=== PATIENT | female | born 1965 | race Caucasian/White ===

== ENCOUNTER 2023-05-03 17:13 | Emergency (ER) | payer MEDICARE, OTHER, SELFPAY ==
[2023-05-03 17:16] VITALS: BP 171/93
[2023-05-03 17:43] LABS: % Basophils 0.1 % (0-2); % Immature Granulocytes 0.5 % (0-0.5); % Lymphocytes 5.9 % (20.5-51.1); % Monocytes 2.9 % (1.7-9.3); % Neutrophils 90.6 % (42.2-75.2); Absolute Lymphocytes 0.5 10^3/uL (1.2-3.4); Absolute Monocytes 0.3 10^3/uL (0.1-0.6); Absolute Neutrophils 7.9 10^3/uL (1.4-6.5); Hematocrit 33.7 % (37.0-47.0); Hemoglobin 10.7 g/dL (12.0-16.0); Mean Corp Hgb Conc. 31.8 g/dL (33.0-37.0); Mean Corpuscular Hgb 25.1 pg (27.0-31.0); Mean Corpuscular Volume 79.1 fL (81.0-99.0); Mean Platelet Volume 9.9 fL (7.4-10.4); Nucleated Red Blood Cells % 0 %; Platelet Count 309 10^3/uL (130-400); Red Blood Cell Count 4.26 10^6/uL (4.20-5.40); Red Cell Dist. Width 15.4 % (11.5-14.5); White Blood Cell Count 8.7 10^3/uL (4.8-10.8)
[2023-05-03 17:51] LABS: ALT (SGPT) 28 U/L (0-35); AST (SGOT) 28 U/L (14-36); Albumin 3.9 g/dl (3.5-5.0); Alkaline Phosphatase 72 U/L (38-126); Blood Urea Nitrogen 18 mg/dl (7-17); Carbon Dioxide 21 mmol/L (22-30); Chloride 101 mmol/L (98-107); Glucose 232 mg/dl (70-99); Potassium 4.4 mmol/L (3.5-5.1); Sodium 136 mmol/L (135-145); Total Bilirubin 0.5 mg/dl (0.2-1.3); Total Protein 6.5 g/dl (6.3-8.2); eGFR > 60.00
[2023-05-03 18:02] LABS: Troponin I < 0.012 ng/ml
--- NOTE | 2023-05-03 18:46 | ED.GENMED ---
History of Present Illness
General
Chief Complaint: Chest Problem
Source: patient
Exam Limitations: none
Time Seen by Provider: 05/03/23 18:08
Travel History
Have you had any contact with someone who has COVID-19?: No
Do you have any symptoms of coronavirus? Fever > 100 degrees, chills, cough, shortness of breath, sore throat, loss of taste or smell, muscle aches, or headache?: No
History of Present Illness
History of Present Illness:
This is a 57 year old female that is frequently seen in the emergency room. Patient comes in today and states that she has had this upper abd/chest bloating feeling and that she feels shaky. States that she just was discharged from [facility] on Sunday
after having an Colonoscopy and Endoscopy. Sates that she was there for 5 days. States that on Sunday she eat out and then she had diarrhea for 2 days. States that she has had a low grade fever yesterday and occasionally she feels SOB. State that
she was also nauseated. denies any chills, chest pain, vomiting, diarrhea, headache, dizziness, urinary burning.
Past History
Past History
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
inflammatory bowel disease,) and Other (Crohn's disease, 'Mass cell activation syndrome', Migraines, Chronic back pain, Hiatal hernia, Renal calculus, Vertigo, factor 8 elevation, ,anemia, Esophageal stretching)
ED Past Surgical History: Cardiac (Loop recorder), Cholecystectomy, Gynecological (Uterine Ablation), Orthopedic (C3-4 spinal fusion, left ear surgery) and Other (Partial right Thyroidectomy )
Social History
Tobacco: Former smoker
Alcohol: None
Drug: None
Personal: (Common Law)
Living: with family
Employment: Disabled
Family History
Family History: Other (Father with coronary artery disease mother with coronary artery disease)
Review of Systems
Review of Systems
All Other Systems: ROS reviewed and negative except as documented in HPI and ROS
Constitutional: Reports fever (low grade); Denies chills
EENT: Reports no symptoms
Respiratory: Reports trouble breathing (Occasional); Denies cough
Cardiac: Reports chest pain
ABD/GI: Reports abdominal pain (Upper abd into chest) and nausea; Denies vomiting or diarrhea
: Reports no symptoms; Denies dysuria, frequency or urgency
Musculoskeletal: Reports no symptoms
Skin: Reports no symptoms
Neurological: Reports no symptoms; Denies dizzy or headache
Psychiatric: Reports no symptoms
Phy Exam
General Physical Exam
General Presentation: well appearing and no apparent distress
General age: appears stated age
General Skin: warm and dry
General Habitus: normal
General Mental: alert
General Hydration: appears well hydrated
ENT Exam
ENT Exam: TM's normal, pharynx normal and neck supple
Eye Exam
Eye Exam: EOMI
Cardiovascular Exam
Cardiovascular Exam: regular rate/rhythm, no edema and normal peripheral pulses
Pulmonary Exam
Pulmonary Exam: lungs clear, no respiratory distress, no rales, chest non tender, no crackles, no rhonchi, no wheezing and no cough
Gastrointestinal Exam
Gastrointestinal Exam: normal bowel sounds, soft, no organomegaly, no pulsatile mass, non distended and tender (epigastric tenderness with palpation)
Musculoskeletal Exam
Musculoskeletal Exam: full ROM and no edema
Skin Exam
Skin Exam: normal color, warm/dry, no rash and no petechia
Psychiatric Exam
Psychiatric Exam: normal mood/affect
Course
Orders/Labs/Results
Orders:
Orders
05/03/23 17:17
Electrocardiogram (*1) Urgent
Reason for Study: Chest Pain
EKG- Treatment ONCE
05/03/23 17:28
Complete Blood Count/With Diff Urgent
Comprehensive Metabolic Panel Urgent
TSH Reflex To Free T4 Urgent
Comment: ADD ON
Troponin I Urgent
05/03/23 18:35
Add On- LAB Urgent
Tests Added?: TSh with reflex Free T4
0.9% Sodium Chloride 1000 ml [Nss] 1,000 ml IV BOLUS
05/03/23 18:52
CR Chest - 2 Views Urgent
Comment:
Reason For Exam: SOB
Abnormal Lab Results
05/03/23
17:28
Hgb 10.7 L g/dL
(12.0-16.0)
Hct 33.7 L %
(37.0-47.0)
MCV 79.1 L fL
(81.0-99.0)
MCH 25.1 L pg
(27.0-31.0)
MCHC 31.8 L g/dL
(33.0-37.0)
RDW 15.4 H %
(11.5-14.5)
Absolute Neuts (auto) 7.9 H 10^3/uL
(1.4-6.5)
Absolute Lymphs (auto) 0.5 L 10^3/uL
(1.2-3.4)
Neutrophils % 90.6 H %
(42.2-75.2)
Lymphocytes % 5.9 L %
(20.5-51.1)
Carbon Dioxide 21 L mmol/L
(22-30)
BUN 18 H mg/dl
(7-17)
Glucose 232 H mg/dl
(70-99)
05/03/23 17:28
05/03/23 17:28
H/H slightly low. Anemic, Slight dehydration. Glucose nonfasting. troponin <0.012
TSH normal at 3.94
Vital Signs
Initial and Last Documented VS:
Initial Vital Signs
Temp Pulse Resp Pulse Ox
99.3 F 95 18 97
05/03/23 17:15 05/03/23 17:15 05/03/23 17:15 05/03/23 17:15
Last Documented Vital Signs
Temp Pulse Resp BP Pulse Ox
99.3 F 95 18 171/93 97
05/03/23 17:15 05/03/23 17:15 05/03/23 17:15 05/03/23 17:16 05/03/23 17:15
MDM/Problems Addressed
Differential Diagnosis Includes:
Munchausen syndrome, Dehydration.
MDM/Problems Addressed:
This is a 57 year old female that comes in with c/o feeling shaking and a bloating feeling in the upper abd and chest. Patient was just discharged from [facility] on Sunday after having a Colonoscopy and Endoscopy.
Will check labs and get chest x-ray IV fluids
back into see patient. Explained that her blood work is normal along with her chest x-ray. Patient can follow up with the family doctor and the billet bed operator. Return with any concerns.
Chronic conditions affecting care:
NA
Acute Exacerbation and/or Progression of Chronic Illness:
GERD
*Radiology
Radiology exam reviewed: preliminary read by ED provider (Chest- negative for active disease)
*Pulse Oximetry
Patient hypoxic: no
*EKG
Interpreted by ED Provider?: Yes
Heart Rate: 90
Rate: normal
Rhythm: sinus
[place]: normal axis
Interval: normal interval
QRS Pattern: normal QRS
Ischemia: T-wave inversion (III, aVF, V1, V2, V3, V4, V5, No significant changes from prior)
*Print Journalist Interpretation
Rate: Print Journalist- N/A
*Critical Care Note
Total Time (30-74mins, 75-104mins- exclusive of procedures): Not Applicable
ED Attending Note
-
Portions of this chart may have been created with voice recognition software.� Occasional wrong word or��sound alike� substitutions may have occurred due to the inherent limitations of voice recognition software.
Discharge Plan
Departure
Patient Disposition: Home (Routine Discharge)
Date of Disposition: 05/03/23
Time of Disposition: 20:14
Patient with high blood pressure during this ER visit?: Yes
Condition: Good
Covid-19: Not Applicable
Discharge Problem:
Dehydration
Instructions: Dehydration, Adult (DC), BLOOD PRESSURE
Prescriptions:
No Action
rabeprazole [AcipHex] 20 MG tablet,delayed release (DR/EC)
20 mg PO BID
atenolol 25 MG tablet
12.5 mg PO DAILY
albuterol sulfate [ProAir HFA] 8.5 GM HFA aerosol inhaler
2 puff inhalation R Q4 PRN (Reason: sob/wheezing)
cholecalciferol (vitamin D3) [Vitamin D3] 2,000 UNIT capsule
3,000 unit PO DAILY
ascorbic acid-ascorbate sodium 500 MG wafer
500 mg PO DAILY
diphenhydramine HCl [Banophen] 25 MG capsule
12.5 mg PO QID
acetaminophen 500 mg Tablet
1,000 mg PO Q6H PRN (Reason: mild pain)
losartan 25 mg Tablet
25 mg PO BID
levothyroxine 25 mcg Tablet
25 mcg PO DAILY
fondaparinux 5 mg/0.4 mL Syringe
5 mg SC Q48H
Vitamin B-6 50 mg Capsule
50 mg PO DAILY
Epi E-Z Pen
1 dose SC DAILY PRN (Reason: allergic reaction)
prednisone 50 mg tablet
5 mg PO DAILY
cefuroxime axetil 250 mg tablet
250 mg PO BID 7 Days Qty: 14 0RF
Activity Restrictions/Additional Instructions:
As discussed, your blood work shows your anemia. You are also very slightly dehydrated for which you have been given IV fluids. Please follow up with the Director Of Enterprise Architecture for evaluation of your Thyroid and your diabetes. IF YOU HAVE ANY OTHER
CONCERNS PLEASE RETURN TO THE EMERGENCY ROOM
[2023-05-03] MEDS: NSS 1000 IV (19:20)
[2023-05-03 20:09] LABS: TSH Reflex To Free T4 3.94 uIU/ml (0.47-4.68)
== END 2023-05-03 20:44 | disposition home or self-care (01) ==
LOC: EMR 17:13
PROVIDERS: Emergency Medicine; EMERGENCY PHYSICIAN Emergency Medicine; FAMILY PHYSICIAN Family Medicine
DX: E86.0 Dehydration (principal); I10 Essential (primary) hypertension
CPT/HCPCS: 99285; 96360; 71046; 80053; 84443; 84484; 85025; 93005

== ENCOUNTER 2023-05-18 17:47 | Emergency (ER) | payer MEDICARE, OTHER, SELFPAY ==
[2023-05-18 17:54] VITALS: BP 171/92
[2023-05-18 18:19] LABS: % Basophils 0.7 % (0-2); % Eosinophils 0.5 % (0-6); % Immature Granulocytes 0.4 % (0-0.5); % Lymphocytes 15.9 % (20.5-51.1); % Neutrophils 74.5 % (42.2-75.2); Absolute Lymphocytes 0.9 10^3/uL (1.2-3.4); Absolute Monocytes 0.5 10^3/uL (0.1-0.6); Absolute Neutrophils 4.2 10^3/uL (1.4-6.5); Hematocrit 30.8 % (37.0-47.0); Hemoglobin 9.8 g/dL (12.0-16.0); Mean Corp Hgb Conc. 31.8 g/dL (33.0-37.0); Mean Corpuscular Hgb 24.3 pg (27.0-31.0); Mean Corpuscular Volume 76.2 fL (81.0-99.0); Mean Platelet Volume 9.7 fL (7.4-10.4); Nucleated Red Blood Cells % 0 %; Platelet Count 278 10^3/uL (130-400); Red Blood Cell Count 4.04 10^6/uL (4.20-5.40); Red Cell Dist. Width 15.7 % (11.5-14.5); White Blood Cell Count 5.6 10^3/uL (4.8-10.8)
[2023-05-18 18:31] LABS: ALT (SGPT) 25 U/L (0-35); AST (SGOT) 25 U/L (14-36); Albumin 3.7 g/dl (3.5-5.0); Alkaline Phosphatase 81 U/L (38-126); Blood Urea Nitrogen 17 mg/dl (7-17); Calcium 9.8 mg/dl (8.4-10.2); Carbon Dioxide 26 mmol/L (22-30); Chloride 99 mmol/L (98-107); Glucose 189 mg/dl (70-99); Potassium 4.1 mmol/L (3.5-5.1); Sodium 135 mmol/L (135-145); Total Bilirubin 0.5 mg/dl (0.2-1.3); Total Protein 6.4 g/dl (6.3-8.2); eGFR > 60.00
[2023-05-18 18:41] LABS: Troponin I < 0.012 ng/ml
[2023-05-18 18:47] LABS: COVID-19 Antigen Negative (Negative)
[2023-05-18 19:26] VITALS: BMI 47.3
[2023-05-18 19:37] VITALS: BP 155/85
[2023-05-18 20:00] VITALS: BP 147/84
--- NOTE | 2023-05-18 20:33 | ED.GENMED ---
History of Present Illness
General
Chief Complaint: Chest Problem
Source: patient
Exam Limitations: none
Time Seen by Provider: 05/18/23 19:48
Nursing documentation reviewed up to this point in time: agreed with
Travel History
Have you had any contact with someone who has COVID-19?: No
Do you have any symptoms of coronavirus? Fever > 100 degrees, chills, cough, shortness of breath, sore throat, loss of taste or smell, muscle aches, or headache?: Yes
Symptoms:: dyspnea
History of Present Illness
History of Present Illness:
The patient is a 57-year-old female with multiple medical problems including asthma and Crohn's disease who comes in with complaints of several days of left-sided chest heaviness and shortness of breath on exertion. Patient reports she had a recent
outpatient x-ray which showed a possible left pleural effusion. She reports her doctor told her to come here for a CAT scan to better see this possible effusion. Patient denies leg pain and leg swelling. She has mild left-sided chest pressure at
this time but this has not changed for days. She denies cough. Patient reports that she has been on months of steroids
Past History
Past History
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
inflammatory bowel disease,) and Other (Crohn's disease, 'Mass cell activation syndrome', Migraines, Chronic back pain, Hiatal hernia, Renal calculus, Vertigo, factor 8 elevation, ,anemia, Esophageal stretching)
ED Past Surgical History: Cardiac (Loop recorder), Cholecystectomy, Gynecological (Uterine Ablation), Orthopedic (C3-4 spinal fusion, left ear surgery) and Other (Partial right Thyroidectomy )
Social History
Tobacco: Former smoker
Alcohol: None
Drug: None
Personal: (Common Law)
Living: with family
Employment: Disabled
Family History
Family History: Other (Father with coronary artery disease mother with coronary artery disease)
Review of Systems
Review of Systems
Allergies reviewed?: Yes
All Other Systems: ROS reviewed and negative except as documented in HPI and ROS
Constitutional: Reports no symptoms
EENT: Reports no symptoms
Respiratory: Reports trouble breathing
Cardiac: Reports chest pain
ABD/GI: Reports no symptoms
: Reports no symptoms
Musculoskeletal: Reports no symptoms
Skin: Reports no symptoms
Neurological: Reports no symptoms
Endocrine: Reports no symptoms
Hematologic/Lymphatic: Reports no symptoms
Psychiatric: Reports no symptoms
Phy Exam
Physical Exam
Physical Exam:
Physical Exam
General: no apparent distress, not acutely ill. Speaks in full sentences. No sign of respiratory distress
Neck: supple. no meningeal signs. normal psoterior pharynx
Heart: s1/s2 regular rate and rhythm,
Lungs: no acute respiratory distress. clear bilaterally
Abdomen: normal bowel sounds. not tender. no CVAT
Neuro: alert and oriented. no focal neurological deficits
Skin: no rash
Psychiatric: well kept. interactive and cooperative
Extremities: no edema. no calf tenderness. negative homans. good distal pulses
Course
Orders/Labs/Results
Orders:
Orders
05/18/23 17:52
CR Chest - 2 Views Urgent
Comment:
Reason For Exam: Dyspnea: Abnormal finding on shoulder XRay
05/18/23 17:54
ECG [Electrocardiogram (*1)] Urgent
Reason for Study: Chest Pain
Other Reason for Exam: dyspnea
EKG- Treatment ONCE
05/18/23 18:04
Complete Blood Count/With Diff Urgent
Comprehensive Metabolic Panel Urgent
Troponin I Urgent
05/18/23 18:09
COVID-19 Antigen Urgent
Source: Nasal Swab
Influenza A+B Rapid Molecular Urgent
[place] Source: Nasal Swab
Specimen Description:
05/18/23 21:11
D-Dimer Urgent
05/18/23 21:50
CT Chest W/o Iv Contrast Urgent
Comment:
Reason For Exam: SOB
Abnormal Lab Results
05/18/23
18:04
RBC 4.04 L 10^6/uL
(4.20-5.40)
Hgb 9.8 L g/dL
(12.0-16.0)
Hct 30.8 L %
(37.0-47.0)
MCV 76.2 L fL
(81.0-99.0)
MCH 24.3 L pg
(27.0-31.0)
MCHC 31.8 L g/dL
(33.0-37.0)
RDW 15.7 H %
(11.5-14.5)
Absolute Lymphs (auto) 0.9 L 10^3/uL
(1.2-3.4)
Lymphocytes % 15.9 L %
(20.5-51.1)
Glucose 189 H mg/dl
(70-99)
05/18/23 18:04
05/18/23 18:04
Vital Signs
Initial and Last Documented VS:
Initial Vital Signs
Temp Pulse Resp BP Pulse Ox
99.2 F 92 16 171/92 97
05/18/23 17:54 05/18/23 17:54 05/18/23 17:54 05/18/23 17:54 05/18/23 17:54
Last Documented Vital Signs
Temp Pulse Resp BP Pulse Ox
99.2 F 88 16 155/85 96
05/18/23 17:54 05/18/23 19:37 05/18/23 19:37 05/18/23 19:37 05/18/23 19:37
MDM/Problems Addressed
Differential Diagnosis Includes:
Pleural effusion, pneumonia, CHF, coronary artery disease, PE, asthma exacerbation
MDM/Problems Addressed:
Patient arrives with acute shortness of breath
Chronic conditions affecting care: HTN
Acute Exacerbation and/or Progression of Chronic Illness: HTN
*Radiology
Radiology exam reviewed: preliminary read by ED provider (Chest x-ray reviewed by me. No acute disease) and radiology read reviewed
*Pulse Oximetry
Patient hypoxic: no
*EKG
Interpreted by ED Provider?: Yes
Interpretation: abnormal
Comparison EKG: no changes
Rate: normal
Rhythm: sinus
[place]: normal axis
Interval: normal interval
QRS Pattern: normal QRS
Ischemia: T-wave inversion
*Multimedia Project Manager Interpretation
Rate: normal
Interpretation: normal
Rhythm: sinus
*Critical Care Note
Total Time (30-74mins, 75-104mins- exclusive of procedures): Not Applicable
Data Reviewed
Review of Other/Old Records Reveals: Other (Cardiac echo normal from 2020)
Source: patient
Patient Management
Social determinants of health affecting care: Living situation and Strong social support
Escalation/DeEscalation of care consider admission/obs:
Patient continues to look well and comfortable. She is a normal pulse ox and is not tachypneic or tachycardic. Her lungs are clear.
ED Attending Note
-
Portions of this chart may have been created with voice recognition software.� Occasional wrong word or��sound alike� substitutions may have occurred due to the inherent limitations of voice recognition software.
Discharge Plan
Departure
Patient Disposition: Home (Routine Discharge)
Date of Disposition: 05/18/23
Time of Disposition: 23:18
Patient with high blood pressure during this ER visit?: Yes
Condition: Good
Covid-19: Not Applicable
Discharge Problem:
Acute dyspnea
Instructions: Shortness of Breath, Adult ED, BLOOD PRESSURE
Prescriptions:
No Action
rabeprazole [AcipHex] 20 MG tablet,delayed release (DR/EC)
20 mg PO BID
atenolol 25 MG tablet
12.5 mg PO DAILY
albuterol sulfate [ProAir HFA] 8.5 GM HFA aerosol inhaler
2 puff inhalation R Q4 PRN (Reason: sob/wheezing)
cholecalciferol (vitamin D3) [Vitamin D3] 2,000 UNIT capsule
3,000 unit PO DAILY
ascorbic acid-ascorbate sodium 500 MG wafer
500 mg PO DAILY
diphenhydramine HCl [Banophen] 25 MG capsule
12.5 mg PO QID
acetaminophen 500 mg Tablet
1,000 mg PO Q6H PRN (Reason: mild pain)
losartan 25 mg Tablet
25 mg PO BID
levothyroxine 25 mcg Tablet
25 mcg PO DAILY
fondaparinux 5 mg/0.4 mL Syringe
5 mg SC Q48H
Vitamin B-6 50 mg Capsule
50 mg PO DAILY
Epi E-Z Pen
1 dose SC DAILY PRN (Reason: allergic reaction)
prednisone 50 mg tablet
5 mg PO DAILY
cefuroxime axetil 250 mg tablet
250 mg PO BID 7 Days Qty: 14 0RF
Referrals:
Jeane Mercado MD [Family Provider] -
Interventions
Interventions:
*Risk Screen - Suicide Last Done: 05/18/23 19:31
*General Assessment Last Done: 05/18/23 19:31
*Neglect/Abuse Screening Last Done: 05/18/23 19:31
ED- Fall Risk Assessment Last Done: 05/18/23 19:32
*ED COVID-19 Vaccine History Last Done: 05/18/23 19:31
ED- Cardiac Assessment Last Done: 05/18/23 19:32
ED- Pulmonary Assessment Last Done: 05/18/23 19:32
[2023-05-18 21:00] VITALS: BP 149/87
[2023-05-18 21:42] LABS: D-Dimer < 0.27 ug/mlFEU (0.00-0.50)
[2023-05-18 22:00] VITALS: BP 141/84
[2023-05-18 23:26] VITALS: BP 142/90
== END 2023-05-18 23:44 | disposition home or self-care (01) ==
LOC: EMR 17:47
PROVIDERS: Emergency Medicine; EMERGENCY PHYSICIAN Emergency Medicine; FAMILY PHYSICIAN Family Medicine
DX: R06.00 Dyspnea, unspecified (principal); R07.89 Other chest pain; Z11.52 Encounter for screening for COVID-19; K50.90 Crohn's disease, unspecified, without complications; K21.9 Gastro-esophageal reflux disease without esophagitis; E78.00 Pure hypercholesterolemia, unspecified; E11.9 Type 2 diabetes mellitus without complications; I10 Essential (primary) hypertension; E03.9 Hypothyroidism, unspecified; F41.9 Anxiety disorder, unspecified; K58.9 Irritable bowel syndrome, unspecified; J45.909 Unspecified asthma, uncomplicated; D64.9 Anemia, unspecified; K44.9 Diaphragmatic hernia without obstruction or gangrene; G43.909 Migraine, unspecified, not intractable, without status migrainosus; G89.29 Other chronic pain; Z90.49 Acquired absence of other specified parts of digestive tract; M43.22 Fusion of spine, cervical region; Z86.73 Personal history of transient ischemic attack (TIA), and cerebral infarction without residual deficits; Z86.16 Personal history of COVID-19; Z87.442 Personal history of urinary calculi; Z87.891 Personal history of nicotine dependence; Z88.6 Allergy status to analgesic agent; Z88.1 Allergy status to other antibiotic agents; Z91.041 Radiographic dye allergy status; Z88.5 Allergy status to narcotic agent; Z88.2 Allergy status to sulfonamides; Z88.8 Allergy status to other drugs, medicaments and biological substances; Z91.018 Allergy to other foods; Z91.048 Other nonmedicinal substance allergy status
CPT/HCPCS: 99284; 71046; 71250; 80053; 84484; 85025; 85379; 87502; 87811; 93005

== ENCOUNTER 2023-06-02 15:19 | Emergency (ER) | payer MEDICARE, OTHER, SELFPAY ==
[2023-06-02 15:24] VITALS: BP 157/95
--- NOTE | 2023-06-02 17:38 | ED.GENMED ---
History of Present Illness
General
Chief Complaint: Abdominal Symptoms
Source: patient
Exam Limitations: none
Time Seen by Provider: 06/02/23 17:23
Nursing documentation reviewed up to this point in time: agreed with
Travel History
Have you had any contact with someone who has COVID-19?: No
Do you have any symptoms of coronavirus? Fever > 100 degrees, chills, cough, shortness of breath, sore throat, loss of taste or smell, muscle aches, or headache?: No
History of Present Illness
History of Present Illness:
57 yo female presents to the emergency department c/o dizziness, ear pain, fever 101. She had a Skyrizi injection this week. She also follows with Dr. Gudino, for asthma. Is a history of cerebellar stroke and a left-sided lacunar infarct.
Past History
Past History
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
inflammatory bowel disease,) and Other (Crohn's disease, 'Mass cell activation syndrome', Migraines, Chronic back pain, Hiatal hernia, Renal calculus, Vertigo, factor 8 elevation, ,anemia, Esophageal stretching)
ED Past Surgical History: Cardiac (Loop recorder), Cholecystectomy, Gynecological (Uterine Ablation), Orthopedic (C3-4 spinal fusion, left ear surgery) and Other (Partial right Thyroidectomy )
Social History
Tobacco: Former smoker
Alcohol: None
Drug: None
Personal: (Common Law)
Living: with family
Employment: Disabled
Family History
Family History: Other (Father with coronary artery disease mother with coronary artery disease)
Review of Systems
Review of Systems
Allergies reviewed?: Yes
All Other Systems: Not applicable
Constitutional: Reports fever
EENT: Reports runny nose
Respiratory: Reports cough
Cardiac: Reports no symptoms
ABD/GI: Reports nausea
: Reports no symptoms
Musculoskeletal: Reports no symptoms
Skin: Reports no symptoms
Neurological: Reports dizzy
Endocrine: Reports no symptoms
Hematologic/Lymphatic: Reports no symptoms
Psychiatric: Reports no symptoms
Phy Exam
Physical Exam
Physical Exam:
Physical Exam
General: no apparent distress, not acutely ill
Neck: supple. no meningeal signs. normal posterior pharynx
Heart: s1/s2 regular rate and rhythm, no murmur. equal radial
pulses.
HEENT: Pupils equal round reactive to light, EOMI
Lungs: no acute respiratory distress. clear bilaterally
Abdomen: normal bowel sounds. not tender. no CVAT
Neuro: alert and oriented. no focal neurological deficits cranial nerves II through XII intact
Skin: no rash
Psychiatric: well kept. interactive and cooperative
Extremities: no edema. no calf tenderness. negative homans. good distal pulses
Course
Orders/Labs/Results
Orders:
Orders
06/02/23 17:35
IV Insert/Care/Rem.- Treatment PRN
CR Chest - 2 Views Urgent
Comment:
Reason For Exam: fever, cough
06/02/23 17:36
CT Head W/o Iv Contrast Urgent
Comment:
Reason For Exam: dizzy, headache
06/02/23 17:37
Electrocardiogram (*1) Urgent
Reason for Study: Other
Other Reason for Exam: dr. michael placed order
EKG- Treatment ONCE
06/02/23 18:45
COVID-19 Antigen Urgent
Source: Nasal Swab
Complete Blood Count/With Diff Urgent
Comprehensive Metabolic Panel Urgent
Influenza A+B Rapid Molecular Urgent
[place] Source: Nasal Swab
Specimen Description:
06/02/23 19:59
Urinalysis Reflex To Culture Urgent
Date Specimen was Collected: 06/02/23
Time Specimen was Collected: 19:58
Urine Microscopic Reflex Cult Urgent
06/02/23 21:10
Add On- LAB Urgent
Tests Added?: tsh w/reflex t4
Abnormal Lab Results
06/02/23 06/02/23
18:45 19:59
RBC 4.03 L 10^6/uL
(4.20-5.40)
Hgb 9.7 L g/dL
(12.0-16.0)
Hct 30.0 L %
(37.0-47.0)
MCV 74.4 L fL
(81.0-99.0)
MCH 24.1 L pg
(27.0-31.0)
MCHC 32.3 L g/dL
(33.0-37.0)
RDW 15.9 H %
(11.5-14.5)
Absolute Lymphs (auto) 1.0 L 10^3/uL
(1.2-3.4)
Neutrophils % 77.1 H %
(42.2-75.2)
Lymphocytes % 13.1 L %
(20.5-51.1)
Glucose 152 H mg/dl
(70-99)
Leukocyte Esterase Rfl Trace A
(Negative)
Urine Bacteria (Reflex) Few A
(Negative)
06/02/23 18:45
06/02/23 18:45
Vital Signs
Initial and Last Documented VS:
Initial Vital Signs
Temp Pulse Resp BP Pulse Ox
98.4 F 82 16 157/95 96
06/02/23 15:24 06/02/23 15:24 06/02/23 15:24 06/02/23 15:24 06/02/23 15:24
Last Documented Vital Signs
Temp Pulse Resp BP Pulse Ox
98.4 F 82 16 143/76 97
06/02/23 15:24 06/02/23 15:24 06/02/23 15:24 06/02/23 20:00 06/02/23 20:00
MDM/Problems Addressed
Differential Diagnosis Includes:
CVA, medication reaction, mast cell reaction, viral syndrome
MDM/Problems Addressed:
57-year-old female with dizziness, likely viral syndrome. No neurologic deficits. Discussed with patient about admitting versus going home, she does elect to go home. She will return if her symptoms worsen.
Chronic conditions affecting care: HTN, Asthma and Other (Crohn's, hypothyroid)
Acute Exacerbation and/or Progression of Chronic Illness: HTN, Asthma and Other (Hypothyroid)
*Radiology
Radiology exam reviewed: radiology read reviewed (CT head no acute findings, chest x-ray no acute findings)
*Pulse Oximetry
Patient hypoxic: no
*EKG
Interpreted by ED Provider?: Yes
EKG Intrepretation Date: 06/02/23
EKG Intrepretation Time: 18:46
Interpretation: abnormal
Comparison EKG: no changes
Heart Rate: 73
Rate: normal
Rhythm: sinus
[place]: normal axis
Interval: normal interval
QRS Pattern: normal QRS
Ischemia: non-specific ST changes
*Wire Sawyer Interpretation
Rate: normal
Interpretation: normal
Heart Rate: 70
Rhythm: sinus
*Critical Care Note
Total Time (30-74mins, 75-104mins- exclusive of procedures): Not Applicable
Patient Management
Social determinants of health affecting care: Living situation and Strong social support
Escalation/DeEscalation of care consider admission/obs:
Admit not indicated
ED Attending Note
-
Portions of this chart may have been created with voice recognition software.� Occasional wrong word or��sound alike� substitutions may have occurred due to the inherent limitations of voice recognition software.
Discharge Plan
Departure
Patient Disposition: Home (Routine Discharge)
Date of Disposition: 06/02/23
Time of Disposition: 21:07
Patient with high blood pressure during this ER visit?: Yes
Condition: Good
Discharge Problem:
Dizziness, Nausea
Instructions: Nausea and Vomiting, Adult (DC), Dizziness, Adult ED
Prescriptions:
No Action
rabeprazole [AcipHex] 20 MG tablet,delayed release (DR/EC)
20 mg PO BID
atenolol 25 MG tablet
12.5 mg PO DAILY
albuterol sulfate [ProAir HFA] 8.5 GM HFA aerosol inhaler
2 puff inhalation R Q4 PRN (Reason: sob/wheezing)
cholecalciferol (vitamin D3) [Vitamin D3] 2,000 UNIT capsule
3,000 unit PO DAILY
ascorbic acid-ascorbate sodium 500 MG wafer
500 mg PO DAILY
diphenhydramine HCl [Banophen] 25 MG capsule
12.5 mg PO QID
acetaminophen 500 mg Tablet
1,000 mg PO Q6H PRN (Reason: mild pain)
losartan 25 mg Tablet
25 mg PO BID
levothyroxine 25 mcg Tablet
25 mcg PO DAILY
fondaparinux 5 mg/0.4 mL Syringe
5 mg SC Q48H
Vitamin B-6 50 mg Capsule
50 mg PO DAILY
Epi E-Z Pen
1 dose SC DAILY PRN (Reason: allergic reaction)
prednisone 50 mg tablet
5 mg PO DAILY
cefuroxime axetil 250 mg tablet
250 mg PO BID 7 Days Qty: 14 0RF
Referrals:
Whitney George MD [Family Provider] - Call in 1-3 days for appt
Interventions
Interventions:
*Risk Screen - Suicide Last Done: 06/02/23 18:38
*General Assessment Last Done: 06/02/23 18:38
*Neglect/Abuse Screening Last Done: 06/02/23 18:38
*ED COVID-19 Vaccine History Last Done: 06/02/23 15:24
YV-Jhsjaw-Rzxavxmbqs Assessment Last Done: 06/02/23 18:38
[2023-06-02 18:38] VITALS: BMI 46.5
[2023-06-02 18:42] VITALS: BP 138/82
[2023-06-02 19:00] VITALS: BP 143/85
[2023-06-02 19:07] LABS: % Immature Granulocytes 0.5 % (0-0.5); % Lymphocytes 13.1 % (20.5-51.1); % Monocytes 6.3 % (1.7-9.3); % Neutrophils 77.1 % (42.2-75.2); Absolute Basophils 0.1 10^3/uL (0-0.2); Absolute Eosinophils 0.2 10^3/uL (0-0.7); Absolute Monocytes 0.5 10^3/uL (0.1-0.6); Absolute Neutrophils 5.7 10^3/uL (1.4-6.5); Hemoglobin 9.7 g/dL (12.0-16.0); Mean Corp Hgb Conc. 32.3 g/dL (33.0-37.0); Mean Corpuscular Hgb 24.1 pg (27.0-31.0); Mean Corpuscular Volume 74.4 fL (81.0-99.0); Mean Platelet Volume 9.6 fL (7.4-10.4); Nucleated Red Blood Cells % 0 %; Platelet Count 309 10^3/uL (130-400); Red Blood Cell Count 4.03 10^6/uL (4.20-5.40); Red Cell Dist. Width 15.9 % (11.5-14.5); White Blood Cell Count 7.3 10^3/uL (4.8-10.8)
[2023-06-02 19:19] LABS: ALT (SGPT) 20 U/L (0-35); AST (SGOT) 30 U/L (14-36); Albumin 3.9 g/dl (3.5-5.0); Alkaline Phosphatase 84 U/L (38-126); Blood Urea Nitrogen 11 mg/dl (7-17); Calcium 9.2 mg/dl (8.4-10.2); Carbon Dioxide 26 mmol/L (22-30); Chloride 104 mmol/L (98-107); Estimated Creatinine Clearance 59 ml/min; Glucose 152 mg/dl (70-99); Potassium 4.1 mmol/L (3.5-5.1); Sodium 135 mmol/L (135-145); Total Bilirubin 0.6 mg/dl (0.2-1.3); Total Protein 6.9 g/dl (6.3-8.2); eGFR > 60.00
[2023-06-02 19:23] LABS: COVID-19 Antigen Negative (Negative)
[2023-06-02 20:00] VITALS: BP 143/76
[2023-06-02 20:21] LABS: Urine Albumin Negative (Neg - Trace); Urine Bilirubin Negative (Negative); Urine Character Clear (Clear); Urine Color Straw; Urine Glucose Negative (Negative); Urine Ketone Negative (Negative); Urine Leukocyte Trace (Negative); Urine Nitrite Negative (Negative); Urine Occult Blood Negative (Negative); Urine Urobilinogen Negative (Neg - 1+); Urine pH 6.5 (5.0-9.0)
[2023-06-02 20:32] LABS: Urine Bacteria Few (Negative); Urine Red Blood Cell 0-2 /HPF (0-2); Urine White Cell 0-2 /HPF (0-5)
[2023-06-02 21:00] VITALS: BP 134/88
== END 2023-06-02 22:35 | disposition home or self-care (01) ==
LOC: EMR 15:19
PROVIDERS: EMERGENCY PHYSICIAN Emergency Medicine; FAMILY PHYSICIAN Family Medicine
DX: R42 Dizziness and giddiness (principal); R11.0 Nausea; R50.9 Fever, unspecified; R05.9 Cough, unspecified; R09.89 Other specified symptoms and signs involving the circulatory and respiratory systems; H92.09 Otalgia, unspecified ear; Z11.52 Encounter for screening for COVID-19; I10 Essential (primary) hypertension; J45.909 Unspecified asthma, uncomplicated; K50.90 Crohn's disease, unspecified, without complications; E03.9 Hypothyroidism, unspecified; K21.9 Gastro-esophageal reflux disease without esophagitis; E78.00 Pure hypercholesterolemia, unspecified; E11.9 Type 2 diabetes mellitus without complications; G89.29 Other chronic pain; K58.9 Irritable bowel syndrome, unspecified; K44.9 Diaphragmatic hernia without obstruction or gangrene; G43.909 Migraine, unspecified, not intractable, without status migrainosus; D64.9 Anemia, unspecified; M54.9 Dorsalgia, unspecified; M43.22 Fusion of spine, cervical region; Z86.73 Personal history of transient ischemic attack (TIA), and cerebral infarction without residual deficits; Z87.442 Personal history of urinary calculi; Z87.891 Personal history of nicotine dependence; Z86.16 Personal history of COVID-19; Z90.49 Acquired absence of other specified parts of digestive tract; Z88.6 Allergy status to analgesic agent; Z88.1 Allergy status to other antibiotic agents; Z91.041 Radiographic dye allergy status; Z88.5 Allergy status to narcotic agent; Z88.2 Allergy status to sulfonamides; Z88.8 Allergy status to other drugs, medicaments and biological substances; Z91.018 Allergy to other foods; Z91.048 Other nonmedicinal substance allergy status
CPT/HCPCS: 99285; 70450; 71046; 80053; 81003; 81015; 84439; 84443; 85025; 87502; 87811; 93005

== ENCOUNTER 2023-06-14 11:51 | Emergency (ER) | payer MEDICARE, OTHER, SELFPAY ==
[2023-06-14 12:03] VITALS: BP 189/107
[2023-06-14 12:39] LABS: % Basophils 1.2 % (0-2); % Immature Granulocytes 0.3 % (0-0.5); % Lymphocytes 17.8 % (20.5-51.1); % Monocytes 9.3 % (1.7-9.3); % Neutrophils 66.4 % (42.2-75.2); Absolute Basophils 0.1 10^3/uL (0-0.2); Absolute Eosinophils 0.3 10^3/uL (0-0.7); Absolute Monocytes 0.5 10^3/uL (0.1-0.6); Absolute Neutrophils 3.8 10^3/uL (1.4-6.5); Hematocrit 30.7 % (37.0-47.0); Hemoglobin 9.6 g/dL (12.0-16.0); Mean Corp Hgb Conc. 31.3 g/dL (33.0-37.0); Mean Corpuscular Hgb 23.6 pg (27.0-31.0); Mean Corpuscular Volume 75.4 fL (81.0-99.0); Mean Platelet Volume 9.9 fL (7.4-10.4); Nucleated Red Blood Cells % 0 %; Platelet Count 308 10^3/uL (130-400); Red Blood Cell Count 4.07 10^6/uL (4.20-5.40); Red Cell Dist. Width 15.9 % (11.5-14.5); White Blood Cell Count 5.8 10^3/uL (4.8-10.8)
[2023-06-14 12:48] LABS: COVID-19 Antigen Negative (Negative)
[2023-06-14 13:23] LABS: ALT (SGPT) 18 U/L (0-35); AST (SGOT) 25 U/L (14-36); Albumin 3.8 g/dl (3.5-5.0); Alkaline Phosphatase 97 U/L (38-126); Blood Urea Nitrogen 12 mg/dl (7-17); Calcium 9.7 mg/dl (8.4-10.2); Carbon Dioxide 26 mmol/L (22-30); Chloride 103 mmol/L (98-107); Glucose 160 mg/dl (70-99); Sodium 136 mmol/L (135-145); Total Bilirubin 0.5 mg/dl (0.2-1.3); Total Protein 6.7 g/dl (6.3-8.2); eGFR > 60.00
[2023-06-14 13:43] VITALS: BP 152/75
[2023-06-14] MEDS: TYLENOL 1000 MG PO (14:23)
[2023-06-14 14:36] LABS: Lactic Acid 2.8 mmol/L (0.7-2.0)
--- NOTE | 2023-06-14 15:18 | ED.GENMED ---
History of Present Illness
General
Chief Complaint: Fever
Source: patient
Exam Limitations: none
Time Seen by Provider: 06/14/23 13:19
Nursing documentation reviewed up to this point in time: agreed with
Travel History
Have you had any contact with someone who has COVID-19?: No
Do you have any symptoms of coronavirus? Fever > 100 degrees, chills, cough, shortness of breath, sore throat, loss of taste or smell, muscle aches, or headache?: Yes
Symptoms:: muscle aches
History of Present Illness
History of Present Illness:
57 y/o F with h/o crohns disease on immunosuppressant injection
mast cell stabilization syndrome
Here with generalized bodyaches and low-grade temperature since yesterday. She says her daughter and son-in-law whom she has been in close contact with both tested positive for influenza A. Patient is presume that that is what she had but then
when she woke up this morning she had swelling and pain and redness on the dorsum of her right hand. She does recall she has small lumps there few days ago and was not sure what it was from. She does not recall getting bit. It was not itchy. She
had does not have a cat. She was unaware of any tick bites but has had a few bug bites on her left arm a few weeks ago which are resolving.
Patient says she has pain with movement of her hand but is able to move her fingers and wrist fully. She has never had gout. She denies any chest pain or shortness of breath, vomiting or diarrhea new from her baseline Crohn's symptoms which cause
her to have frequent stooling. She has not had any bloody diarrhea recently.
She denies a cough and a sore throat. Her body aches are mostly in her shoulders and upper arms. Patient does take an injection of a low molecular weight heparin daily. She does not believe she has missed any doses
Past History
Past History
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
inflammatory bowel disease,) and Other (Crohn's disease, 'Mass cell activation syndrome', Migraines, Chronic back pain, Hiatal hernia, Renal calculus, Vertigo, factor 8 elevation, ,anemia, Esophageal stretching)
ED Past Surgical History: Cardiac (Loop recorder), Cholecystectomy, Gynecological (Uterine Ablation), Orthopedic (C3-4 spinal fusion, left ear surgery) and Other (Partial right Thyroidectomy )
Social History
Tobacco: Former smoker
Alcohol: None
Drug: None
Personal: (Common Law)
Living: with family
Employment: Disabled
Family History
Family History: Other (Father with coronary artery disease mother with coronary artery disease)
Review of Systems
Review of Systems
Allergies reviewed?: Yes
All Other Systems: Not applicable
Phy Exam
Physical Exam
Physical Exam:
GENERAL: Alert , in no apparent distress nontoxic and well-appearing
EYE: pupils equal and reactive
NECK: Supple, no meningismus
ENT: o/p clr, mmm.
CARDIAC: Regular rate and rhythm .
LUNGS: Clear breath sounds bilaterally, no acute respiratory distress, no wheezes/rales/rhonchi
ABDOMEN: Soft, without focal tenderness, no r/g, no cvat, normal bowel sounds
NEUROLOGICAL: Alert and oriented, no focal neuro deficits
SKIN: Warm and dry, skin intact.
MUSCULOSKELETAL: Right hand soft tissue swelling on the dorsum proximal of the MCPs and distal to the wrist. There is mild tenderness but generalized warmth. She has full range of motion of her fingers and wrist. There is no extension up her arm,
she has no upper arm swelling or tenderness on exam.
PSYCH: Normal and appropriate interaction.
Course
Orders/Labs/Results
Orders:
Orders
06/14/23 12:14
CBC/With Diff [Complete Blood Count/With Diff] Urgent
COVID-19 Antigen Urgent
Source: Nasal Swab
Comprehensive Metabolic Panel Urgent
Lyme Progressive Urgent
Monotest Urgent
Comment: ADD ON
Influenza A+B Rapid Molecular Urgent
CARINA Source: Nasal Swab
Specimen Description:
06/14/23 14:02
Add On- LAB Urgent
Tests Added?: lyme progressive, mono
CR Hand - Right Min 3 Views Urgent
Comment:
Reason For Exam: right hand swelling and pain
Venous Doppler Upr Ext Right [US Periph Venous UPPER Ext RT] Urgent
Comment:
Reason For Exam: right upper arm pain
06/14/23 14:03
Acetaminophen [Tylenol] 1,000 mg PO NOW STA
06/14/23 14:18
Lactic Acid Q4H
Comment: CANCEL 2nd LACTIC ACID IF 1st LACTIC ACID IS LESS THAN 2
Blood Culture Q30M
CARINA Source: Blood/Venous
Specimen Description:
06/14/23 15:09
0.9% Sodium Chloride 1000 ml [Nss] 1,000 ml IV BOLUS
06/14/23 15:10
Blood Culture Q30M
CARINA Source: Blood/Venous
Specimen Description:
06/14/23 17:40
Cefuroxime Axetil [Ceftin] 500 mg PO NOW STA
Abnormal Lab Results
06/14/23 06/14/23
12:14 14:18
RBC 4.07 L 10^6/uL
(4.20-5.40)
Hgb 9.6 L g/dL
(12.0-16.0)
Hct 30.7 L %
(37.0-47.0)
MCV 75.4 L fL
(81.0-99.0)
MCH 23.6 L pg
(27.0-31.0)
MCHC 31.3 L g/dL
(33.0-37.0)
RDW 15.9 H %
(11.5-14.5)
Absolute Lymphs (auto) 1.0 L 10^3/uL
(1.2-3.4)
Lymphocytes % 17.8 L %
(20.5-51.1)
Glucose 160 H mg/dl
(70-99)
Lactic Acid 2.8 H mmol/L
(0.7-2.0)
06/14/23 12:14
06/14/23 12:14
Vital Signs
Initial and Last Documented VS:
Initial Vital Signs
Temp Pulse Resp BP Pulse Ox
98.6 F 84 18 189/107 94
06/14/23 12:03 06/14/23 12:03 06/14/23 12:03 06/14/23 12:03 06/14/23 12:03
Last Documented Vital Signs
Temp Pulse Resp BP Pulse Ox
98.6 F 82 18 152/75 97
06/14/23 12:03 06/14/23 13:43 06/14/23 13:43 06/14/23 13:43 06/14/23 13:43
MDM/Problems Addressed
Differential Diagnosis Includes:
Cellulitis, contusion, DVT, Lyme disease
MDM/Problems Addressed:
[age]-year-old female with a history of immunocompromise state due to Crohn's disease on chronic steroids presents for fever, body aches and hand swelling and redness since yesterday. Patient says that hand discomfort and swelling started today but
she started feeling achy yesterday with a low-grade temperature. She presumed to have influenza as her family members also tested positive. She has not had a cough or sore throat. Patient does not recall getting bit or scratched on her hand but
did have a small lump there prior to the redness worsening today. She has not had any trauma. There is no chest pain or shortness of breath. She is anticoagulated but was concerned for a blood clot. She has no history of gout
Her hand swelling appears like it could be either an arthritis or an early cellulitis. She does have range of motion of the joints distal and proximally, I do not suspect septic arthritis but given her immunocompromise state I feel that she should
be on antibiotics. Unfortunately the patient gave me a list of probably 50 medications that she cannot tolerate due to her mast cell activation syndrome. It appears that she has tolerated cefuroxime in the past, patient does not recall any
specific side effects. And she is willing to try this. I recommended splinting the hand but because of how much stooling she does daily she would prefer a wrist splint. Will have her apply the wrist splint for immobilization, recommend warm
compresses and close observation, if worsening please patient should return. Her flu and COVID were negative. She had no signs of DVT and her x-ray showed no gas
*Critical Care Note
Total Time (30-74mins, 75-104mins- exclusive of procedures): Not Applicable
ED Attending Note
-
Portions of this chart may have been created with voice recognition software.� Occasional wrong word or��sound alike� substitutions may have occurred due to the inherent limitations of voice recognition software.
Discharge Plan
Departure
Patient Disposition: Home (Routine Discharge)
Date of Disposition: 06/14/23
Time of Disposition: 17:41
Patient with high blood pressure during this ER visit?: No
Condition: Fair
Covid-19: Not Applicable
Discharge Problem:
Cyst in hand, Cellulitis of hand
Instructions: Cellulitis (Skin Infection), Adult (DC)
Prescriptions:
New
cefuroxime axetil 500 mg tablet
500 mg PO BID Qty: 20 0RF
No Action
rabeprazole [AcipHex] 20 MG tablet,delayed release (DR/EC)
20 mg PO BID
atenolol 25 MG tablet
12.5 mg PO DAILY
albuterol sulfate [ProAir HFA] 8.5 GM HFA aerosol inhaler
2 puff inhalation R Q4 PRN (Reason: sob/wheezing)
cholecalciferol (vitamin D3) [Vitamin D3] 2,000 UNIT capsule
3,000 unit PO DAILY
ascorbic acid-ascorbate sodium 500 MG wafer
500 mg PO DAILY
diphenhydramine HCl [Banophen] 25 MG capsule
12.5 mg PO QID
acetaminophen 500 mg Tablet
1,000 mg PO Q6H PRN (Reason: mild pain)
losartan 25 mg Tablet
25 mg PO BID
levothyroxine 25 mcg Tablet
25 mcg PO DAILY
fondaparinux 5 mg/0.4 mL Syringe
5 mg SC Q48H
Vitamin B-6 50 mg Capsule
50 mg PO DAILY
prednisone 50 mg tablet
5 mg PO DAILY
Referrals:
Aroldo Parisi MD [Active] - Follow up in 5-7 days
Jeane Mercado MD [Family Provider] -
Activity Restrictions/Additional Instructions:
Your hand swelling and redness could be from an infected cyst. The ultrasound did show a cyst in the soft tissue and you had some redness. You can apply warm compresses to your hand off-and-on. Then reapply the wrist splint to keep it immobilized
for the next couple of days. Take Ceftin twice a day for 10 days for cellulitis.
You should watch the redness very closely and if it extends up your arm or you have worse pain with your wrist or hand movement, high fevers you should return to the ER immediately. Otherwise he can follow-up with the hand doctor.
Interventions
Interventions:
*Risk Screen - Suicide Last Done: 06/14/23 12:06
*General Assessment Last Done: 06/14/23 12:06
*Neglect/Abuse Screening Last Done: 06/14/23 12:06
ED- Fall Risk Assessment Last Done: 06/14/23 18:37
*Nursing Disposition Last Done: 06/14/23 18:37
ED-Musculoskeletal Assessment Last Done: 06/14/23 13:42
ED- Neurological Assessment Last Done: 06/14/23 13:42
ED-Skin Assessment Last Done: 06/14/23 13:42
Discharge Date and Time
Discharge Date/Time: 06/14/23 18:38
[2023-06-14] MEDS: NSS 1000 IV (15:20)
[2023-06-14 16:17] LABS: Monotest Negative (Negative)
[2023-06-18 14:15] LABS: Lyme Antibody Screen, EIA Negative (Negative)
== END 2023-06-14 18:38 | disposition home or self-care (01) ==
LOC: EMR 11:51
PROVIDERS: Emergency Medicine; Physician Assistant; EMERGENCY PHYSICIAN Emergency Medicine; FAMILY PHYSICIAN Family Medicine
DX: L03.113 Cellulitis of right upper limb (principal); J45.909 Unspecified asthma, uncomplicated; K21.9 Gastro-esophageal reflux disease without esophagitis; I10 Essential (primary) hypertension; E78.00 Pure hypercholesterolemia, unspecified; E11.9 Type 2 diabetes mellitus without complications; E03.9 Hypothyroidism, unspecified; F41.9 Anxiety disorder, unspecified; K50.90 Crohn's disease, unspecified, without complications; D89.40 Mast cell activation, unspecified
CPT/HCPCS: 73130; 80053; 83605; 85025; 86308; 86618; 87040; 87502; 87811; 93971; 96360; 99284

== ENCOUNTER 2023-06-16 16:48 | Emergency (ER) | payer MEDICARE, OTHER, SELFPAY ==
[2023-06-16 16:52] VITALS: BP 188/107
[2023-06-16 17:11] LABS: % Basophils 0.5 % (0-2); % Eosinophils 1.8 % (0-6); % Immature Granulocytes 0.4 % (0-0.5); % Lymphocytes 12.1 % (20.5-51.1); % Monocytes 4.9 % (1.7-9.3); % Neutrophils 80.3 % (42.2-75.2); Absolute Eosinophils 0.1 10^3/uL (0-0.7); Absolute Lymphocytes 0.9 10^3/uL (1.2-3.4); Absolute Monocytes 0.4 10^3/uL (0.1-0.6); Absolute Neutrophils 6.2 10^3/uL (1.4-6.5); Hematocrit 31.3 % (37.0-47.0); Mean Corp Hgb Conc. 31.9 g/dL (33.0-37.0); Mean Corpuscular Volume 75.1 fL (81.0-99.0); Mean Platelet Volume 9.6 fL (7.4-10.4); Nucleated Red Blood Cells % 0 %; Platelet Count 326 10^3/uL (130-400); Red Blood Cell Count 4.17 10^6/uL (4.20-5.40); Red Cell Dist. Width 15.9 % (11.5-14.5); White Blood Cell Count 7.8 10^3/uL (4.8-10.8)
[2023-06-16 17:28] LABS: Lactic Acid 1.3 mmol/L (0.7-2.0)
[2023-06-16 17:30] LABS: ALT (SGPT) 19 U/L (0-35); AST (SGOT) 27 U/L (14-36); Albumin 4.2 g/dl (3.5-5.0); Alkaline Phosphatase 93 U/L (38-126); Blood Urea Nitrogen 13 mg/dl (7-17); Calcium 9.5 mg/dl (8.4-10.2); Carbon Dioxide 24 mmol/L (22-30); Chloride 104 mmol/L (98-107); Glucose 158 mg/dl (70-99); Sodium 135 mmol/L (135-145); Total Bilirubin 0.4 mg/dl (0.2-1.3); Total Protein 7.3 g/dl (6.3-8.2); eGFR > 60.00
[2023-06-16 18:55] LABS: COVID-19 Antigen Negative (Negative)
--- NOTE | 2023-06-16 19:31 | ED.GENMED ---
History of Present Illness
General
Chief Complaint: Cold/Flu/URI Symptoms
Source: patient
Exam Limitations: none
Time Seen by Provider: 06/16/23 19:10
Nursing documentation reviewed up to this point in time: agreed with
Travel History
Have you had any contact with someone who has COVID-19?: No
Do you have any symptoms of coronavirus? Fever > 100 degrees, chills, cough, shortness of breath, sore throat, loss of taste or smell, muscle aches, or headache?: No
History of Present Illness
History of Present Illness:
57-year-old female with past medical history of mast cell activation system, Crohn's disease presents to the ER for evaluation. Patient was seen here 2 days ago and diagnosed with cellulitis of her right hand. She was discharged on antibiotics and
reports cellulitis has improved. She however she reports that she does not feel well. She has had aches nasal congestion and headache , cough for the past 2 days. She was around family around 9 days ago tested positive for flu.
She denies any actual fevers but has had chills.
She initially went to urgent care however because of being immune suppressed and with history of mast cell activation system and being on steroid she was sent to the ER for evaluation.
Past History
Past History
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
inflammatory bowel disease,) and Other (Crohn's disease, 'Mass cell activation syndrome', Migraines, Chronic back pain, Hiatal hernia, Renal calculus, Vertigo, factor 8 elevation, ,anemia, Esophageal stretching)
ED Past Surgical History: Cardiac (Loop recorder), Cholecystectomy, Gynecological (Uterine Ablation), Orthopedic (C3-4 spinal fusion, left ear surgery) and Other (Partial right Thyroidectomy )
Social History
Tobacco: Former smoker
Alcohol: None
Drug: None
Personal: (Common Law)
Living: with family
Employment: Disabled
Family History
Family History: Other (Father with coronary artery disease mother with coronary artery disease)
Review of Systems
Review of Systems
Allergies reviewed?: Yes
All Other Systems: ROS reviewed and negative except as documented in HPI and ROS
Constitutional: Reports chills; Denies fever
EENT: Reports runny nose
Respiratory: Reports cough; Denies trouble breathing
Cardiac: Reports no symptoms
ABD/GI: Reports no symptoms; Denies nausea or vomiting
: Reports no symptoms
Musculoskeletal: Reports no symptoms
Skin: Reports no symptoms; Denies rash
Neurological: Reports headache; Denies dizzy, weakness or numbness
Psychiatric: Reports no symptoms
Phy Exam
General Physical Exam
General Presentation: well appearing
General age: appears stated age
General Skin: warm and dry
General Habitus: normal
General Mental: alert
General Hydration: appears well hydrated
ENT Exam
ENT Exam: EOMI, neck supple and pharyngeal erythema
Cardiovascular Exam
Cardiovascular Exam: regular rate/rhythm, no murmur and normal peripheral pulses
Pulmonary Exam
Pulmonary Exam: lungs clear and no respiratory distress
Neurological Exam
Neurological Exam: alert and oriented x3
Musculoskeletal Exam
Musculoskeletal Exam: full ROM
Skin Exam
Skin Exam: normal color and warm/dry
Psychiatric Exam
Psychiatric Exam: normal mood/affect
Course
Orders/Labs/Results
Orders:
Orders
06/16/23 17:04
CMP [Comprehensive Metabolic Panel] Urgent
Complete Blood Count/With Diff Urgent
Lactate Level [Lactic Acid] Urgent
Blood Culture Urgent
CARINA Source: Blood/Venous
Specimen Description:
06/16/23 18:30
Influenza A+B Rapid Molecular Urgent
CARINA Source: Nasal Swab
Specimen Description:
06/16/23 18:34
COVID-19 Antigen Urgent
Source: Nasal Swab
06/16/23 18:35
INF RAPID [Influenza A+B Rapid Molecular] Urgent
CARINA Source: Nasal Swab
Specimen Description:
06/16/23 19:48
UA Reflex to Culture [Urinalysis Reflex To Culture] Urgent
Date Specimen was Collected: 06/16/23
Time Specimen was Collected: 19:43
06/16/23 21:00
CT Head W/o Iv Contrast Urgent
Comment:
Reason For Exam: headache /sinus pain
06/16/23 21:14
CT Sinuses W/o Iv Contrast Urgent
Comment:
Reason For Exam: pain /headache
Abnormal Lab Results
06/16/23
17:04
RBC 4.17 L 10^6/uL
(4.20-5.40)
Hgb 10.0 L g/dL
(12.0-16.0)
Hct 31.3 L %
(37.0-47.0)
MCV 75.1 L fL
(81.0-99.0)
MCH 24.0 L pg
(27.0-31.0)
MCHC 31.9 L g/dL
(33.0-37.0)
RDW 15.9 H %
(11.5-14.5)
Absolute Lymphs (auto) 0.9 L 10^3/uL
(1.2-3.4)
Neutrophils % 80.3 H %
(42.2-75.2)
Lymphocytes % 12.1 L %
(20.5-51.1)
Glucose 158 H mg/dl
(70-99)
06/16/23 17:04
06/16/23 17:04
Vital Signs
Initial and Last Documented VS:
Initial Vital Signs
Temp Pulse Resp BP Pulse Ox
98.7 F 97 18 188/107 99
06/16/23 16:52 06/16/23 16:52 06/16/23 16:52 06/16/23 16:52 06/16/23 16:52
Last Documented Vital Signs
Temp Pulse Resp BP Pulse Ox
98.7 F 91 18 150/97 96
06/16/23 16:52 06/16/23 22:38 06/16/23 22:38 06/16/23 22:38 06/16/23 22:38
Supervisor Audit Clerks consulted with Physician
Supervisor Audit Clerks consulted with physician?: Yes
Name of Physician Consulted: ann
MDM/Problems Addressed
Differential Diagnosis Includes:
Not limited to viral syndrome, COVID, influenza sinusitis
MDM/Problems Addressed:
Patient is a 57-year-old female with mast cell activation syndrome, stroke, Crohn's presents to the ER for evaluation. Patient has not felt well over the past several days with chills runny nose nasal congestion cough. Patient recently here on
antibiotics for hand cellulitis. She reports this is improving on exam there is very minimal faint redness and minimal swelling she has good range of motion.
Regarding other symptoms patient is nontoxic she is afebrile here with a normal white count stable hemoglobin, normal chemistries. Patient is negative for COVID-negative for flu. She is in no acute distress nontoxic. Patient was concerned about
headache and sinus issues. CAT scan is negative for acute findings there is mildly coastal thickening of the right maxillary sinus discussed supportive care increasing fluids getting plenty of rest. Symptoms are likely viral syndrome. Patient has
no meningismus is nontoxic looks well stable for discharge home.
*Radiology
Radiology exam reviewed: radiology read reviewed
*Pulse Oximetry
Patient hypoxic: no
*Critical Care Note
Total Time (30-74mins, 75-104mins- exclusive of procedures): Not Applicable
ED Attending Note
-
Portions of this chart may have been created with voice recognition software.� Occasional wrong word or��sound alike� substitutions may have occurred due to the inherent limitations of voice recognition software.
Discharge Plan
Departure
Patient Disposition: Home (Routine Discharge)
Date of Disposition: 06/16/23
Time of Disposition: 22:39
Patient with high blood pressure during this ER visit?: Yes
Covid-19: Negative COVID-19
Discharge Problem:
Acute viral syndrome
Instructions: Viral Syndrome (DC), BLOOD PRESSURE
Prescriptions:
No Action
rabeprazole [AcipHex] 20 MG tablet,delayed release (DR/EC)
20 mg PO BID
atenolol 25 MG tablet
12.5 mg PO DAILY
albuterol sulfate [ProAir HFA] 8.5 GM HFA aerosol inhaler
2 puff inhalation R Q4 PRN (Reason: sob/wheezing)
cholecalciferol (vitamin D3) [Vitamin D3] 2,000 UNIT capsule
3,000 unit PO DAILY
ascorbic acid-ascorbate sodium 500 MG wafer
500 mg PO DAILY
diphenhydramine HCl [Banophen] 25 MG capsule
12.5 mg PO QID
acetaminophen 500 mg Tablet
1,000 mg PO Q6H PRN (Reason: mild pain)
losartan 25 mg Tablet
25 mg PO BID
levothyroxine 25 mcg Tablet
25 mcg PO DAILY
fondaparinux 5 mg/0.4 mL Syringe
5 mg SC Q48H
Vitamin B-6 50 mg Capsule
50 mg PO DAILY
prednisone 50 mg tablet
5 mg PO DAILY
cefuroxime axetil 500 mg tablet
500 mg PO BID Qty: 20 0RF
Referrals:
UNKNOWN - PT NOT,INTERVIEWE [Family Provider] -
Activity Restrictions/Additional Instructions:
Follow-up with your family doctor the next several days as scheduled for reevaluation
return if any worsening of symptoms.
Interventions
Interventions:
*Risk Screen - Suicide Last Done: 06/16/23 16:52
*General Assessment Last Done: 06/16/23 22:51
*Neglect/Abuse Screening Last Done: 06/16/23 16:52
ED- Fall Risk Assessment Last Done: 06/16/23 22:51
*ED COVID-19 Vaccine History Last Done: 06/16/23 16:52
*Nursing Disposition Last Done: 06/16/23 22:51
ED- Pulmonary Assessment Last Done: 06/16/23 18:38
Discharge Date and Time
Discharge Date/Time: 06/16/23 22:51
[2023-06-16 20:05] LABS: Urine Albumin Negative (Neg - Trace); Urine Bilirubin Negative (Negative); Urine Character Clear (Clear); Urine Color Yellow; Urine Glucose Negative (Negative); Urine Ketone Negative (Negative); Urine Leukocyte Negative (Negative); Urine Nitrite Negative (Negative); Urine Occult Blood Negative (Negative); Urine Specific Gravity 1.015 (<1.030); Urine Urobilinogen Negative (Neg - 1+)
[2023-06-16 22:38] VITALS: BP 150/97
== END 2023-06-16 22:51 | disposition home or self-care (01) ==
LOC: EMR 16:48
PROVIDERS: Nurse Practitioner; EMERGENCY PHYSICIAN Emergency Medicine
DX: B34.9 Viral infection, unspecified (principal); I10 Essential (primary) hypertension; D89.40 Mast cell activation, unspecified; K50.90 Crohn's disease, unspecified, without complications; Z11.52 Encounter for screening for COVID-19; Z87.891 Personal history of nicotine dependence; Z86.73 Personal history of transient ischemic attack (TIA), and cerebral infarction without residual deficits
CPT/HCPCS: 99284; 70450; 70486; 80053; 81003; 83605; 85025; 87040; 87502; 87811

== ENCOUNTER 2023-06-28 12:13 | Emergency (ER) | payer MEDICARE, OTHER, SELFPAY ==
[2023-06-28 12:16] VITALS: BP 153/81; BMI 45.1
[2023-06-28 12:42] LABS: % Basophils 1.5 % (0-2); % Eosinophils 4.1 % (0-6); % Immature Granulocytes 0.3 % (0-0.5); % Lymphocytes 13.7 % (20.5-51.1); % Monocytes 7.1 % (1.7-9.3); % Neutrophils 73.3 % (42.2-75.2); Absolute Basophils 0.1 10^3/uL (0-0.2); Absolute Eosinophils 0.3 10^3/uL (0-0.7); Absolute Lymphocytes 0.8 10^3/uL (1.2-3.4); Absolute Monocytes 0.4 10^3/uL (0.1-0.6); Absolute Neutrophils 4.5 10^3/uL (1.4-6.5); Hematocrit 32.5 % (37.0-47.0); Hemoglobin 9.8 g/dL (12.0-16.0); Mean Corp Hgb Conc. 30.2 g/dL (33.0-37.0); Mean Corpuscular Hgb 23.3 pg (27.0-31.0); Mean Corpuscular Volume 77.4 fL (81.0-99.0); Mean Platelet Volume 9.9 fL (7.4-10.4); Nucleated Red Blood Cells % 0 %; Platelet Count 330 10^3/uL (130-400); Red Cell Dist. Width 15.7 % (11.5-14.5); White Blood Cell Count 6.1 10^3/uL (4.8-10.8)
[2023-06-28 12:55] LABS: Erythrocyte Sed Rate 38 mm/hour (0-20)
[2023-06-28 12:56] LABS: ALT (SGPT) 21 U/L (0-35); AST (SGOT) 29 U/L (14-36); Albumin 4.1 g/dl (3.5-5.0); Alkaline Phosphatase 85 U/L (38-126); Blood Urea Nitrogen 17 mg/dl (7-17); Calcium 9.3 mg/dl (8.4-10.2); Carbon Dioxide 25 mmol/L (22-30); Chloride 106 mmol/L (98-107); Estimated Creatinine Clearance 58 ml/min; Glucose 176 mg/dl (70-99); Lactic Acid 1.9 mmol/L (0.7-2.0); Lipase 220 U/L (23-300); Potassium 4.3 mmol/L (3.5-5.1); Sodium 136 mmol/L (135-145); Total Bilirubin 0.5 mg/dl (0.2-1.3); Total Protein 7.1 g/dl (6.3-8.2); eGFR > 60.00
--- NOTE | 2023-06-28 15:09 | ED.GENMED ---
History of Present Illness
General
Chief Complaint: Swelling
Source: patient
Exam Limitations: none
Time Seen by Provider: 06/28/23 14:21
Nursing documentation reviewed up to this point in time: agreed with
Travel History
Have you had any contact with someone who has COVID-19?: No
Do you have any symptoms of coronavirus? Fever > 100 degrees, chills, cough, shortness of breath, sore throat, loss of taste or smell, muscle aches, or headache?: No
History of Present Illness
History of Present Illness:
Patient is a 57-year-old female with history Mastel activation syndrome, Crohn's, stroke who presents to the ER. Patient has a history of multiple bowel movements per day this is not new. She is concerned however because of this she is dehydrated
which is what the reason that prompted her to come to the ER today. She reports she had 16 bowel movements today and 12 hours yesterday. She however reports this is normal stool and not diarrhea. Her GI physician at [place] is aware. This is
chronic and not new she has had increasing stool every day for about a year.
She denies any abdominal pain. In addition to possible concern for dehydration she is concerned about right lower extremity swelling that she noticed today. She denies any injury . She denies any redness . Patient is on Arixtra for history of CVA.
She denies any fever or chills. Denies any injury to the leg. Denies any redness.
Past History
Past History
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
inflammatory bowel disease,) and Other (Crohn's disease, 'Mass cell activation syndrome', Migraines, Chronic back pain, Hiatal hernia, Renal calculus, Vertigo, factor 8 elevation, ,anemia, Esophageal stretching)
ED Past Surgical History: Cardiac (Loop recorder), Cholecystectomy, Gynecological (Uterine Ablation), Orthopedic (C3-4 spinal fusion, left ear surgery) and Other (Partial right Thyroidectomy )
Social History
Tobacco: Former smoker
Alcohol: None
Drug: None
Personal: (Common Law)
Living: with family
Employment: Disabled
Family History
Family History: Other (Father with coronary artery disease mother with coronary artery disease)
Review of Systems
Review of Systems
Allergies reviewed?: Yes
All Other Systems: ROS reviewed and negative except as documented in HPI and ROS
Constitutional: Reports no symptoms; Denies fever, fatigue or chills
Respiratory: Reports no symptoms
Cardiac: Reports no symptoms
ABD/GI: Reports no symptoms
: Reports no symptoms
Musculoskeletal: Reports other (rle swelling denies redness pain )
Skin: Reports no symptoms
Neurological: Reports no symptoms
Hematologic/Lymphatic: Reports no symptoms
Psychiatric: Reports no symptoms
Phy Exam
General Physical Exam
General Presentation: no apparent distress
General age: appears stated age
General Skin: warm and dry
General Habitus: obese
General Mental: alert
General Hydration: appears well hydrated
Cardiovascular Exam
Cardiovascular Exam: regular rate/rhythm, no murmur and normal peripheral pulses
Pulmonary Exam
Pulmonary Exam: lungs clear and no respiratory distress
Neurological Exam
Neurological Exam: alert and oriented x3
Musculoskeletal Exam
Musculoskeletal Exam: other (rle with strong pulses nontender on exam full range of motion no erythema questionable very minimal amount of swelling to lower leg)
Skin Exam
Skin Exam: normal color and warm/dry
Psychiatric Exam
Psychiatric Exam: normal mood/affect
Scores
Heart Failure Risk
Heart Failure Risk Score: Not Applicable
Course
Orders/Labs/Results
Orders:
Orders
06/28/23 12:31
Complete Blood Count/With Diff Urgent
Comprehensive Metabolic Panel Urgent
Erythrocyte Sed Rate Urgent
Lactic Acid Urgent
Lipase Urgent
06/28/23 15:26
0.9% Sodium Chloride 1000 ml [Nss] 1,000 ml IV BOLUS
06/28/23 15:27
Venous Doppler Lwr Ext Rt [US Periph Venous LOWER Ext RT] Urgent
Comment:
Reason For Exam: swelling
06/28/23 15:37
UA Reflex to Culture [Urinalysis Reflex To Culture] Urgent
Date Specimen was Collected: 06/28/23
Time Specimen was Collected: 15:36
Abnormal Lab Results
06/28/23
12:31
Hgb 9.8 L g/dL
(12.0-16.0)
Hct 32.5 L %
(37.0-47.0)
MCV 77.4 L fL
(81.0-99.0)
MCH 23.3 L pg
(27.0-31.0)
MCHC 30.2 L g/dL
(33.0-37.0)
RDW 15.7 H %
(11.5-14.5)
Absolute Lymphs (auto) 0.8 L 10^3/uL
(1.2-3.4)
Lymphocytes % 13.7 L %
(20.5-51.1)
ESR 38 H mm/hour
(0-20)
Glucose 176 H mg/dl
(70-99)
06/28/23 12:31
06/28/23 12:31
Vital Signs
Initial and Last Documented VS:
Initial Vital Signs
Temp Pulse Resp BP Pulse Ox
99.1 F 82 16 153/81 97
06/28/23 12:16 06/28/23 12:16 06/28/23 12:16 06/28/23 12:16 06/28/23 12:16
Last Documented Vital Signs
Temp Pulse Resp BP Pulse Ox
99.1 F 86 18 136/71 99
06/28/23 12:16 06/28/23 17:43 06/28/23 17:43 06/28/23 17:43 06/28/23 17:43
MDM/Problems Addressed
Differential Diagnosis Includes:
Not limited to electrolyte abnormality, less likely DVT
MDM/Problems Addressed:
Patient is a 57-year-old female with significant history presents to the ER for various complaints patient has chronic frequent stools daily for the past year and this has increased though no diarrhea. She is followed by GI and they are where GI is
at [facility]. She denies any abdominal pain fever or chills. She is no acute distress and had no episodes of diarrhea here in the ER. She was concerned that she may be dehydrated because of frequent stools however chemistries are
normal except for sugar being elevated. HGB at baseline.No UTI symptoms urine is negative. In addition patient also had complaints of right leg swelling with no injury. There is no evidence infection on exam on exam there is very questionable
minimal swelling of the right leg ultrasound was done and negative. Will have patient follow-up with family doctor in the next several days for reevaluation of leg swelling however no other acute abnormalities on patient's workup today.
Chronic conditions affecting care:
Hyperlipidemia high blood pressure hypertension diabetes mast cell activation syndrome , Crohn's
*Radiology
Radiology exam reviewed: radiology read reviewed
*Pulse Oximetry
Patient hypoxic: no
*Critical Care Note
Total Time (30-74mins, 75-104mins- exclusive of procedures): Not Applicable
ED Attending Note
-
Portions of this chart may have been created with voice recognition software.� Occasional wrong word or��sound alike� substitutions may have occurred due to the inherent limitations of voice recognition software.
Discharge Plan
Departure
Patient Disposition: Home (Routine Discharge)
Date of Disposition: 06/28/23
Time of Disposition: 17:43
Patient with high blood pressure during this ER visit?: Yes
Covid-19: Not Applicable
Discharge Problem:
Leg swelling
Prescriptions:
No Action
rabeprazole [AcipHex] 20 MG tablet,delayed release (DR/EC)
20 mg PO BID
atenolol 25 MG tablet
12.5 mg PO DAILY
albuterol sulfate [ProAir HFA] 8.5 GM HFA aerosol inhaler
2 puff inhalation R Q4 PRN (Reason: sob/wheezing)
cholecalciferol (vitamin D3) [Vitamin D3] 2,000 UNIT capsule
3,000 unit PO DAILY
ascorbic acid-ascorbate sodium 500 MG wafer
500 mg PO DAILY
diphenhydramine HCl [Banophen] 25 MG capsule
12.5 mg PO QID
acetaminophen 500 mg Tablet
1,000 mg PO Q6H PRN (Reason: mild pain)
losartan 25 mg Tablet
25 mg PO BID
levothyroxine 25 mcg Tablet
25 mcg PO DAILY
fondaparinux 5 mg/0.4 mL Syringe
5 mg SC Q48H
Vitamin B-6 50 mg Capsule
50 mg PO DAILY
prednisone 50 mg tablet
5 mg PO DAILY
cefuroxime axetil 500 mg tablet
500 mg PO BID Qty: 20 0RF
Referrals:
Whitney George MD [Family Provider] -
Activity Restrictions/Additional Instructions:
As discussed your ultrasound was negative. Follow-up with your family doctor the next several days for reevaluation of your mild leg swelling. Return if any worsening of symptoms. Keep elevated. If symptoms persist you will need repeat
ultrasound. Follow-up with your GI specialist for continued multiple episodes of stool per day.
Interventions
Interventions:
*Risk Screen - Suicide Last Done: 06/28/23 12:16
*Neglect/Abuse Screening Last Done: 06/28/23 12:16
*ED COVID-19 Vaccine History Last Done: 06/28/23 12:16
*Nursing Disposition Last Done: 06/28/23 18:31
ED- Cardiac Assessment Last Done: 06/28/23 16:27
ED- Pulmonary Assessment Last Done: 06/28/23 16:27
ED-Skin Assessment Last Done: 06/28/23 16:27
Discharge Date and Time
Discharge Date/Time: 06/28/23 18:59
[2023-06-28] MEDS: NSS 1000 IV (15:43)
[2023-06-28 16:07] LABS: Urine Albumin Negative (Neg - Trace); Urine Bilirubin Negative (Negative); Urine Character Clear (Clear); Urine Color Yellow; Urine Glucose Negative (Negative); Urine Ketone Negative (Negative); Urine Leukocyte Negative (Negative); Urine Nitrite Negative (Negative); Urine Occult Blood Negative (Negative); Urine Urobilinogen Negative (Neg - 1+)
[2023-06-28 17:43] VITALS: BP 136/71
== END 2023-06-28 18:59 | disposition home or self-care (01) ==
LOC: EMR 12:13
PROVIDERS: Nurse Practitioner; EMERGENCY PHYSICIAN Emergency Medicine; FAMILY PHYSICIAN Family Medicine
DX: R22.41 Localized swelling, mass and lump, right lower limb (principal); I10 Essential (primary) hypertension; K50.90 Crohn's disease, unspecified, without complications; E11.9 Type 2 diabetes mellitus without complications; Z86.73 Personal history of transient ischemic attack (TIA), and cerebral infarction without residual deficits; Z87.891 Personal history of nicotine dependence
CPT/HCPCS: 99284; 96360; 80053; 81003; 83605; 83690; 85025; 85652; 93971

== ENCOUNTER 2023-07-02 13:05 | Emergency (ER) | payer MEDICARE, OTHER, SELFPAY ==
[2023-07-02] VITALS (8 sets, daily range): BP systolic 121–165; BP diastolic 68–81
--- NOTE | 2023-07-02 14:29 | ED.GENMED ---
History of Present Illness
<Desirae Mclaughlin PA-C - Last Filed: 07/02/23 18:41>
General
Chief Complaint: Oral/Mouth Problem
Source: patient
Exam Limitations: none
Time Seen by Provider: 07/02/23 14:26
Nursing documentation reviewed up to this point in time: agreed with
Travel History
Have you had any contact with someone who has COVID-19?: No
Do you have any symptoms of coronavirus? Fever > 100 degrees, chills, cough, shortness of breath, sore throat, loss of taste or smell, muscle aches, or headache?: No
History of Present Illness
History of Present Illness:
57-year-old female with past medical history of Crohn's disease, hypertension, GERD, CVA, diabetes, mast cell activation syndrome presenting emergency department today with throat pain for the past 10 days. Patient states this started as lesions on
the back of her throat and progressed to worsening pain and pain with swallowing. Patient was recently on Ceftin for cellulitis and subsequently developed thrush after that. Patient had intraoral lesion from her thrush. Patient was seen by her ENT
last week on Sunday who scoped her and noticed thrush, patient was started on clotrimazole lozenges. Patient also admits to low-grade fevers and chills as well as coughing and generally feeling ill for the past few days. Patient also has had
several episodes of vomiting for the past several days and patient saw her GI doctor last week who tested her for C. diff and parasites which was negative. Patient also feels like she has wheezing at times. Patient denies shortness of breath.
Past History
<Desirae Mclaughlin PA-C - Last Filed: 07/02/23 18:41>
Past History
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
inflammatory bowel disease,) and Other (Crohn's disease, 'Mass cell activation syndrome', Migraines, Chronic back pain, Hiatal hernia, Renal calculus, Vertigo, factor 8 elevation, ,anemia, Esophageal stretching)
ED Past Surgical History: Cardiac (Loop recorder), Cholecystectomy, Gynecological (Uterine Ablation), Orthopedic (C3-4 spinal fusion, left ear surgery) and Other (Partial right Thyroidectomy )
Social History
Tobacco: Former smoker
Alcohol: None
Drug: None
Personal: (Common Law)
Living: with family
Employment: Disabled
Family History
Family History: Other (Father with coronary artery disease mother with coronary artery disease)
Review of Systems
<Desirae Mclaughlin PA-C - Last Filed: 07/02/23 18:41>
Review of Systems
All Other Systems: ROS reviewed and negative except as documented in HPI and ROS
Phy Exam
<Desirae Mclaughlin PA-C - Last Filed: 07/02/23 18:41>
Physical Exam
Physical Exam:
Vitals: Patient is vital signs are stable
General: Patient is well-appearing and in no acute distress
Skin: Warm and dry, no rashes or lesions
Head: Normocephalic, atraumatic
Eyes: Conjunctiva b/l are clear.
Neck: No palpable lymphadenopathy
Throat: Mild pharyngeal erythema. No tonsillar hypertrophy, no exudates.
Cardiac: Heart rate is regular rate and rhythm, no murmurs
Pulmonary: Normal respiratory effort, no wheezes, rales, rhonchi
Neuro: CN II-XII intact. AAOX3.
Course
<Desirae Mclaughlin PA-C - Last Filed: 07/02/23 18:41>
Orders/Labs/Results
Orders:
Orders
07/02/23 14:43
0.9% Sodium Chloride 500 ml [Nss] 500 ml IV BOLUS
07/02/23 14:48
Complete Blood Count/With Diff Urgent
Comprehensive Metabolic Panel Urgent
TSH Urgent
Comment: ADD ON
07/02/23 15:13
COVID-19 Antigen Urgent
Source: Nasal Swab
Influenza A+B Rapid Molecular Urgent
CARINA Source: Nasal Swab
Specimen Description:
07/02/23 15:32
CR Chest - 2 Views Urgent
Comment:
Reason For Exam: chest pain
07/02/23 15:53
Add On- LAB Urgent
Tests Added?: troponin
Electrocardiogram (*1) Urgent
Reason for Study: Chest Pain
EKG- Treatment ONCE
07/02/23 16:15
Troponin I Urgent
Comment: TO BE DRAWN
07/02/23 17:56
Add On- LAB Urgent
Tests Added?: TSH
07/02/23 18:04
Fluconazole [Diflucan] 400 mg PO NOW STA
Abnormal Lab Results
07/02/23
14:48
RBC 3.91 L 10^6/uL
(4.20-5.40)
Hgb 9.2 L g/dL
(12.0-16.0)
Hct 29.4 L %
(37.0-47.0)
MCV 75.2 L fL
(81.0-99.0)
MCH 23.5 L pg
(27.0-31.0)
MCHC 31.3 L g/dL
(33.0-37.0)
RDW 15.8 H %
(11.5-14.5)
Absolute Lymphs (auto) 1.0 L 10^3/uL
(1.2-3.4)
Lymphocytes % 15.8 L %
(20.5-51.1)
Glucose 162 H mg/dl
(70-99)
TSH 5.87 H uIU/ml
(0.47-4.68)
07/02/23 14:48
07/02/23 14:48
Vital Signs
Initial and Last Documented VS:
Initial Vital Signs
Temp Pulse Resp BP Pulse Ox
36.7 C 81 16 160/81 98
07/02/23 13:10 07/02/23 13:10 07/02/23 13:10 07/02/23 13:10 07/02/23 13:10
Last Documented Vital Signs
Temp Pulse Resp BP Pulse Ox
36.7 C 79 20 138/68 98
07/02/23 13:10 07/02/23 18:00 07/02/23 18:00 07/02/23 18:00 07/02/23 19:03
<Itz Martínez MD - Last Filed: 07/02/23 21:27>
Orders/Labs/Results
Orders:
Orders
07/02/23 14:43
0.9% Sodium Chloride 500 ml [Nss] 500 ml IV BOLUS
07/02/23 14:48
Complete Blood Count/With Diff Urgent
Comprehensive Metabolic Panel Urgent
TSH Urgent
Comment: ADD ON
07/02/23 15:13
COVID-19 Antigen Urgent
Source: Nasal Swab
Influenza A+B Rapid Molecular Urgent
CARINA Source: Nasal Swab
Specimen Description:
07/02/23 15:32
CR Chest - 2 Views Urgent
Comment:
Reason For Exam: chest pain
07/02/23 15:53
Add On- LAB Urgent
Tests Added?: troponin
Electrocardiogram (*1) Urgent
Reason for Study: Chest Pain
EKG- Treatment ONCE
07/02/23 16:15
Troponin I Urgent
Comment: TO BE DRAWN
07/02/23 17:56
Add On- LAB Urgent
Tests Added?: TSH
07/02/23 18:04
Fluconazole [Diflucan] 400 mg PO NOW STA
Abnormal Lab Results
07/02/23
14:48
RBC 3.91 L 10^6/uL
(4.20-5.40)
Hgb 9.2 L g/dL
(12.0-16.0)
Hct 29.4 L %
(37.0-47.0)
MCV 75.2 L fL
(81.0-99.0)
MCH 23.5 L pg
(27.0-31.0)
MCHC 31.3 L g/dL
(33.0-37.0)
RDW 15.8 H %
(11.5-14.5)
Absolute Lymphs (auto) 1.0 L 10^3/uL
(1.2-3.4)
Lymphocytes % 15.8 L %
(20.5-51.1)
Glucose 162 H mg/dl
(70-99)
TSH 5.87 H uIU/ml
(0.47-4.68)
07/02/23 14:48
07/02/23 14:48
Vital Signs
Initial and Last Documented VS:
Initial Vital Signs
Temp Pulse Resp BP Pulse Ox
36.7 C 81 16 160/81 98
07/02/23 13:10 07/02/23 13:10 07/02/23 13:10 07/02/23 13:10 07/02/23 13:10
Last Documented Vital Signs
Temp Pulse Resp BP Pulse Ox
36.7 C 79 20 138/68 98
07/02/23 13:10 07/02/23 18:00 07/02/23 18:00 07/02/23 18:00 07/02/23 19:03
<Desirae Mclaughlin PA-C - Last Filed: 07/02/23 18:41>
MDM/Problems Addressed
Differential Diagnosis Includes:
Differentials include viral pharyngitis, pricila esophagitis, URI, pneumonia, GERD, costochondritis
MDM/Problems Addressed:
throat pain
Chronic conditions affecting care: DM, HTN, CAD and Other (mast cell activation syndrome, crohn's disease)
Acute Exacerbation and/or Progression of Chronic Illness: DM, HTN and CAD
<Desirae Mclaughlin PA-C - Last Filed: 07/02/23 18:41>
*Pulse Oximetry
Patient hypoxic: no
*EKG
Interpreted by ED Provider?: Yes
EKG Intrepretation Date: 07/02/23
Interpretation: normal
Heart Rate: 71
Rate: normal
Rhythm: sinus
[place]: normal axis
Interval: normal interval, normal QT interval and normal HI interval
QRS Pattern: normal QRS
Ischemia: no ischemia
*Critical Care Note
Total Time (30-74mins, 75-104mins- exclusive of procedures): Not Applicable
Data Reviewed
Review of Other/Old Records Reveals: Records (Reviewed ER physician documentation from 06/28/23, 06/14/2023)
Source: patient and records
<ISHA Templeton Last Filed: 07/02/23 18:41>
Patient Management
Escalation/DeEscalation of care consider admission/obs:
57-year-old female with past medical history of Crohn's disease, hypertension, GERD, CVA, diabetes, mast cell activation syndrome presenting emergency department today with throat pain for the past 10 days. Also has new chest pain and coughing. On
exam, she is well-appearing, her lungs are clear to auscultation bilaterally, she has no reproduction of her chest pain on exam, she has no intraoral plaques or lesions, does have mild pharyngitis. Her CBC and CMP here in the emergency department
are unremarkable, she tested negative for COVID and flu, her EKG demonstrates normal sinus rhythm with no ischemic changes, her troponin was normal. Highest on differential list include acute viral pharyngitis versus Pricila esophagitis versus
GERD. Considering patient has recent oral Pricila infection and is currently taking clotrimazole lozenges, pricila esophagitis is a concern. We will start patient on fluconazole and have patient follow up with her GI doctor.
ED Attending Note
<Desirae Mlcaughlin PA-C - Last Filed: 07/02/23 18:41>
-
Portions of this chart may have been created with voice recognition software.� Occasional wrong word or��sound alike� substitutions may have occurred due to the inherent limitations of voice recognition software.
<Itz Martínez MD - Last Filed: 07/02/23 21:27>
ED Attending Note
Patient seen and examined by attending physician: Yes
ED Attending Note:
HPI: 57-year-old female with history as documented including mast cell activation syndrome, Crohn's disease who presents for evaluation of sore throat and odynophagia. Patient was recently seen for cellulitis of the hand and was treated with
cefuroxime. She subsequently developed thrush on the tongue and palate and was seen by ENT in the office last week and was started on clotrimazole lozenges and this improved. Throat pain however has been progressive and she is having some
odynophagia. Symptoms improved when she swallows something cool like liquid or ice cream. She feels she has had a low-grade fever although she apparently had a viral illness last week and she is unsure if it is related. She has had some nausea
associate with her odynophagia. Apparently had some loose stools which seems like a chronic issue apparently was tested for C. difficile and was negative as an outpatient. She is known to GI through [facility].
ROS: Positive for chest pain, dysphagia, odynophagia, nausea, diarrhea; negative for shortness of breath, cough
Physical exam:
General: Awake, alert, oriented x3; anxious but no acute distress
Head: Normocephalic, atraumatic; face somewhat flushed
Eyes: Conjunctiva normal, pupils equal round reactive to light bilaterally
Throat: Airway intact, handling secretions, no thrush noted, no tonsillar erythema or exudate, midline uvula, no tongue elevation, moist mucous membranes
Neck: Trachea midline, supple without meningismus, no palpable lymphadenopathy
Lungs: Clear to auscultation bilaterally, no wheezing, rales, rhonchi
Heart: Regular rate and rhythm, no murmurs, gallops, or rubs
Neuro: No gross deficits
Skin: no rash
Extremities: Warm and well-perfused
Differential diagnosis: Candidal esophagitis, GERD, esophageal stricture, [place]-Metcalf tear
Medical decision makin-year-old female presents with chest pain and a dyne aphasia, dysphagia in the setting of recent oral thrush treated with clotrimazole lozenges. Thrush likely related to recent course of antibiotics. Hypertensive
otherwise normal vitals. Exam as above. Suspect this is likely esophagitis based on clinical picture. We sent labs including a CBC which showed stable anemia. Her CMP shows no clinically significant abnormalities. Troponin undetectable with
consistent symptoms for over a week. This is sufficient to rule out acute PR. Her chest x-ray shows no acute disease. Observed here in the emergency room and vitals have been stable. I think she should be treated for candidal esophagitis given
her recent bout of thrush. Will treat with fluconazole. She does have a long list of allergies and has never had fluconazole before she says. Will observe after initial dose for any signs of reaction. If stable will discharge and have her
follow-up with GI as an outpatient.
Chronic conditions affecting care: Mast cell activation syndrome
Acute exacerbation or progression of chronic illness: Acutely hypertensive resolved without intervention
History source: Patient, records
Data reviewed: Prior records and labs
Medications/testing considered: N/A
Social determinants of health: N/A
Discussion with other providers: N/A
Discharge Plan
Departure
Patient with high blood pressure during this ER visit?: Yes
Condition: Good
Discharge Problem:
Throat pain, Non-cardiac chest pain
Instructions: BLOOD PRESSURE, Sore Throat - Adult
Prescriptions:
New
fluconazole 200 mg tablet
200 mg PO DAILY Qty: 14 0RF
No Action
rabeprazole [AcipHex] 20 MG tablet,delayed release (DR/EC)
20 mg PO BID
atenolol 25 MG tablet
12.5 mg PO DAILY
albuterol sulfate [ProAir HFA] 8.5 GM HFA aerosol inhaler
2 puff inhalation R Q4 PRN (Reason: sob/wheezing)
cholecalciferol (vitamin D3) [Vitamin D3] 2,000 UNIT capsule
3,000 unit PO DAILY
ascorbic acid-ascorbate sodium 500 MG wafer
500 mg PO DAILY
diphenhydramine HCl [Banophen] 25 MG capsule
12.5 mg PO QID
acetaminophen 500 mg Tablet
1,000 mg PO Q6H PRN (Reason: mild pain)
losartan 25 mg Tablet
25 mg PO BID
levothyroxine 25 mcg Tablet
25 mcg PO DAILY
fondaparinux 5 mg/0.4 mL Syringe
5 mg SC Q48H
Vitamin B-6 50 mg Capsule
50 mg PO DAILY
prednisone 50 mg tablet
5 mg PO DAILY
cefuroxime axetil 500 mg tablet
500 mg PO BID Qty: 20 0RF
Referrals:
Whitney George MD [Family Provider] -
Deep Ortiz MD [Active] - Call in 1-3 days for appt (GI)
Activity Restrictions/Additional Instructions:
Please call your laundry tech tomorrow to schedule a follow up appointment. It is possible you may have a condition called pricila esophagitis, in which thrush occurs in the esophagus. We will start you on a medication called fluconazole to
treat this possible condition. Please take one tablet once daily for 14 days.
Please return to the emergency department should you experience chest pain, shortness of breath, trouble breathing, or other concerning signs or symptoms.
Please follow up with your primary care provider.
Interventions
Interventions:
*Risk Screen - Suicide Last Done: 07/02/23 15:30
*General Assessment Last Done: 07/02/23 15:30
*Neglect/Abuse Screening Last Done: 07/02/23 15:30
*ED COVID-19 Vaccine History Last Done: 07/02/23 13:10
[2023-07-02] MEDS: NSS 500 IV (14:53)
[2023-07-02 15:05] LABS: % Basophils 1.2 % (0-2); % Eosinophils 4.5 % (0-6); % Immature Granulocytes 0.2 % (0-0.5); % Lymphocytes 15.8 % (20.5-51.1); % Monocytes 7.3 % (1.7-9.3); Absolute Basophils 0.1 10^3/uL (0-0.2); Absolute Eosinophils 0.3 10^3/uL (0-0.7); Absolute Monocytes 0.4 10^3/uL (0.1-0.6); Absolute Neutrophils 4.3 10^3/uL (1.4-6.5); Hematocrit 29.4 % (37.0-47.0); Hemoglobin 9.2 g/dL (12.0-16.0); Mean Corp Hgb Conc. 31.3 g/dL (33.0-37.0); Mean Corpuscular Hgb 23.5 pg (27.0-31.0); Mean Corpuscular Volume 75.2 fL (81.0-99.0); Mean Platelet Volume 9.8 fL (7.4-10.4); Nucleated Red Blood Cells % 0 %; Platelet Count 294 10^3/uL (130-400); Red Blood Cell Count 3.91 10^6/uL (4.20-5.40); Red Cell Dist. Width 15.8 % (11.5-14.5)
[2023-07-02 15:20] LABS: ALT (SGPT) 18 U/L (0-35); AST (SGOT) 26 U/L (14-36); Albumin 3.7 g/dl (3.5-5.0); Alkaline Phosphatase 82 U/L (38-126); Blood Urea Nitrogen 11 mg/dl (7-17); Calcium 9.6 mg/dl (8.4-10.2); Carbon Dioxide 27 mmol/L (22-30); Chloride 107 mmol/L (98-107); Glucose 162 mg/dl (70-99); Potassium 4.1 mmol/L (3.5-5.1); Sodium 137 mmol/L (135-145); Total Bilirubin 0.4 mg/dl (0.2-1.3); Total Protein 6.6 g/dl (6.3-8.2); eGFR > 60.00
[2023-07-02 15:32] LABS: COVID-19 Antigen Negative (Negative)
[2023-07-02 16:48] LABS: Troponin I < 0.012 ng/ml
[2023-07-02] MEDS: DIFLUCAN 200 MG PO (18:18)
[2023-07-02 19:11] LABS: TSH 5.87 uIU/ml (0.47-4.68)
== END 2023-07-02 22:00 | disposition home or self-care (01) ==
LOC: EMR 13:05
PROVIDERS: Physician Assistant; EMERGENCY PHYSICIAN Emergency Medicine; FAMILY PHYSICIAN Family Medicine
DX: R07.0 Pain in throat (principal); R07.89 Other chest pain; I10 Essential (primary) hypertension; K21.9 Gastro-esophageal reflux disease without esophagitis; E11.9 Type 2 diabetes mellitus without complications; Z87.891 Personal history of nicotine dependence
CPT/HCPCS: 99285; 96360; 71046; 80053; 84443; 84484; 85025; 87502; 87811; 93005

== ENCOUNTER 2023-07-12 11:37 | Emergency (ER) | payer MEDICARE, OTHER, SELFPAY ==
[2023-07-12 11:44] VITALS: BP 164/93
[2023-07-12 12:00] LABS: % Basophils 1.3 % (0-2); % Eosinophils 6.2 % (0-6); % Immature Granulocytes 0.3 % (0-0.5); % Lymphocytes 14.8 % (20.5-51.1); % Monocytes 6.6 % (1.7-9.3); % Neutrophils 70.8 % (42.2-75.2); Absolute Basophils 0.1 10^3/uL (0-0.2); Absolute Eosinophils 0.4 10^3/uL (0-0.7); Absolute Monocytes 0.5 10^3/uL (0.1-0.6); Absolute Neutrophils 4.8 10^3/uL (1.4-6.5); Hematocrit 29.2 % (37.0-47.0); Hemoglobin 9.1 g/dL (12.0-16.0); Mean Corp Hgb Conc. 31.2 g/dL (33.0-37.0); Mean Corpuscular Hgb 23.3 pg (27.0-31.0); Mean Corpuscular Volume 74.9 fL (81.0-99.0); Mean Platelet Volume 9.9 fL (7.4-10.4); Nucleated Red Blood Cells % 0 %; Platelet Count 323 10^3/uL (130-400); Red Cell Dist. Width 15.9 % (11.5-14.5); White Blood Cell Count 6.8 10^3/uL (4.8-10.8)
[2023-07-12 12:15] LABS: ALT (SGPT) 20 U/L (0-35); AST (SGOT) 31 U/L (14-36); Albumin 3.9 g/dl (3.5-5.0); Alkaline Phosphatase 81 U/L (38-126); Blood Urea Nitrogen 8 mg/dl (7-17); Calcium 9.3 mg/dl (8.4-10.2); Carbon Dioxide 24 mmol/L (22-30); Chloride 106 mmol/L (98-107); Glucose 141 mg/dl (70-99); Potassium 4.4 mmol/L (3.5-5.1); Sodium 136 mmol/L (135-145); Total Bilirubin 0.4 mg/dl (0.2-1.3); Total Protein 6.8 g/dl (6.3-8.2); eGFR > 60.00
[2023-07-12] MEDS: VAPONEFRIN NEBS 0.5 ML INH (13:58)
[2023-07-12] MEDS: DECADRON 10 MG PO (13:58)
[2023-07-12 15:42] VITALS: BP 132/73
--- NOTE | 2023-07-12 15:44 | EDRN ---
Reviewed discharge instructions with patient. Verbalized understanding. Taken to lobby in wheelchair.
--- NOTE | 2023-07-12 19:37 | ED.GENMED ---
History of Present Illness
General
Chief Complaint: Breathing Problem
Source: patient
Exam Limitations: none
Time Seen by Provider: 07/12/23 13:06
Nursing documentation reviewed up to this point in time: agreed with
Travel History
Have you had any contact with someone who has COVID-19?: No
Do you have any symptoms of coronavirus? Fever > 100 degrees, chills, cough, shortness of breath, sore throat, loss of taste or smell, muscle aches, or headache?: No
History of Present Illness
History of Present Illness:
Patient to ED with complaint of cough and low grade temp for the past 9 days. States she has not felt right since COVID. Reports temp of 99 in AM, 101 in PM. Feels like her inhalers are not helping, Brought self to ED for eval.
Past History
Past History
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
inflammatory bowel disease,) and Other (Crohn's disease, 'Mass cell activation syndrome', Migraines, Chronic back pain, Hiatal hernia, Renal calculus, Vertigo, factor 8 elevation, ,anemia, Esophageal stretching)
ED Past Surgical History: Cardiac (Loop recorder), Cholecystectomy, Gynecological (Uterine Ablation), Orthopedic (C3-4 spinal fusion, left ear surgery) and Other (Partial right Thyroidectomy )
Social History
Tobacco: Former smoker
Alcohol: None
Drug: None
Personal: (Common Law)
Living: with family
Employment: Disabled
Family History
Family History: Other (Father with coronary artery disease mother with coronary artery disease)
Review of Systems
Review of Systems
Allergies reviewed?: Yes
All Other Systems: ROS reviewed and negative except as documented in HPI and ROS
Constitutional: Reports fever
EENT: Reports no symptoms
Respiratory: Reports cough and trouble breathing
Cardiac: Reports no symptoms
ABD/GI: Reports no symptoms
: Reports no symptoms
Musculoskeletal: Reports no symptoms
Skin: Reports no symptoms
Neurological: Reports weakness
Psychiatric: Reports no symptoms
Phy Exam
General Physical Exam
General Presentation: well appearing and no apparent distress
General age: appears stated age
General Skin: warm and dry
General Habitus: normal
General Mental: alert
Cardiovascular Exam
Cardiovascular Exam: regular rate/rhythm and no edema
Pulmonary Exam
Pulmonary Exam: lungs clear, no respiratory distress and other (expiratory wheeze with forced expiration. )
Oxygen Status: room air (Pulse ox 99%)
Gastrointestinal Exam
Gastrointestinal Exam: normal bowel sounds, non tender, soft, no organomegaly and non distended
Musculoskeletal Exam
Musculoskeletal Exam: full ROM and neuro vasc intact
Skin Exam
Skin Exam: normal color, warm/dry and no rash
Psychiatric Exam
Psychiatric Exam: normal mood/affect
Scores
Heart Failure Risk
Heart Failure Risk Score: Not Applicable
Course
Orders/Labs/Results
Orders:
Orders
07/12/23 11:43
Chest [CR Chest - 2 Views ] Urgent
Comment:
Reason For Exam: cough
07/12/23 11:48
CBC/With Diff [Complete Blood Count/With Diff] Urgent
CMP [Comprehensive Metabolic Panel] Urgent
07/12/23 13:45
Dexamethasone Pf [Decadron] 10 mg PO NOW STA
Racepinephrine [Vaponefrin Nebs] 0.5 ml INH R NOW STA
Abnormal Lab Results
07/12/23
11:48
RBC 3.90 L 10^6/uL
(4.20-5.40)
Hgb 9.1 L g/dL
(12.0-16.0)
Hct 29.2 L %
(37.0-47.0)
MCV 74.9 L fL
(81.0-99.0)
MCH 23.3 L pg
(27.0-31.0)
MCHC 31.2 L g/dL
(33.0-37.0)
RDW 15.9 H %
(11.5-14.5)
Absolute Lymphs (auto) 1.0 L 10^3/uL
(1.2-3.4)
Lymphocytes % 14.8 L %
(20.5-51.1)
Eosinophils % 6.2 H %
(0-6)
Glucose 141 H mg/dl
(70-99)
07/12/23 11:48
07/12/23 11:48
Vital Signs
Initial and Last Documented VS:
Initial Vital Signs
Temp Pulse Resp BP Pulse Ox
99.3 F 83 18 164/93 99
07/12/23 11:44 07/12/23 11:44 07/12/23 11:44 07/12/23 11:44 07/12/23 11:44
Last Documented Vital Signs
Temp Pulse Resp BP Pulse Ox
99.0 F 81 20 132/73 96
07/12/23 15:42 07/12/23 15:42 07/12/23 15:42 07/12/23 15:42 07/12/23 15:42
*Radiology
Radiology exam reviewed: radiology read reviewed
*Pulse Oximetry
Patient hypoxic: no
*Critical Care Note
Total Time (30-74mins, 75-104mins- exclusive of procedures): Not Applicable
Update Note
Update Note:
Patient remains awake and alert, in no distress. Pulse ox maintaining at 99% RA. No evidence of hypoxia. CXR NAD. She is discharged home and will continue to follow up with PCP. given instructions on s/s to return to ED and she is agreeable to
plan.
ED Attending Note
-
Portions of this chart may have been created with voice recognition software.� Occasional wrong word or��sound alike� substitutions may have occurred due to the inherent limitations of voice recognition software.
Discharge Plan
Departure
Patient Disposition: Home (Routine Discharge)
Date of Disposition: 07/12/23
Time of Disposition: 14:52
Patient with high blood pressure during this ER visit?: No
Condition: Good
Covid-19: Not Applicable
Discharge Problem:
Cough
Instructions: Cough, Adult ED
Prescriptions:
No Action
rabeprazole [AcipHex] 20 MG tablet,delayed release (DR/EC)
20 mg PO BID
atenolol 25 MG tablet
12.5 mg PO DAILY
albuterol sulfate [ProAir HFA] 8.5 GM HFA aerosol inhaler
2 puff inhalation R Q4 PRN (Reason: sob/wheezing)
cholecalciferol (vitamin D3) [Vitamin D3] 2,000 UNIT capsule
3,000 unit PO DAILY
ascorbic acid-ascorbate sodium 500 MG wafer
500 mg PO DAILY
diphenhydramine HCl [Banophen] 25 MG capsule
12.5 mg PO QID
acetaminophen 500 mg Tablet
1,000 mg PO Q6H PRN (Reason: mild pain)
losartan 25 mg Tablet
25 mg PO BID
levothyroxine 25 mcg Tablet
25 mcg PO DAILY
fondaparinux 5 mg/0.4 mL Syringe
5 mg SC Q48H
Vitamin B-6 50 mg Capsule
50 mg PO DAILY
prednisone 50 mg tablet
5 mg PO DAILY
cefuroxime axetil 500 mg tablet
500 mg PO BID Qty: 20 0RF
fluconazole 200 mg tablet
200 mg PO DAILY Qty: 14 0RF
Referrals:
Whitney George MD [Family Provider] - Tomorrow
Interventions
Interventions:
*Risk Screen - Suicide Last Done: 07/12/23 11:44
*General Assessment Last Done: 07/12/23 11:44
*Neglect/Abuse Screening Last Done: 07/12/23 11:44
*ED COVID-19 Vaccine History Last Done: 07/12/23 11:44
*Nursing Disposition Last Done: 07/12/23 15:42
ED- Cardiac Assessment Last Done: 07/12/23 14:34
ED- Pulmonary Assessment Last Done: 07/12/23 14:34
Discharge Date and Time
Discharge Date/Time: 07/12/23 15:43
Print Language: MOHAWK
== END 2023-07-12 15:43 | disposition home or self-care (01) ==
LOC: EMR 11:37
PROVIDERS: Student in an Organized Health Care Education/Training Program; EMERGENCY PHYSICIAN Emergency Medicine; FAMILY PHYSICIAN Family Medicine
DX: R05.9 Cough, unspecified (principal); R50.9 Fever, unspecified; R53.1 Weakness; Z87.891 Personal history of nicotine dependence
CPT/HCPCS: 99284; 94640; 71046; 80053; 85025

== ENCOUNTER 2023-08-22 11:46 | Emergency (ER) | payer MEDICARE, OTHER, SELFPAY ==
[2023-08-22 11:48] VITALS: BP 158/95
[2023-08-22 12:02] VITALS: BP 143/67
--- NOTE | 2023-08-22 12:06 | ED.GENMED ---
History of Present Illness
<HARRISON Estrada - Last Filed: 08/22/23 15:38>
General
Chief Complaint: Breathing Problem
Source: patient
Time Seen by Provider: 08/22/23 11:58
Nursing documentation reviewed up to this point in time: agreed with
Travel History
Have you had any contact with someone who has COVID-19?: No
Do you have any symptoms of coronavirus? Fever > 100 degrees, chills, cough, shortness of breath, sore throat, loss of taste or smell, muscle aches, or headache?: No
History of Present Illness
History of Present Illness:
57-year-old female with history of mast cell activation syndrome, Crohn's colitis asthma/small airway disease CVA on Arixtra presents to the ER for evaluation. Patient reports this morning she woke up and coughed and noticed a sharp pain in her
chest that radiates to her back. When she takes a deep breath she feels pain in the center of her chest and in her left back. She has had intermittent fevers for months this is not new and they have no source of infection. She tells me she was
recently hospitalized at [facility] from August 07 to August 16 and was' septic.' She reports they did not find a source they thought it was coming from her abdomen. She had sigmoid colonoscopy and an upper GI but they never treated her with
antibiotics per infectious disease was involved.
She has no history of DVT PE
Past History
<HARRISON Estrada - Last Filed: 08/22/23 15:38>
Past History
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
inflammatory bowel disease,) and Other (Crohn's disease, 'Mass cell activation syndrome', Migraines, Chronic back pain, Hiatal hernia, Renal calculus, Vertigo, factor 8 elevation, ,anemia, Esophageal stretching)
ED Past Surgical History: Cardiac (Loop recorder), Cholecystectomy, Gynecological (Uterine Ablation), Orthopedic (C3-4 spinal fusion, left ear surgery) and Other (Partial right Thyroidectomy )
Social History
Tobacco: Former smoker
Alcohol: None
Drug: None
Personal: (Common Law)
Living: with family
Employment: Disabled
Family History
Family History: Other (Father with coronary artery disease mother with coronary artery disease)
Review of Systems
<HARRISON Estrada - Last Filed: 08/22/23 15:38>
Review of Systems
Allergies reviewed?: Yes
All Other Systems: ROS reviewed and negative except as documented in HPI and ROS
Constitutional: Reports fever (Chronic fevers no source not new)
EENT: Reports no symptoms
Respiratory: Reports cough and other (Pain to anterior chest with deep breath with back pain)
Cardiac: Reports chest pain (Chest pain with coughing and deep breath)
ABD/GI: Reports no symptoms
: Reports no symptoms
Musculoskeletal: Reports back pain
Skin: Reports no symptoms
Neurological: Reports no symptoms
Hematologic/Lymphatic: Reports no symptoms
Psychiatric: Reports no symptoms
Phy Exam
<HARRISON Estrada - Last Filed: 08/22/23 15:38>
General Physical Exam
General Presentation: no apparent distress
General age: appears stated age
General Skin: warm and dry
General Habitus: normal
General Mental: alert
General Hydration: appears well hydrated
Cardiovascular Exam
Cardiovascular Exam: regular rate/rhythm, no murmur and normal peripheral pulses
Pulmonary Exam
Pulmonary Exam: lungs clear and no respiratory distress
Neurological Exam
Neurological Exam: alert and oriented x3
Musculoskeletal Exam
Musculoskeletal Exam: full ROM
Skin Exam
Skin Exam: normal color and warm/dry
Psychiatric Exam
Psychiatric Exam: normal mood/affect
Scores
<HARRISON Estrada - Last Filed: 08/22/23 15:38>
Heart Failure Risk
Heart Failure Risk Score: Not Applicable
Course
<HARRISON Estrada - Last Filed: 08/22/23 15:38>
Orders/Labs/Results
Orders:
Orders
08/22/23 11:47
ECG [Electrocardiogram (*1)] Stat
Reason for Study: Chest Pain
EKG- Treatment ONCE
08/22/23 12:20
Cardiac Monitoring- Treatment ONCE
IV Insert/Care/Rem.- Treatment PRN
08/22/23 12:28
Complete Blood Count/With Diff Urgent
Comprehensive Metabolic Panel Urgent
D-Dimer Urgent
Troponin I Urgent
08/22/23 13:26
Chest [CR Chest - 2 Views ] Urgent
Comment:
Reason For Exam: cp
Abnormal Lab Results
08/22/23 08/22/23
12:28 12:53
RBC 3.95 L 10^6/uL
(4.20-5.40)
Hgb 8.7 L g/dL
(12.0-16.0)
Hct 28.7 L %
(37.0-47.0)
MCV 72.7 L fL
(81.0-99.0)
MCH 22.0 L pg
(27.0-31.0)
MCHC 30.3 L g/dL
(33.0-37.0)
RDW 15.8 H %
(11.5-14.5)
MPV 10.6 H fL
(7.4-10.4)
Glucose 142 H mg/dl
(70-99)
POC Glucose 147 H mg/dl
(70-99)
08/22/23 12:28
08/22/23 12:28
Vital Signs
Initial and Last Documented VS:
Initial Vital Signs
Temp Pulse Resp BP Pulse Ox
99.5 F 86 20 158/95 99
08/22/23 11:48 08/22/23 11:48 08/22/23 11:48 08/22/23 11:48 08/22/23 11:48
Last Documented Vital Signs
Temp Pulse Resp BP Pulse Ox
99.5 F 85 17 127/73 97
08/22/23 11:48 08/22/23 15:00 08/22/23 15:00 08/22/23 14:00 08/22/23 15:00
Survey And Mapping Technician consulted with Physician
Survey And Mapping Technician consulted with physician?: Yes
Name of Physician Consulted: Edenilson
<Leon Oconnor MD - Last Filed: 08/22/23 14:25>
Orders/Labs/Results
Orders:
Orders
08/22/23 11:47
ECG [Electrocardiogram (*1)] Stat
Reason for Study: Chest Pain
EKG- Treatment ONCE
08/22/23 12:20
Cardiac Monitoring- Treatment ONCE
IV Insert/Care/Rem.- Treatment PRN
08/22/23 12:28
Complete Blood Count/With Diff Urgent
Comprehensive Metabolic Panel Urgent
D-Dimer Urgent
Troponin I Urgent
08/22/23 13:26
Chest [CR Chest - 2 Views ] Urgent
Comment:
Reason For Exam: cp
Abnormal Lab Results
08/22/23 08/22/23
12:28 12:53
RBC 3.95 L 10^6/uL
(4.20-5.40)
Hgb 8.7 L g/dL
(12.0-16.0)
Hct 28.7 L %
(37.0-47.0)
MCV 72.7 L fL
(81.0-99.0)
MCH 22.0 L pg
(27.0-31.0)
MCHC 30.3 L g/dL
(33.0-37.0)
RDW 15.8 H %
(11.5-14.5)
MPV 10.6 H fL
(7.4-10.4)
Glucose 142 H mg/dl
(70-99)
POC Glucose 147 H mg/dl
(70-99)
08/22/23 12:28
08/22/23 12:28
Vital Signs
Initial and Last Documented VS:
Initial Vital Signs
Temp Pulse Resp BP Pulse Ox
99.5 F 86 20 158/95 99
08/22/23 11:48 08/22/23 11:48 08/22/23 11:48 08/22/23 11:48 08/22/23 11:48
Last Documented Vital Signs
Temp Pulse Resp BP Pulse Ox
99.5 F 85 17 127/73 97
08/22/23 11:48 08/22/23 15:00 08/22/23 15:00 08/22/23 14:00 08/22/23 15:00
<HARRISON Estrada - Last Filed: 08/22/23 15:38>
MDM/Problems Addressed
Differential Diagnosis Includes:
not limited to : 30 chest pain, pleurisy, less likely PE
MDM/Problems Addressed:
Patient is a 57 yr old female with history of mast cell activation syndrome colitis Crohn's presents for pain to the chest with deep breath rating to back. Patient in no acute distress lungs clear nonhypoxic nontachypneic nontachycardic . Pain
started after coughing today.
Patient is no acute distress afebrile normal white count hemoglobin 8.7 she has history of chronic anemia D-dimer negative no acute findings on chest x-ray.
Patient evaluate ED physician pleuritic pain safer discharge home with outpatient follow-up
Chronic conditions affecting care:
Chronic anemia, mast cell activation system, Crohn's, CVA
<HARRISON Estrada - Last Filed: 08/22/23 15:38>
*Radiology
Radiology exam reviewed: radiology read reviewed
*Pulse Oximetry
Patient hypoxic: no
*Critical Care Note
Total Time (30-74mins, 75-104mins- exclusive of procedures): Not Applicable
ED Attending Note
<HARRISON Estrada - Last Filed: 08/22/23 15:38>
-
Portions of this chart may have been created with voice recognition software.� Occasional wrong word or��sound alike� substitutions may have occurred due to the inherent limitations of voice recognition software.
<eLon Oconnor MD - Last Filed: 08/22/23 14:25>
ED Attending Note
Patient seen and examined by attending physician: Yes
I performed the substantive portion of visit, reviewed & personally made and approve the management plan that is documented in note by myself or VETO.: Yes
ED Attending Note:
Patient developed sudden upper chest pain and upper back pain after a cough this morning. Mildly pleuritic. No abdominal pain no fever no other complaints. Recent admission to [facility] for presumed sepsis.
GENERAL: Alert and oriented in no apparent distress
EYE: Orbits normal.
NECK: Supple
CARDIAC: Regular rate and rhythm without any obvious murmurs.
LUNGS: Clear breath sounds,normal. Mild tenderness left medial scapular area.
ABDOMEN: Soft, without focal tenderness or distention
NEUROLOGICAL: Alert and oriented , grossly non-focal
SKIN: Warm and dry
MUSCULOSKELETAL: No edema,no deformity.Good color
PSYCH: Normal and appropriate interaction.
Impression: Sudden chest pain upper back pain after coughing. Possibly musculoskeletal. Pulmonary emboli also a consideration. Workup in progress.
Discharge Plan
Departure
Patient Disposition: Home (Routine Discharge)
Date of Disposition: 08/22/23
Time of Disposition: 15:17
Patient with high blood pressure during this ER visit?: Yes
Condition: Fair
Covid-19: Not Applicable
Discharge Problem:
Chest pain, pleuritic
Instructions: Chest Pain (DC)
Prescriptions:
No Action
rabeprazole [AcipHex] 20 MG tablet,delayed release (DR/EC)
20 mg PO BID
atenolol 25 MG tablet
12.5 mg PO DAILY
albuterol sulfate [ProAir HFA] 8.5 GM HFA aerosol inhaler
2 puff inhalation R Q4 PRN (Reason: sob/wheezing)
cholecalciferol (vitamin D3) [Vitamin D3] 2,000 UNIT capsule
3,000 unit PO DAILY
ascorbic acid-ascorbate sodium 500 MG wafer
500 mg PO DAILY
diphenhydramine HCl [Banophen] 25 MG capsule
12.5 mg PO QID
acetaminophen 500 mg Tablet
1,000 mg PO Q6H PRN (Reason: mild pain)
losartan 25 mg Tablet
25 mg PO BID
levothyroxine 25 mcg Tablet
25 mcg PO DAILY
fondaparinux 5 mg/0.4 mL Syringe
5 mg SC Q48H
Vitamin B-6 50 mg Capsule
50 mg PO DAILY
prednisone 50 mg tablet
5 mg PO DAILY
cefuroxime axetil 500 mg tablet
500 mg PO BID Qty: 20 0RF
fluconazole 200 mg tablet
200 mg PO DAILY Qty: 14 0RF
Referrals:
Whitney George MD [Family Provider] -
Activity Restrictions/Additional Instructions:
Your symptoms are likely pleuritic pain.
You may take Tylenol as needed. Follow-up with your family doctor the next several days return if any worsening of symptoms.
Interventions
Interventions:
*Risk Screen - Suicide Last Done: 08/22/23 11:48
*General Assessment Last Done: 08/22/23 11:48
*Neglect/Abuse Screening Last Done: 08/22/23 11:48
ED- Fall Risk Assessment Last Done: 08/22/23 12:04
*ED COVID-19 Vaccine History Last Done: 08/22/23 12:06
ED- Cardiac Assessment Last Done: 08/22/23 12:05
ED- Pulmonary Assessment Last Done: 08/22/23 12:05
Discharge Date and Time
Print Language: AUSTRAL[place]
[2023-08-22 12:55] LABS: Glucose - Point of Care 147 mg/dl (70-99)
[2023-08-22 13:00] VITALS: BP 145/74
[2023-08-22 13:02] LABS: Chloride 103 mmol/L (98-107)
[2023-08-22 13:03] LABS: ALT (SGPT) 17 U/L (0-35); AST (SGOT) 26 U/L (14-36); Albumin 3.9 g/dl (3.5-5.0); Alkaline Phosphatase 89 U/L (38-126); Blood Urea Nitrogen 12 mg/dl (7-17); Calcium 9.3 mg/dl (8.4-10.2); Carbon Dioxide 25 mmol/L (22-30); Glucose 142 mg/dl (70-99); Potassium 4.2 mmol/L (3.5-5.1); Sodium 138 mmol/L (135-145); Total Bilirubin 0.4 mg/dl (0.2-1.3); Total Protein 6.9 g/dl (6.3-8.2); Troponin I < 0.012 ng/ml; eGFR > 60.00
[2023-08-22 13:04] LABS: % Basophils 1.6 % (0-2); % Eosinophils 4.7 % (0-6); % Immature Granulocytes 0.3 % (0-0.5); % Lymphocytes 20.7 % (20.5-51.1); % Neutrophils 66.7 % (42.2-75.2); Absolute Basophils 0.1 10^3/uL (0-0.2); Absolute Eosinophils 0.3 10^3/uL (0-0.7); Absolute Lymphocytes 1.4 10^3/uL (1.2-3.4); Absolute Monocytes 0.4 10^3/uL (0.1-0.6); Absolute Neutrophils 4.6 10^3/uL (1.4-6.5); Hematocrit 28.7 % (37.0-47.0); Hemoglobin 8.7 g/dL (12.0-16.0); Mean Corp Hgb Conc. 30.3 g/dL (33.0-37.0); Mean Corpuscular Volume 72.7 fL (81.0-99.0); Mean Platelet Volume 10.6 fL (7.4-10.4); Nucleated Red Blood Cells % 0 %; Platelet Count 360 10^3/uL (130-400); Red Blood Cell Count 3.95 10^6/uL (4.20-5.40); Red Cell Dist. Width 15.8 % (11.5-14.5); White Blood Cell Count 6.9 10^3/uL (4.8-10.8)
[2023-08-22 14:00] VITALS: BP 127/73
== END 2023-08-22 16:19 | disposition home or self-care (01) ==
LOC: EMR 11:46
PROVIDERS: Nurse Practitioner; EMERGENCY PHYSICIAN Emergency Medicine; FAMILY PHYSICIAN Family Medicine
DX: R07.81 Pleurodynia (principal)
CPT/HCPCS: 99285; 71046; 80053; 82962; 84484; 85025; 85379; 93005

== ENCOUNTER 2023-09-08 02:29 | Emergency (ER) | payer MEDICARE, OTHER, SELFPAY ==
[2023-09-08 02:33] VITALS: BP 168/108
[2023-09-08 02:46] VITALS: BMI 45.9
--- NOTE | 2023-09-08 03:03 | ED.GENMED ---
History of Present Illness
General
Chief Complaint: Breathing Problem
Source: patient and spouse
Time Seen by Provider: 09/08/23 02:53
Travel History
Have you had any contact with someone who has COVID-19?: No
Do you have any symptoms of coronavirus? Fever > 100 degrees, chills, cough, shortness of breath, sore throat, loss of taste or smell, muscle aches, or headache?: Yes
Symptoms:: SOB, cough
History of Present Illness
History of Present Illness:
57-year-old female presents emergency department complaints of intractable nonproductive coughing since Sunday associated with wheezing. She states that she took her biologic on Sunday and started prednisone 50 mg which she is continuing to take.
Since Sunday she is also added [id number] albuterol treatments, penicillin, Nasacort, etc. She complains of a continued cough. She denies lip or tongue swelling, change in voice, trouble swallowing, vomiting, fever, anorexia, chest pain or
pressure, neck pain, abdominal pain, or other complaints. She states that her has a recent URI. Patient was seen at [facility] yesterday and reports that she had a substantial workup all that was negative including COVID, flu, chest
x-ray, lactic acid, labs, etc.
Past History
Past History
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
inflammatory bowel disease,) and Other (Crohn's disease, 'Mass cell activation syndrome', Migraines, Chronic back pain, Hiatal hernia, Renal calculus, Vertigo, factor 8 elevation, ,anemia, Esophageal stretching)
ED Past Surgical History: Cardiac (Loop recorder), Cholecystectomy, Gynecological (Uterine Ablation), Orthopedic (C3-4 spinal fusion, left ear surgery) and Other (Partial right Thyroidectomy )
Social History
Tobacco: Former smoker
Alcohol: None
Drug: None
Personal: (Common Law)
Living: with family
Employment: Disabled
Family History
Family History: Other (Father with coronary artery disease mother with coronary artery disease)
Phy Exam
Physical Exam
Physical Exam:
GENERAL: Alert , in no apparent distress, obvious nonproductive cough noted
EYE: pupils equal and reactive
NECK: Supple, no significant adenopathy.
ENT: o/p clr, mm moist, no lip or tongue swelling noted, no trismus, no drool, voice clear, no stridor
CARDIAC: Regular rate and rhythm .
LUNGS: Equal breath sounds bilaterally, no acute respiratory distress, occasional slight wheezing noted, no retraction
ABDOMEN: Soft, without focal tenderness, no r/g, no cvat
NEUROLOGICAL: Alert and oriented, no focal neuro deficits
SKIN: Warm and dry, skin intact.
MUSCULOSKELETAL: No edema, well perfused.
PSYCH: Normal and appropriate interaction.
Scores
Heart Failure Risk
Heart Failure Risk Score: Not Applicable
Course
Orders/Labs/Results
Orders:
Orders
09/08/23 03:06
Racepinephrine [Vaponefrin Nebs] 0.5 ml INH R NOW STA
Vital Signs
Initial and Last Documented VS:
Initial Vital Signs
Temp Pulse Resp BP Pulse Ox
98.4 F 86 24 168/108 98
09/08/23 02:33 09/08/23 02:33 09/08/23 02:33 09/08/23 02:33 09/08/23 02:33
Last Documented Vital Signs
Temp Pulse Resp BP Pulse Ox
98.4 F 79 28 137/82 98
09/08/23 02:33 09/08/23 04:17 09/08/23 04:17 09/08/23 04:17 09/08/23 04:17
*Critical Care Note
Total Time (30-74mins, 75-104mins- exclusive of procedures): Not Applicable
Update Note
Update Note:
Patient presents to the Emergency Department with ____persistent cough
Number and Complexity of Problems Addressed at the Encounter
� Chronic conditions affecting care:
� Acute Exacerbation and/or Progression of Chronic Illness:
� Differential Diagnosis includes: But not limited to bronchospasm, mast cell activation syndrome related cough, pertussis, etc.
Amount and/or Complexity of Data to be Reviewed and Analyzed
� I performed an independent evaluation of and my interpretation is:
EKG:
CT:
Xrays:
Laboratory Studies:
Other:
� Review of other/old records reveals:
� Clinical information was obtained by an independent historian: who is bedside
� Prescriptions/Medications Considered but not given:
� Further testing considered but not performed: Consider to extensive testing here however this was all done yesterday and was reportedly normal. Patient is requesting a racemic epinephrine neb, states she has had similar
symptoms in the past and has responded to this. I do not appreciate stridor. Patient is not tripoding, etc. Given that she has tolerated this medication without difficulty in the past and has responded, I wrote for dose.
Risk of Complications and/or Morbidity or Mortality of Patient Management
� Social determinants of health affecting care:
� Discussion with other providers (PCP, Hospitalists, Consultants, etc):
� Escalation of care including admission/observation vs risk of discharge considered: 402 AM Pt still with obvious cough, however she subjectively says she feels better. No new sxs, no stridor. pox remains nl. No retxs. Mild
wheezing noted on repeat exam. Pt using IC, nebs, cough med, abx, steroids. I recommend f/u with pulm on Sunday, no further rec here given stability, mult med allergies and what appears to be maximized therapy at present. Pt aware of reasons to
rted.
ED Attending Note
-
Portions of this chart may have been created with voice recognition software.� Occasional wrong word or��sound alike� substitutions may have occurred due to the inherent limitations of voice recognition software.
Discharge Plan
Departure
Patient Disposition: Home (Routine Discharge)
Date of Disposition: 09/08/23
Time of Disposition: 04:01
Patient with high blood pressure during this ER visit?: Yes
Condition: Good
Discharge Problem:
Cough
Instructions: Wheezing, Cough, Adult ED, BLOOD PRESSURE
Prescriptions:
No Action
rabeprazole [AcipHex] 20 MG tablet,delayed release (DR/EC)
20 mg PO BID
atenolol 25 MG tablet
12.5 mg PO DAILY
albuterol sulfate [ProAir HFA] 8.5 GM HFA aerosol inhaler
2 puff inhalation R Q4 PRN (Reason: sob/wheezing)
cholecalciferol (vitamin D3) [Vitamin D3] 2,000 UNIT capsule
3,000 unit PO DAILY
ascorbic acid-ascorbate sodium 500 MG wafer
500 mg PO DAILY
diphenhydramine HCl [Banophen] 25 MG capsule
12.5 mg PO QID
acetaminophen 500 mg Tablet
1,000 mg PO Q6H PRN (Reason: mild pain)
losartan 25 mg Tablet
25 mg PO BID
levothyroxine 25 mcg Tablet
50 mcg PO DAILY
fondaparinux 5 mg/0.4 mL Syringe
5 mg SC Q48H
Vitamin B-6 50 mg Capsule
50 mg PO DAILY
prednisone 50 mg tablet
5 mg PO DAILY
Referrals:
Ronan Garza MD [Active] - Tomorrow
Jeane Mercado MD [Family Provider] -
Activity Restrictions/Additional Instructions:
IF YOU DEVELOP HIGH FEVER, VOMITING, DIZZINESS, CHEST PAIN, WORSENING COUGH/TROUBLE BREATHING, OR OTHER WORRISOME SIGNS, GO TO THE ER IMMEDIATELY!
Interventions
Interventions:
*Risk Screen - Suicide Last Done: 09/08/23 02:33
*General Assessment Last Done: 09/08/23 02:33
*Neglect/Abuse Screening Last Done: 09/08/23 02:33
ED- Fall Risk Assessment Last Done: 09/08/23 02:33
*ED COVID-19 Vaccine History Last Done: 09/08/23 02:33
*Nursing Disposition Last Done: 09/08/23 04:15
ED- Cardiac Assessment Last Done: 09/08/23 02:40
ED- Pulmonary Assessment Last Done: 09/08/23 02:40
Discharge Date and Time
Discharge Date/Time: 09/08/23 04:15
Print Language: PORTUGUESE
[2023-09-08 03:15] VITALS: BP 149/79
[2023-09-08] MEDS: VAPONEFRIN NEBS 0.5 ML INH (03:20)
[2023-09-08 04:00] VITALS: BP 174/98
[2023-09-08 04:17] VITALS: BP 137/82
== END 2023-09-08 04:15 | disposition home or self-care (01) ==
LOC: EMR 02:29
PROVIDERS: EMERGENCY PHYSICIAN Emergency Medicine; FAMILY PHYSICIAN Family Medicine
DX: R05.9 Cough, unspecified (principal); R06.2 Wheezing; J45.909 Unspecified asthma, uncomplicated; K21.9 Gastro-esophageal reflux disease without esophagitis; E11.9 Type 2 diabetes mellitus without complications; K44.9 Diaphragmatic hernia without obstruction or gangrene; E78.00 Pure hypercholesterolemia, unspecified; E03.9 Hypothyroidism, unspecified; K58.9 Irritable bowel syndrome, unspecified; K50.90 Crohn's disease, unspecified, without complications; I10 Essential (primary) hypertension; G89.29 Other chronic pain; M54.9 Dorsalgia, unspecified; F41.9 Anxiety disorder, unspecified; D89.40 Mast cell activation, unspecified; D64.9 Anemia, unspecified; Z87.442 Personal history of urinary calculi; Z87.891 Personal history of nicotine dependence; Z86.73 Personal history of transient ischemic attack (TIA), and cerebral infarction without residual deficits; Z86.16 Personal history of COVID-19; Z90.49 Acquired absence of other specified parts of digestive tract; Z98.1 Arthrodesis status; Z88.6 Allergy status to analgesic agent; Z88.1 Allergy status to other antibiotic agents; Z91.041 Radiographic dye allergy status; Z88.5 Allergy status to narcotic agent; Z91.013 Allergy to seafood; Z88.2 Allergy status to sulfonamides; Z88.8 Allergy status to other drugs, medicaments and biological substances; Z91.018 Allergy to other foods; Z91.048 Other nonmedicinal substance allergy status
CPT/HCPCS: 99283; 94640

== ENCOUNTER 2023-10-28 11:44 | Emergency (ER) | payer MEDICARE, OTHER, SELFPAY ==
[2023-10-28 11:45] VITALS: BP 160/84
--- NOTE | 2023-10-28 12:40 | ED.GENMED ---
History of Present Illness
General
Chief Complaint: Throat Problem
Source: patient and spouse
Exam Limitations: none
Time Seen by Provider: 10/28/23 12:38
Nursing documentation reviewed up to this point in time: agreed with
History of Present Illness
History of Present Illness:
57-year-old female with history of CVA, HTN, HLD, Crohn's, GERD, IDDM, hypothyroid, idiopathic mast cell activation syndrome, here for 'last night I felt more swollen (cupping her hand around the front of her throat)and took Benadryl 12.5 mg. This
a.m. swollen sensation still there, took Prednisone 25 mg and Benadryl 12.5 mg, Tylenol and Vit C. Speaking and swallowing well. Denies fever or chills. Since having all her top teeth pulled approx 4 weeks ago, she has been getting sensation of
swelling about the neck and throat
due to bony erosion of her teeth, all of her upper teeth were removed the end of September. Since then saw ENT 6 days ago for feeling swelling about the anterior aspect of her neck and throat; he 'looked in the back of my throat with a mirror and
saw no thrush but said it may be further down than where he can see. She was prescribed clotrimazole lozenges that she has been taking 5 times a day for the past 3 days with no relief of the feeling of swelling in her throat. Her family doctor also
ordered CBC that day. She states she frequently sees the ENT and frequently has scopes up her nose down into her throat by her ENT for various sinus problems, sinus stuffiness, feeling of swelling in her throat, ETC.
Dissatisfied, with her ENT visit, she went to [facility] the next day and lab work, cardiac workup which was negative, and told to continue the lozenges.
Past History
Past History
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
inflammatory bowel disease,) and Other (Crohn's disease, 'Mass cell activation syndrome', Migraines, Chronic back pain, Hiatal hernia, Renal calculus, Vertigo, factor 8 elevation, ,anemia, Esophageal stretching)
ED Past Surgical History: Cardiac (Loop recorder), Cholecystectomy, Gynecological (Uterine Ablation), Orthopedic (C3-4 spinal fusion, left ear surgery) and Other (Partial right Thyroidectomy )
Social History
Tobacco: Former smoker
Alcohol: None
Drug: None
Personal: (Common Law)
Living: with family
Employment: Disabled
Family History
Family History: Other (Father with coronary artery disease mother with coronary artery disease)
Review of Systems
Review of Systems
Allergies reviewed?: Yes
All Other Systems: ROS reviewed and negative except as documented in HPI and ROS
Constitutional: Denies fever, fatigue or chills
EENT: Reports sore throat (Denies sore throat just a sensation of swelling about the neck and throat) and other (Her ENT doctor felt a swollen lymph node on the left side of her neck 5 days ago); Denies mouth swelling or runny nose
Respiratory: Denies cough or trouble breathing
Cardiac: Denies chest pain
ABD/GI: Denies abdominal pain, nausea, vomiting or diarrhea
Musculoskeletal: Denies edema
Skin: Reports no symptoms
Neurological: Reports no symptoms
Phy Exam
Physical Exam
Physical Exam:
GENERAL: No acute distress. A&Ox3.
CONSTITUTIONAL: Afebrile.
EYES: PERRL, conjunctivae normal
Neck: Supple, one palpable nontender anterior cervical lymph node the rest of the neck is without masses
ENMT: moist mucus membranes, pharynx with mildly erythematous bilateral soft palates, no swelling, no lesions, no sign of thrush. Uvula midline, posterior pharynx normal. Edentulous upper gums,no swelling or sign of infection here. Tongue
normal. Speaking and swallowing well.
RESPIRATORY: Regular respirations, nonlabored, lungs clear.
CARDIOVASCULAR: Regular rate and rhythm, no murmurs, no rubs.
GI: Soft, nontender, normal BS
MUSCULOSKELETAL: Moves with ease. Well perfused.
SKIN: Warm, dry, pink
PSYCH: Normal mood and affect. Well kept, interactive and appropriate
NEUROLOGIC: Awake, alert and oriented. No focal neurological deficits
Course
Orders/Labs/Results
Orders:
Orders
10/28/23 12:53
Neck Soft Tissue [CR Soft Tissue Neck ] Urgent
Comment:
Reason For Exam: pain
10/28/23 12:55
Rapid Strep Group A Urgent
CARINA Source: Throat/Pharynx
Specimen Description:
Date Specimen was Collected: 10/28/23
Time Specimen was Collected: 12:54
Throat Culture, Comprehensive Urgent
CARINA Source: Throat/Pharynx
Specimen Description:
Date Specimen was Collected: 10/28/23
Time Specimen was Collected: 12:54
Vital Signs
Initial and Last Documented VS:
Initial Vital Signs
Temp Pulse Resp BP Pulse Ox
99.3 F 81 16 160/84 96
10/28/23 11:45 10/28/23 11:45 10/28/23 11:45 10/28/23 11:45 10/28/23 11:45
Last Documented Vital Signs
Temp Pulse Resp BP Pulse Ox
99.3 F 81 16 160/84 96
10/28/23 11:45 10/28/23 11:45 10/28/23 11:45 10/28/23 11:45 10/28/23 11:45
MDM/Problems Addressed
Differential Diagnosis Includes:
Globus, lymphadenopathy, GERD
MDM/Problems Addressed:
57-year-old female with history of CVA, HTN, HLD, Crohn's, GERD, IDDM, hypothyroid, idiopathic mast cell activation syndrome, here for 'last night I felt more swollen (cupping her hand around the front of her throat)and took Benadryl 12.5 mg. This
a.m. swollen sensation still there, took Prednisone 25 mg and Benadryl 12.5 mg, Tylenol and Vit C. Speaking and swallowing well. Denies fever or chills. Since having all her top teeth pulled approx 4 weeks ago, she has been getting sensation of
swelling about the neck and throat
due to bony erosion of her teeth, all of her upper teeth were removed the end of September. Since then saw ENT 6 days ago for feeling swelling about the anterior aspect of her neck and throat; he 'looked in the back of my throat with a mirror and
saw no thrush but said it may be further down than where he can see. She was prescribed clotrimazole lozenges that she has been taking 5 times a day for the past 3 days with no relief of the feeling of swelling in her throat. Her family doctor also
ordered CBC that day. She states she frequently sees the ENT and frequently has scopes up her nose down into her throat by her ENT for various sinus problems, sinus stuffiness, feeling of swelling in her throat, ETC.
Dissatisfied, with her ENT visit, she went to [facility] the next day and lab work, cardiac workup which was negative, and told to continue the lozenges.
Soft tissue neck x-ray shows nothing acute, no abnormal swelling
Rapid strep negative
Patient reassured
Patient now says she has significant reflux and a hiatal hernia, she believes this is the cause of her symptoms, she will follow-up with her GI doctor at [place].
*Critical Care Note
Total Time (30-74mins, 75-104mins- exclusive of procedures): Not Applicable
ED Attending Note
-
Portions of this chart may have been created with voice recognition software.� Occasional wrong word or��sound alike� substitutions may have occurred due to the inherent limitations of voice recognition software.
Discharge Plan
Departure
Patient Disposition: Home (Routine Discharge)
Date of Disposition: 10/28/23
Time of Disposition: 14:09
Patient with high blood pressure during this ER visit?: No
Condition: Good
Discharge Problem:
Globus sensation
Prescriptions:
No Action
rabeprazole [AcipHex] 20 MG tablet,delayed release (DR/EC)
20 mg PO BID
atenolol 25 MG tablet
12.5 mg PO DAILY
albuterol sulfate [ProAir HFA] 8.5 GM HFA aerosol inhaler
2 puff inhalation R Q4 PRN (Reason: sob/wheezing)
cholecalciferol (vitamin D3) [Vitamin D3] 2,000 UNIT capsule
3,000 unit PO DAILY
ascorbic acid-ascorbate sodium 500 MG wafer
500 mg PO DAILY
diphenhydramine HCl [Banophen] 25 MG capsule
12.5 mg PO QID
acetaminophen 500 mg Tablet
1,000 mg PO Q6H PRN (Reason: mild pain)
losartan 25 mg Tablet
25 mg PO BID
levothyroxine 25 mcg Tablet
50 mcg PO DAILY
fondaparinux 5 mg/0.4 mL Syringe
5 mg SC Q48H
Vitamin B-6 50 mg Capsule
50 mg PO DAILY
prednisone 50 mg tablet
5 mg PO DAILY
Referrals:
Jeane Mercado MD [Family Provider] -
Activity Restrictions/Additional Instructions:
As we discussed, your neck x-ray shows nothing worrisome.
Your rapid strep screen is negative.
If your final throat culture comes back with anything positive, we will contact you within 2 to 3 days
You have one swollen lymph node on the left neck (which you knew about), no other swollen lymph nodes are felt.
Interventions
Interventions:
*Risk Screen - Suicide Last Done: 10/28/23 12:44
*General Assessment Last Done: 10/28/23 12:44
*Neglect/Abuse Screening Last Done: 10/28/23 12:44
ED- Fall Risk Assessment Last Done: 10/28/23 14:31
*ED COVID-19 Vaccine History Last Done: 10/28/23 12:44
*Nursing Disposition Last Done: 10/28/23 14:31
ED-EENT Assessment Last Done: 10/28/23 12:44
ED- Pulmonary Assessment Last Done: 10/28/23 12:44
Discharge Date and Time
Discharge Date/Time: 10/28/23 14:31
Print Language: MACEDONIAN
== END 2023-10-28 14:31 | disposition home or self-care (01) ==
LOC: EMR 11:44
PROVIDERS: EMERGENCY PHYSICIAN Emergency Medicine; FAMILY PHYSICIAN Family Medicine
DX: R09.A2 Foreign body sensation, throat (principal); I10 Essential (primary) hypertension; E78.00 Pure hypercholesterolemia, unspecified; K50.90 Crohn's disease, unspecified, without complications; E11.9 Type 2 diabetes mellitus without complications; G89.29 Other chronic pain; J45.909 Unspecified asthma, uncomplicated; K21.9 Gastro-esophageal reflux disease without esophagitis; K44.9 Diaphragmatic hernia without obstruction or gangrene; Z82.49 Family history of ischemic heart disease and other diseases of the circulatory system; Z86.16 Personal history of COVID-19; Z86.73 Personal history of transient ischemic attack (TIA), and cerebral infarction without residual deficits; Z87.442 Personal history of urinary calculi; Z87.891 Personal history of nicotine dependence; Z90.49 Acquired absence of other specified parts of digestive tract; Z98.1 Arthrodesis status
CPT/HCPCS: 99283; 70360; 87070; 87880

== ENCOUNTER 2023-12-21 17:29 | Emergency (ER) | payer MEDICARE, OTHER, SELFPAY ==
[2023-12-21 17:36] VITALS: BP 160/105
[2023-12-21 18:06] LABS: % Eosinophils 4.2 % (0-6); % Immature Granulocytes 0.1 % (0-0.5); % Lymphocytes 17.7 % (20.5-51.1); % Monocytes 7.7 % (1.7-9.3); % Neutrophils 69.3 % (42.2-75.2); Absolute Basophils 0.1 10^3/uL (0-0.2); Absolute Eosinophils 0.3 10^3/uL (0-0.7); Absolute Lymphocytes 1.2 10^3/uL (1.2-3.4); Absolute Monocytes 0.5 10^3/uL (0.1-0.6); Absolute Neutrophils 4.7 10^3/uL (1.4-6.5); Hematocrit 35.5 % (37.0-47.0); Hemoglobin 11.3 g/dL (12.0-16.0); Mean Corp Hgb Conc. 31.8 g/dL (33.0-37.0); Mean Corpuscular Hgb 25.2 pg (27.0-31.0); Mean Corpuscular Volume 79.1 fL (81.0-99.0); Mean Platelet Volume 9.9 fL (7.4-10.4); Nucleated Red Blood Cells % 0 %; Platelet Count 273 10^3/uL (130-400); Red Blood Cell Count 4.49 10^6/uL (4.20-5.40); Red Cell Dist. Width 19.2 % (11.5-14.5); White Blood Cell Count 6.7 10^3/uL (4.8-10.8)
[2023-12-21 18:19] VITALS: BMI 43.5
[2023-12-21 18:24] LABS: ALT (SGPT) 23 U/L (0-35); AST (SGOT) 30 U/L (14-36); Albumin 4.1 g/dl (3.5-5.0); Alkaline Phosphatase 90 U/L (38-126); Blood Urea Nitrogen 14 mg/dl (7-17); Calcium 9.9 mg/dl (8.4-10.2); Carbon Dioxide 26 mmol/L (22-30); Chloride 102 mmol/L (98-107); Estimated Creatinine Clearance 70 ml/min; Glucose 159 mg/dl (70-99); Potassium 4.6 mmol/L (3.5-5.1); Sodium 137 mmol/L (135-145); Total Bilirubin 0.4 mg/dl (0.2-1.3); Total Protein 6.7 g/dl (6.3-8.2); eGFR > 60.00
--- NOTE | 2023-12-21 19:17 | ED.GENMED ---
History of Present Illness
<Cynthia Oliveira PA-C - Last Filed: 12/21/23 21:08>
General
Chief Complaint: Dizziness
Source: patient
Time Seen by Provider: 12/21/23 18:52
History of Present Illness
History of Present Illness:
58yoF with a history of multiple prior CVAs on Arixtra, hypertension, hyperlipidemia, type 2 diabetes, Crohn's disease, mast cell activation syndrome, and GERD presenting for evaluation of a headache and dizziness. Patient has been having
intermittent dizziness for 'a while.' Her dizziness has been worsening over the past 4 days to 1 week. She describes feeling like the room is spinning. Dizziness is worse with position changes and sitting up. Dizziness is associated with nausea.
She also reports a right-sided headache with pain in her right maxillary region that radiates to the parietal and occipital regions. She reports pressure in her sinuses and her right ear. She also feels that the area is swollen and feels like her
lymph nodes are enlarged. She has been taking meclizine without much improvement. She called her PCP and ENT today but they were unable to see her today so she was advised to go to the ED for evaluation. Patient denies any fevers, chest pain,
shortness of breath, rashes. Of note, patient had multiple upper dental extractions in September of this year. Patient was seen in the ED in July 2022 for similar complaints.
Past History
<Cynthia Oliveira PA-C - Last Filed: 12/21/23 21:08>
Past History
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
inflammatory bowel disease,) and Other (Crohn's disease, 'Mass cell activation syndrome', Migraines, Chronic back pain, Hiatal hernia, Renal calculus, Vertigo, factor 8 elevation, ,anemia, Esophageal stretching)
ED Past Surgical History: Cardiac (Loop recorder), Cholecystectomy, Gynecological (Uterine Ablation), Orthopedic (C3-4 spinal fusion, left ear surgery) and Other (Partial right Thyroidectomy )
Social History
Tobacco: Former smoker
Alcohol: None
Drug: None
Personal: (Common Law)
Living: with family
Employment: Disabled
Family History
Family History: Other (Father with coronary artery disease mother with coronary artery disease)
Phy Exam
<Cynthia Oliveiar PA-C - Last Filed: 12/21/23 21:08>
General Physical Exam
General Presentation: well appearing and no apparent distress
General age: appears stated age
General Skin: warm and dry
General Habitus: normal
General Mental: alert
ENT Exam
ENT Exam: EOMI, TM's normal and neck supple
Eye Exam
Eye Exam: PERRL, EOMI and conjunctiva normal
Cardiovascular Exam
Cardiovascular Exam: regular rate/rhythm
Pulmonary Exam
Pulmonary Exam: lungs clear, no respiratory distress, no crackles and no wheezing
Neurological Exam
Neurological Exam: alert, CN II-XII intact, no motor deficits, speech normal and other (CN 2-12 intact. PERRL. EOMs intact. Negative drift x4. Normal finger to nose and heel to lorenzana bilaterally. )
Adam Coma Scale
Eye Opening: Spontaneous
Verbal Response: Oriented
Motor Response: Obeys Commands
GCS Total Score: 15
Skin Exam
Skin Exam: normal color and warm/dry
Psychiatric Exam
Psychiatric Exam: normal mood/affect
<Jamia Meza MD - Last Filed: 12/21/23 21:14>
Adam Coma Scale
GCS Total Score: 15
Course
<Cynthia Oliveira PA-C - Last Filed: 12/21/23 21:08>
Orders/Labs/Results
Orders:
Orders
12/21/23 17:41
Electrocardiogram (*1) Urgent
Reason for Study: Vertigo / Dizzy
EKG- Treatment ONCE
12/21/23 17:56
Complete Blood Count/With Diff Urgent
Comprehensive Metabolic Panel Urgent
12/21/23 19:17
CT Head W/o Iv Contrast Urgent
Comment:
Reason For Exam: Dizziness
Abnormal Lab Results
12/21/23
17:56
Hgb 11.3 L g/dL
(12.0-16.0)
Hct 35.5 L %
(37.0-47.0)
MCV 79.1 L fL
(81.0-99.0)
MCH 25.2 L pg
(27.0-31.0)
MCHC 31.8 L g/dL
(33.0-37.0)
RDW 19.2 H %
(11.5-14.5)
Lymphocytes % 17.7 L %
(20.5-51.1)
Glucose 159 H mg/dl
(70-99)
12/21/23 17:56
12/21/23 17:56
Vital Signs
Initial and Last Documented VS:
Initial Vital Signs
Temp Pulse Resp BP Pulse Ox
98.7 F 81 18 160/105 99
12/21/23 17:36 12/21/23 17:36 12/21/23 17:36 12/21/23 17:36 12/21/23 17:36
Last Documented Vital Signs
Temp Pulse Resp BP Pulse Ox
98.7 F 78 15 160/105 99
12/21/23 17:36 12/21/23 18:30 12/21/23 18:30 12/21/23 17:36 12/21/23 17:36
<Jamia Meza MD - Last Filed: 12/21/23 21:14>
Orders/Labs/Results
Orders:
Orders
12/21/23 17:41
Electrocardiogram (*1) Urgent
Reason for Study: Vertigo / Dizzy
EKG- Treatment ONCE
12/21/23 17:56
Complete Blood Count/With Diff Urgent
Comprehensive Metabolic Panel Urgent
12/21/23 19:17
CT Head W/o Iv Contrast Urgent
Comment:
Reason For Exam: Dizziness
Abnormal Lab Results
12/21/23
17:56
Hgb 11.3 L g/dL
(12.0-16.0)
Hct 35.5 L %
(37.0-47.0)
MCV 79.1 L fL
(81.0-99.0)
MCH 25.2 L pg
(27.0-31.0)
MCHC 31.8 L g/dL
(33.0-37.0)
RDW 19.2 H %
(11.5-14.5)
Lymphocytes % 17.7 L %
(20.5-51.1)
Glucose 159 H mg/dl
(70-99)
12/21/23 17:56
12/21/23 17:56
Vital Signs
Initial and Last Documented VS:
Initial Vital Signs
Temp Pulse Resp BP Pulse Ox
98.7 F 81 18 160/105 99
12/21/23 17:36 12/21/23 17:36 12/21/23 17:36 12/21/23 17:36 12/21/23 17:36
Last Documented Vital Signs
Temp Pulse Resp BP Pulse Ox
98.7 F 78 15 160/105 99
12/21/23 17:36 12/21/23 18:30 12/21/23 18:30 12/21/23 17:36 12/21/23 17:36
<Cynthia Oliveira PA-C - Last Filed: 12/21/23 21:08>
MDM/Problems Addressed
Differential Diagnosis Includes:
58yoF here with R sided headache and dizziness that began earlier this week. Dizziness is describes as room spinning. Worse with position changes. Also c/o sinus pressure, R ear pain, and 'feeling swollen.' She is hypertensive with otherwise normal
vitals. She is well appearing in no distress. R tympanic membrane appears normal on exam. No skin rash or facial swelling appreciated. Neuro exam is non-focal. No nystagmus or ataxia noted. Differential diagnosis includes but is not limited to:
sinusitis, eustachian tube dysfunction, TMJ, trigeminal neuralgia, early shingles, CVA
Initial ED plan: Labs obtained in triage which are overall unremarkable. EKG shows NSR with nonspecific ST/T wave changes which appears unchanged from prior. Patient also without cardiac symptoms. Will obtain CT head.
<Cynthia Oliveira PA-C - Last Filed: 12/21/23 21:08>
*EKG
Interpreted by ED Provider?: Yes
EKG Intrepretation Date: 12/21/23
Heart Rate: 76
Rate: normal
Rhythm: sinus
[place]: normal axis
Interval: normal interval
Ischemia: non-specific ST changes
*Critical Care Note
Total Time (30-74mins, 75-104mins- exclusive of procedures): Not Applicable
<Cynthia Oliveira PA-C - Last Filed: 12/21/23 21:08>
Update Note
Update Note:
CT head is negative for acute findings. No evidence of infarct or sinusitis on imaging. Unclear etiology of symptoms. Very low clinical suspicion for acute CVA given non-focal neuro exam and complaints of R maxillary/ear pain. Advised PRN meclizine
and close outpatient f/u with PCP, ENT, and neurology. ED return precautions discussed including any new neurologic symptoms. She was discharged in stable condition.
ED Attending Note
<Cynthia Oliveira PA-C - Last Filed: 12/21/23 21:08>
-
Portions of this chart may have been created with voice recognition software.� Occasional wrong word or��sound alike� substitutions may have occurred due to the inherent limitations of voice recognition software.
<Jamia Meza MD - Last Filed: 12/21/23 21:14>
ED Attending Note
Patient seen and examined by attending physician: Yes
I performed the substantive portion of visit, reviewed & personally made and approve the management plan that is documented in note by myself or VETO.: Yes
Discharge Plan
Departure
Patient Disposition: Home (Routine Discharge)
Date of Disposition: 12/21/23
Time of Disposition: 20:31
Patient with high blood pressure during this ER visit?: Yes
Discharge Problem:
Right-sided headache, Vertigo
Instructions: Dizziness
Prescriptions:
No Action
rabeprazole [AcipHex] 20 MG tablet,delayed release (DR/EC)
20 mg PO BID
atenolol 25 MG tablet
12.5 mg PO DAILY
albuterol sulfate [ProAir HFA] 8.5 GM HFA aerosol inhaler
2 puff inhalation R Q4 PRN (Reason: sob/wheezing)
cholecalciferol (vitamin D3) [Vitamin D3] 2,000 UNIT capsule
3,000 unit PO DAILY
ascorbic acid-ascorbate sodium 500 MG wafer
500 mg PO DAILY
diphenhydramine HCl [Banophen] 25 MG capsule
12.5 mg PO QID
acetaminophen 500 mg Tablet
1,000 mg PO Q6H PRN (Reason: mild pain)
losartan 25 mg Tablet
25 mg PO BID
levothyroxine 25 mcg Tablet
50 mcg PO DAILY
fondaparinux 5 mg/0.4 mL Syringe
5 mg SC Q48H
Vitamin B-6 50 mg Capsule
50 mg PO DAILY
prednisone 50 mg tablet
5 mg PO DAILY
Referrals:
Whitney George MD [Family Provider] -
Arlette Olmos DO [Active] -
Activity Restrictions/Additional Instructions:
Take meclizine as needed for dizziness.
Please call on Sunday to schedule follow-up appointments with your family doctor, neurology, and ENT.
Return to the ER immediately with any worsening symptoms or new neurologic symptoms.
Interventions
Interventions:
*Risk Screen - Suicide Last Done: 12/21/23 17:36
*General Assessment Last Done: 12/21/23 17:36
*Neglect/Abuse Screening Last Done: 12/21/23 17:36
ED- Fall Risk Assessment Last Done: 12/21/23 18:32
*ED COVID-19 Vaccine History Last Done: 12/21/23 18:19
*Nursing Disposition Last Done: 12/21/23 20:43
ED- Neurological Assessment Last Done: 12/21/23 18:32
ED- Cardiac Assessment Last Done: 12/21/23 18:32
ED Swallowing Screen Last Done: 12/21/23 20:43
Discharge Date and Time
Discharge Date/Time: 12/21/23 20:45
Print Language: WALLISIAN
== END 2023-12-21 20:45 | disposition home or self-care (01) ==
LOC: EMR 17:29
PROVIDERS: EMERGENCY PHYSICIAN Emergency Medicine; FAMILY PHYSICIAN Family Medicine
DX: R42 Dizziness and giddiness (principal); R51.9 Headache, unspecified; R11.0 Nausea; H92.01 Otalgia, right ear; R09.89 Other specified symptoms and signs involving the circulatory and respiratory systems; E11.9 Type 2 diabetes mellitus without complications; E78.00 Pure hypercholesterolemia, unspecified; I10 Essential (primary) hypertension; K21.9 Gastro-esophageal reflux disease without esophagitis; J45.909 Unspecified asthma, uncomplicated; E03.9 Hypothyroidism, unspecified; K44.9 Diaphragmatic hernia without obstruction or gangrene; K58.9 Irritable bowel syndrome, unspecified; D89.40 Mast cell activation, unspecified; G43.909 Migraine, unspecified, not intractable, without status migrainosus; G89.29 Other chronic pain; M54.9 Dorsalgia, unspecified; K50.90 Crohn's disease, unspecified, without complications; D64.9 Anemia, unspecified; F41.9 Anxiety disorder, unspecified; Z90.49 Acquired absence of other specified parts of digestive tract; Z87.442 Personal history of urinary calculi; Z86.73 Personal history of transient ischemic attack (TIA), and cerebral infarction without residual deficits; Z86.16 Personal history of COVID-19; Z79.899 Other long term (current) drug therapy; Z87.891 Personal history of nicotine dependence; Z98.1 Arthrodesis status; Z88.6 Allergy status to analgesic agent; Z88.1 Allergy status to other antibiotic agents; Z91.041 Radiographic dye allergy status; Z88.5 Allergy status to narcotic agent; Z91.013 Allergy to seafood; Z88.8 Allergy status to other drugs, medicaments and biological substances; Z91.018 Allergy to other foods; Z91.048 Other nonmedicinal substance allergy status
CPT/HCPCS: 99284; 70450; 80053; 85025; 93005

== ENCOUNTER → 2024-01-01 10:18 | Outpatient (REF) | payer MEDICARE, OTHER, SELFPAY | LOC: EMG 10:18 | PROVIDERS: ATTENDING PHYSICIAN Psychiatry & Neurology Neuromuscular Medicine; FAMILY PHYSICIAN Family Medicine | DX: M54.12 Radiculopathy, cervical region (principal); M54.16 Radiculopathy, lumbar region; R20.2 Paresthesia of skin | CPT/HCPCS: 95886; 95909 ==

== ENCOUNTER 2024-01-11 21:30 | Emergency (ER) | payer MEDICARE, OTHER, SELFPAY ==
[2024-01-11 21:32] VITALS: BP 207/107
[2024-01-11 21:35] VITALS: BP 179/109
[2024-01-11 21:52] LABS: % Eosinophils 7.1 % (0-6); % Immature Granulocytes 0.3 % (0-0.5); % Lymphocytes 21.9 % (20.5-51.1); % Monocytes 6.2 % (1.7-9.3); % Neutrophils 63.5 % (42.2-75.2); Absolute Basophils 0.1 10^3/uL (0-0.2); Absolute Eosinophils 0.6 10^3/uL (0-0.7); Absolute Lymphocytes 1.7 10^3/uL (1.2-3.4); Absolute Monocytes 0.5 10^3/uL (0.1-0.6); Absolute Neutrophils 5.1 10^3/uL (1.4-6.5); Hemoglobin 11.5 g/dL (12.0-16.0); Mean Corp Hgb Conc. 32.9 g/dL (33.0-37.0); Mean Corpuscular Volume 76.1 fL (81.0-99.0); Mean Platelet Volume 9.4 fL (7.4-10.4); Nucleated Red Blood Cells % 0 %; Platelet Count 263 10^3/uL (130-400); Red Cell Dist. Width 18.5 % (11.5-14.5); White Blood Cell Count 7.9 10^3/uL (4.8-10.8)
[2024-01-11 21:59] LABS: Urine Albumin Negative (Neg - Trace); Urine Bilirubin Negative (Negative); Urine Character Clear (Clear); Urine Color Straw; Urine Glucose Negative (Negative); Urine Ketone Negative (Negative); Urine Leukocyte 2+ (Negative); Urine Nitrite Negative (Negative); Urine Occult Blood Negative (Negative); Urine Urobilinogen Negative (Neg - 1+)
[2024-01-11 22:04] LABS: ALT (SGPT) 28 U/L (0-35); AST (SGOT) 31 U/L (14-36); Albumin 4.1 g/dl (3.5-5.0); Alkaline Phosphatase 78 U/L (38-126); Blood Urea Nitrogen 15 mg/dl (7-17); Calcium 9.7 mg/dl (8.4-10.2); Carbon Dioxide 28 mmol/L (22-30); Chloride 101 mmol/L (98-107); Glucose 144 mg/dl (70-99); Lipase 215 U/L (23-300); Potassium 3.9 mmol/L (3.5-5.1); Sodium 139 mmol/L (135-145); Total Bilirubin 0.3 mg/dl (0.2-1.3); Total Protein 6.8 g/dl (6.3-8.2); eGFR > 60.00
[2024-01-11 22:26] LABS: Urine Red Blood Cell None Seen /HPF (0-2)
--- NOTE | 2024-01-12 01:39 | ED.GENMED ---
History of Present Illness
<Bre Mccord DO - Last Filed: 01/12/24 01:47>
General
Chief Complaint: Flank Pain
Source: patient, previous radiology exam and previous hospital records
Exam Limitations: none
Time Seen by Provider: 01/12/24 01:14
Nursing documentation reviewed up to this point in time: agreed with
History of Present Illness
History of Present Illness:
This is a 58-year-old woman with history of previous CVAs chronically maintained on Arixtra, history of hypertension, hyperlipidemia, type 2 diabetes, Crohn's disease, irritable bowel syndrome, mast cell activation syndrome and GERD who complains of
right flank pain that radiates to her right lower quadrant that began yesterday, persistent today accompanied with low-grade fever of 100.7 �F at home earlier today. She does admit to generalized aches and has had ongoing generalized joint aches,
chronic loose stools and admits that her Crohn's and irritable bowel have not been well-controlled for quite some time. She follows with regulatory specialist at [facility] and underwent telehealth visit with GI yesterday. She has
been intolerant to multiple different medications and are now planning to trial a newer form of Humira.
She denies dysuria and urgency and or hematuria.
Has had incidental note of intrarenal stones but has never passed kidney stones in the past. No prior history of pyelonephritis. She has not had a cough no chest pain, no shortness of breath, no nausea nor vomiting. She denies blood in her
stools. Loose stools been chronic and unchanged.
No recent antibiotic use.
No close contacts with similar symptoms.
Past History
<Bre Mccord DO - Last Filed: 01/12/24 01:47>
Past History
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
inflammatory bowel disease,) and Other (Crohn's disease, 'Mass cell activation syndrome', Migraines, Chronic back pain, Hiatal hernia, Renal calculus, Vertigo, factor 8 elevation, ,anemia, Esophageal stretching)
ED Past Surgical History: Cardiac (Loop recorder), Cholecystectomy, Gynecological (Uterine Ablation), Orthopedic (C3-4 spinal fusion, left ear surgery) and Other (Partial right Thyroidectomy )
Social History
Tobacco: Former smoker
Alcohol: None
Drug: None
Personal: (Common Law)
Living: with family
Employment: Disabled
Family History
Family History: Other (Father with coronary artery disease mother with coronary artery disease)
Phy Exam
<Bre Mccord DO - Last Filed: 01/12/24 01:47>
Physical Exam
Physical Exam:
GENERAL: 58-year-old obese woman appears her stated age, awake and alert, pleasant, appears in no acute distress. is accompanying. She is afebrile.
EYE: pupils equal and reactive. anicteric
NECK: Supple, nontender, no meningismus, no significant adenopathy.
ENT: oral mucosa is moist. No rhinorrhea.
CARDIAC: Regular rate and rhythm. no murmur.
LUNGS: Clear breath sounds bilaterally, no acute respiratory distress, no wheezes/rales/rhonchi
ABDOMEN: Soft, nondistended, mild tenderness palpation right lower quadrant to right lateral mid abdomen, no r/g, mild right CVA tenderness. Normoactive BS.
NEUROLOGICAL: Alert and oriented x3, no focal neuro deficits. Gait is steady.
SKIN: Warm and dry, normal color, skin intact. No rash.
MUSCULOSKELETAL: No C/C/E. peripheral pulses are full and equal b/l. No palpable tenderness.
PSYCH: Normal and appropriate interaction.
Course
<Bre Mccord DO - Last Filed: 01/12/24 01:47>
Orders/Labs/Results
Orders:
Orders
01/11/24 21:43
Complete Blood Count/With Diff Urgent
Comprehensive Metabolic Panel Urgent
Erythrocyte Sed Rate Urgent
Comment: ADD ON
Lipase Urgent
Urinalysis Reflex To Culture Urgent
Date Specimen was Collected: 01/11/24
Time Specimen was Collected: 21:35
Urine Microscopic Reflex Cult Urgent
Urine Culture Urgent
CARINA Source: U
Specimen Description:
Date Specimen was Collected: 01/11/24
Time Specimen was Collected: 21:35
01/12/24 01:23
CT Abd/pel Without Iv Or Oral Urgent
Comment:
Reason For Exam: R flank pain rad to RLQ x 1 day
01/12/24 01:46
Add On- LAB Urgent
Tests Added?: sed rate; CRP
01/12/24 21:43
C-Reactive Protein Urgent
Comment: ADD ON
Abnormal Lab Results
01/11/24
21:43
Hgb 11.5 L g/dL
(12.0-16.0)
Hct 35.0 L %
(37.0-47.0)
MCV 76.1 L fL
(81.0-99.0)
MCH 25.0 L pg
(27.0-31.0)
MCHC 32.9 L g/dL
(33.0-37.0)
RDW 18.5 H %
(11.5-14.5)
Eosinophils % 7.1 H %
(0-6)
ESR 27 H mm/hour
(0-20)
Glucose 144 H mg/dl
(70-99)
Leukocyte Esterase Rfl 2+ A
(Negative)
01/11/24 21:43
01/11/24 21:43
Vital Signs
Initial and Last Documented VS:
Initial Vital Signs
Temp Pulse Resp BP Pulse Ox
98.3 F 77 14 207/107 97
01/11/24 21:32 01/11/24 21:32 01/11/24 21:32 01/11/24 21:32 01/11/24 21:32
Last Documented Vital Signs
Temp Pulse Resp BP Pulse Ox
98.3 F 89 18 139/68 98
01/11/24 21:32 01/12/24 02:18 01/12/24 02:18 01/12/24 02:18 01/12/24 02:18
<Deneen Araujo, DO - Last Filed: 01/12/24 05:04>
Orders/Labs/Results
Orders:
Orders
01/11/24 21:43
Complete Blood Count/With Diff Urgent
Comprehensive Metabolic Panel Urgent
Erythrocyte Sed Rate Urgent
Comment: ADD ON
Lipase Urgent
Urinalysis Reflex To Culture Urgent
Date Specimen was Collected: 01/11/24
Time Specimen was Collected: 21:35
Urine Microscopic Reflex Cult Urgent
Urine Culture Urgent
CARINA Source: U
Specimen Description:
Date Specimen was Collected: 01/11/24
Time Specimen was Collected: 21:35
01/12/24 01:23
CT Abd/pel Without Iv Or Oral Urgent
Comment:
Reason For Exam: R flank pain rad to RLQ x 1 day
01/12/24 01:46
Add On- LAB Urgent
Tests Added?: sed rate; CRP
01/12/24 21:43
C-Reactive Protein Urgent
Comment: ADD ON
Abnormal Lab Results
01/11/24
21:43
Hgb 11.5 L g/dL
(12.0-16.0)
Hct 35.0 L %
(37.0-47.0)
MCV 76.1 L fL
(81.0-99.0)
MCH 25.0 L pg
(27.0-31.0)
MCHC 32.9 L g/dL
(33.0-37.0)
RDW 18.5 H %
(11.5-14.5)
Eosinophils % 7.1 H %
(0-6)
ESR 27 H mm/hour
(0-20)
Glucose 144 H mg/dl
(70-99)
Leukocyte Esterase Rfl 2+ A
(Negative)
01/11/24 21:43
01/11/24 21:43
Vital Signs
Initial and Last Documented VS:
Initial Vital Signs
Temp Pulse Resp BP Pulse Ox
98.3 F 77 14 207/107 97
01/11/24 21:32 01/11/24 21:32 01/11/24 21:32 01/11/24 21:32 01/11/24 21:32
Last Documented Vital Signs
Temp Pulse Resp BP Pulse Ox
98.3 F 89 18 139/68 98
01/11/24 21:32 01/12/24 02:18 01/12/24 02:18 01/12/24 02:18 01/12/24 02:18
<Bre Mccord DO - Last Filed: 01/12/24 01:47>
MDM/Problems Addressed
Differential Diagnosis Includes:
Concern for ureteric stone, pyelonephritis, exacerbation of Crohn's colitis, appendicitis, UTI.
Overall appears comfortable and reassuring the patient has been afebrile since arrival to the ED.
Labs are unremarkable, stable and unchanged from previous.
Urinalysis is not consistent with UTI.
Will check inflammatory markers and plan for CT abdomen and pelvis.
Chronic conditions affecting care: DM, Previous abdomnial surgery, Immunosuppressed and Other (Crohn's disease, irritable bowel syndrome)
<Deneen Araujo DO - Last Filed: 01/12/24 05:04>
*Critical Care Note
Total Time (30-74mins, 75-104mins- exclusive of procedures): Not Applicable
<Deneen Araujo DO - Last Filed: 01/12/24 05:04>
Update Note
Update Note:
Attending Signout Note
03:20 -received signout from prior physician, 58-year-old female with history of CVA, Crohn's disease, irritable bowel syndrome presenting to the emergency department for right flank pain. Notes symptoms since yesterday. Notes that she has been
told that she has kidney stones in the past, however has never passed a kidney stone. Hemodynamically stable in the emergency department. Noted to have generalized tenderness to the right side with suspicion for possible kidney stone. Labs at
this time are unremarkable, no signs of UTI, no leukocytosis. Pending CT abdominal imaging.
05:00 -CT without acute pathology. On reassessment patient is resting comfortably. At this time feel that she is stable for discharge with continued outpatient supportive therapy. Advised PCP follow-up. Return precautions discussed and patient
verbalized understanding
ED Attending Note
<Bre Mccord DO - Last Filed: 01/12/24 01:47>
-
Portions of this chart may have been created with voice recognition software.� Occasional wrong word or��sound alike� substitutions may have occurred due to the inherent limitations of voice recognition software.
Discharge Plan
Departure
Prescriptions:
No Action
rabeprazole [AcipHex] 20 MG tablet,delayed release (DR/EC)
20 mg PO BID
atenolol 25 MG tablet
12.5 mg PO DAILY
albuterol sulfate [ProAir HFA] 8.5 GM HFA aerosol inhaler
2 puff inhalation R Q4 PRN (Reason: sob/wheezing)
cholecalciferol (vitamin D3) [Vitamin D3] 2,000 UNIT capsule
3,000 unit PO DAILY
ascorbic acid-ascorbate sodium 500 MG wafer
500 mg PO DAILY
diphenhydramine HCl [Banophen] 25 MG capsule
12.5 mg PO QID
acetaminophen 500 mg Tablet
1,000 mg PO Q6H PRN (Reason: mild pain)
losartan 25 mg Tablet
25 mg PO BID
levothyroxine 25 mcg Tablet
50 mcg PO DAILY
fondaparinux 5 mg/0.4 mL Syringe
5 mg SC Q48H
Vitamin B-6 50 mg Capsule
50 mg PO DAILY
prednisone 50 mg tablet
5 mg PO DAILY
Referrals:
Whitney George MD [Family Provider] -
Interventions
Interventions:
*Risk Screen - Suicide Last Done: 01/11/24 21:32
*General Assessment Last Done: 01/11/24 21:32
*Neglect/Abuse Screening Last Done: 01/11/24 21:32
*ED COVID-19 Vaccine History Last Done: 01/12/24 02:18
PF-Ciqtnj-Ugjxmvyeoj Assessment Last Done: 01/12/24 02:20
ED-Female Genitourinary Assessment Last Done: 01/12/24 02:20
Discharge Date and Time
Print Language: MOROCCAN
[2024-01-12 02:13] LABS: Erythrocyte Sed Rate 27 mm/hour (0-20)
[2024-01-12 02:18] VITALS: BP 139/68; BMI 47.0
== END 2024-01-12 05:15 | disposition home or self-care (01) ==
LOC: EMR 21:30
PROVIDERS: Emergency Medicine; EMERGENCY PHYSICIAN Student in an Organized Health Care Education/Training Program; FAMILY PHYSICIAN Family Medicine
DX: R10.9 Unspecified abdominal pain (principal); I10 Essential (primary) hypertension; E78.00 Pure hypercholesterolemia, unspecified; E11.9 Type 2 diabetes mellitus without complications; K50.90 Crohn's disease, unspecified, without complications; K58.9 Irritable bowel syndrome, unspecified; D89.40 Mast cell activation, unspecified; E03.9 Hypothyroidism, unspecified; J45.909 Unspecified asthma, uncomplicated; K21.9 Gastro-esophageal reflux disease without esophagitis; Z82.49 Family history of ischemic heart disease and other diseases of the circulatory system; Z86.16 Personal history of COVID-19; Z86.73 Personal history of transient ischemic attack (TIA), and cerebral infarction without residual deficits; Z87.442 Personal history of urinary calculi; Z87.891 Personal history of nicotine dependence; Z90.49 Acquired absence of other specified parts of digestive tract; Z98.1 Arthrodesis status
CPT/HCPCS: 99284; 74176; 80053; 81003; 81015; 83690; 85025; 85652; 86140; 87086

== ENCOUNTER 2024-02-15 17:28 | Emergency (ER) | payer MEDICARE, OTHER, SELFPAY ==
[2024-02-15 17:30] VITALS: BP 191/107
[2024-02-15 17:35] LABS: Glucose - Point of Care 217 mg/dl (70-99)
[2024-02-15 18:19] VITALS: BMI 45.5
[2024-02-15 18:28] VITALS: BP 152/82
--- NOTE | 2024-02-15 18:43 | EDRN ---
Ambrocio Hampton TEXTILE TECH[employer]ICAL OFFICER in room w/ pt at this time.
--- NOTE | 2024-02-15 18:46 | ED.GENMED ---
History of Present Illness
General
Chief Complaint: Blood Sugar Problem
Source: patient and spouse
Exam Limitations: none
Time Seen by Provider: 02/15/24 18:26
Nursing documentation reviewed up to this point in time: agreed with
History of Present Illness
History of Present Illness:
Patient is a 58-year-old female past medical history of mast cell activation syndrome, thyroid issues Crohn's colitis hyperlipidemia hyper tension diabetes insulin-dependent presents to the ER for evaluation. She reports she received Kenalog
steroid in her left shoulder February 06 and since then has had facial flushing increased urination sweating and thirst. She reports she cannot control her blood sugars was 378 last night and she reports she urinated over 20 times. She is presently
on a sliding scale of Novulog insulin however her bi analyst called her and Tresiba FlexTouch pen . She has not been able to get that filled until tomorrow.
Past History
Past History
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
inflammatory bowel disease,) and Other (Crohn's disease, 'Mass cell activation syndrome', Migraines, Chronic back pain, Hiatal hernia, Renal calculus, Vertigo, factor 8 elevation, ,anemia, Esophageal stretching)
ED Past Surgical History: Cardiac (Loop recorder), Cholecystectomy, Gynecological (Uterine Ablation), Orthopedic (C3-4 spinal fusion, left ear surgery) and Other (Partial right Thyroidectomy )
Social History
Tobacco: Former smoker
Alcohol: None
Drug: None
Personal: (Common Law)
Living: with family
Employment: Disabled
Family History
Family History: Other (Father with coronary artery disease mother with coronary artery disease)
Review of Systems
Review of Systems
Allergies reviewed?: Yes
All Other Systems: ROS reviewed and negative except as documented in HPI and ROS
Constitutional: Reports no symptoms; Denies fever, fatigue or chills
EENT: Reports no symptoms
Respiratory: Reports no symptoms
Cardiac: Reports no symptoms
ABD/GI: Reports no symptoms
: Reports frequency
Musculoskeletal: Reports no symptoms
Skin: Reports other (facial flushing since taking steroids )
Endocrine: Reports polyuria and polydipsia
Psychiatric: Reports no symptoms
Phy Exam
General Physical Exam
General Presentation: no apparent distress
General age: appears stated age
General Skin: warm and dry
General Habitus: normal
General Mental: alert
General Hydration: dry mucous membranes
Cardiovascular Exam
Cardiovascular Exam: regular rate/rhythm, no murmur and normal peripheral pulses
Pulmonary Exam
Pulmonary Exam: lungs clear and no respiratory distress
Neurological Exam
Neurological Exam: alert and oriented x3
Musculoskeletal Exam
Musculoskeletal Exam: full ROM
Skin Exam
Skin Exam: normal color and warm/dry
Psychiatric Exam
Psychiatric Exam: normal mood/affect
Course
Orders/Labs/Results
Orders:
Orders
02/15/24 18:29
Cardiac Monitoring- Treatment ONCE
IV Insert/Care/Rem.- Treatment PRN
02/15/24 18:40
Complete Blood Count/With Diff Urgent
Comprehensive Metabolic Panel Urgent
Free T4 Urgent
TSH Reflex To Free T4 Urgent
Comment: ADD ON
Urinalysis Reflex To Culture Urgent
Date Specimen was Collected: 02/15/24
Time Specimen was Collected: 18:31
02/15/24 18:49
0.9% Sodium Chloride 1000 ml [Nss] 1,000 ml IV BOLUS
02/15/24 19:05
Add On- LAB Urgent
Tests Added?: tsh w/ reflexve t4
Abnormal Lab Results
02/15/24 02/15/24
17:34 18:40
Hct 36.3 L %
(37.0-47.0)
MCV 76.6 L fL
(81.0-99.0)
MCH 25.7 L pg
(27.0-31.0)
RDW 16.7 H %
(11.5-14.5)
Absolute Neuts (auto) 8.3 H 10^3/uL
(1.4-6.5)
Neutrophils % 78.0 H %
(42.2-75.2)
Lymphocytes % 15.8 L %
(20.5-51.1)
BUN 26 H mg/dl
(7-17)
Creatinine 1.1 H mg/dL
(0.6-1.0)
Glucose 150 H mg/dl
(70-99)
TSH (Reflex) 7.95 H uIU/ml
(0.47-4.68)
POC Glucose 217 H mg/dl
(70-99)
02/15/24 18:40
02/15/24 18:40
Vital Signs
Initial and Last Documented VS:
Initial Vital Signs
Temp Pulse Resp BP Pulse Ox
99.3 F 85 16 191/107 97
02/15/24 17:30 02/15/24 17:30 02/15/24 17:30 02/15/24 17:30 02/15/24 17:30
Last Documented Vital Signs
Temp Pulse Resp BP Pulse Ox
99.3 F 73 20 144/66 95
02/15/24 17:30 02/15/24 20:00 02/15/24 20:00 02/15/24 20:00 02/15/24 20:00
MDM/Problems Addressed
Differential Diagnosis Includes:
Not limited to hyperglycemia, electrolyte abnormality, DKA
MDM/Problems Addressed:
Patient is a 58-year-old female who presents for hyperglycemia after having a steroid injection in her left shoulder February 06. She is a diabetic and is on aXess am[place] log and recently also started Tresiba however has not gotten that from the pharmacy
and she is scheduled to pick that up tomorrow.
Patient presents today awake alert no acute distress blood glucose is 150 and chemistries. There is no gap. She is mildly dehydrated with mild increased BUN/creatinine. She was hydrated here in the ER. She is no acute distress. She has
chronically elevated TSH and did request that I checked this it was elevated here but free T4 was normal.
Discussed with patient stable hydrated to have her renal function rechecked the next several days and closely follow-up with her family doctor and bi analyst and to return if any worsening of symptoms
*Critical Care Note
Total Time (30-74mins, 75-104mins- exclusive of procedures): Not Applicable
ED Attending Note
-
Portions of this chart may have been created with voice recognition software.� Occasional wrong word or��sound alike� substitutions may have occurred due to the inherent limitations of voice recognition software.
Discharge Plan
Departure
Patient Disposition: Home (Routine Discharge)
Date of Disposition: 02/15/24
Time of Disposition: 21:20
Patient with high blood pressure during this ER visit?: Yes
Condition: Fair
Covid-19: Not Applicable
Discharge Problem:
Acute hyperglycemia
Instructions: High Blood Sugar, Adult ED, BLOOD PRESSURE
Prescriptions:
No Action
rabeprazole [AcipHex] 20 MG tablet,delayed release (DR/EC)
20 mg PO BID
atenolol 25 MG tablet
12.5 mg PO DAILY
albuterol sulfate [ProAir HFA] 8.5 GM HFA aerosol inhaler
2 puff inhalation R Q4 PRN (Reason: sob/wheezing)
cholecalciferol (vitamin D3) [Vitamin D3] 2,000 UNIT capsule
3,000 unit PO DAILY
ascorbic acid-ascorbate sodium 500 MG wafer
500 mg PO DAILY
diphenhydramine HCl [Banophen] 25 MG capsule
12.5 mg PO QID
acetaminophen 500 mg Tablet
1,000 mg PO Q6H PRN (Reason: mild pain)
losartan 25 mg Tablet
25 mg PO BID
levothyroxine 25 mcg Tablet
50 mcg PO DAILY
fondaparinux 5 mg/0.4 mL Syringe
5 mg SC Q48H
Vitamin B-6 50 mg Capsule
50 mg PO DAILY
prednisone 50 mg tablet
5 mg PO DAILY
Referrals:
Whitney George MD [Family Provider] -
Activity Restrictions/Additional Instructions:
As discussed your blood sugar was elevated 150 here in the ER. Your kidney function was mildly elevated you were given fluids here in the ER. Stay well-hydrated. Follow-up with your family doctor the next of days for reevaluation of your symptoms
and have your kidney function rechecked also your TSH was abnormal and elevated but your free T4 was normal. Please review this with your bi analyst. Return if any worsening of symptoms
Interventions
Interventions:
*Risk Screen - Suicide Last Done: 02/15/24 17:32
*General Assessment Last Done: 02/15/24 18:24
*Neglect/Abuse Screening Last Done: 02/15/24 17:32
ED- Fall Risk Assessment Last Done: 02/15/24 18:25
*ED COVID-19 Vaccine History Last Done: 02/15/24 18:24
ED- Neurological Assessment Last Done: 02/15/24 18:44
Discharge Date and Time
Print Language: PASHTO
[2024-02-15 18:50] LABS: Urine Albumin Negative (Neg - Trace); Urine Bilirubin Negative (Negative); Urine Character Clear (Clear); Urine Color Yellow; Urine Glucose Negative (Negative); Urine Ketone Negative (Negative); Urine Leukocyte Negative (Negative); Urine Nitrite Negative (Negative); Urine Occult Blood Negative (Negative); Urine Specific Gravity 1.015 (<1.030); Urine Urobilinogen Negative (Neg - 1+)
[2024-02-15 18:51] LABS: % Basophils 0.1 % (0-2); % Eosinophils 0.1 % (0-6); % Immature Granulocytes 0.4 % (0-0.5); % Lymphocytes 15.8 % (20.5-51.1); % Monocytes 5.6 % (1.7-9.3); Absolute Lymphocytes 1.7 10^3/uL (1.2-3.4); Absolute Monocytes 0.6 10^3/uL (0.1-0.6); Absolute Neutrophils 8.3 10^3/uL (1.4-6.5); Hematocrit 36.3 % (37.0-47.0); Hemoglobin 12.2 g/dL (12.0-16.0); Mean Corp Hgb Conc. 33.6 g/dL (33.0-37.0); Mean Corpuscular Hgb 25.7 pg (27.0-31.0); Mean Corpuscular Volume 76.6 fL (81.0-99.0); Mean Platelet Volume 9.7 fL (7.4-10.4); Nucleated Red Blood Cells % 0 %; Platelet Count 346 10^3/uL (130-400); Red Blood Cell Count 4.74 10^6/uL (4.20-5.40); Red Cell Dist. Width 16.7 % (11.5-14.5); White Blood Cell Count 10.6 10^3/uL (4.8-10.8)
[2024-02-15] MEDS: NSS 1000 IV (18:58)
[2024-02-15 19:00] VITALS: BP 134/71
[2024-02-15 19:02] LABS: ALT (SGPT) 22 U/L (0-35); AST (SGOT) 31 U/L (14-36); Albumin 4.2 g/dl (3.5-5.0); Alkaline Phosphatase 83 U/L (38-126); Blood Urea Nitrogen 26 mg/dl (7-17); Calcium 9.8 mg/dl (8.4-10.2); Carbon Dioxide 23 mmol/L (22-30); Chloride 102 mmol/L (98-107); Estimated Creatinine Clearance 53 ml/min; Glucose 150 mg/dl (70-99); Potassium 5.1 mmol/L (3.5-5.1); Sodium 137 mmol/L (135-145); Total Bilirubin 0.4 mg/dl (0.2-1.3); Total Protein 7.2 g/dl (6.3-8.2); eGFR 57.52
--- NOTE | 2024-02-15 19:39 | EDRN ---
Pt OOB to BR at this time.
--- NOTE | 2024-02-15 19:49 | EDRN ---
Ambrocio Hampton LEAD JAVA J2EE DEVELOPER in room w/ pt at this time.
[2024-02-15 20:00] VITALS: BP 144/66
[2024-02-15 20:42] LABS: TSH Reflex To Free T4 7.95 uIU/ml (0.47-4.68)
== END 2024-02-15 21:59 | disposition home or self-care (01) ==
LOC: EMR 17:28
PROVIDERS: Nurse Practitioner; EMERGENCY PHYSICIAN Emergency Medicine; FAMILY PHYSICIAN Family Medicine
DX: E11.65 Type 2 diabetes mellitus with hyperglycemia (principal); D89.40 Mast cell activation, unspecified; E03.9 Hypothyroidism, unspecified; E78.00 Pure hypercholesterolemia, unspecified; E86.0 Dehydration; I10 Essential (primary) hypertension; J45.909 Unspecified asthma, uncomplicated; K21.9 Gastro-esophageal reflux disease without esophagitis; K50.90 Crohn's disease, unspecified, without complications; Z82.49 Family history of ischemic heart disease and other diseases of the circulatory system; Z86.16 Personal history of COVID-19; Z86.73 Personal history of transient ischemic attack (TIA), and cerebral infarction without residual deficits; Z87.442 Personal history of urinary calculi; Z87.891 Personal history of nicotine dependence; Z90.49 Acquired absence of other specified parts of digestive tract; Z98.1 Arthrodesis status
CPT/HCPCS: 99283; 96360; 80053; 81003; 82962; 84439; 84443; 85025

== ENCOUNTER 2024-03-19 10:56 | Emergency (ER) | payer MEDICARE, OTHER, SELFPAY ==
[2024-03-19 11:28] VITALS: BP 152/94
--- NOTE | 2024-03-19 11:31 | ED.GENMED ---
ED Provider Triage
<Nunu Mcghee PA-C - Last Filed: 03/20/24 09:31>
-
Patient seen by provider in Triage?: Seen in Triage
58 y/o F with h/o crohns on a new med
[facility]
here with RUQ pain to back, bloody stools
this pain is diff than usual
no fever, chils, diarrhea
she has had bloody bm before
she is also feeling weak
her GI told her to come in
A medical screening examination has been initiated by a qualified medical provider. Based on the assessment performed at this time, it has been determined that an emergent medical condition may exist and the patient has been informed that further
medical evaluation and possible additional diagnostic testing may be needed.
HPI: This is a medical evaluation conducted in person to initiate diagnostic evaluation and provide initial therapeutics. Please see further documentation by the treating clinician.
GENERAL: Alert , in no apparent distress
ENT: No visible abnormalities
LUNGS: No acute respiratory distress
NEUROLOGICAL: Alert and oriented
SKIN: Skin intact. No visible changes.
MUSCULOSKELETAL: Moving extremities normally
PSYCH: Normal and appropriate interaction.
screening labs, lactic
stools ordered
pt hascontrast dye alllergy; will defer imaging.
History of Present Illness
<Nunu Mcghee PA-C - Last Filed: 03/20/24 09:31>
General
Chief Complaint: Abdominal Pain
Time Seen by Provider: 03/19/24 13:52
<Geovanna Smallwood PORT TRAFFIC MANAGER - Last Filed: 03/21/24 15:09>
General
Source: patient
Exam Limitations: none
Nursing documentation reviewed up to this point in time: agreed with
History of Present Illness
History of Present Illness:
58 yo famale w h/o CVAs chronically maintained on Arixtra, history of HTN, HLD, type 2 diabetes, Crohn's disease, irritable bowel syndrome, mast cell activation syndrome and GERD presents for 'excrutiating pain' points to epigastrium under right
breast and it goes around to my back.' 'It hurts when I eat, it hurts when I don't eat...' 'Do you think it's my hernia?'
Pt w complicated history including chronic abdominal pain with colitis/Crohn's followed at [facility]. Numerous studies.
Started on Idacia by her [facility] Dr. Mcdaniel 2 weeks ago. First dose 03/10 and second dose 3 days ago.
She called her GI doctor last night, got the security incident response specialist doctor who told her if she developed fever or worsening pain, go to ER.
Dr. Mcdaniel texted her this a.m. and had lab requests sent to [facility] which pt. did not get, rather she came here.
She denies fever. States she feels nauseous, no vomiting.
Past History
<Nunu Mcghee PA-C - Last Filed: 03/20/24 09:31>
Past History
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
inflammatory bowel disease,) and Other (Crohn's disease, 'Mass cell activation syndrome', Migraines, Chronic back pain, Hiatal hernia, Renal calculus, Vertigo, factor 8 elevation, ,anemia, Esophageal stretching)
ED Past Surgical History: Cardiac (Loop recorder), Cholecystectomy, Gynecological (Uterine Ablation), Orthopedic (C3-4 spinal fusion, left ear surgery) and Other (Partial right Thyroidectomy )
Social History
Tobacco: Former smoker
Alcohol: None
Drug: None
Personal: (Common Law)
Living: with family
Employment: Disabled
Family History
Family History: Other (Father with coronary artery disease mother with coronary artery disease)
Review of Systems
<Geovanna Smallwood, PORT TRAFFIC MANAGER - Last Filed: 03/21/24 15:09>
Review of Systems
Allergies reviewed?: Yes
All Other Systems: ROS reviewed and negative except as documented in HPI and ROS
Constitutional: Denies fever
Respiratory: Denies trouble breathing
Cardiac: Denies chest pain
ABD/GI: Reports abdominal pain and nausea; Denies vomiting or diarrhea
Phy Exam
<Geovanna Smallwood, PORT TRAFFIC MANAGER - Last Filed: 03/21/24 15:09>
Physical Exam
Physical Exam:
GENERAL: No acute distress. A&Ox3.
CONSTITUTIONAL: Afebrile.
EYES: clear, conjunctivae normal
ENMT: moist mucus membranes, Pharynx nl
RESPIRATORY: Regular respirations, nonlabored, lungs clear.
CARDIOVASCULAR: Regular rate and rhythm, no murmurs, no rubs.
GI: Morbidly obese, Soft, tender mid to right abdomen, normal BS
MUSCULOSKELETAL: Moves with ease. Well perfused.
SKIN: Warm, dry, pink
PSYCH: Normal mood and affect. Well kept, interactive and appropriate
NEUROLOGIC: Awake, alert and oriented. No focal neurological deficits
Course
<Nunu Mcghee PA-C - Last Filed: 03/20/24 09:31>
Orders/Labs/Results
Orders:
Orders
03/19/24 10:56
ECG [Electrocardiogram (*1)] Urgent
Reason for Study: Chest Pain
Other Reason for Exam: abdominal pain to chest
03/19/24 10:57
EKG- Treatment ONCE
03/19/24 11:37
C-Reactive Protein Urgent
Comment: CRP ADDED ON BY FLOOR 2:15PM 03-19-24
Complete Blood Count/With Diff Urgent
Comprehensive Metabolic Panel Urgent
Lactic Acid Urgent
Lipase Urgent
Troponin I Urgent
03/19/24 14:11
CT Abd/pel Without Iv Or Oral Urgent
Comment:
Reason For Exam: epigastric pain radiating under R breast to back
03/19/24 14:13
Add On- LAB Urgent
Tests Added?: CRP
03/19/24 15:12
Urinalysis Reflex To Culture Urgent
Date Specimen was Collected: 03/19/24
Time Specimen was Collected: 14:27
Abnormal Lab Results
03/19/24
11:37
MCH 25.9 L pg
(27.0-31.0)
MCHC 31.7 L g/dL
(33.0-37.0)
RDW 15.5 H %
(11.5-14.5)
BUN 18 H mg/dl
(7-17)
Glucose 147 H mg/dl
(70-99)
03/19/24 11:37
03/19/24 11:37
Vital Signs
Initial and Last Documented VS:
Initial Vital Signs
Temp Pulse Resp BP Pulse Ox
98.7 F 68 16 152/94 98
03/19/24 11:28 03/19/24 11:28 03/19/24 11:28 03/19/24 11:28 03/19/24 11:28
Last Documented Vital Signs
Temp Pulse Resp BP Pulse Ox
98.7 F 66 18 166/78 99
03/19/24 11:28 03/19/24 16:18 03/19/24 16:18 03/19/24 16:18 03/19/24 16:18
<Geovanna Smallwood PORT TRAFFIC MANAGER - Last Filed: 03/21/24 15:09>
Orders/Labs/Results
Orders:
Orders
03/19/24 10:56
ECG [Electrocardiogram (*1)] Urgent
Reason for Study: Chest Pain
Other Reason for Exam: abdominal pain to chest
03/19/24 10:57
EKG- Treatment ONCE
03/19/24 11:37
C-Reactive Protein Urgent
Comment: CRP ADDED ON BY FLOOR 2:15PM 03-19-24
Complete Blood Count/With Diff Urgent
Comprehensive Metabolic Panel Urgent
Lactic Acid Urgent
Lipase Urgent
Troponin I Urgent
03/19/24 14:11
CT Abd/pel Without Iv Or Oral Urgent
Comment:
Reason For Exam: epigastric pain radiating under R breast to back
03/19/24 14:13
Add On- LAB Urgent
Tests Added?: CRP
03/19/24 15:12
Urinalysis Reflex To Culture Urgent
Date Specimen was Collected: 03/19/24
Time Specimen was Collected: 14:27
Abnormal Lab Results
03/19/24
11:37
MCH 25.9 L pg
(27.0-31.0)
MCHC 31.7 L g/dL
(33.0-37.0)
RDW 15.5 H %
(11.5-14.5)
BUN 18 H mg/dl
(7-17)
Glucose 147 H mg/dl
(70-99)
03/19/24 11:37
03/19/24 11:37
Vital Signs
Initial and Last Documented VS:
Initial Vital Signs
Temp Pulse Resp BP Pulse Ox
98.7 F 68 16 152/94 98
03/19/24 11:28 03/19/24 11:28 03/19/24 11:28 03/19/24 11:28 03/19/24 11:28
Last Documented Vital Signs
Temp Pulse Resp BP Pulse Ox
98.7 F 66 18 166/78 99
03/19/24 11:28 03/19/24 16:18 03/19/24 16:18 03/19/24 16:18 03/19/24 16:18
<Geovanna Smallwood, PORT TRAFFIC MANAGER - Last Filed: 03/21/24 15:09>
MDM/Problems Addressed
MDM/Problems Addressed:
58 yo famale w h/o CVAs chronically maintained on Arixtra, history of HTN, HLD, type 2 diabetes, Crohn's disease, irritable bowel syndrome, mast cell activation syndrome and GERD presents for 'excrutiating pain' points to epigastrium under right
breast and it goes around to my back.' 'It hurts when I eat, it hurts when I don't eat...' 'Do you think it's my hernia?'
Pt w complicated history including chronic abdominal pain with colitis/Crohn's followed at [facility]. Numerous studies.
Started on Idacia by her [facility] Dr. Mcdaniel 2 weeks ago. First dose 03/10 and second dose 3 days ago.
She called her GI doctor last night, got the security incident response specialist doctor who told her if she developed fever or worsening pain, go to ER.
Dr. Mcdaniel texted her this a.m. and had lab requests sent to [facility] which pt. did not get, rather she came here.
She denies fever. States she feels nauseous, no vomiting.
Pt is conversive, out of bed and ambulated to BR and back with her rollator, gets off and on bed without problem or indication of pain, but states pain is excruciating.
Discussed her numerous imaging studied and radiation risk, she does not care about that 'what difference does it make at this point' and want a CT scan.
She is allergic to dye so will get plain CT abd/pelvis.
CBC, CMP, Lipase all normal
CRP ordered simply because her GI doctor had it listed along with heavy metal studies (which I informed her we don't do here).
U/A neg
4:[address] abdomen pelvis plain radiology report read: No significant acute abnormality identified in the abdomen or pelvis, within the limits of unenhanced CT, as described above.
Patient informed of negative workup here today.
Copies of all reports, labs provided to pt.
Pt remains calm, no apparent distress. Stable for discharge.
Chronic conditions affecting care:
chronic abdominal pain/colitis
Chronic conditions affecting care: HTN and Previous abdomnial surgery
<Geovanna Smallwood NP - Last Filed: 03/21/24 15:09>
*EKG
EKG Intrepretation Date: 03/19/24
Interpretation: normal
Heart Rate: 68
Rate: normal
Rhythm: sinus
[place]: normal axis
Interval: normal interval
QRS Pattern: normal QRS
Ischemia: no ischemia
*Critical Care Note
Total Time (30-74mins, 75-104mins- exclusive of procedures): Not Applicable
ED Attending Note
<Nunu Mcghee PA-C - Last Filed: 03/20/24 09:31>
-
Portions of this chart may have been created with voice recognition software.� Occasional wrong word or��sound alike� substitutions may have occurred due to the inherent limitations of voice recognition software.
Discharge Plan
Departure
Patient Disposition: Home (Routine Discharge)
Date of Disposition: 03/19/24
Time of Disposition: 16:12
Patient with high blood pressure during this ER visit?: No
Condition: Good
Discharge Problem:
Abdominal pain
Instructions: Abdominal Pain
Prescriptions:
No Action
rabeprazole [AcipHex] 20 MG tablet,delayed release (DR/EC)
20 mg PO BID
atenolol 25 MG tablet
12.5 mg PO DAILY
albuterol sulfate [ProAir HFA] 8.5 GM HFA aerosol inhaler
2 puff inhalation R Q4 PRN (Reason: sob/wheezing)
cholecalciferol (vitamin D3) [Vitamin D3] 2,000 UNIT capsule
3,000 unit PO DAILY
ascorbic acid-ascorbate sodium 500 MG wafer
500 mg PO DAILY
diphenhydramine HCl [Banophen] 25 MG capsule
12.5 mg PO QID
acetaminophen 500 mg Tablet
1,000 mg PO Q6H PRN (Reason: mild pain)
losartan 25 mg Tablet
25 mg PO BID
levothyroxine 25 mcg Tablet
50 mcg PO DAILY
fondaparinux 5 mg/0.4 mL Syringe
5 mg SC Q48H
Vitamin B-6 50 mg Capsule
50 mg PO DAILY
prednisone 50 mg tablet
5 mg PO DAILY
Referrals:
GI, Dr. Mcdaniel [Other] - As needed
Jaene Mercado MD [Family Provider] -
Activity Restrictions/Additional Instructions:
As we discussed, I find nothing worrisome in your workup here today.
Contact your GI doctor tomorrow and discuss today's visit.
Interventions
Interventions:
*Risk Screen - Suicide Last Done: 03/19/24 11:28
*Neglect/Abuse Screening Last Done: 03/19/24 11:28
ED- Fall Risk Assessment Last Done: 03/19/24 13:57
*Nursing Disposition Last Done: 03/19/24 16:18
MT-Gladjv-Qdmyeuxlid Assessment Last Done: 03/19/24 13:57
Discharge Date and Time
Discharge Date/Time: 03/19/24 17:40
Print Language: SWISS
[2024-03-19 11:48] LABS: % Basophils 1.1 % (0-2); % Eosinophils 5.1 % (0-6); % Immature Granulocytes 0.5 % (0-0.5); % Lymphocytes 25.3 % (20.5-51.1); % Monocytes 8.7 % (1.7-9.3); % Neutrophils 59.3 % (42.2-75.2); Absolute Basophils 0.1 10^3/uL (0-0.2); Absolute Eosinophils 0.3 10^3/uL (0-0.7); Absolute Lymphocytes 1.6 10^3/uL (1.2-3.4); Absolute Monocytes 0.6 10^3/uL (0.1-0.6); Absolute Neutrophils 3.8 10^3/uL (1.4-6.5); Hematocrit 40.7 % (37.0-47.0); Hemoglobin 12.9 g/dL (12.0-16.0); Mean Corp Hgb Conc. 31.7 g/dL (33.0-37.0); Mean Corpuscular Hgb 25.9 pg (27.0-31.0); Mean Corpuscular Volume 81.7 fL (81.0-99.0); Nucleated Red Blood Cells % 0 %; Platelet Count 279 10^3/uL (130-400); Red Blood Cell Count 4.98 10^6/uL (4.20-5.40); Red Cell Dist. Width 15.5 % (11.5-14.5); White Blood Cell Count 6.5 10^3/uL (4.8-10.8)
[2024-03-19 12:28] LABS: Troponin I < 0.012 ng/ml
[2024-03-19 12:32] LABS: Lactic Acid 1.3 mmol/L (0.7-2.0)
[2024-03-19 12:35] LABS: Blood Urea Nitrogen 18 mg/dl (7-17); Carbon Dioxide 29 mmol/L (22-30); Chloride 101 mmol/L (98-107); Glucose 147 mg/dl (70-99); Potassium 4.5 mmol/L (3.5-5.1); Sodium 138 mmol/L (135-145); eGFR > 60.00
[2024-03-19 12:36] LABS: ALT (SGPT) 24 U/L (0-35); AST (SGOT) 28 U/L (14-36); Albumin 4.2 g/dl (3.5-5.0); Alkaline Phosphatase 107 U/L (38-126); Lipase 202 U/L (23-300); Total Bilirubin 0.6 mg/dl (0.2-1.3)
[2024-03-19 15:19] LABS: Urine Albumin Negative (Neg - Trace); Urine Bilirubin Negative (Negative); Urine Character Clear (Clear); Urine Color Yellow; Urine Glucose Negative (Negative); Urine Ketone Negative (Negative); Urine Leukocyte Negative (Negative); Urine Nitrite Negative (Negative); Urine Occult Blood Negative (Negative); Urine Urobilinogen Negative (Neg - 1+)
[2024-03-19 15:25] LABS: C-Reactive Protein < 5.00 mg/L (0.0-10.00)
[2024-03-19 16:18] VITALS: BP 166/78
== END 2024-03-19 17:40 | disposition home or self-care (01) ==
LOC: EMR 10:56
PROVIDERS: Physician Assistant; Registered Nurse; EMERGENCY PHYSICIAN Student in an Organized Health Care Education/Training Program; FAMILY PHYSICIAN Family Medicine
DX: R10.13 Epigastric pain (principal); I10 Essential (primary) hypertension; E78.00 Pure hypercholesterolemia, unspecified; E11.9 Type 2 diabetes mellitus without complications; K50.90 Crohn's disease, unspecified, without complications; D89.40 Mast cell activation, unspecified; E03.9 Hypothyroidism, unspecified; J45.909 Unspecified asthma, uncomplicated; K21.9 Gastro-esophageal reflux disease without esophagitis; Z82.49 Family history of ischemic heart disease and other diseases of the circulatory system; Z86.16 Personal history of COVID-19; Z86.73 Personal history of transient ischemic attack (TIA), and cerebral infarction without residual deficits; Z87.442 Personal history of urinary calculi; Z87.891 Personal history of nicotine dependence; Z90.49 Acquired absence of other specified parts of digestive tract; Z98.1 Arthrodesis status
CPT/HCPCS: 99284; 74176; 80053; 81003; 83605; 83690; 84484; 85025; 86140; 93005

== ENCOUNTER 2024-04-06 12:53 | Emergency (ER) | payer MEDICARE, OTHER, SELFPAY ==
[2024-04-06 13:08] VITALS: BP 160/82
[2024-04-06 13:59] LABS: ALT (SGPT) 24 U/L (0-35); AST (SGOT) 25 U/L (14-36); Albumin 4.2 g/dl (3.5-5.0); Alkaline Phosphatase 100 U/L (38-126); Blood Urea Nitrogen 14 mg/dl (7-17); Calcium 9.5 mg/dl (8.4-10.2); Carbon Dioxide 27 mmol/L (22-30); Chloride 100 mmol/L (98-107); Glucose 138 mg/dl (70-99); Sodium 138 mmol/L (135-145); Total Bilirubin 0.4 mg/dl (0.2-1.3); Total Protein 7.1 g/dl (6.3-8.2); eGFR > 60.00
[2024-04-06 14:03] LABS: % Basophils 0.6 % (0-2); % Eosinophils 2.6 % (0-6); % Immature Granulocytes 0.3 % (0-0.5); % Lymphocytes 30.2 % (20.5-51.1); % Monocytes 8.2 % (1.7-9.3); % Neutrophils 58.1 % (42.2-75.2); Absolute Eosinophils 0.2 10^3/uL (0-0.7); Absolute Lymphocytes 1.9 10^3/uL (1.2-3.4); Absolute Monocytes 0.5 10^3/uL (0.1-0.6); Absolute Neutrophils 3.6 10^3/uL (1.4-6.5); Hematocrit 36.6 % (37.0-47.0); Hemoglobin 11.9 g/dL (12.0-16.0); Mean Corp Hgb Conc. 32.5 g/dL (33.0-37.0); Mean Corpuscular Hgb 26.3 pg (27.0-31.0); Mean Platelet Volume 9.5 fL (7.4-10.4); Nucleated Red Blood Cells % 0 %; Platelet Count 282 10^3/uL (130-400); Red Blood Cell Count 4.52 10^6/uL (4.20-5.40); Red Cell Dist. Width 15.1 % (11.5-14.5); White Blood Cell Count 6.2 10^3/uL (4.8-10.8)
[2024-04-06 16:03] VITALS: BMI 46.9
[2024-04-06 16:08] VITALS: BP 142/75
--- NOTE | 2024-04-06 16:52 | ED.GENMED ---
History of Present Illness
General
Chief Complaint: Allergic Reaction
Source: patient
Exam Limitations: none
Time Seen by Provider: 04/06/24 16:06
Nursing documentation reviewed up to this point in time: agreed with
History of Present Illness
History of Present Illness:
58-year-old female with a past medical history as noted significant for Crohn's disease and mast cell activation syndrome (follows with Dr. Fisher at [facility] for mast cell); she presents today with her for evaluation of rhinorrhea, pruritus
and cough/throat itchiness�she is concerned for an allergic reaction. Patient reports that she recently started Idacia (a biologic for Crohn's) a month and a half ago recently had her third treatment and over the past week since that third
treatment has started to develop pruritus, rhinorrhea, cough and itching in the throat. Initially saw her PCP who did viral testing and a chest x-ray as an outpatient which were negative. She has been taking Benadryl daily since symptoms started
thinking that this could be allergic but symptoms have been worsening on the last. Today she called her mast cell doctor (Dr. Dumont) who recommended she come to the ER for assessment prior to starting steroids for possible allergic reaction. She
has not had any vomiting or abdominal cramping. She has not had any shortness of breath. She denies any other complaints. She says she has had identical symptoms with allergic reactions to other medications including Biologics.
Past History
Past History
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
inflammatory bowel disease,) and Other (Crohn's disease, 'Mass cell activation syndrome', Migraines, Chronic back pain, Hiatal hernia, Renal calculus, Vertigo, factor 8 elevation, ,anemia, Esophageal stretching)
ED Past Surgical History: Cardiac (Loop recorder), Cholecystectomy, Gynecological (Uterine Ablation), Orthopedic (C3-4 spinal fusion, left ear surgery) and Other (Partial right Thyroidectomy )
Social History
Tobacco: Former smoker
Alcohol: None
Drug: None
Personal: (Common Law)
Living: with family
Employment: Disabled
Family History
Family History: Other (Father with coronary artery disease mother with coronary artery disease)
Review of Systems
Review of Systems
All Other Systems: ROS reviewed and negative except as documented in HPI and ROS
Constitutional: Denies fever or chills
EENT: Reports runny nose and other (Itchy throat); Denies sore throat
Respiratory: Reports cough; Denies trouble breathing
Cardiac: Denies chest pain
ABD/GI: Denies abdominal pain, nausea, vomiting or diarrhea
: Denies flank pain
Skin: Reports itching; Denies rash
Neurological: Denies headache
Phy Exam
Physical Exam
Physical Exam:
General: Awake, alert, oriented x3; no acute distress
Head: Normocephalic, atraumatic
Eyes: Conjunctiva normal, sclera anicteric
Throat: Airway intact, handling secretions, no swelling of the tongue or uvula, no stridor or upper airway wheeze
Neck: Trachea midline, supple without meningismus
Lungs: Clear to auscultation bilaterally, no wheezing, rales, rhonchi
Heart: Regular rate and rhythm, no murmurs, gallops, or rubs
Abd: Soft, non distended, nontender
Neuro: No gross deficits
Skin: no rash or hives noted
Extremities: Trace edema in the lower extremity, equal pulses in all extremities
Scores
Heart Failure Risk
Heart Failure Risk Score: Not Applicable
Heart Score for Chest Pain Patients
STEMI patient?: Not applicable
Withdrawal Assessment of Alcohol
Withdrawal Assessment Completed?: Not applicable
Course
Orders/Labs/Results
Orders:
Orders
04/06/24 13:15
Chest [CR Chest - 2 Views ] Urgent
Comment:
Reason For Exam: wheezing, SOB
04/06/24 13:33
Complete Blood Count/With Diff Urgent
Comprehensive Metabolic Panel Urgent
04/06/24 16:55
MethylPREDNISolone PF [Solu-Medrol Pf] 125 mg IV NOW STA
Abnormal Lab Results
04/06/24
13:33
Hgb 11.9 L g/dL
(12.0-16.0)
Hct 36.6 L %
(37.0-47.0)
MCH 26.3 L pg
(27.0-31.0)
MCHC 32.5 L g/dL
(33.0-37.0)
RDW 15.1 H %
(11.5-14.5)
Glucose 138 H mg/dl
(70-99)
04/06/24 13:33
04/06/24 13:33
Vital Signs
Initial and Last Documented VS:
Initial Vital Signs
Temp Pulse Resp BP Pulse Ox
37.2 C 75 18 160/82 98
04/06/24 13:08 04/06/24 13:08 04/06/24 13:08 04/06/24 13:08 04/06/24 13:08
Last Documented Vital Signs
Temp Pulse Resp BP Pulse Ox
37.2 C 79 17 142/75 94
04/06/24 13:08 04/06/24 16:45 04/06/24 16:45 04/06/24 16:08 04/06/24 16:45
MDM/Problems Addressed
Differential Diagnosis Includes:
Viral URI, allergic rhinitis, GERD, mast cell activation/allergic reaction
MDM/Problems Addressed:
58-year-old female presents to the ER with concern for possible allergic reaction to her biologic recently started for Crohn's. She received her third treatment little over a week ago and over the past week has developed some itchiness in her
throat, cough, rhinorrhea, pruritus which she says are her typical mast cell symptoms. She did have outpatient x-ray and viral swabs which she says were negative. She has no GI symptoms at present, no wheezing shortness of breath, no objective
hives although she reports some pruritus. She had labs in triage including CBC and CMP which were unremarkable and she had a chest x-ray which showed no acute disease. My clinical impression is that this could just as likely be viral URI as
allergic reaction; nevertheless given that she has had similar symptoms in the past from her mast cell activation syndrome reasonable to start on prednisone. Certainly she has no signs of anaphylaxis at present, no indication for emergent
epinephrine. I did place a call to patient's mast cell specialist who agrees starting steroids is a reasonable course. Will give a dose of IV methylprednisolone, discharged on prednisone taper with close outpatient follow-up and strict return
precautions. She will follow-up with her GI doctor to discuss whether to continue biologic treatment. She feels very comfortable this plan.
Chronic conditions affecting care:
Crohn's disease, mast activation syndrome
Acute Exacerbation and/or Progression of Chronic Illness:
Acutely hypertensive improved without intervention continue to monitor but no indication for emergent antihypertensives
Acute Exacerbation and/or Progression of Chronic Illness: HTN
*Radiology
Radiology exam reviewed: preliminary read by ED provider and radiology read reviewed
*Pulse Oximetry
Patient hypoxic: no
*Critical Care Note
Total Time (30-74mins, 75-104mins- exclusive of procedures): Not Applicable
Data Reviewed
Review of Other/Old Records Reveals: Labs and Records
Source: patient, records and spouse
Prescriptions/Medications Considered But Not Given:
Considered need for epinephrine
Patient Management
Discussion with other providers: Roll Machine Operator (Discussed with patient's mast cell specialist at [facility])
ED Attending Note
-
Portions of this chart may have been created with voice recognition software.� Occasional wrong word or��sound alike� substitutions may have occurred due to the inherent limitations of voice recognition software.
Discharge Plan
Departure
Patient Disposition: Home (Routine Discharge)
Date of Disposition: 04/06/24
Time of Disposition: 17:36
Patient with high blood pressure during this ER visit?: Yes
Discharge Problem:
Allergic reaction
Instructions: Adverse Drug Reactions, Adult (DC)
Prescriptions:
New
prednisone 10 mg Tablet
See Rx Instructions .ROUTE .COMPLEX Qty: 30 0RF
Rx Instructions:
Take By Mouth:
40 mg daily x3 days, 30 mg daily x3 days,
20 mg daily x3 days, 10 mg daily x3 days.
No Action
rabeprazole [AcipHex] 20 MG tablet,delayed release (DR/EC)
20 mg PO BID
atenolol 25 MG tablet
12.5 mg PO DAILY
albuterol sulfate [ProAir HFA] 8.5 GM HFA aerosol inhaler
2 puff inhalation R Q4 PRN (Reason: sob/wheezing)
cholecalciferol (vitamin D3) [Vitamin D3] 2,000 UNIT capsule
3,000 unit PO DAILY
ascorbic acid-ascorbate sodium 500 MG wafer
500 mg PO DAILY
diphenhydramine HCl [Banophen] 25 MG capsule
12.5 mg PO QID
acetaminophen 500 mg Tablet
1,000 mg PO Q6H PRN (Reason: mild pain)
losartan 25 mg Tablet
25 mg PO BID
levothyroxine 25 mcg Tablet
50 mcg PO DAILY
fondaparinux 5 mg/0.4 mL Syringe
5 mg SC Q48H
Vitamin B-6 50 mg Capsule
50 mg PO DAILY
prednisone 50 mg tablet
5 mg PO DAILY
Referrals:
Javed Fisher MD [Non-Admitting Privileges] - Follow up in 5-7 days
Jeane Mercado MD [Family Provider] - Follow up in 2-3 days
Activity Restrictions/Additional Instructions:
Thank you for visiting the Emergency Department at [facility].
1. Please schedule a follow up appointment as directed. Call first thing tomorrow morning to make an appointment.
2. If indicated, please take your medications as instructed and indicated on discharge paperwork.
3. If any of your symptoms do not improve, or persist, or become more severe within 6-12 hours, please return to the emergency department for further care.
4. Please return to the emergency department if you develop a headache, neck pain/stiffness, fever greater than 100.4F, chest pain, shortness of breath, persistent nausea, vomiting, slurred speech, difficulty walking, numbness/tingling, weakness,
signs of infection or any other symptoms that are worrisome to you.
Please call [phone] if you have any questions.
Interventions
Interventions:
*Risk Screen - Suicide Last Done: 04/06/24 16:09
*General Assessment Last Done: 04/06/24 13:08
*Neglect/Abuse Screening Last Done: 04/06/24 16:09
*ED COVID-19 Vaccine History Last Done: 04/06/24 13:08
ED- Cardiac Assessment Last Done: 04/06/24 16:09
ED- Pulmonary Assessment Last Done: 04/06/24 16:09
ED-Skin Assessment Last Done: 04/06/24 16:09
Discharge Date and Time
Print Language: TURKISH
[2024-04-06] MEDS: SOLU-MEDROL PF 125 MG IV (16:58)
== END 2024-04-06 18:20 | disposition home or self-care (01) ==
LOC: EMR 12:53
PROVIDERS: Emergency Medicine; EMERGENCY PHYSICIAN Emergency Medicine; FAMILY PHYSICIAN Family Medicine
DX: T78.40XA Allergy, unspecified, initial encounter (principal); X58.XXXA Exposure to other specified factors, initial encounter; K50.90 Crohn's disease, unspecified, without complications; I10 Essential (primary) hypertension; Z87.891 Personal history of nicotine dependence
CPT/HCPCS: 99284; 96374; 71046; 80053; 85025

== ENCOUNTER 2024-05-02 10:26 | Emergency (ER) | payer MEDICARE, OTHER, SELFPAY ==
[2024-05-02 10:28] VITALS: BP 162/81
--- NOTE | 2024-05-02 11:11 | ED.GENMED ---
History of Present Illness
<DO Dhiraj Avila Filed: 05/04/24 17:28>
General
Chief Complaint: Fever
Source: patient
Time Seen by Provider: 05/02/24 10:57
History of Present Illness
History of Present Illness:
58-year-old female presents to the emergency room complaining of malaise, muscle aches, cough, sore throat, nausea, decreased oral intake, frequent stools. Patient relates she had a temperature of 101 at home. She is felt ill for the past 2 to 3
weeks. She had a negative viral swab 3 to 4 days ago. Patient concerned because she takes an immunologic treatment for her mast cell activation syndrome and she may be developing a more serious infection. Patient has Crohn's disease. She has had
frequent stools with some blood. Mild right upper quadrant tenderness that is intermittent.
Past History
<DO Dhiraj Avila Last Filed: 05/04/24 17:28>
Past History
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
inflammatory bowel disease,) and Other (Crohn's disease, 'Mass cell activation syndrome', Migraines, Chronic back pain, Hiatal hernia, Renal calculus, Vertigo, factor 8 elevation, ,anemia, Esophageal stretching)
ED Past Surgical History: Cardiac (Loop recorder), Cholecystectomy, Gynecological (Uterine Ablation), Orthopedic (C3-4 spinal fusion, left ear surgery) and Other (Partial right Thyroidectomy )
Social History
Tobacco: Former smoker
Alcohol: None
Drug: None
Personal: (Common Law)
Living: with family
Employment: Disabled
Family History
Family History: Other (Father with coronary artery disease mother with coronary artery disease)
Phy Exam
<DO Dhiraj Avila Last Filed: 05/04/24 17:28>
Physical Exam
Physical Exam:
General: Awake, Alert, Oriented X3. No acute distress, appears chronically ill
Vitals: unremarkable
Head: Atraumatic
Eyes: Pupils equal, EOMI
Throat: Airway intact, no exudates
Neck: Trachea midline
Lungs: Clear and equal b/l
Heart: Regular rate, no murmurs
Abd: Soft, mild right upper quadrant tenderness, no rebound, no guarding, No pulsatile mass
Neuro: Nonfocal
Skin: Warm, dry, no rash
Extremities: pulses equal b/l, no edema
Course
Dorotalt;Elias Guo, DO - Last Filed: 05/04/24 17:28>
Orders/Labs/Results
Orders:
Orders
05/02/24 11:10
CR Chest - 2 Views Urgent
Comment:
Reason For Exam: cough, fever
05/02/24 11:11
0.9% Sodium Chloride 1000 ml [Nss] 1,000 ml IV BOLUS
05/02/24 11:28
COVID-19 Antigen Urgent
Source: Nasal Swab
Complete Blood Count/With Diff Urgent
Comprehensive Metabolic Panel Urgent
Procalcitonin Urgent
PCT Algorithmm Indication: Respiratory
Blood Culture Q30M
CARINA Source: Blood/Venous
Specimen Description:
Blood Culture Q30M
CARINA Source: Blood/Venous
Specimen Description:
Influenza A+B Rapid Molecular Urgent
CARINA Source: Nasal Swab
Specimen Description:
05/02/24 11:35
Acetaminophen [Tylenol] 650 mg .ROUTE .STK-MED ONE
05/02/24 11:36
Acetaminophen [Tylenol] 650 mg PO NOW STA
05/02/24 11:41
Urinalysis Reflex To Culture Urgent
Date Specimen was Collected: 05/02/24
Time Specimen was Collected: 11:40
Urine Microscopic Reflex Cult Urgent
05/02/24 13:44
CT Abd/pel (oral only)-DH Only Urgent
Comment:
Reason For Exam: abd pain, crohn's, subjective fever
Iohexol [Omnipaque] See Protocol PO NOW STA
05/02/24 17:18
Acetaminophen [Tylenol] 1,000 mg PO NOW STA
Abnormal Lab Results
05/02/24 05/02/24
11:28 11:41
WBC 4.0 L 10^3/uL
(4.8-10.8)
Hgb 11.4 L g/dL
(12.0-16.0)
Hct 34.9 L %
(37.0-47.0)
MCV 80.0 L fL
(81.0-99.0)
MCH 26.1 L pg
(27.0-31.0)
MCHC 32.7 L g/dL
(33.0-37.0)
RDW 15.5 H %
(11.5-14.5)
Absolute Lymphs (auto) 0.8 L 10^3/uL
(1.2-3.4)
Lymphocytes % 20.1 L %
(20.5-51.1)
Monocytes % 12.2 H %
(1.7-9.3)
Eosinophils % 7.2 H %
(0-6)
Glucose 164 H mg/dl
(70-99)
AST 39 H U/L
(14-36)
Leukocyte Esterase Rfl Trace A
(Negative)
05/02/24 11:28
05/02/24 11:28
Vital Signs
Initial and Last Documented VS:
Initial Vital Signs
Temp Pulse Resp BP Pulse Ox
100.2 F 84 20 162/81 100
05/02/24 10:28 05/02/24 10:28 05/02/24 10:28 05/02/24 10:28 05/02/24 10:28
Last Documented Vital Signs
Temp Pulse Resp BP Pulse Ox
100.2 F 77 19 149/91 97
05/02/24 10:28 05/02/24 14:47 05/02/24 14:47 05/02/24 14:47 05/02/24 14:47
<Deneen Araujo, - Last Filed: 05/02/24 20:18>
Orders/Labs/Results
Orders:
Orders
05/02/24 11:10
CR Chest - 2 Views Urgent
Comment:
Reason For Exam: cough, fever
05/02/24 11:11
0.9% Sodium Chloride 1000 ml [Nss] 1,000 ml IV BOLUS
05/02/24 11:28
COVID-19 Antigen Urgent
Source: Nasal Swab
Complete Blood Count/With Diff Urgent
Comprehensive Metabolic Panel Urgent
Procalcitonin Urgent
PCT Algorithmm Indication: Respiratory
Blood Culture Q30M
CARINA Source: Blood/Venous
Specimen Description:
Blood Culture Q30M
CARINA Source: Blood/Venous
Specimen Description:
Influenza A+B Rapid Molecular Urgent
CARINA Source: Nasal Swab
Specimen Description:
05/02/24 11:35
Acetaminophen [Tylenol] 650 mg .ROUTE .STK-MED ONE
05/02/24 11:36
Acetaminophen [Tylenol] 650 mg PO NOW STA
05/02/24 11:41
Urinalysis Reflex To Culture Urgent
Date Specimen was Collected: 05/02/24
Time Specimen was Collected: 11:40
Urine Microscopic Reflex Cult Urgent
05/02/24 13:44
CT Abd/pel (oral only)-[facility] Only Urgent
Comment:
Reason For Exam: abd pain, crohn's, subjective fever
Iohexol [Omnipaque] See Protocol PO NOW STA
05/02/24 17:18
Acetaminophen [Tylenol] 1,000 mg PO NOW STA
Abnormal Lab Results
05/02/24 05/02/24
11:28 11:41
WBC 4.0 L 10^3/uL
(4.8-10.8)
Hgb 11.4 L g/dL
(12.0-16.0)
Hct 34.9 L %
(37.0-47.0)
MCV 80.0 L fL
(81.0-99.0)
MCH 26.1 L pg
(27.0-31.0)
MCHC 32.7 L g/dL
(33.0-37.0)
RDW 15.5 H %
(11.5-14.5)
Absolute Lymphs (auto) 0.8 L 10^3/uL
(1.2-3.4)
Lymphocytes % 20.1 L %
(20.5-51.1)
Monocytes % 12.2 H %
(1.7-9.3)
Eosinophils % 7.2 H %
(0-6)
Glucose 164 H mg/dl
(70-99)
AST 39 H U/L
(14-36)
Leukocyte Esterase Rfl Trace A
(Negative)
05/02/24 11:28
05/02/24 11:28
Vital Signs
Initial and Last Documented VS:
Initial Vital Signs
Temp Pulse Resp BP Pulse Ox
100.2 F 84 20 162/81 100
05/02/24 10:28 05/02/24 10:28 05/02/24 10:28 05/02/24 10:28 05/02/24 10:28
Last Documented Vital Signs
Temp Pulse Resp BP Pulse Ox
100.2 F 77 19 149/91 97
05/02/24 10:28 05/02/24 14:47 05/02/24 14:47 05/02/24 14:47 05/02/24 14:47
<Deneen Araujo DO - Last Filed: 05/02/24 20:18>
*Critical Care Note
Total Time (30-74mins, 75-104mins- exclusive of procedures): Not Applicable
<Deneen Araujo DO - Last Filed: 05/02/24 20:18>
Update Note
Update Note:
Attending Sign Out Note (Deneen Araujo DO)
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 Notes she has been feeling sick for the past 2 to 3 weeks with subjective
fevers, notes generalized abdominal pain. Vital signs stable in the emergency department, low-grade fever. No leukocytosis. Normal procalcitonin, chest x-ray without acute cardiopulmonary disease. Left suspicion for serious systemic process.
Noted on exam to have some generalized abdominal tenderness so plan for CT abdominal imaging. History of IV contrast allergy, so drinking p.o. contrast.
14:45 - Alerted by nurse that patient believes she is having an allergic reaction to the p.o. contrast. Will stop the contrast, however no signs of anaphylactic reaction, breathing comfortably, no rash, stable vitals.
16:25 -CT without acute process. Patient otherwise remained stable on reassessment. Feel stable for discharge with suspicion for viral syndrome. Advised outpatient continued supportive therapy. Return precautions discussed and patient verbalized
understanding
ED Attending Note
<Elias Guo DO - Last Filed: 05/04/24 17:28>
-
Portions of this chart may have been created with voice recognition software.� Occasional wrong word or��sound alike� substitutions may have occurred due to the inherent limitations of voice recognition software.
Discharge Plan
Departure
Patient Disposition: Home (Routine Discharge)
Date of Disposition: 05/02/24
Time of Disposition: 18:26
Patient with high blood pressure during this ER visit?: No
Condition: Good
Discharge Problem:
Acute viral syndrome, Abdominal pain
Instructions: Fever, Adult (DC), Viral Syndrome (DC)
Prescriptions:
No Action
rabeprazole [AcipHex] 20 MG tablet,delayed release (DR/EC)
20 mg PO BID
atenolol 25 MG tablet
12.5 mg PO DAILY
albuterol sulfate [ProAir HFA] 8.5 GM HFA aerosol inhaler
2 puff inhalation R Q4 PRN (Reason: sob/wheezing)
cholecalciferol (vitamin D3) [Vitamin D3] 2,000 UNIT capsule
3,000 unit PO DAILY
ascorbic acid-ascorbate sodium 500 MG wafer
500 mg PO DAILY
diphenhydramine HCl [Banophen] 25 MG capsule
12.5 mg PO QID
acetaminophen 500 mg Tablet
1,000 mg PO Q6H PRN (Reason: mild pain)
losartan 25 mg Tablet
25 mg PO BID
levothyroxine 25 mcg Tablet
50 mcg PO DAILY
fondaparinux 5 mg/0.4 mL Syringe
5 mg SC Q48H
Vitamin B-6 50 mg Capsule
50 mg PO DAILY
prednisone 50 mg tablet
5 mg PO DAILY
prednisone 10 mg Tablet
See Rx Instructions .ROUTE .COMPLEX Qty: 30 0RF
Rx Instructions:
Take By Mouth:
40 mg daily x3 days, 30 mg daily x3 days,
20 mg daily x3 days, 10 mg daily x3 days.
Referrals:
Jeane Mercado MD [Family Provider] -
Activity Restrictions/Additional Instructions:
You were seen in the emergency department for fever, headache, body aches, abdominal pain
You were found to have normal blood work, CT imaging of your abdomen, viral swabs. We suspect that you have a viral infection. Please continue to drink fluids and take Tylenol as needed for fever or pain.
Please follow-up closely with your primary care physician.
Return to the emergency department for any worsening of your symptoms, or any development of chest pain, difficulty breathing, abdominal pain with persistent vomiting and inability to tolerate food or liquid by mouth (concern for dehydration),
weakness, headache or confusion, fever greater than 100.4, or any additional symptoms that are concerning to you.
Thank you for choosing [facility].
Interventions
Interventions:
*Risk Screen - Suicide Last Done: 05/02/24 10:28
*General Assessment Last Done: 05/02/24 10:28
*Neglect/Abuse Screening Last Done: 05/02/24 10:28
ED- Fall Risk Assessment Last Done: 05/02/24 11:48
*Nursing Disposition Last Done: 05/02/24 18:54
ED- Neurological Assessment Last Done: 05/02/24 11:48
ED-Skin Assessment Last Done: 05/02/24 11:49
Discharge Date and Time
Discharge Date/Time: 05/02/24 18:55
Print Language: YI
[2024-05-02 11:30] VITALS: BMI 47.9
[2024-05-02] MEDS: NSS 1000 IV (11:36)
[2024-05-02] MEDS: TYLENOL 650 MG PO (11:37)
[2024-05-02 11:43] LABS: % Basophils 1.7 % (0-2); % Eosinophils 7.2 % (0-6); % Immature Granulocytes 0.2 % (0-0.5); % Lymphocytes 20.1 % (20.5-51.1); % Monocytes 12.2 % (1.7-9.3); % Neutrophils 58.6 % (42.2-75.2); Absolute Basophils 0.1 10^3/uL (0-0.2); Absolute Eosinophils 0.3 10^3/uL (0-0.7); Absolute Lymphocytes 0.8 10^3/uL (1.2-3.4); Absolute Monocytes 0.5 10^3/uL (0.1-0.6); Absolute Neutrophils 2.4 10^3/uL (1.4-6.5); Hematocrit 34.9 % (37.0-47.0); Hemoglobin 11.4 g/dL (12.0-16.0); Mean Corp Hgb Conc. 32.7 g/dL (33.0-37.0); Mean Corpuscular Hgb 26.1 pg (27.0-31.0); Mean Platelet Volume 9.6 fL (7.4-10.4); Nucleated Red Blood Cells % 0 %; Platelet Count 224 10^3/uL (130-400); Red Blood Cell Count 4.36 10^6/uL (4.20-5.40); Red Cell Dist. Width 15.5 % (11.5-14.5)
[2024-05-02 11:59] LABS: ALT (SGPT) 27 U/L (0-35); AST (SGOT) 39 U/L (14-36); Albumin 3.9 g/dl (3.5-5.0); Alkaline Phosphatase 104 U/L (38-126); Blood Urea Nitrogen 11 mg/dl (7-17); Calcium 9.1 mg/dl (8.4-10.2); Carbon Dioxide 25 mmol/L (22-30); Chloride 103 mmol/L (98-107); Estimated Creatinine Clearance 75 ml/min; Glucose 164 mg/dl (70-99); Potassium 4.4 mmol/L (3.5-5.1); Sodium 135 mmol/L (135-145); Total Bilirubin 0.7 mg/dl (0.2-1.3); Total Protein 6.8 g/dl (6.3-8.2); eGFR > 60.00
[2024-05-02 12:00] LABS: COVID-19 Antigen Negative (Negative)
[2024-05-02 12:13] LABS: Urine Albumin Negative (Neg - Trace); Urine Bilirubin Negative (Negative); Urine Character Clear (Clear); Urine Color Yellow; Urine Glucose Negative (Negative); Urine Ketone Negative (Negative); Urine Leukocyte Trace (Negative); Urine Nitrite Negative (Negative); Urine Occult Blood Negative (Negative); Urine Urobilinogen Negative (Neg - 1+)
[2024-05-02 12:14] LABS: Procalcitonin < 0.05 ng/ml (0.0-0.25)
[2024-05-02 12:25] LABS: Urine White Cell 0-2 /HPF (0-5)
[2024-05-02 12:26] LABS: Urine Red Blood Cell None Seen /HPF (0-2)
[2024-05-02 13:45] VITALS: BP 125/76
[2024-05-02] MEDS: OMNIPAQUE 50 ML PO (13:51)
[2024-05-02 14:47] VITALS: BP 149/91
[2024-05-02] MEDS: TYLENOL 1000 MG PO (17:23)
== END 2024-05-02 18:55 | disposition home or self-care (01) ==
LOC: EMR 10:26
PROVIDERS: Emergency Medicine; EMERGENCY PHYSICIAN Student in an Organized Health Care Education/Training Program; FAMILY PHYSICIAN Family Medicine
DX: B34.9 Viral infection, unspecified (principal); R10.11 Right upper quadrant pain; I10 Essential (primary) hypertension; Z11.52 Encounter for screening for COVID-19
CPT/HCPCS: 99285; 96360; 71046; 74176; 80053; 81003; 81015; 84145; 85025; 87040; 87502; 87811

== ENCOUNTER 2024-05-05 11:26 | Emergency (ER) | payer MEDICARE, OTHER, SELFPAY ==
[2024-05-05 11:41] VITALS: BP 161/95
[2024-05-05 12:03] LABS: % Basophils 1.6 % (0-2); % Eosinophils 5.9 % (0-6); % Immature Granulocytes 0.2 % (0-0.5); % Monocytes 11.8 % (1.7-9.3); % Neutrophils 58.5 % (42.2-75.2); Absolute Basophils 0.1 10^3/uL (0-0.2); Absolute Eosinophils 0.3 10^3/uL (0-0.7); Absolute Lymphocytes 1.1 10^3/uL (1.2-3.4); Absolute Monocytes 0.6 10^3/uL (0.1-0.6); Absolute Neutrophils 2.9 10^3/uL (1.4-6.5); Hematocrit 34.8 % (37.0-47.0); Hemoglobin 11.4 g/dL (12.0-16.0); Mean Corp Hgb Conc. 32.8 g/dL (33.0-37.0); Mean Corpuscular Hgb 26.3 pg (27.0-31.0); Mean Corpuscular Volume 80.2 fL (81.0-99.0); Mean Platelet Volume 9.6 fL (7.4-10.4); Nucleated Red Blood Cells % 0 %; Platelet Count 255 10^3/uL (130-400); Red Blood Cell Count 4.34 10^6/uL (4.20-5.40); Red Cell Dist. Width 15.6 % (11.5-14.5); White Blood Cell Count 4.9 10^3/uL (4.8-10.8)
[2024-05-05 12:17] LABS: ALT (SGPT) 26 U/L (0-35); AST (SGOT) 37 U/L (14-36); Albumin 3.9 g/dl (3.5-5.0); Alkaline Phosphatase 113 U/L (38-126); Blood Urea Nitrogen 8 mg/dl (7-17); Calcium 9.3 mg/dl (8.4-10.2); Carbon Dioxide 28 mmol/L (22-30); Chloride 102 mmol/L (98-107); Glucose 148 mg/dl (70-99); Potassium 3.8 mmol/L (3.5-5.1); Sodium 136 mmol/L (135-145); Total Bilirubin 0.3 mg/dl (0.2-1.3); Total Protein 6.7 g/dl (6.3-8.2); eGFR > 60.00
[2024-05-05 12:42] LABS: Lactic Acid 1.3 mmol/L (0.7-2.0)
--- NOTE | 2024-05-05 16:15 | ED.GENMED ---
History of Present Illness
General
Chief Complaint: Fever
Time Seen by Provider: 05/05/24 16:15
History of Present Illness
History of Present Illness:
TIME OF INITIAL ENCOUNTER:
HPI: Patient presents due to ongoing fevers. This is associated with cough and chest discomfort. She was recently on a round of steroids and has been taking a Idacio for Crohn's. Her symptoms are so severe that she had to cancel her upper and
lower endoscopy with GI at [place]. She has been having rectal bleeding which is not necessarily new.
EXAM:
GENERAL: Well appearing in no distress, prominent cough noted
HEENT: Moist oral mucosa
CARDIOVASCULAR: No murmurs, normal heart rate, regular rhythm, No chest wall tenderness
PULMONARY: No respiratory distress, breath sounds are clear and equal
ABDOMEN: Soft with no peritoneal signs, no tenderness
NEUROLOGIC: Excellent strength all extremities, no coordination deficits
PSYCHIATRIC: Appropriate mental status, normal insight and judgement
EXTREMITIES: Nontender, no edema, moves all extremities equally
SKIN: No rash, no lesions
NUMBER AND COMPLEXITY OF PROBLEMS ADDRESSED AT THE ENCOUNTER
� Chronic conditions affecting care: Asthma, multiple strokes, GERD, NIDDM, anxiety, kidney stones, IBS, mast cell activation send
� Acute Exacerbation and/or Progression of Chronic Illness: This is an acute problem
� Differential Diagnosis includes: Viral syndrome, prolonged viral syndrome, bacteremia less likely as she just had blood cultures the other day.
AMOUNT AND/OR COMPLEXITY OF DATA TO BE REVIEWED AND ANALYZED
� I performed an independent evaluation of and my interpretation is:
EKG: Sinus 70, anterior T wave abnormality which is unchanged from prior
CT: CT chest suggest pneumonitis
X-rays:
Laboratory Studies: White count 4.9, hemoglobin 11.4, lactic 1.3, chemistries relatively unremarkable, troponin less than 0.012
Other:
� Review of other/old records: The patient was seen here 3 days ago and at that time had a CT with some oral contrast (developed an allergic reaction) that showed no acute abnormality in the abdomen/pelvis�cholecystectomy was
noted. Chest x-ray from 3 days ago was unremarkable.
� Clinical information was obtained by an independent historian: None needed
� Prescriptions/Medications Considered but not given:
� Further testing considered but not performed:
RISK OF COMPLICATIONS AND/OR MORBIDITY OR MORTALITY OF PATIENT MANAGEMENT
� Social determinants of health affecting care: Lives at home
� Discussion with other providers: I discussed case with Dr. Tavera who is authorizing us to obtain respiratory panel.
� Escalation of care including admission/observation vs risk of discharge considered: Blood cultures from 3 days ago are still negative. COVID/flu test were negative from the other day. The patient is concerned because of her
ongoing symptoms. Chest x-ray from the other day was negative however the patient has ongoing fevers and some degree of shortness of breath along with a definite cough. CT chest obtained.
ANY OTHER UPDATES:
I called patient at home at 8:15 PM and notified patient that the respiratory panel was negative. Given the pneumonitis on CT, I recommend that she increase the use of Flovent, she has only been rarely using this only. She also states that she
will follow-up with Dr. Gudino as well.
Past History
Past History
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
inflammatory bowel disease,) and Other (Crohn's disease, 'Mass cell activation syndrome', Migraines, Chronic back pain, Hiatal hernia, Renal calculus, Vertigo, factor 8 elevation, ,anemia, Esophageal stretching)
ED Past Surgical History: Cardiac (Loop recorder), Cholecystectomy, Gynecological (Uterine Ablation), Orthopedic (C3-4 spinal fusion, left ear surgery) and Other (Partial right Thyroidectomy )
Social History
Tobacco: Former smoker
Alcohol: None
Drug: None
Personal: (Common Law)
Living: with family
Employment: Disabled
Family History
Family History: Other (Father with coronary artery disease mother with coronary artery disease)
Phy Exam
Physical Exam
Physical Exam:
See HPI
Course
Orders/Labs/Results
Orders:
Orders
05/05/24 11:45
Electrocardiogram (*1) Urgent
Reason for Study: Other
Other Reason for Exam: Possible Sepsis
EKG- Treatment ONCE
05/05/24 11:50
Complete Blood Count/With Diff Urgent
Comprehensive Metabolic Panel Urgent
Lactic Acid Q4H
Comment: ON ICE, CANCEL 2ND ORDER IF FIRST LACTIC ACID LEVEL <2
05/05/24 14:05
CR Chest - 2 Views Urgent
Comment:
Reason For Exam: cough, chest tightness
05/05/24 16:40
CT Chest W/o Iv Contrast Urgent
Comment:
Reason For Exam: cough normal CXR 05/02, fever, severe dye allergy
05/05/24 16:52
Add On- LAB Urgent
Tests Added?: respiratory panel; Dr. Tavera (ID) okay'd via TT
Troponin I Urgent
05/05/24 16:53
0.9% Sodium Chloride 1000 ml [Nss] 1,000 ml IV BOLUS
05/05/24 17:12
Respiratory Viral Panel-PCR Routine
CARINA Source: HOME AND FAMILY LIVING PROFESSOR
Specimen Description:
Abnormal Lab Results
05/05/24 05/05/24
11:50 18:28
Hgb 11.4 L g/dL
(12.0-16.0)
Hct 34.8 L %
(37.0-47.0)
MCV 80.2 L fL
(81.0-99.0)
MCH 26.3 L pg
(27.0-31.0)
MCHC 32.8 L g/dL
(33.0-37.0)
RDW 15.6 H %
(11.5-14.5)
Absolute Lymphs (auto) 1.1 L 10^3/uL
(1.2-3.4)
Monocytes % 11.8 H %
(1.7-9.3)
Glucose 148 H mg/dl
(70-99)
AST 37 H U/L
(14-36)
POC Glucose 134 H mg/dl
(70-99)
05/05/24 11:50
05/05/24 11:50
Vital Signs
Initial and Last Documented VS:
Initial Vital Signs
Temp Pulse Resp BP Pulse Ox
37.0 C 71 16 161/95 98
05/05/24 11:41 05/05/24 11:41 05/05/24 11:41 05/05/24 11:41 05/05/24 11:41
Last Documented Vital Signs
Temp Pulse Resp BP Pulse Ox
37.3 C 82 20 151/84 96
05/05/24 18:43 05/05/24 16:30 05/05/24 16:30 05/05/24 16:30 05/05/24 16:30
*Critical Care Note
Total Time (30-74mins, 75-104mins- exclusive of procedures): Not Applicable
ED Attending Note
-
Portions of this chart may have been created with voice recognition software.� Occasional wrong word or��sound alike� substitutions may have occurred due to the inherent limitations of voice recognition software.
Discharge Plan
Departure
Patient Disposition: Home (Routine Discharge)
Date of Disposition: 05/05/24
Time of Disposition: 18:59
Patient with high blood pressure during this ER visit?: Yes
Discharge Problem:
Pneumonitis
Instructions: Pneumonitis (DC), BLOOD PRESSURE
Prescriptions:
No Action
rabeprazole [AcipHex] 20 MG tablet,delayed release (DR/EC)
20 mg PO BID
atenolol 25 MG tablet
12.5 mg PO DAILY
albuterol sulfate [ProAir HFA] 8.5 GM HFA aerosol inhaler
2 puff inhalation R Q4 PRN (Reason: sob/wheezing)
cholecalciferol (vitamin D3) [Vitamin D3] 2,000 UNIT capsule
3,000 unit PO DAILY
ascorbic acid-ascorbate sodium 500 MG wafer
500 mg PO DAILY
diphenhydramine HCl [Banophen] 25 MG capsule
12.5 mg PO QID
acetaminophen 500 mg Tablet
1,000 mg PO Q6H PRN (Reason: mild pain)
losartan 25 mg Tablet
25 mg PO BID
levothyroxine 25 mcg Tablet
50 mcg PO DAILY
fondaparinux 5 mg/0.4 mL Syringe
5 mg SC Q48H
Vitamin B-6 50 mg Capsule
50 mg PO DAILY
prednisone 50 mg tablet
5 mg PO DAILY
prednisone 10 mg Tablet
See Rx Instructions .ROUTE .COMPLEX Qty: 30 0RF
Rx Instructions:
Take By Mouth:
40 mg daily x3 days, 30 mg daily x3 days,
20 mg daily x3 days, 10 mg daily x3 days.
Referrals:
Whitney George MD [Family Provider] -
Activity Restrictions/Additional Instructions:
Your white blood cell count is normal. Hemoglobin is unchanged from prior. Chemistry levels are normal. Glucose was in the 1 30-1 40 range. The CAT scan of the chest suggests some degree of pneumonitis.
Interventions
Interventions:
*Risk Screen - Suicide Last Done: 05/05/24 11:41
*General Assessment Last Done: 05/05/24 16:30
*Neglect/Abuse Screening Last Done: 05/05/24 11:41
ED- Fall Risk Assessment Last Done: 05/05/24 16:30
*ED COVID-19 Vaccine History Last Done: 05/05/24 16:30
*Nursing Disposition Last Done: 05/05/24 19:32
ED- Neurological Assessment Last Done: 05/05/24 16:30
ED-Skin Assessment Last Done: 05/05/24 16:30
Discharge Date and Time
Discharge Date/Time: 05/05/24 19:33
Print Language: KINYARWANDA
[2024-05-05 16:22] VITALS: BMI 36.1
[2024-05-05 16:30] VITALS: BP 151/84
--- NOTE | 2024-05-05 16:34 | EDRN ---
Dr. Brown currently at the [facility] bedside
--- NOTE | 2024-05-05 16:53 | EDRN ---
RAC #20 PIv placed, troponin drawn and sent, the pt stated to this RN that she needed to go to the bathroom, the pt was able to ambulate to the bathroom and change into a gown
[2024-05-05] MEDS: NSS 1000 IV (17:05)
[2024-05-05 17:31] LABS: Troponin I < 0.012 ng/ml
[2024-05-05 18:30] LABS: Glucose - Point of Care 134 mg/dl (70-99)
--- NOTE | 2024-05-05 18:42 | EDRN ---
Dr. Brown currently at the [facility] bedside
== END 2024-05-05 19:33 | disposition home or self-care (01) ==
LOC: EMR 11:26
PROVIDERS: Emergency Medicine; EMERGENCY PHYSICIAN Emergency Medicine; FAMILY PHYSICIAN Family Medicine
DX: J18.9 Pneumonia, unspecified organism (principal); I10 Essential (primary) hypertension; Z87.891 Personal history of nicotine dependence
CPT/HCPCS: 99285; 96360; 71046; 71250; 80053; 82962; 83605; 84484; 85025; 87633; 93005

== ENCOUNTER 2024-05-21 12:00 | Emergency (ER) | payer MEDICARE, OTHER, SELFPAY ==
[2024-05-21 12:01] VITALS: BP 186/100
[2024-05-21 13:43] VITALS: BP 148/89
[2024-05-21] MEDS: NSS 1000 IV (13:45)
[2024-05-21 13:59] LABS: % Basophils 1.7 % (0-2); % Immature Granulocytes 0.2 % (0-0.5); % Neutrophils 51.1 % (42.2-75.2); Absolute Basophils 0.1 10^3/uL (0-0.2); Absolute Eosinophils 0.8 10^3/uL (0-0.7); Absolute Lymphocytes 1.4 10^3/uL (1.2-3.4); Absolute Monocytes 0.6 10^3/uL (0.1-0.6); Absolute Neutrophils 3.1 10^3/uL (1.4-6.5); Hematocrit 33.4 % (37.0-47.0); Hemoglobin 10.9 g/dL (12.0-16.0); Mean Corp Hgb Conc. 32.6 g/dL (33.0-37.0); Mean Corpuscular Hgb 26.1 pg (27.0-31.0); Mean Corpuscular Volume 80.1 fL (81.0-99.0); Mean Platelet Volume 10.1 fL (7.4-10.4); Nucleated Red Blood Cells % 0 %; Platelet Count 329 10^3/uL (130-400); Red Blood Cell Count 4.17 10^6/uL (4.20-5.40); Red Cell Dist. Width 15.4 % (11.5-14.5)
[2024-05-21 14:00] VITALS: BP 155/72
[2024-05-21 14:17] LABS: ALT (SGPT) 18 U/L (0-35); AST (SGOT) 27 U/L (14-36); Albumin 3.8 g/dl (3.5-5.0); Alkaline Phosphatase 91 U/L (38-126); Blood Urea Nitrogen 14 mg/dl (7-17); Calcium 9.5 mg/dl (8.4-10.2); Carbon Dioxide 25 mmol/L (22-30); Chloride 103 mmol/L (98-107); Glucose 115 mg/dl (70-99); Potassium 4.4 mmol/L (3.5-5.1); Sodium 136 mmol/L (135-145); Total Bilirubin 0.5 mg/dl (0.2-1.3); Total Protein 7.1 g/dl (6.3-8.2); eGFR > 60.00
--- NOTE | 2024-05-21 14:33 | ED.GENMED ---
History of Present Illness
General
Chief Complaint: Cold/Flu/URI Symptoms
Source: patient
Exam Limitations: none
Time Seen by Provider: 05/21/24 13:14
History of Present Illness
History of Present Illness:
58-year-old female presented with persistent but she is unaware of the past month. She also notes intermittent fever. She has a history of mast cell activation. She follows with pulmonology. She sees rheumatology as well. She was treated
recommended to see infectious disease from her recent pulmonology visit which has been done. She is not currently on an antibiotic or steroid. She has been using her Flovent without significant relief. No other complaints at this time
Past History
Past History
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
inflammatory bowel disease,) and Other (Crohn's disease, 'Mass cell activation syndrome', Migraines, Chronic back pain, Hiatal hernia, Renal calculus, Vertigo, factor 8 elevation, ,anemia, Esophageal stretching)
ED Past Surgical History: Cardiac (Loop recorder), Cholecystectomy, Gynecological (Uterine Ablation), Orthopedic (C3-4 spinal fusion, left ear surgery) and Other (Partial right Thyroidectomy )
Social History
Tobacco: Former smoker
Alcohol: None
Drug: None
Personal: (Common Law)
Living: with family
Employment: Disabled
Family History
Family History: Other (Father with coronary artery disease mother with coronary artery disease)
Phy Exam
Physical Exam
Physical Exam:
General: Well-appearing female no acute respiratory distress HEENT: Normocephalic atraumatic
Heart: Regular rate and rhythm
Lungs: Clear no wheeze dry cough throughout the exam
Abdomen is soft nontender nondistended
Extremities: No cyanosis or edema
Skin: Warm no rash
Course
Orders/Labs/Results
Orders:
Orders
05/21/24 12:04
Electrocardiogram (*1) Urgent
Reason for Study: Chest Pain
EKG- Treatment ONCE
05/21/24 13:27
0.9% Sodium Chloride 1000 ml [Nss] 1,000 ml IV BOLUS
05/21/24 13:29
Electrocardiogram (*1) Urgent
Reason for Study: Fatigue / Weakness
EKG- Treatment ONCE
05/21/24 13:44
CT Chest W/o Iv Contrast Urgent
Comment:
Reason For Exam: cough
05/21/24 13:48
Complete Blood Count/With Diff Urgent
Comprehensive Metabolic Panel Urgent
Abnormal Lab Results
05/21/24
13:48
RBC 4.17 L 10^6/uL
(4.20-5.40)
Hgb 10.9 L g/dL
(12.0-16.0)
Hct 33.4 L %
(37.0-47.0)
MCV 80.1 L fL
(81.0-99.0)
MCH 26.1 L pg
(27.0-31.0)
MCHC 32.6 L g/dL
(33.0-37.0)
RDW 15.4 H %
(11.5-14.5)
Absolute Eos (auto) 0.8 H 10^3/uL
(0-0.7)
Monocytes % 10.0 H %
(1.7-9.3)
Eosinophils % 13.0 H %
(0-6)
Glucose 115 H mg/dl
(70-99)
05/21/24 13:48
05/21/24 13:48
Vital Signs
Initial and Last Documented VS:
Initial Vital Signs
Temp Pulse Resp BP Pulse Ox
98.2 F 84 20 186/100 98
05/21/24 12:01 05/21/24 12:01 05/21/24 12:01 05/21/24 12:01 05/21/24 12:01
Last Documented Vital Signs
Temp Pulse Resp BP Pulse Ox
98.4 F 79 30 155/72 96
05/21/24 13:47 05/21/24 15:00 05/21/24 15:01 05/21/24 14:00 05/21/24 15:00
MDM/Problems Addressed
Differential Diagnosis Includes:
Persistent cough. Consider asthma versus bronchitis versus pneumonia versus reflux.
Recent visits with pulmonology and infectious disease
*Critical Care Note
Total Time (30-74mins, 75-104mins- exclusive of procedures): Not Applicable
Update Note
Update Note:
CT shows improvement of groundglass pneumonitis. Labs reviewed without significant finding. Patient with cough here. She has nebulizer at home. Discussed Tessalon which she declined. She has been on prednisone frequently in the recent past and
does not want to start another round. She sees a hoisting laborer in 4 days which I think this is reasonable follow-up. No indication for antibiotic. Stable for discharge
ED Attending Note
-
Portions of this chart may have been created with voice recognition software.� Occasional wrong word or��sound alike� substitutions may have occurred due to the inherent limitations of voice recognition software.
Discharge Plan
Departure
Patient Disposition: Home (Routine Discharge)
Date of Disposition: 05/21/24
Time of Disposition: 15:46
Patient with high blood pressure during this ER visit?: No
Discharge Problem:
Cough
Prescriptions:
No Action
rabeprazole [AcipHex] 20 MG tablet,delayed release (DR/EC)
20 mg PO BID
atenolol 25 MG tablet
12.5 mg PO DAILY
albuterol sulfate [ProAir HFA] 8.5 GM HFA aerosol inhaler
2 puff inhalation R Q4 PRN (Reason: sob/wheezing)
cholecalciferol (vitamin D3) [Vitamin D3] 2,000 UNIT capsule
3,000 unit PO DAILY
ascorbic acid-ascorbate sodium 500 MG wafer
500 mg PO DAILY
diphenhydramine HCl [Banophen] 25 MG capsule
12.5 mg PO QID
acetaminophen 500 mg Tablet
1,000 mg PO Q6H PRN (Reason: mild pain)
losartan 25 mg Tablet
25 mg PO BID
levothyroxine 25 mcg Tablet
50 mcg PO DAILY
fondaparinux 5 mg/0.4 mL Syringe
5 mg SC Q48H
Vitamin B-6 50 mg Capsule
50 mg PO DAILY
prednisone 50 mg tablet
5 mg PO DAILY
prednisone 10 mg Tablet
See Rx Instructions .ROUTE .COMPLEX Qty: 30 0RF
Rx Instructions:
Take By Mouth:
40 mg daily x3 days, 30 mg daily x3 days,
20 mg daily x3 days, 10 mg daily x3 days.
Referrals:
UNKNOWN - PT NOT,INTERVIEWE [Unknown Provider] -
Activity Restrictions/Additional Instructions:
Please return here for worsening symptoms otherwise follow-up with pulmonology as planned
Interventions
Interventions:
*Risk Screen - Suicide Last Done: 05/21/24 12:01
*General Assessment Last Done: 05/21/24 12:01
*Neglect/Abuse Screening Last Done: 05/21/24 12:01
*ED COVID-19 Vaccine History Last Done: 05/21/24 13:52
ED- Pulmonary Assessment Last Done: 05/21/24 13:52
Discharge Date and Time
Print Language: GHANAIAN
[2024-05-21 15:00] VITALS: BP 172/80
[2024-05-21 16:00] VITALS: BP 146/76
[2024-05-21 16:34] VITALS: BP 146/76
== END 2024-05-21 16:45 | disposition home or self-care (01) ==
LOC: EMR 12:00
PROVIDERS: Physician Assistant; EMERGENCY PHYSICIAN Emergency Medicine; FAMILY PHYSICIAN Family Medicine; OTHER PHYSICIAN Internal Medicine Allergy & Immunology
DX: R05.9 Cough, unspecified (principal); D89.40 Mast cell activation, unspecified; K21.9 Gastro-esophageal reflux disease without esophagitis; I10 Essential (primary) hypertension; E78.00 Pure hypercholesterolemia, unspecified; E11.9 Type 2 diabetes mellitus without complications; E03.9 Hypothyroidism, unspecified; J45.909 Unspecified asthma, uncomplicated; K50.90 Crohn's disease, unspecified, without complications; Z82.49 Family history of ischemic heart disease and other diseases of the circulatory system; Z86.16 Personal history of COVID-19; Z86.73 Personal history of transient ischemic attack (TIA), and cerebral infarction without residual deficits; Z87.442 Personal history of urinary calculi; Z87.891 Personal history of nicotine dependence; Z90.49 Acquired absence of other specified parts of digestive tract; Z98.1 Arthrodesis status
CPT/HCPCS: 99284; 96360; 71250; 80053; 85025; 93005

== ENCOUNTER 2024-05-28 09:24 | Emergency (ER) | payer MEDICARE, OTHER, SELFPAY ==
[2024-05-28 09:41] VITALS: BP 189/104
--- NOTE | 2024-05-28 10:50 | ED.GENMED ---
History of Present Illness
General
Chief Complaint: Fever
Source: patient and spouse
Exam Limitations: none
Time Seen by Provider: 05/28/24 09:49
Nursing documentation reviewed up to this point in time: agreed with
History of Present Illness
History of Present Illness:
58-year-old female presents emergency department due to fever 102 and generalized malaise. She is concerned about sepsis and dehydration. She is drinking water in the emergency department. She took 1500 mg of Tylenol prior to arrival.
Past History
Past History
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
inflammatory bowel disease,) and Other (Crohn's disease, 'Mass cell activation syndrome', Migraines, Chronic back pain, Hiatal hernia, Renal calculus, Vertigo, factor 8 elevation, ,anemia, Esophageal stretching)
ED Past Surgical History: Cardiac (Loop recorder), Cholecystectomy, Gynecological (Uterine Ablation), Orthopedic (C3-4 spinal fusion, left ear surgery) and Other (Partial right Thyroidectomy )
Social History
Tobacco: Former smoker
Alcohol: None
Drug: None
Personal: (Common Law)
Living: with family
Employment: Disabled
Family History
Family History: Other (Father with coronary artery disease mother with coronary artery disease)
Review of Systems
Review of Systems
Allergies reviewed?: Yes
All Other Systems: Not applicable
Constitutional: Reports fever
EENT: Reports runny nose
Respiratory: Reports cough
Cardiac: Reports no symptoms
ABD/GI: Reports no symptoms
: Reports no symptoms
Musculoskeletal: Reports no symptoms
Skin: Reports no symptoms
Neurological: Reports no symptoms
Endocrine: Reports no symptoms
Hematologic/Lymphatic: Reports no symptoms
Psychiatric: Reports no symptoms
Phy Exam
Physical Exam
Physical Exam:
Physical Exam
General: no apparent distress, not acutely ill, temperature 99.5
Neck: supple. no meningeal signs. normal posterior pharynx
Heart: s1/s2 regular rate and rhythm, no murmur. equal radial
pulses.
HEENT: Pupils equal round reactive to light, EOMI
Lungs: no acute respiratory distress. clear bilaterally
Abdomen: normal bowel sounds. not tender. no CVAT
Neuro: alert and oriented. no focal neurological deficits cranial nerves II through XII intact
Skin: no rash
Psychiatric: well kept. interactive and cooperative
Extremities: no edema. no calf tenderness. negative homans. good distal pulses
Course
Orders/Labs/Results
Orders:
Orders
05/28/24 10:37
CR Chest - 2 Views Urgent
Comment:
Reason For Exam: fever, cough
05/28/24 10:47
COVID-19 Antigen Urgent
Source: Nasal Swab
Complete Blood Count/With Diff Urgent
Comprehensive Metabolic Panel Urgent
Lactic Acid Q4H
Comment: CANCEL 2nd LACTIC ACID IF 1st LACTIC ACID IS LESS THAN 2
Influenza A+B Rapid Molecular Urgent
CARINA Source: Nasal Swab
Specimen Description:
05/28/24 12:44
0.9% Sodium Chloride 1000 ml [Nss] 1,000 ml IV BOLUS
05/28/24 12:52
Acetaminophen [Tylenol] 500 mg PO NOW STA
05/28/24 12:56
Urinalysis Reflex To Culture Urgent
Date Specimen was Collected: 05/28/24
Time Specimen was Collected: 12:50
Urine Microscopic Reflex Cult Urgent
Urine Culture Urgent
CARINA Source: U
Specimen Description:
Date Specimen was Collected: 05/28/24
Time Specimen was Collected: 12:50
Abnormal Lab Results
05/28/24 05/28/24
10:47 12:56
RBC 4.13 L 10^6/uL
(4.20-5.40)
Hgb 10.7 L g/dL
(12.0-16.0)
Hct 33.0 L %
(37.0-47.0)
MCV 79.9 L fL
(81.0-99.0)
MCH 25.9 L pg
(27.0-31.0)
MCHC 32.4 L g/dL
(33.0-37.0)
RDW 15.0 H %
(11.5-14.5)
Absolute Lymphs (auto) 0.9 L 10^3/uL
(1.2-3.4)
Lymphocytes % 15.1 L %
(20.5-51.1)
Monocytes % 11.3 H %
(1.7-9.3)
Eosinophils % 7.1 H %
(0-6)
Glucose 163 H mg/dl
(70-99)
Leukocyte Esterase Rfl 1+ A
(Negative)
Urine Albumin (Reflex) 1+ A
(Neg - Trace)
05/28/24 10:47
05/28/24 10:47
Vital Signs
Initial and Last Documented VS:
Initial Vital Signs
Temp Pulse Resp BP Pulse Ox
99.5 F 108 18 189/104 99
05/28/24 09:41 05/28/24 09:41 05/28/24 09:41 05/28/24 09:41 05/28/24 09:41
Last Documented Vital Signs
Temp Pulse Resp BP Pulse Ox
100.1 F 94 18 158/86 97
05/28/24 12:50 05/28/24 12:15 05/28/24 09:41 05/28/24 12:15 05/28/24 12:15
MDM/Problems Addressed
Differential Diagnosis Includes:
Pneumonia, influenza
MDM/Problems Addressed:
58-year-old female with chronic GI bleeding likely from Crohn's. Stable hemoglobin. Normal lactate. Chest x-ray normal. Vital signs stable. Suspect viral cause.
Chronic conditions affecting care: HTN
Acute Exacerbation and/or Progression of Chronic Illness: HTN
*Radiology
Radiology exam reviewed: radiology read reviewed (Chest x-ray no acute findings)
*Pulse Oximetry
Patient hypoxic: no
*Hiv Nurse Interpretation
Rate: Hiv Nurse- N/A
*Critical Care Note
Total Time (30-74mins, 75-104mins- exclusive of procedures): Not Applicable
Data Reviewed
Review of Other/Old Records Reveals: Labs (Patient reports her recent hemoglobin was 10, performed at outside facility)
Source: patient
Patient Management
Social determinants of health affecting care: Living situation and Strong social support
Escalation/DeEscalation of care consider admission/obs:
Admit not indicated
ED Attending Note
-
Portions of this chart may have been created with voice recognition software.� Occasional wrong word or��sound alike� substitutions may have occurred due to the inherent limitations of voice recognition software.
Discharge Plan
Departure
Patient Disposition: Home (Routine Discharge)
Date of Disposition: 05/28/24
Time of Disposition: 14:11
Patient with high blood pressure during this ER visit?: Yes
Condition: Good
Discharge Problem:
Acute viral syndrome
Instructions: Fever, Adult (DC), Viral Syndrome (DC), BLOOD PRESSURE
Prescriptions:
No Action
rabeprazole [AcipHex] 20 MG tablet,delayed release (DR/EC)
20 mg PO BID
atenolol 25 MG tablet
12.5 mg PO DAILY
albuterol sulfate [ProAir HFA] 8.5 GM HFA aerosol inhaler
2 puff inhalation R Q4 PRN (Reason: sob/wheezing)
cholecalciferol (vitamin D3) [Vitamin D3] 2,000 UNIT capsule
3,000 unit PO DAILY
ascorbic acid-ascorbate sodium 500 MG wafer
500 mg PO DAILY
diphenhydramine HCl [Banophen] 25 MG capsule
12.5 mg PO QID
acetaminophen 500 mg Tablet
1,000 mg PO Q6H PRN (Reason: mild pain)
losartan 25 mg Tablet
25 mg PO BID
levothyroxine 25 mcg Tablet
50 mcg PO DAILY
fondaparinux 5 mg/0.4 mL Syringe
5 mg SC Q48H
Vitamin B-6 50 mg Capsule
50 mg PO DAILY
prednisone 50 mg tablet
5 mg PO DAILY
prednisone 10 mg Tablet
See Rx Instructions .ROUTE .COMPLEX Qty: 30 0RF
Rx Instructions:
Take By Mouth:
40 mg daily x3 days, 30 mg daily x3 days,
20 mg daily x3 days, 10 mg daily x3 days.
Referrals:
Whitney George MD [Family Provider] - Call in 1-3 days for appt
Interventions
Interventions:
*Risk Screen - Suicide Last Done: 05/28/24 09:41
*General Assessment Last Done: 05/28/24 09:41
*Neglect/Abuse Screening Last Done: 05/28/24 09:41
ED- Neurological Assessment Last Done: 05/28/24 10:18
ED-Skin Assessment Last Done: 05/28/24 10:18
Discharge Date and Time
Print Language: YI
[2024-05-28 10:56] LABS: % Basophils 1.2 % (0-2); % Eosinophils 7.1 % (0-6); % Immature Granulocytes 0.4 % (0-0.5); % Lymphocytes 15.1 % (20.5-51.1); % Monocytes 11.3 % (1.7-9.3); % Neutrophils 64.9 % (42.2-75.2); Absolute Basophils 0.1 10^3/uL (0-0.2); Absolute Eosinophils 0.4 10^3/uL (0-0.7); Absolute Lymphocytes 0.9 10^3/uL (1.2-3.4); Absolute Monocytes 0.6 10^3/uL (0.1-0.6); Absolute Neutrophils 3.7 10^3/uL (1.4-6.5); Hemoglobin 10.7 g/dL (12.0-16.0); Mean Corp Hgb Conc. 32.4 g/dL (33.0-37.0); Mean Corpuscular Hgb 25.9 pg (27.0-31.0); Mean Corpuscular Volume 79.9 fL (81.0-99.0); Mean Platelet Volume 9.7 fL (7.4-10.4); Nucleated Red Blood Cells % 0 %; Platelet Count 272 10^3/uL (130-400); Red Blood Cell Count 4.13 10^6/uL (4.20-5.40); White Blood Cell Count 5.6 10^3/uL (4.8-10.8)
[2024-05-28 11:11] LABS: COVID-19 Antigen Negative (Negative)
[2024-05-28 11:12] LABS: ALT (SGPT) 19 U/L (0-35); AST (SGOT) 29 U/L (14-36); Albumin 4.1 g/dl (3.5-5.0); Alkaline Phosphatase 94 U/L (38-126); Blood Urea Nitrogen 10 mg/dl (7-17); Calcium 9.3 mg/dl (8.4-10.2); Carbon Dioxide 26 mmol/L (22-30); Chloride 100 mmol/L (98-107); Glucose 163 mg/dl (70-99); Sodium 136 mmol/L (135-145); Total Bilirubin 0.8 mg/dl (0.2-1.3); Total Protein 7.3 g/dl (6.3-8.2); eGFR > 60.00
[2024-05-28 12:11] LABS: Lactic Acid 1.6 mmol/L (0.7-2.0)
[2024-05-28 12:15] VITALS: BP 158/86
[2024-05-28] MEDS: NSS 1000 IV (12:47)
[2024-05-28] MEDS: TYLENOL 500 MG PO (12:56)
[2024-05-28 13:36] LABS: Urine Albumin 1+ (Neg - Trace); Urine Bilirubin Negative (Negative); Urine Character Clear (Clear); Urine Color Yellow; Urine Glucose Negative (Negative); Urine Ketone Negative (Negative); Urine Leukocyte 1+ (Negative); Urine Nitrite Negative (Negative); Urine Occult Blood Negative (Negative); Urine Specific Gravity 1.015 (<1.030); Urine Urobilinogen Negative (Neg - 1+); Urine pH 6.5 (5.0-9.0)
[2024-05-28 14:06] LABS: Urine Amorphous Seen; Urine Squamous Cell >30 /LPF (Few); Urine Urothelial Cell >30 /LPF (FEW)
[2024-05-28 14:09] LABS: Urine Red Blood Cell 0-2 /HPF (0-2)
== END 2024-05-28 15:11 | disposition home or self-care (01) ==
LOC: EMR 09:24
PROVIDERS: EMERGENCY PHYSICIAN Emergency Medicine; FAMILY PHYSICIAN Family Medicine
DX: R50.9 Fever, unspecified (principal); R53.81 Other malaise; J45.909 Unspecified asthma, uncomplicated; K21.9 Gastro-esophageal reflux disease without esophagitis; I10 Essential (primary) hypertension; E78.00 Pure hypercholesterolemia, unspecified; E11.9 Type 2 diabetes mellitus without complications; E03.9 Hypothyroidism, unspecified; K50.90 Crohn's disease, unspecified, without complications; Z82.49 Family history of ischemic heart disease and other diseases of the circulatory system; Z86.16 Personal history of COVID-19; Z86.73 Personal history of transient ischemic attack (TIA), and cerebral infarction without residual deficits; Z87.442 Personal history of urinary calculi; Z87.891 Personal history of nicotine dependence; Z90.49 Acquired absence of other specified parts of digestive tract; Z98.1 Arthrodesis status; B34.9 Viral infection, unspecified
CPT/HCPCS: 99283; 96360; 96361; 71046; 80053; 81003; 81015; 83605; 85025; 87086; 87502; 87811

== ENCOUNTER 2024-06-23 12:32 | Emergency (ER) | payer MEDICARE, OTHER, SELFPAY ==
[2024-06-23 12:39] VITALS: BP 191/102
[2024-06-23 13:15] LABS: % Basophils 0.9 % (0-2); % Eosinophils 5.5 % (0-6); % Immature Granulocytes 0.3 % (0-0.5); % Lymphocytes 19.6 % (20.5-51.1); % Monocytes 6.1 % (1.7-9.3); % Neutrophils 67.6 % (42.2-75.2); Absolute Basophils 0.1 10^3/uL (0-0.2); Absolute Eosinophils 0.4 10^3/uL (0-0.7); Absolute Lymphocytes 1.4 10^3/uL (1.2-3.4); Absolute Monocytes 0.4 10^3/uL (0.1-0.6); Absolute Neutrophils 4.8 10^3/uL (1.4-6.5); Hematocrit 35.9 % (37.0-47.0); Hemoglobin 11.3 g/dL (12.0-16.0); Mean Corp Hgb Conc. 31.5 g/dL (33.0-37.0); Mean Corpuscular Hgb 25.6 pg (27.0-31.0); Mean Corpuscular Volume 81.2 fL (81.0-99.0); Mean Platelet Volume 10.1 fL (7.4-10.4); Nucleated Red Blood Cells % 0 %; Platelet Count 294 10^3/uL (130-400); Red Blood Cell Count 4.42 10^6/uL (4.20-5.40); Red Cell Dist. Width 16.3 % (11.5-14.5)
[2024-06-23 13:29] LABS: ALT (SGPT) 24 U/L (0-35); AST (SGOT) 30 U/L (14-36); Albumin 3.9 g/dl (3.5-5.0); Alkaline Phosphatase 105 U/L (38-126); Blood Urea Nitrogen 14 mg/dl (7-17); Calcium 9.8 mg/dl (8.4-10.2); Carbon Dioxide 27 mmol/L (22-30); Chloride 103 mmol/L (98-107); Glucose 174 mg/dl (70-99); Potassium 4.6 mmol/L (3.5-5.1); Sodium 136 mmol/L (135-145); Total Bilirubin 0.5 mg/dl (0.2-1.3); Total Protein 7.2 g/dl (6.3-8.2); eGFR > 60.00
--- NOTE | 2024-06-23 15:29 | ED.GENMED ---
History of Present Illness
General
Chief Complaint: Dizziness
Source: patient
Time Seen by Provider: 06/23/24 14:59
History of Present Illness
History of Present Illness:
This patient is a 4-year-old female who states that for the last 7 to 10 days she has had sinus congestion, feeling 'stuffy' with nasal congestion and pain at the left ear, side of head, and frontal area. She was prescribed penicillin VK 6 days ago
and does not feel like she is getting any better. She got concerned because she also started to develop dizziness. When asked details about the dizziness she states 'I do not even know', but states that it is specifically different than the
dizziness that she experienced with her cerebellar stroke. That dizziness was specifically a sense of spinning and she indicates by moving her hand in a circular motion in the air. The dizziness she is experiencing on and off today is possibly
positional, not associated with numbness, tingling, focal weakness, diplopia, dysarthria, dysphagia, or other new abnormalities. It is just a feeling of being dizzy. Patient has a longstanding history of vertigo, describes getting a perilymphatic
fistula patch, etc. She went to the dentist today and was noted to not have any intraoral injury as a cause of her symptoms but was referred to the emergency department given her complaints of dizziness. Patient denies fever, chills, sweats, chest
pain, shortness of breath, back pain, or other complaints. She did have short-lived sensation of tingling on the left side of her head, now fully resolved. She feels a lot of pressure deep within her left ear which sometimes makes it feel like her
hearing is not as good. She denies tinnitus. She denies drainage from her ear or recent trauma.
Past History
Past History
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
inflammatory bowel disease,) and Other (Crohn's disease, 'Mass cell activation syndrome', Migraines, Chronic back pain, Hiatal hernia, Renal calculus, Vertigo, factor 8 elevation, ,anemia, Esophageal stretching)
ED Past Surgical History: Cardiac (Loop recorder), Cholecystectomy, Gynecological (Uterine Ablation), Orthopedic (C3-4 spinal fusion, left ear surgery) and Other (Partial right Thyroidectomy )
Social History
Tobacco: Former smoker
Alcohol: None
Drug: None
Personal: (Common Law)
Living: with family
Employment: Disabled
Family History
Family History: Other (Father with coronary artery disease mother with coronary artery disease)
Phy Exam
Physical Exam
Physical Exam:
GENERAL: Alert , in no apparent distress
EYE: pupils equal and reactive, no nystagmus, no photophobia, EOMI, visual domingo intact
NECK: Supple, no significant adenopathy, no swelling or other abnormalities noted.
ENT: o/p clr, mmm, no shingles rash noted, TMs clear bilaterally, canals are normal, no posterior mastoid tenderness to palpation. Pinna normal..
CARDIAC: Regular rate and rhythm .
LUNGS: Clear breath sounds bilaterally, no acute respiratory distress, no wheezes/rales/rhonchi
ABDOMEN: Soft, without focal tenderness, no r/g, no cvat
NEUROLOGICAL: Alert and oriented, no focal neuro deficits, slight tremor of right hand which is baseline as per patient, [id number] normal, motor and sensation intact, cranial nerves II through XII intact
SKIN: Warm and dry, skin intact.
MUSCULOSKELETAL: No edema, well perfused.
PSYCH: Normal and appropriate interaction.
Course
Orders/Labs/Results
Orders:
Orders
06/23/24 12:42
Electrocardiogram (*1) Urgent
Reason for Study: Vertigo / Dizzy
EKG- Treatment ONCE
06/23/24 12:54
Complete Blood Count/With Diff Urgent
Comprehensive Metabolic Panel Urgent
06/23/24 15:28
CT Head W/o Iv Contrast Urgent
Comment:
Reason For Exam: L sided head/ear/frontal pain, recent uri sxs
Abnormal Lab Results
06/23/24
12:54
Hgb 11.3 L g/dL
(12.0-16.0)
Hct 35.9 L %
(37.0-47.0)
MCH 25.6 L pg
(27.0-31.0)
MCHC 31.5 L g/dL
(33.0-37.0)
RDW 16.3 H %
(11.5-14.5)
Lymphocytes % 19.6 L %
(20.5-51.1)
Glucose 174 H mg/dl
(70-99)
06/23/24 12:54
06/23/24 12:54
Vital Signs
Initial and Last Documented VS:
Initial Vital Signs
Temp Pulse Resp BP Pulse Ox
98.6 F 76 16 191/102 97
06/23/24 12:39 06/23/24 12:39 06/23/24 12:39 06/23/24 12:39 06/23/24 12:39
Last Documented Vital Signs
Temp Pulse Resp BP Pulse Ox
98.6 F 76 17 141/72 83
06/23/24 12:39 06/23/24 16:02 06/23/24 16:02 06/23/24 16:02 06/23/24 16:02
*Critical Care Note
Total Time (30-74mins, 75-104mins- exclusive of procedures): Not Applicable
Update Note
Update Note:
Patient presents to the Emergency Department with __left facial pain, nasal congestion, ear pain/pressure, dizziness, etc.
Number and Complexity of Problems Addressed at the Encounter
� Chronic conditions affecting care:
� Acute Exacerbation and/or Progression of Chronic Illness:
� Differential Diagnosis includes: But not limited to otitis media, sinusitis, mastoiditis, migraine, stroke, etc. etc.
Amount and/or Complexity of Data to be Reviewed and Analyzed
� I performed an independent evaluation of and my interpretation is:
EKG: Read by me, normal sinus rhythm rhythm, normal rate, no acute ischemia noted (nonspecific inverted T's unchanged from prior)
CT:
Xrays:
Laboratory Studies: Generally unremarkable
Other:
� Review of other/old records reveals:
� Clinical information was obtained by an independent historian:
� Prescriptions/Medications Considered but not given:
� Further testing considered but not performed:
Risk of Complications and/or Morbidity or Mortality of Patient Management
� Social determinants of health affecting care:
� Discussion with other providers (PCP, Hospitalists, Consultants, etc):
� Escalation of care including admission/observation vs risk of discharge considered: Long discussion with patient. She is overall extremely well-appearing and obviously very complex patient. Incidentally, patient admits to
feeling anxious, describes recent loss of a family member and just hearing now that her nephew is very ill on hospice. I do not find new neurological symptoms/findings on exam. She does not have nystagmus, and [id number] is normal. Motor
strength is unchanged, sensory is intact to light touch. She appears to hear properly, and can hear me rubbing my fingers on either side. I strongly recommend patient see Dr. Doshi her ENT doctor and close follow-up. I called and left a
message on the physician line asking him to do this and international account manager encourage patient to do the same. Discussed with patient portance of follow-up and reasons return to the ER.
ED Attending Note
-
Portions of this chart may have been created with voice recognition software.� Occasional wrong word or��sound alike� substitutions may have occurred due to the inherent limitations of voice recognition software.
Discharge Plan
Departure
Patient Disposition: Home (Routine Discharge)
Date of Disposition: 06/23/24
Time of Disposition: 16:42
Patient with high blood pressure during this ER visit?: Yes
Condition: Good
Discharge Problem:
Dizziness, Congestion of left ear
Instructions: Dizziness, BLOOD PRESSURE
Prescriptions:
No Action
rabeprazole [AcipHex] 20 MG tablet,delayed release (DR/EC)
20 mg PO BID
atenolol 25 MG tablet
12.5 mg PO DAILY
albuterol sulfate [ProAir HFA] 8.5 GM HFA aerosol inhaler
2 puff inhalation R Q4 PRN (Reason: sob/wheezing)
cholecalciferol (vitamin D3) [Vitamin D3] 2,000 UNIT capsule
3,000 unit PO DAILY
ascorbic acid-ascorbate sodium 500 MG wafer
500 mg PO DAILY
diphenhydramine HCl [Banophen] 25 MG capsule
12.5 mg PO QID
acetaminophen 500 mg Tablet
1,000 mg PO Q6H PRN (Reason: mild pain)
losartan 25 mg Tablet
25 mg PO BID
levothyroxine 25 mcg Tablet
50 mcg PO DAILY
fondaparinux 5 mg/0.4 mL Syringe
5 mg SC Q48H
Vitamin B-6 50 mg Capsule
50 mg PO DAILY
prednisone 50 mg tablet
5 mg PO DAILY
prednisone 10 mg Tablet
See Rx Instructions .ROUTE .COMPLEX Qty: 30 0RF
Rx Instructions:
Take By Mouth:
40 mg daily x3 days, 30 mg daily x3 days,
20 mg daily x3 days, 10 mg daily x3 days.
Referrals:
Whitney George MD [Family Provider] - Follow up in 2-3 days
Activity Restrictions/Additional Instructions:
IF YOU DEVELOP NUMBNESS, TINGLING, WEAKNESS, DOUBLE VISION, CHANGE IN GAIT/DIFFICULTY WALKING, INCREASING NEW OR PERSISTENT DIZZINESS, TROUBLE SWALLOWING, VOMITING, CHEST PAIN, OR OTHER WORRISOME SIGNS, PLEASE RETURN TO THE ER IMMEDIATELY. PLEASE
FOLLOW-UP WITH YOUR DOCTOR THIS WEEK, INCLUDING YOUR ENT DOCTOR
Interventions
Interventions:
*Risk Screen - Suicide Last Done: 06/23/24 12:41
*Neglect/Abuse Screening Last Done: 06/23/24 12:41
*Nursing Disposition Last Done: 06/23/24 17:46
ED- Neurological Assessment Last Done: 06/23/24 15:58
ED- Cardiac Assessment Last Done: 06/23/24 15:58
ED Swallowing Screen Last Done: 06/23/24 16:05
Discharge Date and Time
Discharge Date/Time: 06/23/24 17:46
Print Language: ANGOLAN
[2024-06-23 16:02] VITALS: BP 141/72
== END 2024-06-23 17:46 | disposition home or self-care (01) ==
LOC: EMR 12:32
PROVIDERS: Emergency Medicine; EMERGENCY PHYSICIAN Emergency Medicine; FAMILY PHYSICIAN Family Medicine
DX: H83.8X2 Other specified diseases of left inner ear (principal); R42 Dizziness and giddiness; I10 Essential (primary) hypertension; Z87.891 Personal history of nicotine dependence
CPT/HCPCS: 99285; 70450; 80053; 85025; 93005

== ENCOUNTER 2024-06-27 18:27 | Observation (INO) | payer MEDICARE, OTHER, SELFPAY ==
[2024-06-27] VITALS (17 sets, daily range): BP systolic 149–176; BP diastolic 74–105; PULSE 74–76; BMI 47.5; BMI 46.8
--- NOTE | 2024-06-27 11:08 | EDRN ---
Pt is complaining of feeling very weak, blood noted on stool and toilet paper, palpitations, dizziness, just not feeling right, fatigue. Pt had recent iron infusion one of 3 in this series at [facility]. Pt was seen on Sunday in ED for sinusitis. Pt
appears flushed. Ambrocio Hampton HOTSHOT SUPERINTENDENT in room w/ pt.
--- NOTE | 2024-06-27 11:21 | ED.GENMED ---
History of Present Illness
General
Chief Complaint: Rectal Bleeding
Source: patient
Exam Limitations: none
Time Seen by Provider: 06/27/24 10:41
Nursing documentation reviewed up to this point in time: agreed with
History of Present Illness
History of Present Illness:
Patient is a 58-year-old female with significant medical history including mast cell activation syndrome, cva , insomnia and diabetes Crohn's colitis hypertension hyperlipidemia , M�ni�re's disease presents to the ER for evaluation. Patient
reports since yesterday she has felt very jittery and has had a lot of palpitations. With these palpitations sometimes she gets short of breath. She has a history of anemia and just had her third week of iron transfusion Sunday. Because of her
mast cell activation syndrome she needs to take steroids the day of and the day after. She took 50 mg of prednisone Sunday(day of iron transfusion 2 days ago) 10 mg of prednisone yesterday.
In addition she has had some intermittent bright red rectal bleeding for the past 1 month. She reports this is not new. She is closely followed by GI. Her stool however is brown in color. She reports that she will notice bright red blood when
she wipes
She denies any abdominal pain fever chills.
Past History
Past History
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
inflammatory bowel disease,) and Other (Crohn's disease, 'Mass cell activation syndrome', Migraines, Chronic back pain, Hiatal hernia, Renal calculus, Vertigo, factor 8 elevation, ,anemia, Esophageal stretching)
ED Past Surgical History: Cardiac (Loop recorder), Cholecystectomy, Gynecological (Uterine Ablation), Orthopedic (C3-4 spinal fusion, left ear surgery) and Other (Partial right Thyroidectomy )
Social History
Tobacco: Former smoker
Alcohol: None
Drug: None
Personal: (Common Law)
Living: with family
Employment: Disabled
Family History
Family History: Other (Father with coronary artery disease mother with coronary artery disease)
Review of Systems
Review of Systems
Allergies reviewed?: Yes
All Other Systems: ROS reviewed and negative except as documented in HPI and ROS
Constitutional: Reports fatigue
EENT: Reports no symptoms
Respiratory: Reports trouble breathing
Cardiac: Reports palpitations; Denies chest pain, diaphoresis or syncope
ABD/GI: Reports other (bright red rectal bleeding )
: Reports no symptoms
Musculoskeletal: Reports no symptoms
Skin: Reports no symptoms
Psychiatric: Reports no symptoms
Phy Exam
General Physical Exam
General Presentation: no apparent distress
General age: appears stated age
General Skin: warm and dry
General Habitus: obese
General Mental: alert
General Hydration: appears well hydrated
Cardiovascular Exam
Cardiovascular Exam: regular rate/rhythm and no murmur
Pulmonary Exam
Pulmonary Exam: lungs clear and no respiratory distress
Gastrointestinal Exam
Gastrointestinal Exam: non tender, soft and other (rectal exam : no stool tr blood on glove )
Neurological Exam
Neurological Exam: oriented x3
Musculoskeletal Exam
Musculoskeletal Exam: full ROM
Skin Exam
Skin Exam: normal color and warm/dry
Psychiatric Exam
Psychiatric Exam: normal mood/affect
Course
Orders/Labs/Results
Orders:
Orders
06/27/24 10:54
Electrocardiogram (*1) Urgent
Reason for Study: Chest Pain
Cardiac Monitoring- Treatment ONCE
IV Insert/Care/Rem.- Treatment PRN
06/27/24 10:55
EKG- Treatment ONCE
06/27/24 11:00
Troponin I Urgent
06/27/24 11:04
Type And Crossmatch [Type+Screen] Urgent
Complete Blood Count/With Diff Urgent
Comprehensive Metabolic Panel Urgent
Free T4 Urgent
TSH Reflex To Free T4 Urgent
Comment: ADD ON TO MORNING LABS
06/27/24 11:23
Add On- LAB Urgent
Tests Added?: tsh w/ refexive T4
06/27/24 11:33
0.9% Sodium Chloride 1000 ml [Nss] 1,000 ml IV BOLUS
06/27/24 11:49
Orthostatic VS- Treatment ONCE
06/27/24 15:41
CT Head W/o Iv Contrast Urgent
Comment:
Reason For Exam: dizziness
06/27/24 18:07
Lactobac/Bifidobac [Visbiome] 2 cap PO NOW STA
06/27/24 18:08
Admit/Transfer Patient As Directed
Co-Sign Provider:
Level of Care: Observation services
Assign to:: Medical/Surgical
Physician / Group: gracie vazquez
Diagnosis: acute sinusitis , acute/ chronic dizziness ambulatory dysfunction
Code Status As Directed
Resuscitation Status: Full Code
06/27/24 18:15
PRN Pain Medication Management As Directed
May give lesser potent ordered pain med per pt: Yes
preference::
Protocol:: Medication orders for pain may be administered in a
manner that supports deferring to patient preference
when the pt is:
- Requesting an ordered lesser potent pain medication.
Least to most potent pain medications are defined
as: acetaminophen < NSAID < tramadol < opioids
(morphine, oxycodone, hydromorphone).
- Requesting a lesser dose of the same medication IF
ORDERED.
- Requesting a less intrusive route of administration
if both routes are prescribed by the provider (PO <
IV).
06/28/24 08:00
Lactobac/Bifidobac [Visbiome] 2 cap PO DAILY
Loratadine [Claritin Children's] 10 mg PO DAILY
Abnormal Lab Results
06/27/24
11:04
Hgb 11.3 L g/dL
(12.0-16.0)
Hct 35.3 L %
(37.0-47.0)
MCV 79.9 L fL
(81.0-99.0)
MCH 25.6 L pg
(27.0-31.0)
MCHC 32.0 L g/dL
(33.0-37.0)
RDW 16.7 H %
(11.5-14.5)
Glucose 175 H mg/dl
(70-99)
TSH (Reflex) 10.40 H uIU/ml
(0.47-4.68)
06/27/24 11:04
06/27/24 11:04
Vital Signs
Initial and Last Documented VS:
Initial Vital Signs
Temp Pulse Resp BP Pulse Ox
98.4 F 73 16 157/83 98
06/27/24 10:36 06/27/24 10:36 06/27/24 10:36 06/27/24 10:36 06/27/24 10:36
Last Documented Vital Signs
Temp Pulse Resp BP Pulse Ox
98.4 F 72 17 159/89 97
06/27/24 10:36 06/27/24 18:00 06/27/24 18:00 06/27/24 17:00 06/27/24 18:00
MDM/Problems Addressed
MDM/Problems Addressed:
Patient is Is a 58-year-old female with significant medical history presented to the ER for feeling jittery and having palpitations. She is very well-appearing on exam and in no acute distress. She does have chronic Crohn's and has some chronic
rectal bleeding but reports that is not new. She reports her stool is normally brown and has been brown sometimes she will see bright red blood on the toilet paper with wiping. She has had no episodes of stool here in the ER on rectal exam there
is no obvious stool in her rectum small Horne blood on my finger, bright red no active bleed. Her abdomen is soft she is nontender her lungs are clear her heart rate is normal in the 60s. Her EKG was unchanged. She had no chest pain. She has had
iron transfusions recently and with the transfusion will take prednisone she is due for her next 1 next week.
She is afebrile denies any recent fever chills. No chest pain she is nontachycardic nontachypneic afebrile with a normal white count stable hemoglobin of 11.3, glucose is elevated at 175 however otherwise normal chemistries. Her TSH is elevated
but her free T4 is normal.
Pt was hydrated here and monitored no tachycardia or arrhythmia. Patient has been drinking her fluids here on reexam however patient does not feel that she can go home. She continues to feel what she describes as dizzy and fluttering and reports
when she went to the bathroom she' almost passed out.' Patient does have a history of M�ni�re's disease/dizziness. Nurse walked patient however patient reports she feels very dizzy and now a little spitting and almost fell. Will order CAT scan
however at this point patient may likely need admission
*Radiology
Radiology exam reviewed: radiology read reviewed
*Critical Care Note
Total Time (30-74mins, 75-104mins- exclusive of procedures): Not Applicable
ED Attending Note
-
Portions of this chart may have been created with voice recognition software.� Occasional wrong word or��sound alike� substitutions may have occurred due to the inherent limitations of voice recognition software.
Discharge Plan
Departure
Patient Disposition: Admit
Date of Disposition: 06/27/24
Time of Disposition: 16:48
Admit to: Telemetry
Admit to doctor: hospitalist
Presentation/result/management discussed w/ accepting MD/DO: Hospitalist
Patient with high blood pressure during this ER visit?: Yes
Condition: Fair
Covid-19: Not Applicable
Discharge Problem:
Dizziness, Heart palpitations
Interventions
Interventions:
*Risk Screen - Suicide Last Done: 06/27/24 10:34
*General Assessment Last Done: 06/27/24 10:53
*Neglect/Abuse Screening Last Done: 06/27/24 10:34
*ED- Fall Risk Assessment Last Done: 06/27/24 10:53
*ED COVID-19 Vaccine History Last Done: 06/27/24 10:53
BI-Mrsmab-Viaixvbzng Assessment Last Done: 06/27/24 11:00
ED- Cardiac Assessment Last Done: 06/27/24 11:00
ED- Pulmonary Assessment Last Done: 06/27/24 11:00
[2024-06-27 11:24] LABS: ALT (SGPT) 23 U/L (0-35); AST (SGOT) 29 U/L (14-36); Albumin 3.6 g/dl (3.5-5.0); Alkaline Phosphatase 99 U/L (38-126); Blood Urea Nitrogen 12 mg/dl (7-17); Calcium 9.4 mg/dl (8.4-10.2); Carbon Dioxide 25 mmol/L (22-30); Chloride 104 mmol/L (98-107); Estimated Creatinine Clearance 74 ml/min; Glucose 175 mg/dl (70-99); Potassium 3.7 mmol/L (3.5-5.1); Sodium 138 mmol/L (135-145); Total Bilirubin 0.6 mg/dl (0.2-1.3); Total Protein 6.6 g/dl (6.3-8.2); eGFR > 60.00
[2024-06-27 11:25] LABS: % Eosinophils 5.2 % (0-6); % Immature Granulocytes 0.3 % (0-0.5); % Lymphocytes 24.8 % (20.5-51.1); % Monocytes 6.8 % (1.7-9.3); % Neutrophils 61.9 % (42.2-75.2); Absolute Basophils 0.1 10^3/uL (0-0.2); Absolute Eosinophils 0.3 10^3/uL (0-0.7); Absolute Lymphocytes 1.5 10^3/uL (1.2-3.4); Absolute Monocytes 0.4 10^3/uL (0.1-0.6); Absolute Neutrophils 3.7 10^3/uL (1.4-6.5); Hematocrit 35.3 % (37.0-47.0); Hemoglobin 11.3 g/dL (12.0-16.0); Mean Corpuscular Hgb 25.6 pg (27.0-31.0); Mean Corpuscular Volume 79.9 fL (81.0-99.0); Mean Platelet Volume 9.8 fL (7.4-10.4); Nucleated Red Blood Cells % 0 %; Platelet Count 273 10^3/uL (130-400); Red Blood Cell Count 4.42 10^6/uL (4.20-5.40); Red Cell Dist. Width 16.7 % (11.5-14.5); White Blood Cell Count 5.9 10^3/uL (4.8-10.8)
--- NOTE | 2024-06-27 11:25 | EDRN ---
Pt OOB to BR, receptacles in BR to get urine spec and stool spec.
[2024-06-27] MEDS: NSS 1000 IV (12:48)
--- NOTE | 2024-06-27 13:22 | EDRN ---
During orthostatic vs pt said she had dizziness from lying to sitting and just did not feel right during test of orthostatic VS. Pt now in BR at this itme.
--- NOTE | 2024-06-27 14:19 | EDRN ---
This RN just TT'd Ambrocio Hampton NP about pt's concerns on thyroid and still not feeling, 'right.'
--- NOTE | 2024-06-27 14:21 | EDRN ---
Ambrocio Hampton TURKEY EGG GATHERER in room w/pt at this time. Ambrocio Hampton TURKEY EGG GATHERER is adding a troponin level at this time.
--- NOTE | 2024-06-27 14:28 | EDRN ---
Troponin blood tube sent to lab.
[2024-06-27 15:00] LABS: Troponin I < 0.012 ng/ml
--- NOTE | 2024-06-27 15:06 | EDRN ---
This GAS COLLECTION SYSTEM OPERATOR entered this pts call mosley. the pt was laying in ER stretcher and stated she went to the bathroom by herself and 'almost passed out in the bathroom.' the pt stated 'I felt so dizzy I thought I was gonna go down. I did have a bowel
movement in the hat and got a urine specimen.' the pt then stated 'I got back to the bed and my heart was racing so fast. There is no way I can go home feeling like this.' the pt was already connected to the gambling monitor upon this GAS COLLECTION SYSTEM OPERATOR entering
this pts room and the pts heart rate is in the 80s in a NSR. this GAS COLLECTION SYSTEM OPERATOR reviewed this pts gambling monitor and found no episodes of tachycardia on the pts gambling monitor.
this GAS COLLECTION SYSTEM OPERATOR instructed the pt not to get out of bed again unless a staff member is present due to fall risk. the pt verbalized understanding of all instructions. the pt is requesting to speak to the doctor.
The ER attending Dr Araujo and ER HARRISON Ayala were notified of above.
--- NOTE | 2024-06-27 15:40 | EDRN ---
Per ER HARRISON Ayala verbal order, this LATHE TENDER walked this pt around the ER department while on the driller's offsider. during ambulation, the pts heart rate remained in a NSR at a steady rate in 80s, max heart rate 91. pt stated she feels very dizzy,
short of breath, the room is spinning, and 'something just isn't right. i have had strokes in the past and i dont feel good.'
ER HARRISON Ayala was notified of above
--- NOTE | 2024-06-27 16:50 | HPS.HSE ---
Family Physician
-
Family Physician: Whitney George
Chief Complaint
-
Palpitations, feels jittery and dizzy
History of Present Illness
58-year-old female who states she was seen by by her sandwich hand on 06/11 complaining of sinus congestion frontal sinus, temporal, ethmoid with radiation into her anterior and posterior lymph nodes. She was placed on PenVK and has been using a
Sandrine pot solution daily since 06/11, Along with 1 dose of Afrin and Vicks. She reports she only finished 5-day course of Pen VK instead of 7 days .She states she then started feeling a fogginess all over in her head with increased pressure behind
her left eye, temporal area she was seen in the ER on Sunday since 06/16 and was seen in the ER on 06/23/[address] and had a normal CT scan of her head. She was still having ongoing symptoms so she saw her ENT on Sunday after her IV iron transfusion
on 06/25 who told her that she had sinusitis and placed her on Augmentin of which she took 1 dose , but wanted to make sure it was not another stroke.
She reports she has history of iron deficiency anemia and just had her third week of an iron transfusion on Sunday 2 days ago. Due to her mast cell activation syndrome she premedicate with prednisone 50 mg, Benadryl 25 mg, 2 Tylenol and vitamin
C the day of transfusion and the day after she takes prednisone 10 mg. I advised the patient this is making her blood sugar elevate which will make her feel shaky, disoriented, foggy, forgetful. She advises me she takes NovoLog with meals but has
no set dose. She has a sliding scale based on premeal blood sugar. She has no idea what a carbohydrate is or how to carbohydrate count therefore she is not able to correctly control her blood sugars. I recommended eating first then taking her
blood sugar and treating her blood sugar with her current sliding scale insulin .She also needs to meet with a in service educator and follow-up with her security control center operator. She states she has never been taught about carbohydrates or what to do with
blood sugar.. On exam she has bilateral bulging tympanic membranes that are clear. She has irritation of her right nares which is erythematous from overuse of a Peconic pot daily. I advised her to stop using the Sandrine pot. She tells me she is
able to tolerate Nasacort and chewable loratadine. I told her she can still take her Benadryl 12.5 mg 4 times daily scheduled she can hold a dose or 2 if she develops palpitations with the combination of loratadine. Given her history of strokes
she wanted a CAT scan today. She does not feel comfortable going home as her is working overnights and she is by herself.
She denies fever, chills, chest pain, cough, abdominal pain, nausea, vomiting, diarrhea, urinary symptoms. She has history of chronic intermittent bright red rectal bleeding for the past month and is followed by GI. Other past medical history
includes Mast cell activation syndrome, Factor VIII elevation, Iron deficiency anemia, Hypothyroidism status post right partial thyroidectomy,Anxiety, Migraines, CVA�left sided lacunar infarct, cerebellum CVA 8 strokes as of April 2022, M�ni�re's
disease/chronic dizziness, HTN, HLD, LVH, DM2, GERD, Esophageal stretching, GI motility disorder�Endoflip procedure July 2018, Hiatal hernia, Crohn's disease, Asthma,Ex-smoker
COVID May 2020, Neuropathy, Renal calculi.
Medical History
Past Medical History
Past Medical History: Reports Other
Additional Past Medical History:
Mast cell activation syndrome
Factor VIII elevation
Iron deficiency anemia
Hypothyroidism
Anxiety
Migraines
CVA�left sided lacunar infarct, cerebellum CVA 8 strokes as of April 2022
M�ni�re's disease/chronic dizziness
HTN
HLD
LVH
DM2
GERD
Esophageal stretching
GI motility disorder�Endoflip procedure July 2018
Hiatal hernia
Crohn's disease
Asthma
Ex-smoker
COVID May 2020
Neuropathy
Renal calculi
Past Surgical History: Reports Other
Additional Past Surgical History:
C3-C4 spinal fusion 2013
Cholecystectomy March 2016
Uterine ablation
Left ear surgery
Thyroid biopsy
Partial right thyroidectomy 2022
Colonoscopy
Esophageal stretching
Endoflip procedure July 2018 due to motility disorder
Nonobstructive cardiac cath 2010
Loop recorder
Oral surgery
Social History
Tobacco: Non-smoker
Alcohol: None
Drug: None
Personal:
Living: With Family
Employment: Disabled
Family History
Family History: Not pertinent
Allergies / Home Medications
Allergies reflects when Allergies were last updated in [facility].
Home Medications with original date entered in [facility]
Allergy/Medication List:
Allergies
Allergy/AdvReac Type Severity Reaction Status Date / Time
cyclosporine [From Restasis] Allergy Unknown Itching Verified 05/28/24 09:41
amoxicillin [From Augmentin] Allergy Rash Verified 05/28/24 09:41
apixaban [From Eliquis] Allergy Shortness Verified 05/28/24 09:41
of Breath
azithromycin [From Zithromax] Allergy Hives Verified 05/28/24 09:41
budesonide [From Pulmicort] Allergy Shortness Verified 05/28/24 09:41
of Breath
clavulanic acid Allergy Rash Verified 05/28/24 09:41
[From Augmentin]
doxycycline Allergy Hives Verified 05/28/24 09:41
enoxaparin sodium Allergy Hives Verified 05/28/24 09:41
[From Lovenox]
fluticasone propionate Allergy Shortness Verified 05/28/24 09:41
[From Advair Diskus] of Breath
gallium Allergy hives, Verified 05/28/24 09:41
swelling
heparin Allergy Hives Verified 05/28/24 09:41
hydromorphone HCl Allergy Shortness Verified 05/28/24 09:41
[From Dilaudid] of Breath
ibuprofen [From Motrin] Allergy Hives Verified 05/28/24 09:41
Iodinated Contrast Media Allergy Hives Verified 05/28/24 09:41
ipratropium [From DuoNeb] Allergy Anaphylaxis Verified 05/28/24 09:41
mometasone furoate Allergy Anaphylaxis Verified 05/28/24 09:41
[From Asmanex Twisthaler]
mushroom Allergy Hives Verified 05/28/24 09:41
NSAIDS (Non-Steroidal Allergy Anaphylaxis Verified 05/28/24 09:41
Anti-Inflamma
salmeterol xinafoate Allergy Shortness Verified 05/28/24 09:41
[From Advair Diskus] of Breath
shellfish derived Allergy Hives Verified 05/28/24 09:41
Iuytwwx-VSS-EhB Reductase Allergy Anaphylaxis Verified 05/28/24 09:41
Inhibitor
[Vxxawlj-Pbr-Jow Reductase
Inhibitor]
sucralfate [From Carafate] Allergy migraine Verified 05/28/24 09:41
Sulfa (Sulfonamide Allergy Hives Verified 05/28/24 09:41
Antibiotics)
vancomycin Allergy Hives/itching Verified 05/28/24 09:41
hearing
loss
yellow dye Allergy Anaphylaxis Verified 05/28/24 09:41
codeine AdvReac Nausea / Verified 05/28/24 09:41
Vomiting
levofloxacin [From Levaquin] AdvReac muscle Verified 05/28/24 09:41
cramping
Home Medications
atenolol 25 mg tablet 12.5 mg PO DAILY 08/23/14
rabeprazole 20 mg tablet,delayed release (AcipHex) 20 mg PO BID 08/23/14
cholecalciferol (vitamin D3) 50 mcg (2,000 unit) capsule (Vitamin D3) 3,000 unit PO DAILY 05/05/17
diphenhydramine HCl 25 mg capsule (Banophen) 12.5 mg PO QID 09/20/20
acetaminophen 500 mg tablet 1,000 mg PO Q6HPRN PRN mild pain 11/24/21
fondaparinux 5 mg/0.4 mL subcutaneous solution syringe 5 mg SC Q48H 01/03/23
pyridoxine (vitamin B6) 50 mg capsule (Vitamin B-6) 50 mg PO DAILY 01/03/23
albuterol sulfate 90 mcg/actuation aerosol inhaler 2 puff inhalation R Q6HPRN PRN SOB 06/27/24
amoxicillin 875 mg-potassium clavulanate 125 mg tablet 1 tab PO BID 06/27/24
ascorbic acid (vitamin C) 500 mg tablet (Vitamin C) 500 mg PO DAILY 06/27/24
insulin aspart U-100 100 unit/mL (3 mL) subcutaneous pen (Novolog FlexPen U-100 Insulin aspart) 1 sliding scale dose SC AC 06/27/24
levothyroxine 50 mcg tablet (Synthroid) 50 mcg PO DAILY 06/27/24
losartan 50 mg tablet 100 mg PO DAILY 06/27/24
Review of Systems
-
History Source: Patient
A 12 point ROS was completed and negative except as noted: Yes
Constitutional: Denies Fever or Chills
EENT: Reports Runny Nose (Rhinorrhea plus nasal congestion increased left-sided, head pressure, frontal maxillary sinus point tenderness, irritation/erythema right Nares secondary to overuse of Peconic pot daily) and Other (Pressure sensation
bilateral ears and head); Denies Sore Throat
Respiratory: Denies Cough or Trouble Breathing
Cardiac: Reports Palpitations; Denies Chest Pain, Diaphoresis or Syncope
Abdomen/GI: Denies Abdominal Pain, Nausea, Vomiting, Diarrhea, Constipated, Bloody Stools or Black Stools
: Denies Dysuria, Frequency, Flank Pain, Incontinence, Difficulty Voiding, Urgency or Bleeding
Musculoskeletal: Denies Joint Pain or Edema
Skin: Denies Itching or Rash
Neurological: Reports Dizzy; Denies Headache or Weakness
Endocrine: Reports No Symptoms
Hematologic/Lymphatic: Reports No Symptoms
Psych: Reports Calm
Physical Exam
Vital Signs
Vital Signs
Temp Pulse Resp BP Pulse Ox
98.4 F 80 17 173/86 97
06/27/24 10:36 06/27/24 16:36 06/27/24 16:36 06/27/24 16:06 06/27/24 16:36
Physical Exam
General: Comfortable and Conversant; No Fever or Chills
HEENT: NormoCephalic, Anicteric, PERRLA, Allyn Conjunctivae, No Ptosis and Other (Bilateral ear TM bulging but clear, rhinorrhea, right Nares injected secondary to overuse of Sandrine pot/Afrin, point tenderness of frontal maxillary sinuses and left
temporal area)
Respiratory: Clear; No Wheezes, Rales or Rhonchi
Cardiac: S1/S2 and Regular Rhythm; No Murmur, Rub, Gallop or Peripheral Edema
Breast: Deferred by me
GI: Soft, Non Tender, Non Distended, Normal Bowel Sounds and No Hepatosplenomegaly
Rectal: Deferred by Provider
Genito-urinary: Deferred by me
Musculoskeletal: No Clubbing, No Cyanosis and No Edema
Skin: Warm; No Dry or Rash
Neuro: AO x 3, No Motor Deficits, Nonfocal/grossly intact, Cranial Nerves Intact and No Sensory Deficits; No Slurred Speech, Facial Droop or Tremors
Psych: Calm
Laboratory Results
-
06/27/24 11:04
06/27/24 11:04
Laboratory Results
Total Bilirubin 0.6 mg/dl (0.2-1.3) 06/27/24 11:04
AST 29 U/L (14-36) 06/27/24 11:04
ALT 23 U/L (0-35) 06/27/24 11:04
Alkaline Phosphatase 99 U/L (38-126) 06/27/24 11:04
Troponin I < 0.012 ng/ml 06/27/24 11:00
Impression/Plan
-
Impression/plan:
Observation telemetry
#Acute sinusitis
-Continue Augmentin 1 tab po bid prescribed by your ENT on 06/25/2024 for 10 days
-Will start loratadine 10mg daily as an antihistamine
-Recommend Nasacort OTC
-Recommend stopping Peconic pot rinses daily as this is irritating the nasal mucosa
-Follow-up with ENT after finishing Augmentin dose
-Tylenol for pain per JUN
CT head: No acute intracranial abnormality
#Chronic dizziness
#HX CVA�left sided lacunar infarct, cerebellum CVA 8 strokes as of April 2022
-Consult PT before discharge
Orthostatic vitals:
Supine BP 156/77, HR 88
Sitting BP 156/77, HR 79
Standing BP 156/84, HR 76
#DM2 with hyperglycemia secondary to recent steroid use
Recent prednisone 50 mg 06/25, 06/26 pre and post IV iron transfusion due to mast cell activation syndrome
Blood sugar 175, check HgbA1c
-Accu-Cheks with SSI low
-Patient reports recent A1c was 7.4 approximately 3 weeks ago
She states she takes her blood sugar in the a.m. gives herself insulin based on a sliding scale and then eats but she has no idea of carbohydrates or how to carb count. She has no scheduled insulin with meals.
-Recommend outpatient teaching with in service educator I would recommend calling your security control center operator to set this up
-Would give NovoLog sliding scale 30 min after meals while inpatient ,since patient does not know carb counting and is randomly giving insulin dosages not based on any carbohydrate counting as she does not know what that is
#Mast cell activation syndrome hx
Recent prednisone 50 mg 06/25, 06/26 pre and post IV iron transfusion
-Continue Benadryl 12.5 mg p.o. 4 times daily May hold single dose when taking dose of Claritin if feeling palpitations
#Factor VIII elevation
-Continue Arixtra 5 mg subcu every 48 H
#Iron deficiency anemia
History of third iron infusion on 06/25/2024 2 days ago did premedicate pre and post with prednisone 50 mg for history of mast cell activation syndrome
-Follow-up with hematology
#Hypothyroidism
TSH 10.4, free T4 1
-Continue Synthroid 50 mcg p.o. daily
#Anxiety hx
-
Migraines hx
-No current headache
#HTN
BP 156/77
-Continue losartan 100 mg at bedtime�patient may take own
HLD
-No current meds
LVH hx
#GERD
#Esophageal stretching
#GI motility disorder�Endoflip procedure July 2018
#Hiatal hernia
-Patient may take own Aciphex 20 mg twice daily
Other PMH:
Crohn's disease
Asthma-no acute exacerbation, continue albuterol inhaler
Ex-smoker
COVID May 2020
Neuropathy
Renal calculi
DVT prophylaxis
SCDs
Full code
--- NOTE | 2024-06-27 18:41 | W.PN.UPDATE ---
Update Note
Progress Note Update
This is an addendum to H&P written by Jailyn Robert on 06/27/2024. Patient seen and examined independently with [employer] [employer] [facility].
58-year-old female past medical history of mast cell activation syndrome, CVA, factor VIII elevation on fondaparinux, insomnia, diabetes, Crohn's disease, hypertension, hyperlipidemia, asthma, hiatal hernia, hypothyroidism, anxiety, kidney stones,
IBS, migraines, M�ni�re's disease, renal calculi, anemia, presenting with jitteriness and palpitations as well as pain behind her left eye radiating into her ear, sinus pressure.
She was treated with 5 days of Pen V K and did not finish treatment. She started Augmentin yesterday.
On examination she has bilateral, bulging tympanic membranes.
CT head shows no acute intracranial abnormality.
EKG shows normal sinus rhythm, nonspecific T wave inversions.
Labs show stable anemia with hemoglobin 11.3.
Telemetry monitoring. Orthostatics negative. IV fluids were given.
Patient demonstrating signs of acute sinusitis/esustachian tube dysfunction. Loratadine, continue Augmentin. No clear signs of CVA at this time.
[2024-06-27] MEDS: VISBIOME 1 CAP PO (19:10)
[2024-06-27] MEDS: NOVOLOG FLEXPEN-LOW RESISTANCE SC (21:30)
--- NOTE | 2024-06-27 22:00 | PTCARENOTE ---
Pt admitted to room 338-1. Ambulated to bed from stretcher with rollator, steady on feet. VSS. Pt provided typed list of current allergies - updated in [employer] and copy placed in chart. Augmentin removed from allergy list as pt stated 'oh no I'm
taking that right now - I'm not allergic' and then pulled a prescription bottle of augmentin out of purse. Later when this nurse attempted to administer PM dose of Augmentin, pt stated 'but I'm allergic to Augmentin'. Dose refused. Pt refused all
medication from hospital. brought in home meds and CPAP as patient can not take hospital medications. Meds sent to pharmacy.
Pt reported losartan dose as different from what was on the prescription bottle. When attempting to clarify, pt stated 'well I just take it how I need to anyway - whenever somebody changes it, I just go back to how I usually take it'. Explained this
could be contributing to chronic dizziness.
[2024-06-27 22:12] LABS: Glucose - Point of Care 174 mg/dl (70-99)
[2024-06-28 05:57] LABS: % Basophils 1.3 % (0-2); % Eosinophils 5.4 % (0-6); % Immature Granulocytes 0.3 % (0-0.5); % Lymphocytes 27.1 % (20.5-51.1); % Monocytes 7.6 % (1.7-9.3); % Neutrophils 58.3 % (42.2-75.2); Absolute Basophils 0.1 10^3/uL (0-0.2); Absolute Eosinophils 0.3 10^3/uL (0-0.7); Absolute Lymphocytes 1.6 10^3/uL (1.2-3.4); Absolute Monocytes 0.5 10^3/uL (0.1-0.6); Absolute Neutrophils 3.5 10^3/uL (1.4-6.5); Hematocrit 31.7 % (37.0-47.0); Hemoglobin 10.3 g/dL (12.0-16.0); Mean Corp Hgb Conc. 32.5 g/dL (33.0-37.0); Mean Corpuscular Hgb 25.8 pg (27.0-31.0); Mean Corpuscular Volume 79.4 fL (81.0-99.0); Nucleated Red Blood Cells % 0 %; Platelet Count 248 10^3/uL (130-400); Red Blood Cell Count 3.99 10^6/uL (4.20-5.40); Red Cell Dist. Width 16.9 % (11.5-14.5)
[2024-06-28 06:04] LABS: Blood Urea Nitrogen 10 mg/dl (7-17); Calcium 8.8 mg/dl (8.4-10.2); Carbon Dioxide 24 mmol/L (22-30); Chloride 105 mmol/L (98-107); Estimated Creatinine Clearance 74 ml/min; Glucose 122 mg/dl (70-99); Potassium 3.7 mmol/L (3.5-5.1); Sodium 136 mmol/L (135-145); eGFR > 60.00
[2024-06-28 07:24] VITALS: BP 162/83
[2024-06-28] MEDS: COZAAR 50 MG PO (08:54)
[2024-06-28 10:31] VITALS: BP 163/97; PULSE 98; O2SAT 96
[2024-06-28 10:53] LABS: Glucose - Point of Care 248 mg/dl (70-99)
[2024-06-28 11:09] VITALS: BP 144/92
[2024-06-28] MEDS: NON-FORMULARY ITEM 20 MG PO ×2 (11:23→19:55)
[2024-06-28] MEDS: CLARITIN CHILDREN'S 5 MG PO (11:23)
[2024-06-28] MEDS: NON-FORMULARY ITEM 1 UNIT PO ×5 (11:23→19:56)
[2024-06-28] MEDS: NOVOLOG FLEXPEN-LOW RESISTANCE SC (13:02)
[2024-06-28 13:17] VITALS: BMI 46.8
[2024-06-28 13:42] LABS: Glycohemoglobin (HgbA1c) 7.2 % (4.0-5.6)
[2024-06-28] MEDS: NOVOLOG FLEXPEN-LOW RESISTANCE 2 UNITS SC (13:49)
[2024-06-28 13:56] LABS: Glucose - Point of Care 202 mg/dl (70-99)
--- NOTE | 2024-06-28 13:57 | W.PN.HOSP.TC ---
Addendum entered and electronically signed by Kannan Cleary DO 06/28/24 14:12:
#Subclinical hypothyroidism
-TSH 10.04, free T4 WNL
-No signs or symptoms
-Suspect abnormality related to underlying infection
-Should have repeat thyroid studies in 4 to 6 weeks as OP
Original Note:
Today's Communication/Plan
-
Continue Augmentin for 7 days
Monitor symptomatic
Likely discharge within 24 hours
Assessment / Plan
Assessment / Plan
#Acute sinusitis
-Continue Augmentin 1 tab po bid prescribed by your ENT on 06/25/2024 for 10 days
-Will start loratadine 10mg daily as an antihistamine
-Recommend Nasacort OTC
-Recommend stopping Divide pot rinses daily as this is irritating the nasal mucosa
-Follow-up with ENT after finishing Augmentin dose
-Tylenol for pain per MAR
-Plan for 7 days of Augmentin and OP ENT follow-up
#Chronic dizziness
#HX CVA�left sided lacunar infarct, cerebellum CVA 8 strokes as of April 2022
-Patient currently with loop recorder that is awaiting explantation
-Consider PT consult
-Orthostatics negative
#DM2 with hyperglycemia secondary to recent steroid use
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
-Blood sugar 175, check HgbA1c
-Accu-Cheks with SSI low
-Patient reports recent A1c was 7.4 approximately 3 weeks ago
-C/W ISS
#Mast cell activation syndrome hx
-Recent prednisone 50 mg 06/25, 06/26 pre and post IV iron transfusion
-Continue Benadryl 12.5 mg p.o. 4 times daily May hold single dose when taking dose of Claritin if feeling palpitations
#Factor VIII elevation
-Continue Arixtra 5 mg subcu every 48 H
#Iron deficiency anemia
-History of third iron infusion on 06/25/2024 2 days ago did premedicate pre and post with prednisone 50 mg for history of mast cell activation syndrome
-Follow-up with hematology
#Hypothyroidism
TSH 10.4, free T4 1
-Continue Synthroid 50 mcg p.o. daily
#HTN
-BP 156/77
-Continue losartan 100 mg at bedtime
#HLD
-No current meds
#LVH hx
#GERD
#Esophageal stretching
#GI motility disorder�Endoflip procedure July 2018
#Hiatal hernia
-Patient may take own Aciphex 20 mg twice daily
Other PMH:
Crohn's disease
Asthma-no acute exacerbation, continue albuterol inhaler
Ex-smoker
COVID May 2020
Neuropathy
Renal calculi
DVT prophylaxis: SCDs
Diet: Right
CODE STATUS: Full code
Anticipated Discharge: Within 24 hours
Subjective/Interval History
-
Date of Service: June 28, 2024
Seen and examined at bedside. No acute events reported overnight. AFVSS this morning
Orthostatic vital signs negative. Patient states she feels slightly improved, still has some dizziness which is chronic
Denies any new complaints. Anxious about having her home medications, that she brought in, ordered
Objective Data
-
Labs:
Laboratory Results
06/28/24
05:18
WBC 6.0
Hgb 10.3 L
Hct 31.7 L
Plt Count 248
Sodium 136
Potassium 3.7
Chloride 105
Carbon Dioxide 24
BUN 10
Creatinine 0.8
Glucose 122 H
Calcium 8.8
Vital Signs:
Vital Signs
Temp Pulse Resp BP Pulse Ox
98.4 F 92 17 144/92 96
06/28/24 11:09 06/28/24 11:09 06/28/24 11:09 06/28/24 11:09 06/28/24 11:09
I&O
06/27/24 06/28/24 06/29/24
06:59 06:59 06:59
Intake Total 240 / 240
Balance 240 / 240
Review of Systems
-
History Source: Patient
All other systems: Reviewed and negative
Physical Exam
-
General: Well Developed, No Apparent Distress, Comfortable and Morbidly Obese
HEENT: Normocephalic, Atraumatic and Moist Mucous Membranes
Respiratory: Clear to Auscultation and Non Labored Respirations
Cardiac: Regular Rhythm and S1/S2; Negative Murmur, Rub or Gallop
GI: Soft, Nontender, Nondistended and Normal Bowel Sounds
Musculoskeletal: No Clubbing, No Cyanosis and No Edema
Skin: Warm, Dry and Normal Turgor; Negative Rash
Neuro: AO x 3 and Nonfocal/Grossly Intact
Psych: Calm
Data Reviewed
-
Labs: Labs Reviewed by me and Discussed with Patient
[2024-06-28] MEDS: TYLENOL 1000 MG PO (14:10)
--- NOTE | 2024-06-28 15:12 | CM ---
Reviewed KEY and signed and on chart.
Met with patient and SO . She mostly stays at home due to Crohns. She has [employer] as secondary to Medicare under the [employer] SS program and has [place] for medicaid. 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 she is a very good advocate for her own
needs and friends and family.
She knows about how to access and use support services.She does use [facility] at home but has to pay co pays for that as [employer] will not cover the 20 % medicare does not cover.
SHe uses rollator, has grab bars in shower, and shower seat.
She had [facility] in past but would not use again, nor would she use [facility].
she was at [facility] in remote past.
She had a TBI and was at [facility] in remote past.
pCP Whitney George
PHarmacy: [facility].
SHe hopes to be able to go home soon.
plan: home with TAMMIE with [facility]
[2024-06-28 15:18] VITALS: BP 121/78
[2024-06-28 16:48] LABS: Glucose - Point of Care 167 mg/dl (70-99)
[2024-06-28] MEDS: NOVOLOG FLEXPEN-LOW RESISTANCE 1 UNITS SC (17:34)
[2024-06-28] MEDS: AUGMENTIN 875 MG/125 MG 1 TABLET PO (17:49)
[2024-06-28] MEDS: NON-FORMULARY ITEM 1 UNIT SC (18:26)
[2024-06-28 19:00] VITALS: BP 135/78
[2024-06-28 21:43] LABS: Glucose - Point of Care 149 mg/dl (70-99)
[2024-06-28 23:00] VITALS: BP 133/87
[2024-06-29 03:00] VITALS: BP 146/80
[2024-06-29 07:37] VITALS: BP 159/94
[2024-06-29 08:08] LABS: Glucose - Point of Care 155 mg/dl (70-99)
[2024-06-29] MEDS: NON-FORMULARY ITEM 1 UNIT PO ×8 (08:49→22:19)
[2024-06-29] MEDS: NON-FORMULARY ITEM 20 MG PO (08:53)
[2024-06-29] MEDS: CLARITIN CHILDREN'S PO (08:55)
[2024-06-29] MEDS: NOVOLOG FLEXPEN-LOW RESISTANCE 1 UNITS SC ×3 (08:59→17:24)
[2024-06-29] MEDS: AUGMENTIN 875 MG/125 MG 1 TABLET PO ×2 (09:22→20:39)
[2024-06-29 10:00] LABS: % Eosinophils 4.9 % (0-6); % Immature Granulocytes 0.5 % (0-0.5); % Lymphocytes 17.1 % (20.5-51.1); % Monocytes 6.2 % (1.7-9.3); % Neutrophils 70.3 % (42.2-75.2); Absolute Basophils 0.1 10^3/uL (0-0.2); Absolute Eosinophils 0.3 10^3/uL (0-0.7); Absolute Lymphocytes 1.1 10^3/uL (1.2-3.4); Absolute Monocytes 0.4 10^3/uL (0.1-0.6); Absolute Neutrophils 4.4 10^3/uL (1.4-6.5); Hematocrit 34.3 % (37.0-47.0); Hemoglobin 10.9 g/dL (12.0-16.0); Mean Corp Hgb Conc. 31.8 g/dL (33.0-37.0); Mean Corpuscular Hgb 25.7 pg (27.0-31.0); Mean Corpuscular Volume 80.9 fL (81.0-99.0); Mean Platelet Volume 9.8 fL (7.4-10.4); Nucleated Red Blood Cells % 0 %; Platelet Count 250 10^3/uL (130-400); Red Blood Cell Count 4.24 10^6/uL (4.20-5.40); Red Cell Dist. Width 16.8 % (11.5-14.5); White Blood Cell Count 6.3 10^3/uL (4.8-10.8)
[2024-06-29 10:09] LABS: Blood Urea Nitrogen 14 mg/dl (7-17); Calcium 9.2 mg/dl (8.4-10.2); Carbon Dioxide 27 mmol/L (22-30); Chloride 102 mmol/L (98-107); Estimated Creatinine Clearance 59 ml/min; Glucose 249 mg/dl (70-99); Potassium 4.5 mmol/L (3.5-5.1); Sodium 136 mmol/L (135-145); eGFR > 60.00
[2024-06-29 10:54] VITALS: BP 140/90
--- NOTE | 2024-06-29 12:02 | W.PN.HOSP.TC ---
Today's Communication/Plan
-
Augmentin to complete 7-day course
OP ENT referral if needed
CBC in 5 days
Assessment / Plan
Assessment / Plan
#Acute sinusitis
-Continue Augmentin 1 tab po bid prescribed by your ENT on 06/25/2024 for 10 days
-Will start loratadine 10mg daily as an antihistamine
-Recommend Nasacort OTC
-Recommend stopping Sandrine pot rinses daily as this is irritating the nasal mucosa
-Follow-up with ENT after finishing Augmentin dose
-Tylenol for pain per MAR
-Plan for 7 days of Augmentin and OP ENT follow-up
#Bright red blood per active rectum
-Patient states she had bright red blood in her stool, was flushed prior to anybody visualized
-Her hemoglobin increased this morning, from 10.3-10.9
-Possibly internal hemorrhoid which she has history of
-Low suspicion for flare of IBD or acute GIB
-CBC 1 week after discharge
#Chronic dizziness
#HX CVA�left sided lacunar infarct, cerebellum CVA 8 strokes as of April 2022
-Patient currently with loop recorder that is awaiting explantation
-Consider PT consult
-Orthostatics negative
#DM2 with hyperglycemia secondary to recent steroid use
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
-Blood sugar 175, check HgbA1c
-Accu-Cheks with SSI low
-Patient reports recent A1c was 7.4 approximately 3 weeks ago
-C/W ISS
#Mast cell activation syndrome hx
-Recent prednisone 50 mg 06/25, 06/26 pre and post IV iron transfusion
-Continue Benadryl 12.5 mg p.o. 4 times daily May hold single dose when taking dose of Claritin if feeling palpitations
#Factor VIII elevation
-Continue Arixtra 5 mg subcu every 48 H
#Iron deficiency anemia
-History of third iron infusion on 06/25/2024 2 days ago did premedicate pre and post with prednisone 50 mg for history of mast cell activation syndrome
-Follow-up with hematology
#Hypothyroidism
TSH 10.4, free T4 1
-Continue Synthroid 50 mcg p.o. daily
#HTN
-BP 156/77
-Continue losartan 100 mg at bedtime
#HLD
-No current meds
#LVH hx
#GERD
#Esophageal stretching
#GI motility disorder�Endoflip procedure July 2018
#Hiatal hernia
-Patient may take own Aciphex 20 mg twice daily
Other PMH:
Crohn's disease
Asthma-no acute exacerbation, continue albuterol inhaler
Ex-smoker
COVID May 2020
Neuropathy
Renal calculi
DVT prophylaxis: SCDs
Diet: Regular
CODE STATUS: Full code
Anticipated Discharge: Today
Subjective/Interval History
-
Date of Service: June 29, 2024
Seen and examined the bedside. No acute events from overnight. AFVSS this morning
Patient states she had blood in her stool this morning and was quite concerned. Hemoglobin is uptrending, patient does have history of internal hemorrhoid. White cell count normal, no fevers
States that she still has some dizziness though improved from admission. Outside of blood seen in stool this morning she has no other new complaints
Objective Data
-
Labs:
Laboratory Results
06/29/24
09:43
WBC 6.3
Hgb 10.9 L
Hct 34.3 L
Plt Count 250
Sodium 136
Potassium 4.5
Chloride 102
Carbon Dioxide 27
BUN 14
Creatinine 1.0
Glucose 249 H
Calcium 9.2
Vital Signs:
Vital Signs
Temp Pulse Resp BP Pulse Ox
98.0 F 88 17 140/90 96
06/29/24 10:54 06/29/24 10:54 06/29/24 10:54 06/29/24 10:54 06/29/24 10:54
I&O
06/28/24 06/29/24 06/30/24
06:59 06:59 06:59
Intake Total 240 / 240
Balance 240 / 240
Review of Systems
-
History Source: Patient
All other systems: Reviewed and negative
Physical Exam
-
General: Well Developed, No Apparent Distress and Morbidly Obese
HEENT: Normocephalic, Atraumatic and Moist Mucous Membranes
Respiratory: Clear to Auscultation and Non Labored Respirations
Cardiac: Regular Rhythm and S1/S2; Negative Murmur, Rub or Gallop
GI: Soft, Nontender, Nondistended and Normal Bowel Sounds
Musculoskeletal: No Clubbing, No Cyanosis and No Edema
Skin: Warm, Dry and Normal Turgor; Negative Rash
Neuro: AO x 3 and Nonfocal/Grossly Intact
Psych: Anxious
Data Reviewed
-
Labs: Labs Reviewed by me, Discussed with Nurse and Discussed with Patient
[2024-06-29 12:07] LABS: Glucose - Point of Care 180 mg/dl (70-99)
[2024-06-29 15:27] VITALS: BP 149/86
[2024-06-29 16:53] LABS: Glucose - Point of Care 157 mg/dl (70-99)
[2024-06-29 19:00] VITALS: BP 159/90
[2024-06-29] MEDS: NON-FORMULARY ITEM PO ×2 (20:41→20:57)
[2024-06-29 21:40] LABS: Glucose - Point of Care 202 mg/dl (70-99)
[2024-06-29] MEDS: TYLENOL 1000 MG PO (22:12)
[2024-06-29 22:45] LABS: Urine Albumin Negative (Neg - Trace); Urine Bilirubin Negative (Negative); Urine Character Clear (Clear); Urine Color Yellow; Urine Glucose Negative (Negative); Urine Ketone Negative (Negative); Urine Leukocyte 1+ (Negative); Urine Nitrite Negative (Negative); Urine Occult Blood Negative (Negative); Urine Urobilinogen Negative (Neg - 1+)
[2024-06-29 23:00] VITALS: BP 158/81
[2024-06-29 23:00] LABS: Urine Bacteria Few (Negative); Urine Red Blood Cell 0-2 /HPF (0-2)
[2024-06-30 03:00] VITALS: BP 138/87
[2024-06-30 07:15] VITALS: BP 146/91
[2024-06-30 08:03] LABS: Glucose - Point of Care 152 mg/dl (70-99)
[2024-06-30] MEDS: NON-FORMULARY ITEM 1 UNIT PO ×6 (09:13→17:28)
[2024-06-30] MEDS: AUGMENTIN 875 MG/125 MG 1 TABLET PO (09:13)
[2024-06-30] MEDS: NON-FORMULARY ITEM 20 MG PO (09:19)
[2024-06-30] MEDS: CLARITIN CHILDREN'S PO (09:21)
[2024-06-30] MEDS: NOVOLOG FLEXPEN-LOW RESISTANCE 1 UNITS SC ×2 (09:21→17:33)
[2024-06-30 12:10] LABS: Glucose - Point of Care 230 mg/dl (70-99)
--- NOTE | 2024-06-30 12:58 | W.PN.HOSP.TC ---
Today's Communication/Plan
-
- Planning discharge today
Assessment / Plan
Assessment / Plan
#Acute sinusitis
-Recommended to continue taking Augmentin 1 tab PO BID which was prescribed by ENT on 06/25/2024 for 10 days and will follow up with ENT physician
-Recommended to continue loratadine 10mg daily and Nasacort OTC
-[place] pot rinses has been irritating her nasal mucosa and can give break to use it
-Follow-up with ENT after finishing Augmentin dose-might take longer to recover given history of being on steroids
#Bright red blood per active rectum
-Not an acute event and has hx of internal hemorrhoids
-Called her GI physician and has a colonoscopy scheduled on 07/21/24
-Hemoglobin is likely stable at 10.9 on 06/29/2024
-Possible side effects of antibiotics with aggravation of her Chron`s disease
-will have a follow up with her PCP and GI physician
#Chronic dizziness
#HX CVA�left sided lacunar infarct, cerebellum CVA 8 strokes as of April 2022
-Patient currently with loop recorder that is awaiting explantation and planning to be removed by her cordwood cutter
-Consider PT consult
-Orthostatics negative
#DM2 with hyperglycemia secondary to recent steroid use
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
-Blood sugar 175, check HgbA1c
-Accu-Cheks with SSI low
-Patient reports recent A1c was 7.4 approximately 3 weeks ago
-C/W ISS
#Mast cell activation syndrome hx
-Recent prednisone 50 mg 06/25, 06/26 pre and post IV iron transfusion
-Continue Benadryl 12.5 mg p.o. 4 times daily May hold single dose when taking dose of Claritin if feeling palpitations
#Factor VIII elevation
-Continue Arixtra 5 mg subcu every 48 H
#Iron deficiency anemia
-History of third iron infusion on 06/25/2024 2 days ago did premedicate pre and post with prednisone 50 mg for history of mast cell activation syndrome
-Follow-up with hematology
#Hypothyroidism
TSH 10.4, free T4 1
-Continue Synthroid 50 mcg p.o. daily
#HTN
-BP 156/77
-Continue losartan 100 mg at bedtime
#HLD
-No current meds
#LVH hx
#GERD
#Esophageal stretching
#GI motility disorder�Endoflip procedure July 2018
#Hiatal hernia
-Patient may take own Aciphex 20 mg twice daily
Other PMH:
Crohn's disease
Asthma-no acute exacerbation, continue albuterol inhaler
Ex-smoker
COVID May 2020
Neuropathy
Renal calculi
DVT prophylaxis: SCDs
Diet: Regular
CODE STATUS: Full code
Anticipated Discharge: Today
Subjective/Interval History
-
Date of Service: June 30, 2024
Patient reports feeling better this morning. Endorses having her chronic balance issues. Denies any headache, chest pain or abdominal pain. She reports having recently more frequent of diarrhea eopisodes after starting on antibiotics and has
close follow-up with her GI physician.
Objective Data
-
Vital Signs:
Vital Signs
Temp Pulse Resp BP Pulse Ox
98.4 F 92 16 146/91 94
06/30/24 07:15 06/30/24 07:15 06/30/24 07:15 06/30/24 07:15 06/30/24 09:00
I&O
06/29/24 06/30/24 07/01/24
06:59 06:59 06:59
Intake Total 240 / 240 1440 / 1440
Balance 240 / 240 1440 / 1440
Review of Systems
-
History Source: Patient
Constitutional: Reports No Symptoms
EENT: Reports Other (She reports feeling fullness on her face-better than previous)
Respiratory: Reports No Symptoms
Cardiac: Reports No Symptoms
Abdomen/GI: Reports No Symptoms and Other (Reports chronic bright red color rectal bleeding-secondary to her internal hemorrhoids)
Breast: Reports No Symptoms
Genitourinary: Reports No Symptoms
Musculoskeletal: Reports Muscle Weakness (On her right leg-residue from previous CVA)
Skin: Reports No Symptoms
Neuro: Reports Other (She reports chronic balance problems)
Endocrine: Reports No Symptoms
Hematologic / Lymphatic: Reports Other (See HPI)
Physical Exam
-
General: Well Developed, Well Nourished and Obese
HEENT: Normocephalic, Atraumatic and Other (No postnasal drainage)
Respiratory: Clear to Auscultation
Cardiac: Regular Rhythm and S1/S2
GI: Soft, Nontender and Nondistended
Musculoskeletal: No Clubbing, No Cyanosis and No Edema
Skin: Warm
Neuro: Awake, Alert, Oriented, AO x 3, Nonfocal/Grossly Intact and Other (Residue right leg weakness after CVA )
Psych: Calm
--- NOTE | 2024-06-30 13:10 | W.DCSUMMARY ---
Discharge Summary
Discharge Data
Date of Admission: 06/27/24
Date of Discharge: 06/30/24
-
Pending Results: No
Hospital Course
Disposition : Home
Primary care physician : Whitney George MD
Principal Discharge diagnosis : Sinusitis, Acute on chronic dizziness
#Sinusitis: The patient was continued on her Augmentin dose BID which was prescribed by her ENT for 10 days. She has improvement with her symptoms and has been feeling better. On physical exam, there was no signs of acute sinusitis. She was
recommend to continue Augmentin, loratadine 10mg daily and Nasacort OTC following her discharge. [place] pot rinses was irritating her nasal mucosa and recommended to stop using it. She will have a follow up visit with her ENT and PCP in a week.
#Acute on Chronic Dizziness: Patient feels better and had concern of having another CVA for which she presented ER. She was obtained a head CT which was unremarkable for an acute cranial event. Reports being at her baseline, no new weakness,
numbness or more dizziness. Will keep continue to Arixtra due elevated FVIII to prevent any thrombus. Reports she did not have any CVA after being on Arixtra. 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
Chronic Discharge diagnosis :The patient has PMH of Diabetes mellitus, multiple CVA, Mast cell activation syndrome, Factor VIII elevation, Iron deficiency anemia, Hypothyroidism, Hypertension, Hyperlipidemia, GERD, Esophageal stretching, GI
motility disorder, Hiatal hernia, Crohn's disease, Asthma, Neuropathy, History of renal calculi. Her chronic medical problems were treated as able to.
Hospital Course :
Important imaging findings :
06/27/[address]:
FINDINGS:
The ventricles are normal in size, configuration, and position. No intra- or extra-axial mass, hemorrhage, or fluid collection. No areas of abnormal mass effect or attenuation are noted. The imaged paranasal sinuses and mastoid air cells are clear.
IMPRESSION:
No acute intracranial abnormality.
Procedure findings :
No procedure
Discharge Plan
-
Patient Disposition: Home (Routine Discharge)
Discharge Diagnosis/Procedures: Sinusitis
Acute on chronic dizziness
Diabetes mellitus
Mast cell activation syndrome
Factor VIII elevation
Iron deficiency anemia
Hypothyroidism
Hypertension
Hyperlipidemia
GERD
Esophageal stretching
GI motility disorder
Hiatal hernia
Crohn's disease
Asthma
Ex-smoker
Neuropathy
History of renal calculi
Condition: Fair
Diet: No restrictions
Activity: As tolerated
Driving Restrictions: As prior to admission
Bathing Restrictions: None
Blood Work: CBC in 5 days to recheck your blood counts
Others Tests: Colonoscopy with gastroenterology on 07/22
Activity Restrictions/Additional Instructions:
After discharge from the hospital schedule follow-up appointment with your family doctor. Should be seen in office within 1 to 2 weeks of discharge from the hospital
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 Attend office visit for colonoscopy on 07/22. Call the hat blocking machine operator office if you need to be seen sooner
Referral provided for ear nose and throat doctor, if needed
Instructions: Dizziness
Referrals:
Whitney George MD [Family Provider] -
Nehemias Hernandez MD [Active] - (If needed)
Additional Discharge Medication Instructions: Continue Augmentin through the end of 07/08/2019
Prescriptions:
Continued
rabeprazole [AcipHex] 20 MG tablet,delayed release (DR/EC)
20 mg PO BID
atenolol 25 MG tablet
12.5 mg PO DAILY
cholecalciferol (vitamin D3) [Vitamin D3] 2,000 UNIT capsule
3,000 unit PO DAILY
diphenhydramine HCl [Banophen] 25 MG capsule
12.5 mg PO QID
acetaminophen 500 mg Tablet
1,000 mg PO Q6HPRN PRN (Reason: mild pain)
fondaparinux 5 mg/0.4 mL Syringe
5 mg SC Q48H
Vitamin B-6 50 mg Capsule
50 mg PO DAILY
losartan 50 mg Tablet
100 mg PO DAILY
ascorbic acid (vitamin C) [Vitamin C] 500 mg Tablet
500 mg PO DAILY
levothyroxine [Synthroid] 50 mcg Tablet
50 mcg PO DAILY
albuterol sulfate 90 mcg/actuation Hfa Aerosol Inhaler
2 puff INHALATION R Q6HPRN PRN (Reason: SOB)
amoxicillin-pot clavulanate 875-125 mg Tablet
1 tab PO BID
Rx Instructions:
for 10 days starting 06/25/24
insulin aspart U-100 [Novolog FlexPen U-100 Insulin] 100 unit/mL (3 mL) Insulin Pen
1 sliding scale dose SC AC
Discharge Orders:
Discharge Patient (As Directed); Ordered 06/30/24
Ordered By: Jennifer Tafoya
Discharge Date and Time
Discharge Date/Time: 06/30/24 18:08
Print Language: SYRIAN
[2024-06-30] MEDS: NOVOLOG FLEXPEN-LOW RESISTANCE 2 UNITS SC (13:50)
[2024-06-30 15:55] VITALS: BP 114/81
--- NOTE | 2024-06-30 16:34 | CM ---
MD entered order for discharge.
Spoke with pt she requested [facility] . Referral placed in care port.
Spoke with Misa at [facility] she is aware of referral.
Remains observation.
Family to drive her home.
PLAN Home with [facility] fax [phone]
[2024-06-30] MEDS: NON-FORMULARY ITEM 1 UNIT SC (17:31)
[2024-06-30] MEDS: TYLENOL 1000 MG PO (17:32)
[2024-06-30 17:35] LABS: Glucose - Point of Care 184 mg/dl (70-99)
== END 2024-06-30 18:08 | disposition home health service (06) ==
LOC: 3 WEST ACU 18:27
PROVIDERS: Clinical Nurse Specialist Family Health; Internal Medicine; Nurse Practitioner; Nurse Practitioner Family; Student in an Organized Health Care Education/Training Program; ADMITTING PHYSICIAN Hospitalist; ATTENDING PHYSICIAN Hospitalist; EMERGENCY PHYSICIAN Emergency Medicine; FAMILY PHYSICIAN Family Medicine
DX: R42 Dizziness and giddiness (principal); J32.9 Chronic sinusitis, unspecified; K62.5 Hemorrhage of anus and rectum; E11.40 Type 2 diabetes mellitus with diabetic neuropathy, unspecified; E11.65 Type 2 diabetes mellitus with hyperglycemia; D89.40 Mast cell activation, unspecified; G47.00 Insomnia, unspecified; I10 Essential (primary) hypertension; K50.90 Crohn's disease, unspecified, without complications; E78.00 Pure hypercholesterolemia, unspecified; R00.2 Palpitations; D50.9 Iron deficiency anemia, unspecified; K44.9 Diaphragmatic hernia without obstruction or gangrene; J45.909 Unspecified asthma, uncomplicated; G89.29 Other chronic pain; E03.9 Hypothyroidism, unspecified; N28.1 Cyst of kidney, acquired; R07.9 Chest pain, unspecified; R26.2 Difficulty in walking, not elsewhere classified; R41.0 Disorientation, unspecified; G43.909 Migraine, unspecified, not intractable, without status migrainosus; R94.31 Abnormal electrocardiogram [ECG] [EKG]; F41.9 Anxiety disorder, unspecified; K21.9 Gastro-esophageal reflux disease without esophagitis; Z86.73 Personal history of transient ischemic attack (TIA), and cerebral infarction without residual deficits; Z87.891 Personal history of nicotine dependence; Z82.49 Family history of ischemic heart disease and other diseases of the circulatory system; Z90.49 Acquired absence of other specified parts of digestive tract; Z98.1 Arthrodesis status; Z90.89 Acquired absence of other organs; Z86.16 Personal history of COVID-19; Z87.442 Personal history of urinary calculi; Z88.8 Allergy status to other drugs, medicaments and biological substances; Z88.0 Allergy status to penicillin; Z88.1 Allergy status to other antibiotic agents; Z88.5 Allergy status to narcotic agent; Z91.041 Radiographic dye allergy status; Z88.6 Allergy status to analgesic agent; Z88.2 Allergy status to sulfonamides; Z91.013 Allergy to seafood; Z79.899 Other long term (current) drug therapy; Z79.890 Hormone replacement therapy; Z87.19 Personal history of other diseases of the digestive system
CPT/HCPCS: 70450; 80048; 80053; 81003; 81015; 82962; 83036; 84439; 84443; 84484; 85025; 86850; 86900; 86901; 87086; 93005; 96360; 97163; 97530; 99285; G0378

== ENCOUNTER 2024-08-08 12:40 | Emergency (ER) | payer MEDICARE, OTHER, SELFPAY ==
[2024-08-08 12:45] VITALS: BP 175/80
[2024-08-08 13:09] LABS: % Basophils 1.2 % (0-2); % Eosinophils 6.1 % (0-6); % Immature Granulocytes 0.3 % (0-0.5); % Monocytes 5.5 % (1.7-9.3); % Neutrophils 70.9 % (42.2-75.2); Absolute Basophils 0.1 10^3/uL (0-0.2); Absolute Eosinophils 0.4 10^3/uL (0-0.7); Absolute Lymphocytes 1.1 10^3/uL (1.2-3.4); Absolute Monocytes 0.4 10^3/uL (0.1-0.6); Absolute Neutrophils 4.8 10^3/uL (1.4-6.5); Hemoglobin 12.1 g/dL (12.0-16.0); Mean Corp Hgb Conc. 32.7 g/dL (33.0-37.0); Mean Corpuscular Hgb 26.7 pg (27.0-31.0); Mean Corpuscular Volume 81.7 fL (81.0-99.0); Mean Platelet Volume 9.8 fL (7.4-10.4); Nucleated Red Blood Cells % 0 %; Platelet Count 250 10^3/uL (130-400); Red Blood Cell Count 4.53 10^6/uL (4.20-5.40); Red Cell Dist. Width 16.6 % (11.5-14.5); White Blood Cell Count 6.8 10^3/uL (4.8-10.8)
[2024-08-08 13:17] LABS: INR 1.05
[2024-08-08 13:18] LABS: APTT 30.9 Sec (23.4-35.0)
[2024-08-08 13:21] LABS: ALT (SGPT) 31 U/L (0-35); AST (SGOT) 30 U/L (14-36); Albumin 4.1 g/dl (3.5-5.0); Alkaline Phosphatase 102 U/L (38-126); Blood Urea Nitrogen 14 mg/dl (7-17); Calcium 9.6 mg/dl (8.4-10.2); Carbon Dioxide 25 mmol/L (22-30); Chloride 105 mmol/L (98-107); Glucose 235 mg/dl (70-99); Potassium 4.3 mmol/L (3.5-5.1); Sodium 139 mmol/L (135-145); Total Bilirubin 0.5 mg/dl (0.2-1.3); Total Protein 6.9 g/dl (6.3-8.2); eGFR > 60.00
[2024-08-08 13:32] LABS: Troponin I < 0.012 ng/ml
[2024-08-08 14:00] VITALS: BP 136/89
--- NOTE | 2024-08-08 14:25 | ED.GENMED ---
History of Present Illness
General
Chief Complaint: Dizziness
Source: patient
Exam Limitations: none
Time Seen by Provider: 08/08/24 14:10
History of Present Illness
History of Present Illness:
See MDM
Past History
Past History
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
inflammatory bowel disease,) and Other (Crohn's disease, 'Mass cell activation syndrome', Migraines, Chronic back pain, Hiatal hernia, Renal calculus, Vertigo, factor 8 elevation, ,anemia, Esophageal stretching)
ED Past Surgical History: Cardiac (Loop recorder), Cholecystectomy, Gynecological (Uterine Ablation), Orthopedic (C3-4 spinal fusion, left ear surgery) and Other (Partial right Thyroidectomy )
Social History
Tobacco: Former smoker
Alcohol: None
Drug: None
Personal: ([employer])
Living: with family
Employment: Disabled
Family History
Family History: Other (Father with coronary artery disease mother with coronary artery disease)
Phy Exam
Physical Exam
Physical Exam:
See MDM
Scores
NIH Stroke Score
Level of Consciousness: 0 - Alert
LOC Questions: 0-Answers both correctly
LOC Commands: 0-Performs both correctly
Best Horizontal Gaze: 0-Normal
Visual Moss: 0=Normal, no visual loss
Facial Palsy: 0=Normal, symmetrical
Motor - Right Arm: 0=No drift 10 seconds
Motor - Left Arm: 0=No drift 10 seconds
Motor - Right Le-No drift 5 seconds
Motor - Left Le-No drift 5 seconds
Limb Ataxia: 0-Absent
Sensation: 0-Normal
Best Language: 0-No aphasia
Dysarthria: 0-Normal
Extinction and Inattention: 0-No abnormality
Total Score:: 0
Course
Orders/Labs/Results
Orders:
Orders
08/08/24 12:49
Electrocardiogram (*1) Urgent
Reason for Study: Other
Other Reason for Exam: Possible Stroke
08/08/24 12:50
EKG- Treatment ONCE
08/08/24 12:58
Complete Blood Count/With Diff Urgent
Comprehensive Metabolic Panel Urgent
PTT Urgent
Prothrombin Time Urgent
Troponin I Urgent
08/08/24 14:23
CT Head W/o Iv Contrast Urgent
Comment:
Reason For Exam: forehead pressure and posterior headache
Abnormal Lab Results
08/08/24
12:58
MCH 26.7 L pg
(27.0-31.0)
MCHC 32.7 L g/dL
(33.0-37.0)
RDW 16.6 H %
(11.5-14.5)
Absolute Lymphs (auto) 1.1 L 10^3/uL
(1.2-3.4)
Lymphocytes % 16.0 L %
(20.5-51.1)
Eosinophils % 6.1 H %
(0-6)
Glucose 235 H mg/dl
(70-99)
08/08/24 12:58
08/08/24 12:58
Vital Signs
Initial and Last Documented VS:
Initial Vital Signs
Temp Pulse Resp BP Pulse Ox
98.6 F 90 16 175/80 98
08/08/24 12:45 08/08/24 12:45 08/08/24 12:45 08/08/24 12:45 08/08/24 12:45
Last Documented Vital Signs
Temp Pulse Resp BP Pulse Ox
98.6 F 90 16 175/80 98
08/08/24 12:45 08/08/24 12:45 08/08/24 12:45 08/08/24 12:45 08/08/24 12:45
MDM/Problems Addressed
Differential Diagnosis Includes:
HPI and MDM Narrative:
58-year-old female presenting for head pressure and posterior headache. This has been ongoing for several days. This is associated with mild dizziness. She had left arm weakness yesterday that resolved. She had tingling of her right arm today
which blood pressure but that resolved too. On exam, she is sitting in bed comfortably. There is no obvious stroke on my exam. Patient is more concerned about possible infection.
On my exam, she is well-appearing and nontoxic. I explained my concern that she is a high utilizer and has had multiple CTs of her head. I discussed my concern that she may develop cancer in the future due to the significant amount of diagnostic
testing. Patient does acknowledge that but states she wants another CT scan because she is worried about some sort of infection in her head. Based on my exam, she has no evidence of meningitis. I cannot rule out some sort of sinusitis. She
states she was treated with Augmentin recently for sinusitis which helped.
Physical exam
General: Well appearing and non-toxic. Patient seen ambulating without difficulty
HEENT: protecting airway. No nasal congestion. No tenderness to temporal artery palpation. TMs clear
Neck: supple
CV: No evidence of cyanosis
Resp: No accessory muscle use
Abd: Non-distended
Extremities: No deformities
Neuro: alert. No focal deficits
Psych: Normal affect
Skin: Intact
Problems Addressed including Acute and Chronic Conditions affecting care:
1. Head pressure
Acuity: acute
Prognosis: stable
Details: Given the persistent nature of patient, will obtain CT head. No evidence to suggest stroke
Updates
CT head negative. When I entered the room to explain a nondiagnostic CT, patient sitting in bed comfortably watching TV on her phone. She still complains of multiple vague complaints. I discussed she must have this followed up in outpatient
setting.
Differential Diagnosis (but not limited to): Sinusitis, migraine
Testing considered: Viral testing
Drug therapy (if applicable): OTC meds, please see d/c instruction regarding Rx drugs
Amount and/or Complexity of Data Reviewed
Clinical info obtained from: Patient
External data reviewed: Multiple visits and a high utilizer
Labs I independently reviewed (but not limited to): White blood cell count normal, hyperglycemia without evidence of DKA
Radiology: the CT scan was personally and independently reviewed. In addition, official CT report reviewed.
Pulse Ox: not hypoxic
EKG independently reviewed: Sinus rhythm, normal axis, no STEMI
Cap Cutter: N/A
Critical Care: N/A
Risk of Complication:
Social Determinants of health: Good social support
Discussed with other providers: N/A
Escalation of Care includes Admit/Obs: After being observed in the Emergency Department, pt stable for discharge.
Occasional wrong word or 'sound a like' substitutions may have occurred due to the inherent limitations of voice recognition software. Read the chart carefully and recognize, using context, where substitutions have occurred.
*Critical Care Note
Total Time (30-74mins, 75-104mins- exclusive of procedures): Not Applicable
ED Attending Note
-
Portions of this chart may have been created with voice recognition software.� Occasional wrong word or��sound alike� substitutions may have occurred due to the inherent limitations of voice recognition software.
Discharge Plan
Departure
Patient Disposition: Home (Routine Discharge)
Date of Disposition: 08/08/24
Time of Disposition: 15:52
Patient with high blood pressure during this ER visit?: Yes
Discharge Problem:
Dizziness
Instructions: Dizziness, BLOOD PRESSURE
Prescriptions:
No Action
rabeprazole [AcipHex] 20 MG tablet,delayed release (DR/EC)
20 mg PO BID
atenolol 25 MG tablet
12.5 mg PO DAILY
cholecalciferol (vitamin D3) [Vitamin D3] 2,000 UNIT capsule
3,000 unit PO DAILY
diphenhydramine HCl [Banophen] 25 MG capsule
12.5 mg PO QID
acetaminophen 500 mg Tablet
1,000 mg PO Q6HPRN PRN (Reason: mild pain)
fondaparinux 5 mg/0.4 mL Syringe
5 mg SC Q48H
Vitamin B-6 50 mg Capsule
50 mg PO DAILY
losartan 50 mg Tablet
100 mg PO DAILY
ascorbic acid (vitamin C) [Vitamin C] 500 mg Tablet
500 mg PO DAILY
levothyroxine [Synthroid] 50 mcg Tablet
50 mcg PO DAILY
albuterol sulfate 90 mcg/actuation Hfa Aerosol Inhaler
2 puff INHALATION R Q6HPRN PRN (Reason: SOB)
amoxicillin-pot clavulanate 875-125 mg Tablet
1 tab PO BID
Rx Instructions:
for 10 days starting 06/25/24
insulin aspart U-100 [Novolog FlexPen U-100 Insulin] 100 unit/mL (3 mL) Insulin Pen
1 sliding scale dose SC AC
Referrals:
Whitney George MD [Family Provider] -
Activity Restrictions/Additional Instructions:
Please return for any worsening symptoms.
You may return at any time if you have further concerns.
Please follow up with your doctor at the first available appointment, preferably this week.
Interventions
Interventions:
*Risk Screen - Suicide Last Done: 08/08/24 12:45
*Neglect/Abuse Screening Last Done: 08/08/24 12:45
ED- Neurological Assessment Last Done: 08/08/24 14:38
ED Swallowing Screen Last Done: 08/08/24 14:38
Discharge Date and Time
Print Language: SERBIAN
[2024-08-08 16:00] VITALS: BP 180/78
[2024-08-08] MEDS: TYLENOL 1000 MG PO (16:06)
== END 2024-08-08 16:50 | disposition home or self-care (01) ==
LOC: EMR 12:40
PROVIDERS: Emergency Medicine; EMERGENCY PHYSICIAN Student in an Organized Health Care Education/Training Program; FAMILY PHYSICIAN Family Medicine
DX: R42 Dizziness and giddiness (principal); J45.909 Unspecified asthma, uncomplicated; K21.9 Gastro-esophageal reflux disease without esophagitis; E03.9 Hypothyroidism, unspecified; E11.9 Type 2 diabetes mellitus without complications; E78.00 Pure hypercholesterolemia, unspecified; I10 Essential (primary) hypertension; K50.90 Crohn's disease, unspecified, without complications; Z82.49 Family history of ischemic heart disease and other diseases of the circulatory system; Z86.16 Personal history of COVID-19; Z86.73 Personal history of transient ischemic attack (TIA), and cerebral infarction without residual deficits; Z87.442 Personal history of urinary calculi; Z87.891 Personal history of nicotine dependence; Z90.49 Acquired absence of other specified parts of digestive tract; Z98.1 Arthrodesis status
CPT/HCPCS: 99284; 70450; 80053; 84484; 85025; 85610; 85730; 93005

== ENCOUNTER 2024-08-13 17:01 | Emergency (ER) | payer MEDICARE, OTHER, SELFPAY ==
[2024-08-13 17:03] VITALS: BP 185/116
[2024-08-13 17:21] LABS: % Basophils 1.3 % (0-2); % Eosinophils 8.3 % (0-6); % Immature Granulocytes 0.3 % (0-0.5); % Lymphocytes 21.7 % (20.5-51.1); % Monocytes 7.7 % (1.7-9.3); % Neutrophils 60.7 % (42.2-75.2); Absolute Basophils 0.1 10^3/uL (0-0.2); Absolute Eosinophils 0.6 10^3/uL (0-0.7); Absolute Lymphocytes 1.5 10^3/uL (1.2-3.4); Absolute Monocytes 0.6 10^3/uL (0.1-0.6); Absolute Neutrophils 4.3 10^3/uL (1.4-6.5); Hematocrit 36.5 % (37.0-47.0); Hemoglobin 12.1 g/dL (12.0-16.0); Mean Corp Hgb Conc. 33.2 g/dL (33.0-37.0); Mean Corpuscular Hgb 26.9 pg (27.0-31.0); Mean Corpuscular Volume 81.1 fL (81.0-99.0); Mean Platelet Volume 9.6 fL (7.4-10.4); Nucleated Red Blood Cells % 0 %; Platelet Count 273 10^3/uL (130-400); Red Cell Dist. Width 16.3 % (11.5-14.5); White Blood Cell Count 7.1 10^3/uL (4.8-10.8)
[2024-08-13 17:41] LABS: ALT (SGPT) 26 U/L (0-35); AST (SGOT) 29 U/L (14-36); Albumin 3.8 g/dl (3.5-5.0); Alkaline Phosphatase 86 U/L (38-126); Blood Urea Nitrogen 18 mg/dl (7-17); Calcium 9.5 mg/dl (8.4-10.2); Carbon Dioxide 26 mmol/L (22-30); Chloride 104 mmol/L (98-107); Glucose 158 mg/dl (70-99); Potassium 4.1 mmol/L (3.5-5.1); Sodium 138 mmol/L (135-145); Total Bilirubin 0.5 mg/dl (0.2-1.3); Total Protein 6.8 g/dl (6.3-8.2); eGFR 51.82
[2024-08-13 18:12] LABS: TSH Reflex To Free T4 4.07 uIU/ml (0.47-4.68)
[2024-08-13 19:04] LABS: Urine Albumin 1+ (Neg - Trace); Urine Bilirubin Negative (Negative); Urine Character Clear (Clear); Urine Color Yellow; Urine Glucose Negative (Negative); Urine Ketone Negative (Negative); Urine Leukocyte Negative (Negative); Urine Nitrite Negative (Negative); Urine Occult Blood Negative (Negative); Urine Specific Gravity 1.025 (<1.030); Urine Urobilinogen Negative (Neg - 1+)
[2024-08-13 19:31] LABS: Urine Red Blood Cell 0-2 /HPF (0-2); Urine Squamous Cell >30 /LPF (Few)
[2024-08-13 19:32] LABS: Urine Bacteria Few (Negative)
[2024-08-13 19:33] LABS: Urine White Cell 0-2 /HPF (0-5)
--- NOTE | 2024-08-13 19:52 | ED.GENMED ---
History of Present Illness
General
Chief Complaint: Weakness
Source: patient
Time Seen by Provider: 08/13/24 19:34
History of Present Illness
History of Present Illness:
This patient is a 58-year-old female presents the emergency department with a variety of different complaints. She states that for the last week or so she has been feeling lightheaded and dizzy. Of note, patient has a history of chronic dizziness.
The dizziness/lightheadedness she describes is not positional, and is random. She describes 1 episode of nonbloody vomiting and overall weakness without focal weakness noted. She also notes discomfort in the right flank that is been there on and
off for about 3 days, sometimes positional, not associated with urinary symptoms, documented fever, new abdominal pain. She denies chest pain, shortness of breath, severe headache. Patient states that she called her curb machine operator and was advised
to go to the emergency department to make sure that her cortisol level was normal given that she has been on intermittent steroids. Patient has somewhat subacute/chronic diarrhea given her history of Crohn's/pancolitis. She had a EGD/colonoscopy
within the last month and is due to see a specialist shortly. She describes multiple episodes of diarrhea which is not unusual for her and worries that she may be dehydrated.
Past History
Past History
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
inflammatory bowel disease,) and Other (Crohn's disease, 'Mass cell activation syndrome', Migraines, Chronic back pain, Hiatal hernia, Renal calculus, Vertigo, factor 8 elevation, ,anemia, Esophageal stretching)
ED Past Surgical History: Cardiac (Loop recorder), Cholecystectomy, Gynecological (Uterine Ablation), Orthopedic (C3-4 spinal fusion, left ear surgery) and Other (Partial right Thyroidectomy )
Social History
Tobacco: Former smoker
Alcohol: None
Drug: None
Personal: (Common Law)
Living: with family
Employment: Disabled
Family History
Family History: Other (Father with coronary artery disease mother with coronary artery disease)
Phy Exam
Physical Exam
Physical Exam:
GENERAL: Alert , in no apparent distress
EYE: pupils equal and reactive, EOMI, no nystagmus, no photophobia
NECK: Supple, no significant adenopathy.
ENT: o/p clr, mmm.
CARDIAC: Regular rate and rhythm .
LUNGS: Clear breath sounds bilaterally, no acute respiratory distress, no wheezes/rales/rhonchi
ABDOMEN: Soft, without focal tenderness, no r/g, no cvat
NEUROLOGICAL: Alert and oriented, no focal neuro deficits except very slight tremor which is baseline for patient, [id number] normal, cranial nerves II through XII intact, sensation and motor within normal limits
SKIN: Warm and dry, skin intact.
MUSCULOSKELETAL: No edema, well perfused.
PSYCH: Normal and appropriate interaction.
Course
Orders/Labs/Results
Orders:
Orders
08/13/24 17:07
Electrocardiogram (*1) Urgent
Reason for Study: Fatigue / Weakness
08/13/24 17:08
EKG- Treatment ONCE
08/13/24 17:15
Complete Blood Count/With Diff Urgent
Comprehensive Metabolic Panel Urgent
Cortisol, Random Urgent
TSH Reflex To Free T4 Urgent
08/13/24 18:24
Urinalysis Reflex To Culture Urgent
Date Specimen was Collected: 08/13/24
Time Specimen was Collected: 18:22
Urine Microscopic Reflex Cult Urgent
08/13/24 19:51
0.9% Sodium Chloride 1000 ml [Nss] 1,000 ml IV BOLUS
US Kidneys and US Bladder [US Renal With Bladder] Urgent
Comment:
Reason For Exam: pain
08/13/24 20:10
0.9% Sodium Chloride 250 ml [Nss] 250 ml IV BOLUS
Abnormal Lab Results
08/13/24 08/13/24
17:15 18:24
Hct 36.5 L %
(37.0-47.0)
MCH 26.9 L pg
(27.0-31.0)
RDW 16.3 H %
(11.5-14.5)
Eosinophils % 8.3 H %
(0-6)
BUN 18 H mg/dl
(7-17)
Creatinine 1.2 H mg/dL
(0.6-1.0)
Glucose 158 H mg/dl
(70-99)
Urine Bacteria (Reflex) Few A
(Negative)
Urine Albumin (Reflex) 1+ A
(Neg - Trace)
08/13/24 17:15
08/13/24 17:15
Vital Signs
Initial and Last Documented VS:
Initial Vital Signs
Temp Pulse Resp BP Pulse Ox
98.1 F 89 20 185/116 98
08/13/24 17:03 08/13/24 17:03 08/13/24 17:03 08/13/24 17:03 08/13/24 17:03
Last Documented Vital Signs
Temp Pulse Resp BP Pulse Ox
98.1 F 79 20 172/79 98
08/13/24 17:03 08/13/24 21:34 08/13/24 21:34 08/13/24 21:34 08/13/24 17:03
Update Note
Update Note:
Patient presents to the Emergency Department with _multiple complaints including dizziness, weakness, right flank pain
Number and Complexity of Problems Addressed at the Encounter
� Chronic conditions affecting care:
� Acute Exacerbation and/or Progression of Chronic Illness:
� Differential Diagnosis includes: But not limited to kidney stone, electrolyte disorder, dehydration, adrenal insufficiency, etc. etc.
Amount and/or Complexity of Data to be Reviewed and Analyzed
� I performed an independent evaluation of and my interpretation is:
EKG: Read by me, normal sinus rhythm, normal axis nonspecific T wave flattening/inversion which is unchanged from prior
CT:
Xrays:
Laboratory Studies: Generally unremarkable with the exception of mild prerenal azotemia
Other:us dr devine MODERATE CHRONIC BILATERAL RENAL DISEASE.
2. SEVERE DIFFUSE HEPATIC STEATOSIS.
� Review of other/old records reveals:
� Clinical information was obtained by an independent historian:
� Prescriptions/Medications Considered but not given:
� Further testing considered but not performed:
Risk of Complications and/or Morbidity or Mortality of Patient Management
� Social determinants of health affecting care:
� Discussion with other providers (PCP, Hospitalists, Consultants, etc):
� Escalation of care including admission/observation vs risk of discharge considered:
ED Attending Note
-
Portions of this chart may have been created with voice recognition software.� Occasional wrong word or��sound alike� substitutions may have occurred due to the inherent limitations of voice recognition software.
Discharge Plan
Departure
Patient Disposition: Home (Routine Discharge)
Date of Disposition: 08/13/24
Time of Disposition: 22:30
Condition: Good
Discharge Problem:
Weakness
Instructions: Generalized Weakness (DC), BLOOD PRESSURE
Prescriptions:
No Action
rabeprazole [AcipHex] 20 MG tablet,delayed release (DR/EC)
20 mg PO BID
atenolol 25 MG tablet
12.5 mg PO DAILY
cholecalciferol (vitamin D3) [Vitamin D3] 2,000 UNIT capsule
3,000 unit PO DAILY
diphenhydramine HCl [Banophen] 25 MG capsule
12.5 mg PO QID
acetaminophen 500 mg Tablet
1,000 mg PO Q6HPRN PRN (Reason: mild pain)
fondaparinux 5 mg/0.4 mL Syringe
5 mg SC Q48H
Vitamin B-6 50 mg Capsule
50 mg PO DAILY
losartan 50 mg Tablet
100 mg PO DAILY
ascorbic acid (vitamin C) [Vitamin C] 500 mg Tablet
500 mg PO DAILY
levothyroxine [Synthroid] 50 mcg Tablet
50 mcg PO DAILY
albuterol sulfate 90 mcg/actuation Hfa Aerosol Inhaler
2 puff INHALATION R Q6HPRN PRN (Reason: SOB)
amoxicillin-pot clavulanate 875-125 mg Tablet
1 tab PO BID
Rx Instructions:
for 10 days starting 06/25/24
insulin aspart U-100 [Novolog FlexPen U-100 Insulin] 100 unit/mL (3 mL) Insulin Pen
1 sliding scale dose SC AC
Referrals:
Whitney George MD [Family Provider] - Tomorrow
Activity Restrictions/Additional Instructions:
PLEASE SEE ATTACHED ULTRASOUND REPORT TO BE REVIEWED WITH YOUR DOCTOR. IF YOU DEVELOP FEVER, VOMITING, DIZZINESS, CHEST PAIN, TROUBLE BREATHING, OR OTHER WORRISOME SIGNS, CONTACT YOUR DOCTOR SOON POSSIBLE.
Interventions
Interventions:
*Risk Screen - Suicide Last Done: 08/13/24 20:10
*General Assessment Last Done: 08/13/24 17:03
*Neglect/Abuse Screening Last Done: 08/13/24 20:10
*ED- Fall Risk Assessment Last Done: 08/13/24 20:10
*ED COVID-19 Vaccine History Last Done: 08/13/24 20:10
ED- Cardiac Assessment Last Done: 08/13/24 22:22
ED- Neurological Assessment Last Done: 08/13/24 22:22
ED- Pulmonary Assessment Last Done: 08/13/24 22:22
Discharge Date and Time
Print Language: INDONESIAN
[2024-08-13 20:10] VITALS: BMI 47.2
[2024-08-13 20:11] VITALS: BP 178/88
[2024-08-13] MEDS: NSS 250 IV (20:23)
[2024-08-13 21:34] VITALS: BP 172/79
[2024-08-13 22:33] VITALS: BP 172/79
== END 2024-08-13 22:36 | disposition home or self-care (01) ==
LOC: EMR 17:01
PROVIDERS: Emergency Medicine; EMERGENCY PHYSICIAN Emergency Medicine; FAMILY PHYSICIAN Family Medicine
DX: R53.1 Weakness (principal); J45.909 Unspecified asthma, uncomplicated; K21.9 Gastro-esophageal reflux disease without esophagitis; E03.9 Hypothyroidism, unspecified; E11.9 Type 2 diabetes mellitus without complications; E78.00 Pure hypercholesterolemia, unspecified; I10 Essential (primary) hypertension; K50.90 Crohn's disease, unspecified, without complications; Z82.49 Family history of ischemic heart disease and other diseases of the circulatory system; Z86.16 Personal history of COVID-19; Z86.73 Personal history of transient ischemic attack (TIA), and cerebral infarction without residual deficits; Z87.442 Personal history of urinary calculi; Z87.891 Personal history of nicotine dependence; Z90.49 Acquired absence of other specified parts of digestive tract; Z98.1 Arthrodesis status
CPT/HCPCS: 99284; 76770; 80053; 81003; 81015; 82533; 84443; 85025; 93005

== ENCOUNTER 2024-08-22 03:48 | Observation (INO) | payer MEDICARE, OTHER, SELFPAY ==
[2024-08-21 18:53] VITALS: BP 171/87
[2024-08-21 19:15] LABS: % Basophils 1.2 % (0-2); % Eosinophils 8.5 % (0-6); % Immature Granulocytes 0.3 % (0-0.5); % Lymphocytes 21.6 % (20.5-51.1); % Monocytes 7.4 % (1.7-9.3); Absolute Basophils 0.1 10^3/uL (0-0.2); Absolute Eosinophils 0.6 10^3/uL (0-0.7); Absolute Lymphocytes 1.5 10^3/uL (1.2-3.4); Absolute Monocytes 0.5 10^3/uL (0.1-0.6); Absolute Neutrophils 4.1 10^3/uL (1.4-6.5); Hemoglobin 11.9 g/dL (12.0-16.0); Mean Corp Hgb Conc. 33.1 g/dL (33.0-37.0); Mean Corpuscular Hgb 26.9 pg (27.0-31.0); Mean Corpuscular Volume 81.4 fL (81.0-99.0); Mean Platelet Volume 9.7 fL (7.4-10.4); Nucleated Red Blood Cells % 0 %; Platelet Count 282 10^3/uL (130-400); Red Blood Cell Count 4.42 10^6/uL (4.20-5.40); Red Cell Dist. Width 16.1 % (11.5-14.5); White Blood Cell Count 6.8 10^3/uL (4.8-10.8)
[2024-08-21 19:27] LABS: Lactic Acid 1.5 mmol/L (0.7-2.0)
[2024-08-21 19:37] LABS: ALT (SGPT) 23 U/L (0-35); AST (SGOT) 27 U/L (14-36); Albumin 3.8 g/dl (3.5-5.0); Alkaline Phosphatase 87 U/L (38-126); Blood Urea Nitrogen 12 mg/dl (7-17); Calcium 9.4 mg/dl (8.4-10.2); Carbon Dioxide 27 mmol/L (22-30); Glucose 206 mg/dl (70-99); Total Bilirubin 0.4 mg/dl (0.2-1.3); Total Protein 7.4 g/dl (6.3-8.2); eGFR > 60.00
[2024-08-21 19:57] LABS: Chloride 104 mmol/L (98-107); Potassium 4.1 mmol/L (3.5-5.1); Sodium 138 mmol/L (135-145)
[2024-08-21 20:25] LABS: Urine Albumin Negative (Neg - Trace); Urine Bilirubin Negative (Negative); Urine Character Clear (Clear); Urine Color Yellow; Urine Glucose Negative (Negative); Urine Ketone Negative (Negative); Urine Leukocyte 1+ (Negative); Urine Nitrite Negative (Negative); Urine Occult Blood Negative (Negative); Urine Urobilinogen Negative (Neg - 1+)
[2024-08-21 20:39] LABS: Urine Bacteria Few (Negative); Urine Red Blood Cell 0-2 /HPF (0-2); Urine Squamous Cell >30 /LPF (Few)
[2024-08-21 21:41] VITALS: BP 108/96
[2024-08-21 21:43] VITALS: BP 128/79
[2024-08-21 22:00] VITALS: BP 145/78
[2024-08-21 22:10] VITALS: BMI 46.1
--- NOTE | 2024-08-21 23:20 | ED.GENMED ---
History of Present Illness
General
Chief Complaint: Dehydration Symptoms
Source: patient
Exam Limitations: none
Time Seen by Provider: 08/21/24 23:17
Nursing documentation reviewed up to this point in time: agreed with
History of Present Illness
History of Present Illness:
This is a 66-year-old female with a past medical history of pancolitis/ulcerative colitis, hypertension, hyperlipidemia, mast cell activation syndrome presents emergency department today with concerns of diffuse abdominal pain and bloody diarrhea.
Patient reports that she is currently in a colitis flare. Patient reports that she follows with Dr. Mcdaniel who she called today from [facility] who sent her in to the emergency department. She reports that she has chronic abdominal pain but reports
that the past week, the pain got acutely worse and the pain at times is unbearable. She reports that she has also been nauseated and had a decreased appetite. She reports that she has had passage of blood clots per rectum and bloody stools
multiple times a day for the past week. She also notes transient episodes of lightheadedness. She denies any fevers. She denies any burning with urination. She denies any recent antibiotic usage. She denies any travel outside the country.
Past History
Past History
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
inflammatory bowel disease,) and Other (Crohn's disease, 'Mass cell activation syndrome', Migraines, Chronic back pain, Hiatal hernia, Renal calculus, Vertigo, factor 8 elevation, ,anemia, Esophageal stretching)
ED Past Surgical History: Cardiac (Loop recorder), Cholecystectomy, Gynecological (Uterine Ablation), Orthopedic (C3-4 spinal fusion, left ear surgery) and Other (Partial right Thyroidectomy )
Social History
Tobacco: Former smoker
Alcohol: None
Drug: None
Personal: (Common Law)
Living: with family
Employment: Disabled
Family History
Family History: Other (Father with coronary artery disease mother with coronary artery disease)
Review of Systems
Review of Systems
All Other Systems: ROS reviewed and negative except as documented in HPI and ROS
Phy Exam
Physical Exam
Physical Exam:
General: Patient is well appearing and in no acute distress; non-toxic
Skin: Warm and dry, no rashes or lesions
Head: Normocephalic, atraumatic
Eyes: Sclera non-icteric. EOMs intact.
Cardiac: Regular rate and rhythm, no murmurs
Peripheral Vascular: No lower extremity swelling or edema
Pulm: Normal respiratory effort, no wheezes, rales, or rhonchi
Abdomen: Diffuse lower abdominal tenderness to palpation with guarding
Neuro: CN II-XII intact, no focal neurologic deficits.
Psychiatric: Appropriate mood and affect.
Course
Orders/Labs/Results
Orders:
Orders
08/21/24 19:05
C-Reactive Protein Urgent
Comment: ADD ON
Complete Blood Count/With Diff Urgent
Comprehensive Metabolic Panel Urgent
Erythrocyte Sed Rate Urgent
Comment: ADD ON
Lactic Acid Stat
08/21/24 20:11
Urinalysis Reflex To Culture Urgent
Date Specimen was Collected: 08/21/24
Time Specimen was Collected: 20:10
Urine Microscopic Reflex Cult Urgent
Urine Culture Urgent
CARINA Source: U
Specimen Description:
Date Specimen was Collected: 08/21/24
Time Specimen was Collected: 20:10
08/21/24 23:31
0.9% Sodium Chloride 1000 ml [Nss] 1,000 ml IV BOLUS
08/21/24 23:32
C DIFF [C difficile Antigen & Toxins] Urgent
CARINA Source: Feces/Stool
Specimen Description:
Stool Culture Urgent
CARINA Source: Feces/Stool
Specimen Description:
08/22/24 00:05
CT Abd/pel Without Iv Or Oral Urgent
Comment:
Reason For Exam: diffuse lower abdominal pain, hx of UC
08/22/24 00:59
Add On- LAB Urgent
Tests Added?: crp, esr
08/22/24 03:36
Admit/Transfer Patient As Directed
Co-Sign Provider:
Level of Care: Observation services
Assign to:: Medical/Surgical
Physician / Group: Ashish
Diagnosis: Colitis
PRN Pain Medication Management As Directed
May give lesser potent ordered pain med per pt: Yes
preference::
Protocol:: Medication orders for pain may be administered in a
manner that supports deferring to patient preference
when the pt is:
- Requesting an ordered lesser potent pain medication.
Least to most potent pain medications are defined
as: acetaminophen < NSAID < tramadol < opioids
(morphine, oxycodone, hydromorphone).
- Requesting a lesser dose of the same medication IF
ORDERED.
- Requesting a less intrusive route of administration
if both routes are prescribed by the provider (PO <
IV).
08/22/24 03:37
Code Status As Directed
Resuscitation Status: Full Code
Abnormal Lab Results
08/21/24 08/21/24
19:05 20:11
Hgb 11.9 L g/dL
(12.0-16.0)
Hct 36.0 L %
(37.0-47.0)
MCH 26.9 L pg
(27.0-31.0)
RDW 16.1 H %
(11.5-14.5)
Eosinophils % 8.5 H %
(0-6)
ESR 46 H mm/hour
(0-20)
Glucose 206 H mg/dl
(70-99)
C-Reactive Protein 14.50 H mg/L
(0.0-10.00)
Leukocyte Esterase Rfl 1+ A
(Negative)
Urine Bacteria (Reflex) Few A
(Negative)
08/21/24 19:05
08/21/24 19:05
Vital Signs
Initial and Last Documented VS:
Initial Vital Signs
Temp Pulse Resp BP Pulse Ox
99.1 F 79 16 171/87 98
08/21/24 18:53 08/21/24 18:53 08/21/24 18:53 08/21/24 18:53 08/21/24 18:53
Last Documented Vital Signs
Temp Pulse Resp BP Pulse Ox
99.1 F 96 16 181/97 95
08/21/24 18:53 08/22/24 02:51 08/22/24 02:51 08/22/24 03:00 08/22/24 03:00
MDM/Problems Addressed
Differential Diagnosis Includes:
ddx include pancolitis/UC flare, gastroenteritis, diverticulitis, bowel perforation, fulminant colitis, c diff colitis
MDM/Problems Addressed:
58 y/o female with a pmh of pancolitis/ulcerative colitis, htn, hlp, mast cell activation comes in today with concerns of right sided abdominal pain, bloody stools and passage of clots for the past week. She states that she is in a pancolitis flare.
On exam, she is well appearing afebrile. She has no wbc but she is very tender on exam and still bleeding but H+H stable. She was sent in by Dr. Mcdaniel her GI doctor from [place]. I attempted to call the cosmetics demonstrator doctor cosmetics demonstrator from her [facility],
Dr. Michael Huggins, but he said he does not take consults from [facility] even for patients in their own group. With her mast cell activation syndrome she is allergic to oral and IV contrast, non-contrast CT scan was performed which showed
areas of submucosal fatty deposition in the colon and the rectum but no acute intraabdominal pathology. Spoke to Dr. Ortiz cosmetics demonstrator for [facility] who will see patient in the morning and determine if IV steroids is necessary.
*Pulse Oximetry
Patient hypoxic: no
*Critical Care Note
Total Time (30-74mins, 75-104mins- exclusive of procedures): Not Applicable
Data Reviewed
Review of Other/Old Records Reveals: Records (Reviewed ER physician documentation from 08/13/2024 patient seen for weakness and discharged after unremarkable work) and Discharge Summary (Reviewed discharge summary from 06/30/2024, patient seen for
sinusitis and acute on chronic dizziness)
Source: patient and records
ED Attending Note
-
Portions of this chart may have been created with voice recognition software.� Occasional wrong word or��sound alike� substitutions may have occurred due to the inherent limitations of voice recognition software.
Discharge Plan
Departure
Patient Disposition: Admit
Date of Disposition: 08/22/24
Time of Disposition: 02:19
Admit to: Med/Surg
Presentation/result/management discussed w/ accepting MD/DO: Hospitalist
Patient with high blood pressure during this ER visit?: Yes
Condition: Fair
Discharge Problem:
Exacerbation of ulcerative colitis with rectal bleeding
Interventions
Interventions:
*Risk Screen - Suicide Last Done: 08/21/24 18:53
*Neglect/Abuse Screening Last Done: 08/21/24 18:53
*ED- Fall Risk Assessment Last Done: 08/21/24 21:48
*ED COVID-19 Vaccine History Last Done: 08/21/24 21:48
ED- Cardiac Assessment Last Done: 08/21/24 22:10
ED- Neurological Assessment Last Done: 08/21/24 22:10
ED- Pulmonary Assessment Last Done: 08/21/24 22:10
[2024-08-21] MEDS: NSS 1000 IV (23:46)
[2024-08-22 01:13] LABS: Erythrocyte Sed Rate 46 mm/hour (0-20)
[2024-08-22 01:46] VITALS: BP 166/94
[2024-08-22 03:00] VITALS: BP 181/97
--- NOTE | 2024-08-22 03:41 | HPS.HSE ---
Family Physician
-
Family Physician: Whitney George
Chief Complaint
-
Abd Pain, Bloody Stool
History of Present Illness
Patient is a 58y F with PMH significant for ulcerative colitis, mast cell activation syndrome and DM-II who presents to ED complaining of abdominal pain, bloody stools and fatigue. Patient reports chronic symptoms of crampy abdominal pain and
bloody stools. She notes increase in frequency of stools (though no watery diarrhea) over the past several days especially. She has felt general fatigue and feels flushed. She spoke with her GI physician (Dr. Mcdaniel at [facility]) who advised
her to present to the ED for evaluation.
Patient notes that she had recent EGD / colonoscopies at [place] (07/22/24).
Medical History
Past Medical History
Past Medical History: Reports Other
Additional Past Medical History:
Mast cell activation syndrome
Factor VIII elevation
Iron deficiency anemia
Hypothyroidism
Anxiety
Migraines
CVA�left sided lacunar infarct, cerebellum CVA 8 strokes as of April 2022
M�ni�re's disease/chronic dizziness
HTN
HLD
LVH
DM-II
GERD
GI motility disorder�Endoflip procedure July 2018
Hiatal hernia
Crohn's disease
Asthma
Neuropathy
Renal calculi
Past Surgical History: Reports Other
Additional Past Surgical History:
C3-C4 spinal fusion 2013
Cholecystectomy March 2016
Uterine ablation
Left ear surgery
Thyroid biopsy
Partial right thyroidectomy 2022
Colonoscopy
Esophageal stretching
Endoflip procedure July 2018 due to motility disorder
Nonobstructive cardiac cath 2010
Loop recorder
Oral surgery
Social History
Tobacco: Non-smoker
Alcohol: None
Drug: None
Personal:
Living: With Family
Employment: Disabled
Family History
Family History: Not pertinent
Allergies / Home Medications
Allergies reflects when Allergies were last updated in [employer].
Home Medications with original date entered in [employer]
Allergy/Medication List:
Allergies
Allergy/AdvReac Type Severity Reaction Status Date / Time
acetaminophen [From Percocet] Allergy Nausea / Verified 08/21/24 18:57
Vomiting
adhesive tape Allergy Rash Verified 08/21/24 18:57
apixaban [From Eliquis] Allergy Shortness Verified 08/21/24 18:57
of Breath
atorvastatin [From Lipitor] Allergy Unknown Verified 08/21/24 18:57
azithromycin [From Zithromax] Allergy Hives Verified 08/21/24 18:57
beclomethasone Allergy Unknown Verified 08/21/24 18:57
[From Beconase AQ]
budesonide [From Pulmicort] Allergy Shortness Verified 08/21/24 18:57
of Breath
capsaicin Allergy Anaphylaxis Verified 08/21/24 18:57
cefdinir Allergy Hives Verified 08/21/24 18:57
cephalexin Allergy Hives Verified 08/21/24 18:57
clavulanic acid Allergy Rash Verified 08/21/24 18:57
[From Augmentin]
clindamycin Allergy Hives Verified 08/21/24 18:57
clopidogrel Allergy Hives Verified 08/21/24 18:57
clove Allergy Tongue Verified 08/21/24 18:57
Swelling
codeine Allergy Nausea / Verified 08/21/24 18:57
Vomiting
cyclosporine [From Restasis] Allergy Itching-hives, Verified 08/21/24 18:57
itchy eyes
dexamethasone [From Decadron] Allergy Itching Verified 08/21/24 18:57
doxycycline Allergy Hives Verified 08/21/24 18:57
enoxaparin sodium Allergy Hives Verified 08/21/24 18:57
[From Lovenox]
famotidine Allergy Hives Verified 08/21/24 18:57
fluticasone Allergy Tongue Verified 08/21/24 18:57
[From Advair Diskus] Swelling
fluticasone propionate Allergy Shortness Verified 08/21/24 18:57
[From Advair Diskus] of Breath
gallium Allergy hives, Verified 08/21/24 18:57
swelling
heparin Allergy Hives Verified 08/21/24 18:57
hydromorphone HCl Allergy Shortness Verified 08/21/24 18:57
[From Dilaudid] of Breath
hydroxyprogesterone Allergy Hives Verified 08/21/24 18:57
[From Delalutin]
ibuprofen [From Motrin] Allergy Hives Verified 08/21/24 18:57
Iodinated Contrast Media Allergy Hives Verified 08/21/24 18:57
ipratropium [From DuoNeb] Allergy Anaphylaxis Verified 08/21/24 18:57
latex Allergy Hives Verified 08/21/24 18:57
levofloxacin [From Levaquin] Allergy muscle Verified 08/21/24 18:57
cramping
lorazepam Allergy Anaphylaxis Verified 08/21/24 18:57
metoclopramide Allergy Nausea / Verified 08/21/24 18:57
Vomiting
mometasone furoate Allergy Anaphylaxis Verified 08/21/24 18:57
[From Asmanex Twisthaler]
monosodium glutamate Allergy Unknown Verified 08/21/24 18:57
mushroom Allergy Hives Verified 08/21/24 18:57
nitrofurantoin Allergy Hives Verified 08/21/24 18:57
NSAIDS (Non-Steroidal Allergy Anaphylaxis Verified 08/21/24 18:57
Anti-Inflamma
oxycodone [From Percocet] Allergy Nausea / Verified 08/21/24 18:57
Vomiting
pork derived (porcine) Allergy Hives Verified 08/21/24 18:57
prilocaine [From Citanest] Allergy Unknown Verified 08/21/24 18:57
Quinolones Allergy Unknown Verified 08/21/24 18:57
rivaroxaban [From Xarelto] Allergy Hives Verified 08/21/24 18:57
rosuvastatin [From Crestor] Allergy Unknown Verified 08/21/24 18:57
salmeterol Allergy Tongue Verified 08/21/24 18:57
[From Advair Diskus] Swelling
salmeterol xinafoate Allergy Shortness Verified 08/21/24 18:57
[From Advair Diskus] of Breath
shellfish derived Allergy Hives Verified 08/21/24 18:57
Qbjmtut-ILZ-WsB Reductase Allergy Anaphylaxis Verified 08/21/24 18:57
Inhibitor
[Vblvrfg-Roi-Zut Reductase
Inhibitor]
sucralfate [From Carafate] Allergy migraine Verified 08/21/24 18:57
Sulfa (Sulfonamide Allergy Hives Verified 08/21/24 18:57
Antibiotics)
valsartan Allergy Anaphylaxis Verified 08/21/24 18:57
vancomycin Allergy Hives/itching Verified 08/21/24 18:57
hearing
loss
verapamil Allergy Unknown Verified 08/21/24 18:57
yellow dye Allergy Anaphylaxis Verified 08/21/24 18:57
vitamin b comp Allergy Unknown Uncoded 08/21/24 18:57
vitamin b complex Allergy Unknown Uncoded 08/21/24 18:57
Home Medications
atenolol 25 mg tablet 12.5 mg PO DAILY Blood Pressure 08/23/14
rabeprazole 20 mg tablet,delayed release (AcipHex) 20 mg PO BID Gastrointestinal Issue 08/23/14
diphenhydramine HCl 25 mg capsule (Banophen) 12.5 mg PO QID Allergies 09/20/20
acetaminophen 500 mg tablet 1,000 mg PO Q6HPRN PRN mild pain 11/24/21
fondaparinux 5 mg/0.4 mL subcutaneous solution syringe 5 mg SC Q48H Blood Clot Prevention/Tx 01/03/23
albuterol sulfate 90 mcg/actuation aerosol inhaler 2 puff inhalation R Q6HPRN PRN SOB 06/27/24
insulin aspart U-100 100 unit/mL (3 mL) subcutaneous pen (Novolog FlexPen U-100 Insulin aspart) 1 sliding scale dose SC AC Diabetes 06/27/24
levothyroxine 50 mcg tablet (Synthroid) 50 mcg PO DAILY Thyroid 06/27/24
losartan 50 mg tablet 50 mg PO BID Blood Pressure 06/27/24
Review of Systems
-
History Source: Patient
A 12 point ROS was completed and negative except as noted: Yes
Constitutional: Reports Fatigue; Denies Fever or Chills
Respiratory: Denies Cough or Trouble Breathing
Cardiac: Denies Chest Pain or Palpitations
Abdomen/GI: Reports Abdominal Pain, Diarrhea and Bloody Stools; Denies Nausea, Vomiting or Anorexia
: Denies Dysuria, Frequency or Flank Pain
Musculoskeletal: Denies Joint Pain or Edema
Neurological: Denies Dizzy or Headache
Psych: Denies Depression or Anxiety
Physical Exam
Vital Signs
Vital Signs
Temp Pulse Resp BP Pulse Ox
99.1 F 96 16 181/97 95
08/21/24 18:53 08/22/24 02:51 08/22/24 02:51 08/22/24 03:00 08/22/24 03:00
Physical Exam
General: Other (Flushed appearing 58y F in mild distress due to discomfort.)
HEENT: Other (Dry MM. Thick neck. Flushed facies.)
Respiratory: Clear; No Wheezes, Rales or Rhonchi
Cardiac: S1/S2 and Regular Rhythm; No Murmur
GI: Soft, Non Distended, Normal Bowel Sounds and Other (Mild tenderness - mostly in the RUQ area. Pos BS.)
Musculoskeletal: No Clubbing, No Cyanosis and No Edema
Neuro: AO x 3
Laboratory Results
-
08/21/24 19:05
08/21/24 19:05
Laboratory Results
Lactic Acid 1.5 mmol/L (0.7-2.0) 08/21/24 19:05
Total Bilirubin 0.4 mg/dl (0.2-1.3) 08/21/24 19:05
AST 27 U/L (14-36) 08/21/24 19:05
ALT 23 U/L (0-35) 08/21/24 19:05
Alkaline Phosphatase 87 U/L (38-126) 08/21/24 19:05
Impression/Plan
-
A/P: Patient is a 58y F with PMH significant for ulcerative colitis followed at [facility] who presents to ED complaining of crampy abdominal pain and bloody stools.
Pancolitis / Ulcerative Colitis
- Observe overnight for further evaluation.
- Inflammatory markers are mildly elevated.
- CT scan shows no acute inflammation - limited by lack of contrast (patient intolerance).
- Observe overnight with symptomatic treatment, IVFs, etc.
- GI eval in the AM for any additional recommendations +/- systemic steroids, etc.
- Follow for any new / worsening symptoms.
DM-II
- Stable. Continue SSI coverage with meals.
- Update A1C.
Benign Hypertension
- Stable. Continue current med regimen and adjust as needed.
Mast Cell Activation Syndrome
- Some active flushing / itching sensation at present.
- Continue current med regimen including ATC Benadryl, etc.
- Patient notes that she is having all of her own meds brought in the AM as she would prefer to take her own medications (will need order changes when home meds available).
Hypothyroidism
- Continue current T4 supplementation.
Factor VIII / Hypercoagulable State
DVT Prophylaxis
- Continue q48 hours fondaparinux.
Code Status: Full
[2024-08-22 06:20] LABS: Hematocrit 34.1 % (37.0-47.0); Hemoglobin 11.2 g/dL (12.0-16.0); Mean Corp Hgb Conc. 32.8 g/dL (33.0-37.0); Mean Corpuscular Hgb 27.2 pg (27.0-31.0); Mean Corpuscular Volume 82.8 fL (81.0-99.0); Mean Platelet Volume 9.9 fL (7.4-10.4); Platelet Count 242 10^3/uL (130-400); Red Blood Cell Count 4.12 10^6/uL (4.20-5.40); Red Cell Dist. Width 16.3 % (11.5-14.5); White Blood Cell Count 6.5 10^3/uL (4.8-10.8)
[2024-08-22 06:33] LABS: Blood Urea Nitrogen 9 mg/dl (7-17); Calcium 8.4 mg/dl (8.4-10.2); Carbon Dioxide 24 mmol/L (22-30); Chloride 110 mmol/L (98-107); Estimated Creatinine Clearance 73 ml/min; Glucose 154 mg/dl (70-99); Potassium 3.7 mmol/L (3.5-5.1); Sodium 141 mmol/L (135-145); eGFR > 60.00
[2024-08-22 07:44] VITALS: BP 141/76
[2024-08-22] MEDS: TENORMIN 12.5 MG PO (08:02)
[2024-08-22] MEDS: COZAAR 50 MG PO (08:02)
[2024-08-22] MEDS: TYLENOL 1000 MG PO (08:07)
--- NOTE | 2024-08-22 08:31 | EDRN ---
Patient refused to take all her medications except for Tylenol,Tenormin and Cozaar.
--- NOTE | 2024-08-22 08:38 | CON.GI ---
Consultation
-
Date/Time Consultation Requested: 08/22/24 0555
Date/Time Consultation Performed: 08/22/24 0800
Requesting Provider: Dr. Hinojosa
Performing Provider: Dr. Ortiz/HARRISON Ball
Reason for Consultation: colitis
Medical History
Chief Complaint / HPI
Chief Complaint: abd pain, rectal bleeding
History of Present Illness:
58-year-old female with past medical history of mast cell activation syndrome, diabetes, iron deficiency anemia, hypothyroidism, anxiety, migraines, left-sided CVA, M�ni�re's, chronic dizziness, hypertension, hyperlipidemia, GERD, GI motility
disorder with Endoflip in 2019, hiatal hernia, asthma, neuropathy and kidney stones with history of inflammatory bowel disease initially diagnosed as Crohn's disease in 2016 later found out to be ulcerative colitis initially followed by [facility]
transferred care to [place] and now followed by Dr. Mcdaniel at [facility] since 2022 who comes into the hospital with complaints of increased abdominal pain fatigue and rectal bleeding. We are asked to evaluate for 'colitis flare'. The
patient states that her history of inflammatory bowel disease starts in 2016 when she was diagnosed by GI at [facility]. She was started on Entyvio for 9 months then had a reaction to it. Was then treated with steroids for approximately 18 months.
Then placed on Skyrizi after her fourth dose had an allergic reaction. Was then diagnosed with her mast cell disease. She started treatment at [place] but then her care was transferred to [facility]. Was then started on steroids again for a
prolonged period of time. She states she was eventually placed on a Humira biosimilar (Idacio) as well as hydrocortisone suppositories. She states that she has been off of all Biologics since March secondary to multiple 'infections'. She has
not been on any steroids since that time as well. She states that she has an appointment with colorectal surgery at [facility] for a possible subtotal colectomy with Dr. Agustina Oakes in September. The patient had a recent endoscopy and
colonoscopy July 22, 2024. The patient was able to show me some pictures of reports. Brief pictures showed documentation of Hernandez score 2 in the right colon, transverse Hernandez score 1 and left colon Hernandez score 2 inflammation. EGD showed 1 cm hiatal
hernia and gastric polyps. The patient states that she usually has anywhere from 5-10 bowel movements a day and this is her usual. She called her GI doctor to let him know that she was having diffuse abdominal pain and bloody diarrhea and that she
was in a colitis flare. She was advised to come to the emergency room for further evaluation. She had not had a bowel movement since prior to arrival in the ER. That was yesterday prior to dinnertime. She has been tolerating clear liquids since
arrival. Has refused further IV fluids since the 1 bag in the emergency room. Her hemoglobin is stable. And is currently 11.4. Her baseline is 9-11. She has not required any pain medication except for Tylenol. I did witness her only bowel
movement here which is her first 1 in 15 hours. This was soft, solid, brown and formed. There was no signs of bleeding whatsoever. The patient is tolerating clear liquids without any difficulty and is asking for solid food. Vital signs 98.2,
heart rate 83, respirations 16, BP 141/76 and O2 sat 97% on room air. The patient had a CT of the abdomen and pelvis without contrast secondary to patient intolerance. Awaiting official read however preliminary read shows no acute inflammation.
CRP is 14.5 however patient does have known history of ulcerative colitis Hernandez score 1-2 currently not on any medications. However with solid formed stool without any signs of blood, also in the setting of mast cell activation syndrome. I did
place a call out to patient's primary tire classifier Dr. Mcdaniel per patient request, awaiting call back. Also sent request for records.
Past Medical History
Past Medical History: Other (mast cell activation syndrome, diabetes, iron deficiency anemia, hypothyroidism, anxiety, migraines, left-sided CVA, M�ni�re's, chronic dizziness, hypertension, hyperlipidemia, GERD, GI motility disorder with Endoflip in
2019, hiatal hernia, asthma, neuropathy and kidney stones with history of infla)
Past Surgical History: Other (C3-C4 spinal fusion, cholecystectomy, uterine ablation, left ear surgery, thyroid biopsy, partial right thyroidectomy, esophageal stretching, Endoflip (2019), cardiac cath, loop recorder, oral surgery)
Social History
Tobacco: Non-Smoker
Alcohol: None
Drug: None
Personal:
Living: With Family
Employment: Disabled
Family History
Family History: Other (No family history of gastrointestinal malignancy, multiple family members with inflammatory bowel disease)
Allergies / Home Medications
Allergy/AdvReac Type Severity Reaction Status Date / Time
acetaminophen [From Percocet] Allergy Nausea / Verified 08/21/24 18:57
Vomiting
adhesive tape Allergy Rash Verified 08/21/24 18:57
apixaban [From Eliquis] Allergy Shortness Verified 08/21/24 18:57
of Breath
atorvastatin [From Lipitor] Allergy Unknown Verified 08/21/24 18:57
azithromycin [From Zithromax] Allergy Hives Verified 08/21/24 18:57
beclomethasone Allergy Unknown Verified 08/21/24 18:57
[From Beconase AQ]
budesonide [From Pulmicort] Allergy Shortness Verified 08/21/24 18:57
of Breath
capsaicin Allergy Anaphylaxis Verified 08/21/24 18:57
cefdinir Allergy Hives Verified 08/21/24 18:57
cephalexin Allergy Hives Verified 08/21/24 18:57
clavulanic acid Allergy Rash Verified 08/21/24 18:57
[From Augmentin]
clindamycin Allergy Hives Verified 08/21/24 18:57
clopidogrel Allergy Hives Verified 08/21/24 18:57
clove Allergy Tongue Verified 08/21/24 18:57
Swelling
codeine Allergy Nausea / Verified 08/21/24 18:57
Vomiting
cyclosporine [From Restasis] Allergy Itching-hives, Verified 08/21/24 18:57
itchy eyes
dexamethasone [From Decadron] Allergy Itching Verified 08/21/24 18:57
doxycycline Allergy Hives Verified 08/21/24 18:57
enoxaparin sodium Allergy Hives Verified 08/21/24 18:57
[From Lovenox]
famotidine Allergy Hives Verified 08/21/24 18:57
fluticasone Allergy Tongue Verified 08/21/24 18:57
[From Advair Diskus] Swelling
fluticasone propionate Allergy Shortness Verified 08/21/24 18:57
[From Advair Diskus] of Breath
gallium Allergy hives, Verified 08/21/24 18:57
swelling
heparin Allergy Hives Verified 08/21/24 18:57
hydromorphone HCl Allergy Shortness Verified 08/21/24 18:57
[From Dilaudid] of Breath
hydroxyprogesterone Allergy Hives Verified 08/21/24 18:57
[From Delalutin]
ibuprofen [From Motrin] Allergy Hives Verified 08/21/24 18:57
Iodinated Contrast Media Allergy Hives Verified 08/21/24 18:57
ipratropium [From DuoNeb] Allergy Anaphylaxis Verified 08/21/24 18:57
latex Allergy Hives Verified 08/21/24 18:57
levofloxacin [From Levaquin] Allergy muscle Verified 08/21/24 18:57
cramping
lorazepam Allergy Anaphylaxis Verified 08/21/24 18:57
metoclopramide Allergy Nausea / Verified 08/21/24 18:57
Vomiting
mometasone furoate Allergy Anaphylaxis Verified 08/21/24 18:57
[From Asmanex Twisthaler]
monosodium glutamate Allergy Unknown Verified 08/21/24 18:57
mushroom Allergy Hives Verified 08/21/24 18:57
nitrofurantoin Allergy Hives Verified 08/21/24 18:57
NSAIDS (Non-Steroidal Allergy Anaphylaxis Verified 08/21/24 18:57
Anti-Inflamma
oxycodone [From Percocet] Allergy Nausea / Verified 08/21/24 18:57
Vomiting
pork derived (porcine) Allergy Hives Verified 08/21/24 18:57
prilocaine [From Citanest] Allergy Unknown Verified 08/21/24 18:57
Quinolones Allergy Unknown Verified 08/21/24 18:57
rivaroxaban [From Xarelto] Allergy Hives Verified 08/21/24 18:57
rosuvastatin [From Crestor] Allergy Unknown Verified 08/21/24 18:57
salmeterol Allergy Tongue Verified 08/21/24 18:57
[From Advair Diskus] Swelling
salmeterol xinafoate Allergy Shortness Verified 08/21/24 18:57
[From Advair Diskus] of Breath
shellfish derived Allergy Hives Verified 08/21/24 18:57
Hwhtbyn-AOV-HpA Reductase Allergy Anaphylaxis Verified 08/21/24 18:57
Inhibitor
[Eyropcj-Nfv-Qfk Reductase
Inhibitor]
sucralfate [From Carafate] Allergy migraine Verified 08/21/24 18:57
Sulfa (Sulfonamide Allergy Hives Verified 08/21/24 18:57
Antibiotics)
valsartan Allergy Anaphylaxis Verified 08/21/24 18:57
vancomycin Allergy Hives/itching Verified 08/21/24 18:57
hearing
loss
verapamil Allergy Unknown Verified 08/21/24 18:57
yellow dye Allergy Anaphylaxis Verified 08/21/24 18:57
vitamin b comp Allergy Unknown Uncoded 08/21/24 18:57
vitamin b complex Allergy Unknown Uncoded 08/21/24 18:57
�Medication �Instructions �Recorded
atenolol 25 mg tablet 12.5 mg PO DAILY Blood Pressure 08/23/14
rabeprazole 20 mg tablet,delayed 20 mg PO BID Gastrointestinal Issue 08/23/14
release (AcipHex)
diphenhydramine HCl 25 mg capsule 12.5 mg PO QID Allergies 09/20/20
(Banophen)
acetaminophen 500 mg tablet 1,000 mg PO Q6HPRN PRN mild pain 11/24/21
fondaparinux 5 mg/0.4 mL 5 mg SC Q48H Blood Clot 01/03/23
subcutaneous solution syringe Prevention/Tx
albuterol sulfate 90 mcg/actuation 2 puff inhalation R Q6HPRN PRN SOB 06/27/24
aerosol inhaler
insulin aspart U-100 100 unit/mL 1 sliding scale dose SC AC Diabetes 06/27/24
(3 mL) subcutaneous pen (Novolog
FlexPen U-100 Insulin aspart)
levothyroxine 50 mcg tablet 50 mcg PO HS Thyroid 06/27/24
(Synthroid)
losartan 50 mg tablet 50 mg PO BID Blood Pressure 06/27/24
Review of Systems
-
All other systems: A 12 pt ROS was Negative except as stated above in HPI
Vital Signs
Temp Pulse Resp BP Pulse Ox
98.2 F 83 16 141/76 97
08/22/24 07:44 08/22/24 08:02 08/22/24 07:44 08/22/24 08:02 08/22/24 07:44
Physical Exam
Exam
General: No Apparent Distress
HEENT: Anicteric
Respiratory: Clear
Cardiac: Regular Rhythm
GI: Soft, Non Tender, Non Distended and Normal Bowel Sounds
Skin: Warm and Dry
Neuro: AO x 3
Psych: Calm
Results
WBC 6.5 10^3/uL (4.8-10.8) 08/22/24 06:11
Hgb 11.2 g/dL (12.0-16.0) L 08/22/24 06:11
Hct 34.1 % (37.0-47.0) L 08/22/24 06:11
MCV 82.8 fL (81.0-99.0) 08/22/24 06:11
Plt Count 242 10^3/uL (130-400) 08/22/24 06:11
Absolute Neuts (auto) 4.1 10^3/uL (1.4-6.5) 08/21/24 19:05
Sodium 141 mmol/L (135-145) 08/22/24 06:11
Potassium 3.7 mmol/L (3.5-5.1) 08/22/24 06:11
Chloride 110 mmol/L (98-107) H 08/22/24 06:11
Carbon Dioxide 24 mmol/L (22-30) 08/22/24 06:11
BUN 9 mg/dl (7-17) 08/22/24 06:11
Creatinine 0.8 mg/dL (0.6-1.0) 08/22/24 06:11
Calcium 8.4 mg/dl (8.4-10.2) 08/22/24 06:11
Total Bilirubin 0.4 mg/dl (0.2-1.3) 08/21/24 19:05
AST 27 U/L (14-36) 08/21/24 19:05
ALT 23 U/L (0-35) 08/21/24 19:05
Alkaline Phosphatase 87 U/L (38-126) 08/21/24 19:05
Diagnostic Image Results:
Prior GI Procedures:
EGD: 07/22/2024 (Dr. Mcdaniel) awaiting official report: '1 cm hiatal hernia, gastric polyps'
Colonoscopy: 07/22/2024 (Dr. Mcdaniel) awaiting official report: ' Ulcerative colitis, right colon Hernandez score 2, transverse colon Hernandez score 1, left colon Hernandez score 2'
Assessment / Plan
-
58-year-old female with past medical history of mast cell activation syndrome, diabetes, iron deficiency anemia, hypothyroidism, anxiety, migraines, left-sided CVA, M�ni�re's, chronic dizziness, hypertension, hyperlipidemia, GERD, GI motility
disorder with Endoflip in 2019, hiatal hernia, asthma, neuropathy and kidney stones with history of inflammatory bowel disease initially diagnosed as Crohn's disease in 2017 later found out to be ulcerative colitis initially followed by [facility]
transferred care to [place] and now followed by Dr. Mcdaniel at [facility] since 2022 who comes into the hospital with complaints of increased abdominal pain fatigue and rectal bleeding. We are asked to evaluate for 'colitis flare'. Patient
with recent EGD and colonoscopy at [facility] on 07/22/2024. Has been on multiple Biologics and steroids in the past however these have been discontinued March 2024 for concerns of 'infections'. Patient currently off all medications for
ulcerative colitis. Has appointment with Dr. Agustina Oakes colorectal surgery at [facility] for consideration for subtotal colectomy in September. Last colonoscopy with Hernandez score 1-2 pancolitis. Comes in with concerns of multiple episodes of rectal
bleeding, abdominal pain. Currently with stable hemoglobin. No episodes of rectal bleeding, solid stools, normal white count, tolerating clear liquids, patient wanting to advance diet. No electrolyte derangement. CT without any inflammation (no
oral or IV contrast secondary to patient's inability to tolerate). Call placed to patient's primary tire classifier, discussed he asked for infectious stool studies.
Impression:
History of ulcerative colitis, Hernandez score 1-2
Chronic iron deficiency anemia
History of mast cell activation syndrome
Mildly elevated CRP
Plan:
- Continue clear liquids, no red
- discussed with patient primary GI at [facility]
- Will collect stool for OP, culture and giardia. Will defer Cdiff as stool solid.
-If tolerating diet can DC and will follow up as an outpatient.
-No steroids.
-Patient has follow up with CRS at [facility].
-
-
Thank you for consultation and allowing me to participate in the patient's care. Please call the transactional paralegal GI physician during the after hours with any questions or concerns.
[2024-08-22 08:47] LABS: Glycohemoglobin (HgbA1c) 7.5 % (4.0-5.6)
[2024-08-22 09:42] LABS: Glucose - Point of Care 179 mg/dl (70-99)
[2024-08-22] MEDS: NOVOLOG FLEXPEN-LOW RESISTANCE 1 UNITS SC (09:54)
--- NOTE | 2024-08-22 12:27 | W.PN.HOSP.TC ---
Today's Communication/Plan
-
Discharge
Assessment / Plan
Assessment / Plan
Gen-AAOx3, NAD
HEENT-NC, AT, anicteric, clear oral mm
Neck-supple
CV-reg, no M, +S1/S2
Lungs-clear B/L
Abd-soft, NT, ND
Ext-no edema
Musculoskeletal-no cyanosis, clubbing
Skin-warm and dry
Neuro-grossly non-focal
Psych-calm, cooperative
Ulcerative colitis -not on active treatment per patient wishes. Recommend follow-up closely with her GI physician. Advance diet and discharge today. Discussed with GI service.
Stool culture pending. Discussed with patient that it will take a few days to process the results. Clinically however I doubt she has infectious colitis.
Suspect the symptoms that brought her to the hospital are primarily due to untreated ulcerative colitis.
DM 2 with hyperglycemia hemoglobin A1c 7.5%. -Continue NovoLog insulin.
Essential hypertension -stable.
Mast cell activation syndrome
Hypothyroidism -levothyroxine.
Thrombophilia -continue fondaparinux.
Morbid obesity due to excess calories
Full code
Dispo -discharge today. Outpatient follow-up.
Anticipated Discharge: Today
Subjective/Interval History
-
Date of Service: August 22, 2024
Patient seen and examined. No new complaints.
Objective Data
-
Labs:
Laboratory Results
08/22/24
06:11
WBC 6.5
Hgb 11.2 L
Hct 34.1 L
Plt Count 242
Sodium 141
Potassium 3.7
Chloride 110 H
Carbon Dioxide 24
BUN 9
Creatinine 0.8
Glucose 154 H
Calcium 8.4
Vital Signs:
Vital Signs
Temp Pulse Resp BP Pulse Ox
98.2 F 83 16 141/76 97
08/22/24 07:44 08/22/24 08:02 08/22/24 07:44 08/22/24 08:02 08/22/24 07:44
Review of Systems
-
History Source: Patient
All other systems: Reviewed and negative
--- NOTE | 2024-08-22 12:31 | W.DS.TRANS ---
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
-
Discharge Instructions:
Discharge Diagnosis/Procedures Ulcerative colitis
Diet Low Residue
Activity As tolerated
Driving Restrictions As prior to admission
Bathing Restrictions None
Instructions:
Stand-Alone Forms:
Changes to Home Medications: No
Discharge Medications:
DC Medications w/original date entered in [employer]
atenolol 25 mg tablet 12.5 mg PO DAILY Blood Pressure 08/23/14
rabeprazole 20 mg tablet,delayed release (AcipHex) 20 mg PO BID Gastrointestinal Issue 08/23/14
diphenhydramine HCl 25 mg capsule (Banophen) 12.5 mg PO QID Allergies 09/20/20
acetaminophen 500 mg tablet 1,000 mg PO Q6HPRN PRN mild pain 11/24/21
fondaparinux 5 mg/0.4 mL subcutaneous solution syringe 5 mg SC Q48H Blood Clot Prevention/Tx 01/03/23
albuterol sulfate 90 mcg/actuation aerosol inhaler 2 puff inhalation R Q6HPRN PRN SOB 06/27/24
insulin aspart U-100 100 unit/mL (3 mL) subcutaneous pen (Novolog FlexPen U-100 Insulin aspart) 1 sliding scale dose SC AC Diabetes 06/27/24
levothyroxine 50 mcg tablet (Synthroid) 50 mcg PO HS Thyroid 06/27/24
losartan 50 mg tablet 50 mg PO BID Blood Pressure 06/27/24
Home Medication Changes
Pending Results: No
[2024-08-22 13:44] LABS: Glucose - Point of Care 127 mg/dl (70-99)
--- NOTE | 2024-08-22 15:43 | EDRN ---
Patient given discharge instructions by Amanda Gutiérrez RN.
== END 2024-08-22 15:58 | disposition home or self-care (01) ==
LOC: ED 03:48
PROVIDERS: Emergency Medicine; Physician Assistant; Student in an Organized Health Care Education/Training Program; ADMITTING PHYSICIAN Hospitalist; ATTENDING PHYSICIAN Hospitalist; CONSULT PHYSICIAN Internal Medicine Gastroenterology; EMERGENCY PHYSICIAN Student in an Organized Health Care Education/Training Program; FAMILY PHYSICIAN Family Medicine
DX: K51.911 Ulcerative colitis, unspecified with rectal bleeding (principal); R10.9 Unspecified abdominal pain; E11.65 Type 2 diabetes mellitus with hyperglycemia; I10 Essential (primary) hypertension; E03.9 Hypothyroidism, unspecified; D68.59 Other primary thrombophilia; E66.01 Morbid (severe) obesity due to excess calories; Z68.42 Body mass index [BMI] 45.0-49.9, adult; Z87.891 Personal history of nicotine dependence
CPT/HCPCS: 74176; 80048; 80053; 81003; 81015; 82962; 83036; 83605; 83993; 85025; 85027; 85652; 86140; 87045; 87046; 87077; 87086; 87328; 87329; 87427; 96360; 99284; G0378

== ENCOUNTER 2024-08-31 13:49 | Emergency (ER) | payer MEDICARE, OTHER, SELFPAY ==
[2024-08-31 13:55] VITALS: BP 160/88
[2024-08-31 15:10] VITALS: BP 153/82
[2024-08-31 15:19] LABS: % Basophils 1.1 % (0-2); % Eosinophils 8.4 % (0-6); % Immature Granulocytes 0.2 % (0-0.5); % Lymphocytes 21.4 % (20.5-51.1); % Monocytes 5.6 % (1.7-9.3); % Neutrophils 63.3 % (42.2-75.2); Absolute Basophils 0.1 10^3/uL (0-0.2); Absolute Eosinophils 0.5 10^3/uL (0-0.7); Absolute Lymphocytes 1.3 10^3/uL (1.2-3.4); Absolute Monocytes 0.4 10^3/uL (0.1-0.6); Absolute Neutrophils 3.9 10^3/uL (1.4-6.5); Hemoglobin 11.2 g/dL (12.0-16.0); Mean Corp Hgb Conc. 32.9 g/dL (33.0-37.0); Mean Corpuscular Hgb 26.9 pg (27.0-31.0); Mean Corpuscular Volume 81.5 fL (81.0-99.0); Nucleated Red Blood Cells % 0 %; Platelet Count 266 10^3/uL (130-400); Red Blood Cell Count 4.17 10^6/uL (4.20-5.40); Red Cell Dist. Width 15.6 % (11.5-14.5); White Blood Cell Count 6.2 10^3/uL (4.8-10.8)
[2024-08-31 15:34] LABS: ALT (SGPT) 21 U/L (0-35); AST (SGOT) 26 U/L (14-36); Albumin 3.8 g/dl (3.5-5.0); Alkaline Phosphatase 83 U/L (38-126); Blood Urea Nitrogen 13 mg/dl (7-17); Calcium 9.3 mg/dl (8.4-10.2); Carbon Dioxide 29 mmol/L (22-30); Chloride 106 mmol/L (98-107); Glucose 167 mg/dl (70-99); Potassium 4.3 mmol/L (3.5-5.1); Sodium 139 mmol/L (135-145); Total Bilirubin 0.4 mg/dl (0.2-1.3); Total Protein 6.8 g/dl (6.3-8.2); eGFR > 60.00
[2024-08-31 15:43] LABS: Troponin I 0.015 ng/ml
[2024-08-31 16:16] VITALS: BP 167/87
[2024-08-31 18:05] LABS: Troponin I < 0.012 ng/ml
--- NOTE | 2024-08-31 18:13 | ED.GENMED ---
History of Present Illness
General
Chief Complaint: Chest Pain
Source: patient and spouse
Time Seen by Provider: 08/31/24 14:25
History of Present Illness
History of Present Illness:
This is a 58-year-old female who presents with concerns for chest pain. 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 Then somewhere around 11:30 AM started developed chest discomfort. She states it is a burning type
sensation in the center of her chest. She was not sure was related to indigestion. Was a little bit nauseous. Does have a history of GI issues that she has been dealing with. No shortness of breath. Pain has resolved.
Past History
Past History
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
inflammatory bowel disease,) and Other (Crohn's disease, 'Mass cell activation syndrome', Migraines, Chronic back pain, Hiatal hernia, Renal calculus, Vertigo, factor 8 elevation, ,anemia, Esophageal stretching)
ED Past Surgical History: Cardiac (Loop recorder), Cholecystectomy, Gynecological (Uterine Ablation), Orthopedic (C3-4 spinal fusion, left ear surgery) and Other (Partial right Thyroidectomy )
Social History
Tobacco: Former smoker
Alcohol: None
Drug: None
Personal: ([employer])
Living: with family
Employment: Disabled
Family History
Family History: Other (Father with coronary artery disease mother with coronary artery disease)
Phy Exam
Physical Exam
Physical Exam:
CONSTITUTIONAL Patient alert and oriented to person, place and time. Well-appearing. Vital signs reviewed.
HEAD atraumatic, normocephalic.
EYES eyelids normal to inspection, Extraocular muscles intact, Conjunctiva normal, Sclera normal.
NECK normal range of motion, Trachea midline, no jugular venous distention.
RESPIRATORY CHEST No respiratory distress noted, Chest expansion equal, Bilateral breath sounds clear.
CARDIOVASCULAR regular rate and rhythm, Heart sounds normal.
ABDOMEN abdomen nontender, Bowel sounds normal. No distention.
BACK normal inspection, no obvious deformities
UPPER EXTREMITY range of motion normal, Motor strength normal, no cyanosis, no edema.
LOWER EXTREMITY range of motion normal, Motor strength normal, no cyanosis, no edema.
NEURO Speech normal, No focal motor deficits, [place] coma scale 15, Memory normal, Cranial Nerves intact to screening exam.
SKIN skin warm, dry, and normal in color.
Scores
Heart Score for Chest Pain Patients
STEMI patient?: No
History: Slightly or Non-Suspicious
ECG: Normal
Age: >45 - <65 years
Risk Factors: 1 or 2 Risk Factors
Troponin: </= Normal Limit
Heart Score for Chest Pain Patients: 2
Heart Score Risk: 2.5% MACE over next 6 weeks
Course
Orders/Labs/Results
Orders:
Orders
08/31/24 13:50
ECG [Electrocardiogram (*1)] Urgent
Reason for Study: Chest Pain
EKG- Treatment ONCE
08/31/24 14:37
CR Chest - 2 Views Urgent
Comment:
Reason For Exam: cp
08/31/24 15:12
Complete Blood Count/With Diff Urgent
Comprehensive Metabolic Panel Urgent
Troponin I Urgent
08/31/24 17:32
Troponin I Urgent
Abnormal Lab Results
08/31/24
15:12
RBC 4.17 L 10^6/uL
(4.20-5.40)
Hgb 11.2 L g/dL
(12.0-16.0)
Hct 34.0 L %
(37.0-47.0)
MCH 26.9 L pg
(27.0-31.0)
MCHC 32.9 L g/dL
(33.0-37.0)
RDW 15.6 H %
(11.5-14.5)
Eosinophils % 8.4 H %
(0-6)
Glucose 167 H mg/dl
(70-99)
08/31/24 15:12
08/31/24 15:12
Vital Signs
Initial and Last Documented VS:
Initial Vital Signs
Temp Pulse Resp BP Pulse Ox
98 F 74 16 160/88 99
08/31/24 13:55 08/31/24 13:55 08/31/24 13:55 08/31/24 13:55 08/31/24 13:55
Last Documented Vital Signs
Temp Pulse Resp BP Pulse Ox
98 F 71 18 168/72 96
08/31/24 13:55 08/31/24 18:34 08/31/24 18:34 08/31/24 18:38 08/31/24 18:34
MDM/Problems Addressed
Differential Diagnosis Includes:
ME, ACS, esophagitis, gastritis, PE, pneumothorax
MDM/Problems Addressed:
Chest pain
*Radiology
Radiology exam reviewed: preliminary read by ED provider
*Pulse Oximetry
Patient hypoxic: no
*EKG
Interpreted by ED Provider?: Yes
Interpretation: abnormal
Comparison EKG: no changes
Rate: normal
Rhythm: sinus
[place]: normal axis
Ischemia: other (Anterior T wave inversions no different from prior)
*Application Architect Manager Interpretation
Rate: normal
Interpretation: normal
Rhythm: sinus
*Critical Care Note
Total Time (30-74mins, 75-104mins- exclusive of procedures): Not Applicable
Data Reviewed
Source: patient and spouse (Spouse states that it started around 1130 while they were out)
Prescriptions/Medications Considered But Not Given:
Consider nitroglycerin pain is resolved
Patient Management
Escalation/DeEscalation of care consider admission/obs:
Troponin x 2 unremarkable. Suspect GI related given that this started with indigestion. Recommended outpatient follow-up.
ED Attending Note
-
Portions of this chart may have been created with voice recognition software.� Occasional wrong word or��sound alike� substitutions may have occurred due to the inherent limitations of voice recognition software.
Discharge Plan
Departure
Patient Disposition: Home (Routine Discharge)
Date of Disposition: 08/31/24
Time of Disposition: 18:34
Patient with high blood pressure during this ER visit?: Yes
Discharge Problem:
Chest pain
Instructions: Chest Pain PCP Follow Up
Prescriptions:
No Action
rabeprazole [AcipHex] 20 MG tablet,delayed release (DR/EC)
20 mg PO BID
atenolol 25 MG tablet
12.5 mg PO DAILY
diphenhydramine HCl [Banophen] 25 MG capsule
12.5 mg PO QID
acetaminophen 500 mg Tablet
1,000 mg PO Q6HPRN PRN (Reason: mild pain)
fondaparinux 5 mg/0.4 mL Syringe
5 mg SC Q48H
losartan 50 mg Tablet
50 mg PO BID
levothyroxine [Synthroid] 50 mcg Tablet
50 mcg PO HS
albuterol sulfate 90 mcg/actuation Hfa Aerosol Inhaler
2 puff INHALATION R Q6HPRN PRN (Reason: SOB)
insulin aspart U-100 [Novolog FlexPen U-100 Insulin] 100 unit/mL (3 mL) Insulin Pen
1 sliding scale dose SC AC
Referrals:
Whitney George MD [Family Provider] -
Activity Restrictions/Additional Instructions:
Please see your doctor in the next 1 week for follow-up and reevaluation. Return today for worsening symptoms, shortness of breath, vomiting or any other concerns.
Interventions
Interventions:
*Risk Screen - Suicide Last Done: 08/31/24 13:55
*Neglect/Abuse Screening Last Done: 08/31/24 13:55
*Nursing Disposition Last Done: 08/31/24 18:41
ED- Cardiac Assessment Last Done: 08/31/24 15:15
Discharge Date and Time
Discharge Date/Time: 08/31/24 18:41
Print Language: WELSH
[2024-08-31 18:38] VITALS: BP 168/72
== END 2024-08-31 18:41 | disposition home or self-care (01) ==
LOC: EMR 13:49
PROVIDERS: EMERGENCY PHYSICIAN Emergency Medicine; FAMILY PHYSICIAN Family Medicine
DX: R07.89 Other chest pain (principal); E03.9 Hypothyroidism, unspecified; E11.9 Type 2 diabetes mellitus without complications; E78.00 Pure hypercholesterolemia, unspecified; I10 Essential (primary) hypertension; J45.909 Unspecified asthma, uncomplicated; Z86.16 Personal history of COVID-19; Z86.73 Personal history of transient ischemic attack (TIA), and cerebral infarction without residual deficits; Z87.891 Personal history of nicotine dependence
CPT/HCPCS: 99285; 71046; 80053; 84484; 85025; 93005

== ENCOUNTER 2025-01-26 03:32 | Emergency (ER) | payer MEDICARE, OTHER, SELFPAY ==
[2025-01-26] VITALS (9 sets, daily range): BP systolic 128–166; BP diastolic 71–90; BMI 44.9
[2025-01-26 03:57] LABS: Hematocrit 36.3 % (37.0-47.0); Hemoglobin 11.3 g/dL (12.0-16.0); Mean Corp Hgb Conc. 31.1 g/dL (33.0-37.0); Mean Corpuscular Volume 77.6 fL (81.0-99.0); Nucleated Red Blood Cells % 0 %; Platelet Count 251 10^3/uL (130-400); Red Cell Dist. Width 16.7 % (11.5-14.5)
[2025-01-26 04:15] LABS: APTT 28.9 Sec (23.4-35.0)
[2025-01-26 04:23] LABS: Troponin I < 0.012 ng/ml
[2025-01-26 04:30] LABS: ALT (SGPT) 44 U/L (0-35); AST (SGOT) 48 U/L (14-36); Albumin 4.4 g/dl (3.5-5.0); Alkaline Phosphatase 138 U/L (38-126); Blood Urea Nitrogen 15 mg/dl (7-17); Calcium 9.9 mg/dl (8.4-10.2); Carbon Dioxide 21 mmol/L (22-30); Chloride 108 mmol/L (98-107); Estimated Creatinine Clearance 71 ml/min; Glucose 124 mg/dl (70-99); Magnesium 1.4 mg/dl (1.6-2.3); Potassium 3.9 mmol/L (3.5-5.1); Sodium 139 mmol/L (135-145); Total Protein 7.4 g/dl (6.3-8.2); eGFR > 60.00
[2025-01-26] MEDS: VENTOLIN NEBULES 2.5 MG INH (04:49)
--- NOTE | 2025-01-26 04:59 | EDRN ---
while assessing chest pain, pt states 'it's when I breathe.' when clarifying pain location with patient regarding chest pain vs respiratory pain with coughing/SOB/deep breathe, etc. pt states she is unable to decipher.
--- NOTE | 2025-01-26 05:01 | EDRN ---
Received verbal order from Dr Morrow for additional lab work - D-Dimer. See orders
[2025-01-26 05:35] LABS: D-Dimer 0.34 ug/mlFEU (0.00-0.50)
--- NOTE | 2025-01-26 06:49 | ED.GENMED ---
History of Present Illness
<Elias Morrow DO - Last Filed: 01/26/25 06:51>
General
Chief Complaint: Chest Pain
Source: patient
Time Seen by Provider: 01/26/25 03:39
History of Present Illness
History of Present Illness:
Note:
CHIEF COMPLAINT(S)
Chest pain radiating to the left arm and shortness of breath.
HISTORY OF PRESENT ILLNESS
The patient is a 59-year-old female presenting with chest pain that radiates from the wrist up her left arm. The symptoms began yesterday afternoon, around 4 or 5 PM, and have been associated with shortness of breath. She describes the pain as
shooting. The patient reports never having experienced similar chest pain before and has been feeling very short of breath since the onset of symptoms.
The patient has a history of several strokes and a documented funny ST wave on her electrocardiogram. A loop recorder was previously placed but is now non-functional due to a battery; it was initially used to monitor for atrial fibrillation,
which she has not been diagnosed with. Her last stress test was conducted in August at a cardiology center, which demonstrated moderate left ventricular dysfunction. She follows up with cardiology in another facility due to a previous stroke and
subsequent loop recorder insertion.
The patient denies frequent chest pain but mentions experiencing reflux. She also notes episodes of low magnesium. The current episode of chest pain is different from her usual reflux symptoms.
PAST MEDICAL AND SURGICAL HISTORY
- History of several strokes
- Placement of a loop recorder
SOCIAL HISTORY
The patient mentions a lack of trust in certain healthcare providers and has changed her follow-up care accordingly.
MEDICATIONS
The patient reports being on aspirin.
PHYSICAL EXAM
General: Alert, no acute distress.
Skin: Warm, dry.
Head: Normocephalic, atraumatic.
Neck: Supple, trachea midline.
Eye Ears, nose, mouth and throat: Oral mucosa moist.
Cardiovascular: Normal peripheral perfusion, No edema.
Respiratory: Respirations are non-labored.
Gastrointestinal: Abdomen nondistended.
Back: Normal range of motion, Normal alignment.
Musculoskeletal: Normal ROM, normal strength.
Neurological: Alert and oriented to person, place, time, and situation, No focal neurological deficit observed.
Psychiatric: Cooperative, appropriate mood & affect.
PLAN
- Obtain blood work to evaluate the chest pain.
- Discuss potential removal of the non-functioning loop recorder.
DIFFERENTIAL DIAGNOSIS
The Differential Diagnosis includes, in no particular order and is not limited to:
1. Acute coronary syndrome
2. Aortic dissection
3. Pulmonary embolism
4. Cardiac arrhythmia
5. Pericarditis
6. Gastroesophageal reflux disease (GERD)
7. Musculoskeletal pain
8. Pneumonia
9. Anxiety
10. Costochondritis
CARE-UPDATE
01/26/25 - 04:26
X-ray comparison shows no new findings; no indication of pneumonia, fluid, blood, or collapsed lung. Patient reports point pain but no further acute distress. Noted history includes past ileostomy due to ulcerative colitis with necrotic bowel risk
and rectal removal. No CHF or COPD; former smoker but quit nearly 30 years ago. Reports recent shortness of breath, potentially exacerbated by low magnesium levels previously at 0.8. Scheduled for albuterol treatment to assess improvement. Blood
thinner use noted. No current fever, and breathing treatment response will guide further imaging decisions. Diabetes management noted with recent glucose monitoring showing fluctuations. Further evaluation planned, and CT scan reserved pending
treatment response.
CARE-UPDATE
01/26/25 - 05:08
Reviewed lab results with the patient. She reported that the albuterol is not providing relief. Consideration needed for adjusting her treatment plan, potentially exploring alternative medications for better symptom control.
CARE-UPDATE
01/26/25 - 05:54
The patient is being considered for steroid treatment, specifically prednisone, to aid with breathing difficulties. Theres a discussion on the potential for a one-time dose of dexamethasone, though the mode of administration is undecided between IV
or oral. The patient is aware that steroid administration can cause blood sugar levels to rise but is comfortable managing it due to regular blood glucose monitoring. Any decision on discharge or further admission is on hold while assessment results
are awaited.
CARE-UPDATE
01/26/25 - 06:49
The patient reported experiencing chest pain but noted partial relief during the visit. Initial troponin was negative, and a second troponin test is pending. The patient has been handed over to the day shift team for continued monitoring. Next steps
include repeating the troponin test, evaluating patient ambulation, and determining disposition based on monitoring results and test outcomes.
Past History
<Elias Morrow DO - Last Filed: 01/26/25 06:51>
Past History
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
inflammatory bowel disease,) and Other (Crohn's disease, 'Mass cell activation syndrome', Migraines, Chronic back pain, Hiatal hernia, Renal calculus, Vertigo, factor 8 elevation, ,anemia, Esophageal stretching)
ED Past Surgical History: Cardiac (Loop recorder), Cholecystectomy, Gynecological (Uterine Ablation), Orthopedic (C3-4 spinal fusion, left ear surgery) and Other (Partial right Thyroidectomy )
Social History
Tobacco: Former smoker
Alcohol: None
Drug: None
Personal: (Common Law)
Living: with family
Employment: Disabled
Family History
Family History: Other (Father with coronary artery disease mother with coronary artery disease)
Phy Exam
<Lydia Alberto MD - Last Filed: 01/26/25 13:13>
Physical Exam
Physical Exam:
Physical Exam
General: no apparent distress, not acutely ill
Neck: supple. no meningeal signs. normal psoterior pharynx
Heart: s1/s2 regular rate and rhythm, no murmur. equal radial pulses.
Lungs: no acute respiratory distress. clear bilaterally
Abdomen: normal bowel sounds. not tender. no CVAT
Neuro: alert and oriented. no focal neurological deficits
Skin: no rash
Psychiatric: well kept. interactive and cooperative
Extremities: no edema. no calf tenderness. negative homans. good distal pulses
Scores
<Lydia Alberto MD - Last Filed: 01/26/25 13:13>
Heart Score for Chest Pain Patients
STEMI patient?: Not applicable
Course
<Elias Morrow DO - Last Filed: 01/26/25 06:51>
Orders/Labs/Results
Orders:
Orders
01/26/25 03:36
ECG [Electrocardiogram (*1)] Urgent
Reason for Study: Chest Pain
EKG- Treatment ONCE
01/26/25 03:40
Cardiac Monitoring- Treatment ONCE
IV Insert/Care/Rem.- Treatment PRN
Chest [CR Chest - 2 Views ] Urgent
Comment:
Reason For Exam: chest pain
O2 Therapy [RESP] Urgent
Titrate/Wean O2 to maintain O2 sat greater than (%): 90
Special Instructions: Maintain sats >/=90%
Pulse Ox/spot Check [RESP] Urgent
Quantity: 1
Special Instructions: ON ROOM AIR
01/26/25 03:45
Complete Blood Count/With Diff Urgent
Comprehensive Metabolic Panel Urgent
D-Dimer Urgent
Comment: ADD ON
Magnesium Urgent
PTT Urgent
Troponin I Urgent
01/26/25 03:46
Free T4 Urgent
TSH Reflex To Free T4 Urgent
01/26/25 04:34
Albuterol Nebs [Ventolin Nebules] 2.5 mg INH R NOW STA
01/26/25 05:01
Add On- LAB Urgent
Tests Added?: D-Dimer
01/26/25 06:47
Electrocardiogram (*1) Urgent
Reason for Study: Chest Pain
Ambulate Patient-Treatment ONCE
EKG- Treatment ONCE
01/26/25 06:50
Dexamethasone Sod Phosphate [Decadron] 10 mg IV NOW STA
01/26/25 07:06
Troponin I Urgent
01/26/25 07:07
Prednisone [Deltasone] 40 mg PO NOW STA
01/26/25 08:03
Magnesium Sulfate 1 G/D5w [Magnesium Sulfate] 1 gm in 100 ml IV NOW
Abnormal Lab Results
01/26/25 01/26/25
03:45 03:46
Hgb 11.3 L g/dL
(12.0-16.0)
Hct 36.3 L %
(37.0-47.0)
MCV 77.6 L fL
(81.0-99.0)
MCH 24.1 L pg
(27.0-31.0)
MCHC 31.1 L g/dL
(33.0-37.0)
RDW 16.7 H %
(11.5-14.5)
Chloride 108 H mmol/L
(98-107)
Carbon Dioxide 21 L mmol/L
(22-30)
Glucose 124 H mg/dl
(70-99)
Magnesium 1.4 L mg/dl
(1.6-2.3)
AST 48 H U/L
(14-36)
ALT 44 H U/L
(0-35)
Alkaline Phosphatase 138 H U/L
(38-126)
TSH (Reflex) 10.70 H uIU/ml
(0.47-4.68)
01/26/25 03:45
10/20/25 03:45
Vital Signs
Initial and Last Documented VS:
Initial Vital Signs
Temp Pulse Resp BP Pulse Ox
98.7 F 95 20 166/90 99
01/26/25 03:35 01/26/25 03:35 01/26/25 03:35 01/26/25 03:35 01/26/25 03:35
Last Documented Vital Signs
Temp Pulse Resp BP Pulse Ox
98.7 F 71 13 136/76 94
01/26/25 03:35 01/26/25 09:55 01/26/25 09:55 01/26/25 09:56 01/26/25 10:00
<Lydia Alberto MD - Last Filed: 01/26/25 13:13>
Orders/Labs/Results
Orders:
Orders
01/26/25 03:36
ECG [Electrocardiogram (*1)] Urgent
Reason for Study: Chest Pain
EKG- Treatment ONCE
01/26/25 03:40
Cardiac Monitoring- Treatment ONCE
IV Insert/Care/Rem.- Treatment PRN
Chest [CR Chest - 2 Views ] Urgent
Comment:
Reason For Exam: chest pain
O2 Therapy [RESP] Urgent
Titrate/Wean O2 to maintain O2 sat greater than (%): 90
Special Instructions: Maintain sats >/=90%
Pulse Ox/spot Check [RESP] Urgent
Quantity: 1
Special Instructions: ON ROOM AIR
01/26/25 03:45
Complete Blood Count/With Diff Urgent
Comprehensive Metabolic Panel Urgent
D-Dimer Urgent
Comment: ADD ON
Magnesium Urgent
PTT Urgent
Troponin I Urgent
01/26/25 03:46
Free T4 Urgent
TSH Reflex To Free T4 Urgent
01/26/25 04:34
Albuterol Nebs [Ventolin Nebules] 2.5 mg INH R NOW STA
01/26/25 05:01
Add On- LAB Urgent
Tests Added?: D-Dimer
01/26/25 06:47
Electrocardiogram (*1) Urgent
Reason for Study: Chest Pain
Ambulate Patient-Treatment ONCE
EKG- Treatment ONCE
01/26/25 06:50
Dexamethasone Sod Phosphate [Decadron] 10 mg IV NOW STA
01/26/25 07:06
Troponin I Urgent
01/26/25 07:07
Prednisone [Deltasone] 40 mg PO NOW STA
01/26/25 08:03
Magnesium Sulfate 1 G/D5w [Magnesium Sulfate] 1 gm in 100 ml IV NOW
Abnormal Lab Results
01/26/25 01/26/25
03:45 03:46
Hgb 11.3 L g/dL
(12.0-16.0)
Hct 36.3 L %
(37.0-47.0)
MCV 77.6 L fL
(81.0-99.0)
MCH 24.1 L pg
(27.0-31.0)
MCHC 31.1 L g/dL
(33.0-37.0)
RDW 16.7 H %
(11.5-14.5)
Chloride 108 H mmol/L
(98-107)
Carbon Dioxide 21 L mmol/L
(22-30)
Glucose 124 H mg/dl
(70-99)
Magnesium 1.4 L mg/dl
(1.6-2.3)
AST 48 H U/L
(14-36)
ALT 44 H U/L
(0-35)
Alkaline Phosphatase 138 H U/L
(38-126)
TSH (Reflex) 10.70 H uIU/ml
(0.47-4.68)
01/26/25 03:45
01/26/25 03:45
Vital Signs
Initial and Last Documented VS:
Initial Vital Signs
Temp Pulse Resp BP Pulse Ox
98.7 F 95 20 166/90 99
01/26/25 03:35 01/26/25 03:35 01/26/25 03:35 01/26/25 03:35 01/26/25 03:35
Last Documented Vital Signs
Temp Pulse Resp BP Pulse Ox
98.7 F 71 13 136/76 94
01/26/25 03:35 01/26/25 09:55 01/26/25 09:55 01/26/25 09:56 01/26/25 10:00
<Lydia Alberto MD - Last Filed: 01/26/25 13:13>
MDM/Problems Addressed
Differential Diagnosis Includes:
Pneumonia, CHF, acute coronary syndrome
MDM/Problems Addressed:
Patient complains of acute chest pain and shortness of breath
<Elias Morrow DO - Last Filed: 01/26/25 06:51>
*Pulse Oximetry
SaO2: 97
Oxygen Mode of Delivery: Room air
<Lydia Alberto MD - Last Filed: 01/26/25 13:13>
*Radiology
Radiology exam reviewed: preliminary read by ED provider (Chest x-ray read by me. No acute disease) and radiology read reviewed
*Pulse Oximetry
Patient hypoxic: no
*EKG
Interpreted by ED Provider?: Yes
Interpretation: abnormal
Comparison EKG: no changes
Rate: normal
Rhythm: sinus
[place]: left axis deviation
Interval: normal interval
QRS Pattern: normal QRS
Ischemia: ST depression (However, unchanged)
*Telegraphic Typewriter Repairer Interpretation
Rate: normal
Interpretation: normal
Rhythm: sinus
*Critical Care Note
Total Time (30-74mins, 75-104mins- exclusive of procedures): Not Applicable
Data Reviewed
Review of Other/Old Records Reveals: Radiology Studies (Chest x-ray reviewed from May 2024 which shows no acute disease)
Source: patient
<Lydia Alberto MD - Last Filed: 01/26/25 13:13>
Patient Management
Social determinants of health affecting care: Living situation and Strong social support
Escalation/DeEscalation of care consider admission/obs:
Patient looks completely well and comfortable. Walking pulse ox is normal. Breath sounds have been clear for hours without any sign of respiratory distress. Chest x-ray is normal. Both troponins are normal. EKG is unchanged
D-dimer is normal so it is unlikely patient has a PE.
<Lydia Alberto MD - Last Filed: 01/26/25 13:13>
Update Note
Update Note:
repeat EKG done at 7:08. unchanged. ST depressions that are chronic. normal axis and sinus rhythm
8:08 AM patient is resting comfortably. Breathing completely comfortably. Asking for IV magnesium, which I will order. Normal walking pulse ox with no symptoms during walking
ED Attending Note
<Elias Morrow DO - Last Filed: 01/26/25 06:51>
-
Portions of this chart may have been created with voice recognition software.� Occasional wrong word or��sound alike� substitutions may have occurred due to the inherent limitations of voice recognition software.
Discharge Plan
Departure
Patient Disposition: Home (Routine Discharge)
Date of Disposition: 01/26/25
Time of Disposition: 09:29
Patient with high blood pressure during this ER visit?: Yes
Condition: Good
Covid-19: Not Applicable
Discharge Problem:
Chest pain, Acute dyspnea
Instructions: Shortness of breath in adults - ED (DC), Chest Pain DCA Follow Up, BLOOD PRESSURE
Prescriptions:
New
prednisone 10 mg tablet
10 mg PO DAILY 4 Days Qty: 10 0RF
Rx Instructions:
Take 40 mg on day 1
Take 30 mg on day 2
Take 20 mg on day 3
Take 10 mg on day 4
No Action
rabeprazole [AcipHex] 20 MG tablet,delayed release (DR/EC)
20 mg PO BID
atenolol 25 MG tablet
25 mg PO DAILY
diphenhydramine HCl [Banophen] 25 MG capsule
12.5 mg PO QID
acetaminophen 500 mg Tablet
1,000 mg PO Q6HPRN PRN (Reason: mild pain)
fondaparinux 5 mg/0.4 mL Syringe
5 mg SC Q48H
levothyroxine [Synthroid] 50 mcg Tablet
50 mcg PO HS
albuterol sulfate 90 mcg/actuation Hfa Aerosol Inhaler
2 puff INHALATION R Q6HPRN PRN (Reason: SOB)
insulin aspart U-100 [Novolog FlexPen U-100 Insulin] 100 unit/mL (3 mL) Insulin Pen
1 sliding scale dose SC AC
Referrals:
Jeane Mercado MD [Family Provider, Family Practice]
Activity Restrictions/Additional Instructions:
Follow-up with your primary care doctor within 1 week to go over your blood work. Your magnesium was slightly low. Your thyroid function test was slightly abnormal.
Interventions
Interventions:
*Risk Screen - Suicide Last Done: 01/26/25 03:34
*General Assessment Last Done: 01/26/25 03:34
*Neglect/Abuse Screening Last Done: 01/26/25 03:43
*ED- Fall Risk Assessment Last Done: 01/26/25 03:43
*ED COVID-19 Vaccine History Last Done: 01/26/25 03:43
*ED Influenza Vaccine History Last Done: 01/26/25 03:43
*Nursing Disposition Last Done: 01/26/25 09:55
ED- Cardiac Assessment Last Done: 01/26/25 07:24
Discharge Date and Time
Discharge Date/Time: 01/26/25 10:10
Print Language: BELARUSIAN
[2025-01-26 07:40] LABS: Troponin I < 0.012 ng/ml
[2025-01-26] MEDS: MAGNESIUM SULFATE 100 IV (08:26)
== END 2025-01-26 10:10 | disposition home or self-care (01) ==
LOC: EMR 03:32
PROVIDERS: EMERGENCY PHYSICIAN Student in an Organized Health Care Education/Training Program; FAMILY PHYSICIAN Family Medicine
DX: R07.9 Chest pain, unspecified (principal); R06.00 Dyspnea, unspecified; E11.9 Type 2 diabetes mellitus without complications; I10 Essential (primary) hypertension; E78.00 Pure hypercholesterolemia, unspecified; J45.909 Unspecified asthma, uncomplicated; E89.0 Postprocedural hypothyroidism; D89.40 Mast cell activation, unspecified; K21.9 Gastro-esophageal reflux disease without esophagitis; K50.90 Crohn's disease, unspecified, without complications; K44.9 Diaphragmatic hernia without obstruction or gangrene; F41.9 Anxiety disorder, unspecified; H81.09 Meniere's disease, unspecified ear; M54.9 Dorsalgia, unspecified; G89.29 Other chronic pain; Z79.4 Long term (current) use of insulin; Z79.82 Long term (current) use of aspirin; Z86.73 Personal history of transient ischemic attack (TIA), and cerebral infarction without residual deficits; Z87.891 Personal history of nicotine dependence; Z86.16 Personal history of COVID-19; Z90.49 Acquired absence of other specified parts of digestive tract; Z82.49 Family history of ischemic heart disease and other diseases of the circulatory system
CPT/HCPCS: 99284; 96365; 96375; 94640; 71046; 80053; 83735; 84439; 84443; 84484; 85025; 85379; 85730; 93005

== ENCOUNTER 2025-02-19 18:01 | Emergency (ER) | payer MEDICARE, OTHER, SELFPAY ==
[2025-02-19 18:04] VITALS: BP 155/82
--- NOTE | 2025-02-19 18:43 | ED.GENMED ---
History of Present Illness
General
Chief Complaint: Chest Pain
Source: patient and spouse
Exam Limitations: none
Time Seen by Provider: 02/19/25 18:28
Nursing documentation reviewed up to this point in time: agreed with
History of Present Illness
History of Present Illness:
Note:
CHIEF COMPLAINT(S)
The patient presents with shortness of breath and intermittent chest pain.
HISTORY OF PRESENT ILLNESS
The patient is a 59-year-old female with a history of mast cell activation syndrome and previous strokes, who has been experiencing shortness of breath and intermittent chest pain characterized by a tight and crushing feeling. Symptoms commenced a
couple of days prior, and she reports episodes of breaking out in sweat, a cough described as bronchitis-like, and a sensation of being winded. The patient also reports using her inhaler without relief and taking acetaminophen and dextromethorphan
without significant improvement. EKG results showed some minor abnormalities consistent with her known history, and her recent COVID-19 and influenza tests were negative. She reports a problem with magnesium and iron absorption and notes a
fluctuating TSH level. A recent hemoglobin A1c was measured at 7%. She is scheduled for an iron infusion and B12 supplementation tomorrow. The patient is on treatment for hernia-related obesity and cites recent control over her blood glucose levels.
She has a loop recorder, currently inactive, and is taking fondaparinux due to a history of strokes. She denies any recent steroid usage except for an infusion two weeks ago. The patient has a history of pulmonary complications following COVID-19 in
2020, which left residual lung scarring and a prolonged period on supplemental oxygen.
PAST MEDICAL AND SURGICAL HISTORY
- Mast cell activation syndrome
- History of strokes
- Obesity
- History of COVID-19 with prolonged oxygen dependency
- Status post hernia (awaiting surgery pending weight loss)
CHRONIC MEDICAL CONDITIONS SIGNIFICANTLY AFFECTING CARE
- History of strokes
- Mast cell activation syndrome
- Obesity
- Previous COVID-19 infection with lung scarring
SOCIAL DETERMINANTS AFFECTING HEALTH
The patient reports financial restraint impacting her follow-up for regular medical evaluations, such as her inactive loop recorder needing attention.
REVIEW OF SYSTEMS
- Respiratory: Reports shortness of breath and a bronchitis-like cough.
- Cardiovascular: Intermittent chest pain with a tight, crushing feeling.
- Endocrine: Fluctuating TSH levels, previously fluctuating glucose levels.
- Hematologic: Reports issues with magnesium and iron absorption.
PHYSICAL EXAM
General: Alert, no acute distress.
Skin: Warm, dry.
Head: Normocephalic, atraumatic.
Neck: Supple, trachea midline.
Eye Ears, nose, mouth and throat: Oral mucosa moist.
Cardiovascular: Normal peripheral perfusion, No edema.
Respiratory: Respirations are non-labored.
Gastrointestinal: Abdomen nondistended
Back: Normal range of motion, normal alignment.
Musculoskeletal: Normal ROM, normal strength.
Neurological: Alert and oriented to person, place, time, and situation, No focal neurological deficit observed.
Psychiatric: Cooperative, appropriate mood & affect.
PROBLEM LIST
Acute Problems:
- Shortness of breath
- Chest pain
Chronic Problems:
- Mast cell activation syndrome
- History of strokes
- Obesity
- Previous COVID-19 infection with residual lung scarring
PLAN
- Order chest X-ray
- Perform blood tests including magnesium, TSH, and troponin
- Review iron levels and plan for scheduled iron infusion and B12 supplementation
- Evaluate the activity of the loop recorder
- Consider pulmonary function testing in light of previous [id number] lung scarring
DIFFERENTIAL DIAGNOSIS
The Differential Diagnosis includes, in no particular order and is not limited to:
- Asthma exacerbation
- Chronic obstructive pulmonary disease
- Congestive heart failure
- Pulmonary embolism
- Myocardial ischemia
- Pneumonia
- Anemia
- Thyroid dysfunction
- Lung scarring or fibrosis
- Electrolyte imbalance (due to magnesium absorption issues)
CARE-UPDATE
02/19/25 - 19:52
Mg level at 1.4; will replete orally. Plan for discharge as patient is stable.
Disposition:
SUMMARY OF ENCOUNTER
The patient, a 59-year-old female, presented with symptoms including chest pressure and dizziness. Despite the presence of these symptoms, there were no indications of pulmonary embolism (PE), congestive heart failure (CHF), pneumonia, or acute
coronary syndrome (ACS). The symptoms could possibly be attributed to a viral cause. The patients condition was stable and did not warrant hospital admission.
DISPOSITION
Discharge
ASSESSMENT
The patients presentation included chest pressure and dizziness with no signs of PE, CHF, pneumonia, or ACS, suggesting a potential viral etiology.
PLAN
The plan is to monitor symptoms, ensure supportive care, and consider outpatient follow-up.
INDEPENDENT REVIEW OF LABS AND INTERPRETATION OF TESTS
My independent interpretation indicates no signs of PE, CHF, pneumonia, or ACS based on the evaluations conducted.
FOLLOW-UP INSTRUCTIONS
The patient should follow up with a primary care provider or return to the emergency department if symptoms worsen or new symptoms develop.
MEDICAL DECISION MAKING
- Number and Complexity of Problems Addressed: Chronic conditions affecting care include history of strokes, mast cell activation syndrome, obesity, and residual lung issues from previous COVID-19 infection.
- Data:
- Category 1: Tests indicate no signs of PE, CHF, pneumonia, or ACS.
- Risk: Consideration of Admission/Observation: Escalation of care including admission/observation was considered given the complexity and risk of the patients presenting complaint, exam findings, and underlying comorbidities. However, ultimately, I
feel the patient is safe for outpatient management with close follow-up. Reasoning: The work-up is reassuring, does not reveal any acute life/organ-threatening processes, and the patients symptoms are well-controlled.
DIAGNOSIS
- Chest pain, unspecified (ICD-10: R07.9)
- Dizziness and giddiness (ICD-10: R42)
hypomagnesemia
Past History
Past History
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
inflammatory bowel disease,) and Other (Crohn's disease, 'Mass cell activation syndrome', Migraines, Chronic back pain, Hiatal hernia, Renal calculus, Vertigo, factor 8 elevation, ,anemia, Esophageal stretching)
ED Past Surgical History: Cardiac (Loop recorder), Cholecystectomy, Gynecological (Uterine Ablation), Orthopedic (C3-4 spinal fusion, left ear surgery) and Other (Partial right Thyroidectomy )
Social History
Tobacco: Former smoker
Alcohol: None
Drug: None
Personal: (Common Law)
Living: with family
Employment: Disabled
Family History
Family History: Other (Father with coronary artery disease mother with coronary artery disease)
Phy Exam
Physical Exam
Physical Exam:
.
Scores
Heart Score for Chest Pain Patients
STEMI patient?: No
History: Slightly or Non-Suspicious
ECG: Normal
Age: >45 - <65 years
Risk Factors: 1 or 2 Risk Factors
Troponin: </= Normal Limit
Heart Score for Chest Pain Patients: 2
Heart Score Risk: 2.5% MACE over next 6 weeks
Course
Orders/Labs/Results
Orders:
Orders
02/19/25 18:01
Electrocardiogram (*1) Urgent
Reason for Study: Chest Pain
EKG- Treatment ONCE
02/19/25 18:42
Pulse Ox/cont/shift [RESP] Stat
Quantity: 1
02/19/25 18:43
Cardiac Monitoring- Treatment ONCE
CR Chest - 2 Views Urgent
Comment:
Reason For Exam: short of breath
02/19/25 18:51
Complete Blood Count/With Diff Urgent
Comprehensive Metabolic Panel Urgent
D-Dimer Urgent
Magnesium Urgent
NT-proBNP Urgent
Troponin I Urgent
02/19/25 19:51
Magnesium Oxide 400 mg PO NOW STA
02/19/25 19:59
Magnesium Sulfate 2 Gram/50 ml [Magnesium Sulfate] 2 gram in 50 ml IV NOW
Abnormal Lab Results
02/19/25
18:51
MCV 78.8 L fL
(81.0-99.0)
MCH 25.6 L pg
(27.0-31.0)
MCHC 32.5 L g/dL
(33.0-37.0)
RDW 16.7 H %
(11.5-14.5)
Glucose 134 H mg/dl
(70-99)
Magnesium 1.4 L mg/dl
(1.6-2.3)
AST 51 H U/L
(14-36)
ALT 54 H U/L
(0-35)
Alkaline Phosphatase 136 H U/L
(38-126)
02/19/25 18:51
02/19/25 18:51
Vital Signs
Initial and Last Documented VS:
Initial Vital Signs
Temp Pulse Resp BP Pulse Ox
99.4 F 94 16 155/82 98
02/19/25 18:04 02/19/25 18:04 02/19/25 18:04 02/19/25 18:04 02/19/25 18:04
Last Documented Vital Signs
Temp Pulse Resp BP Pulse Ox
99.4 F 91 12 128/79 97
02/19/25 18:04 02/19/25 19:45 02/19/25 19:45 02/19/25 19:00 02/19/25 19:45
*Pulse Oximetry
SaO2: 98
Oxygen Mode of Delivery: Room air
Patient hypoxic: no
*Critical Care Note
Total Time (30-74mins, 75-104mins- exclusive of procedures): Not Applicable
ED Attending Note
-
Portions of this chart may have been created with voice recognition software.� Occasional wrong word or��sound alike� substitutions may have occurred due to the inherent limitations of voice recognition software.
Discharge Plan
Departure
Patient Disposition: Home (Routine Discharge)
Date of Disposition: 02/19/25
Time of Disposition: 19:54
Patient with high blood pressure during this ER visit?: Yes
Condition: Good
Discharge Problem:
Chest pain, Dizziness, Shortness of breath, Hypomagnesemia
Instructions: Dizziness in adults - ED (DC), Shortness of breath in adults - ED (DC), Chest Pain PCP Follow Up
Prescriptions:
No Action
rabeprazole [AcipHex] 20 MG tablet,delayed release (DR/EC)
20 mg PO BID
atenolol 25 MG tablet
25 mg PO DAILY
diphenhydramine HCl [Banophen] 25 MG capsule
12.5 mg PO QID
acetaminophen 500 mg Tablet
1,000 mg PO Q6HPRN PRN (Reason: mild pain)
fondaparinux 5 mg/0.4 mL Syringe
5 mg SC Q48H
levothyroxine [Synthroid] 50 mcg Tablet
50 mcg PO HS
albuterol sulfate 90 mcg/actuation Hfa Aerosol Inhaler
2 puff INHALATION R Q6HPRN PRN (Reason: SOB)
insulin aspart U-100 [Novolog FlexPen U-100 Insulin] 100 unit/mL (3 mL) Insulin Pen
1 sliding scale dose SC AC
prednisone 10 mg tablet
10 mg PO DAILY 4 Days Qty: 10 0RF
Rx Instructions:
Take 40 mg on day 1
Take 30 mg on day 2
Take 20 mg on day 3
Take 10 mg on day 4
Referrals:
UNKNOWN - PT NOT,INTERVIEWE [Unknown Provider]
Activity Restrictions/Additional Instructions:
Follow up with primary care. Return for any concerns.
Interventions
Interventions:
*Risk Screen - Suicide Last Done: 02/19/25 18:04
*General Assessment Last Done: 02/19/25 18:54
*Neglect/Abuse Screening Last Done: 02/19/25 18:04
*ED- Fall Risk Assessment Last Done: 02/19/25 18:54
*ED COVID-19 Vaccine History Last Done: 02/19/25 18:54
*ED Influenza Vaccine History Last Done: 02/19/25 18:54
ED- Cardiac Assessment Last Done: 02/19/25 18:53
Discharge Date and Time
Print Language: PANAMANIAN
[2025-02-19 18:50] VITALS: BP 134/88
[2025-02-19 19:00] VITALS: BP 128/79
[2025-02-19 19:01] LABS: Hematocrit 38.2 % (37.0-47.0); Hemoglobin 12.4 g/dL (12.0-16.0); Mean Corp Hgb Conc. 32.5 g/dL (33.0-37.0); Mean Corpuscular Volume 78.8 fL (81.0-99.0); Nucleated Red Blood Cells % 0 %; Platelet Count 280 10^3/uL (130-400); Red Cell Dist. Width 16.7 % (11.5-14.5)
[2025-02-19 19:14] LABS: D-Dimer 0.32 ug/mlFEU (0.00-0.50)
[2025-02-19 19:23] LABS: ALT (SGPT) 54 U/L (0-35); AST (SGOT) 51 U/L (14-36); Albumin 4.5 g/dl (3.5-5.0); Alkaline Phosphatase 136 U/L (38-126); Blood Urea Nitrogen 16 mg/dl (7-17); Calcium 9.9 mg/dl (8.4-10.2); Carbon Dioxide 25 mmol/L (22-30); Chloride 101 mmol/L (98-107); Glucose 134 mg/dl (70-99); Magnesium 1.4 mg/dl (1.6-2.3); Potassium 4.4 mmol/L (3.5-5.1); Sodium 135 mmol/L (135-145); Total Protein 7.2 g/dl (6.3-8.2); Troponin I < 0.012 ng/ml; eGFR > 60.00
[2025-02-19 20:00] VITALS: BP 151/76
[2025-02-19] MEDS: MAGNESIUM SULFATE 50 IV (20:05)
== END 2025-02-19 22:14 | disposition home or self-care (01) ==
LOC: EMR 18:01
PROVIDERS: EMERGENCY PHYSICIAN Emergency Medicine; FAMILY PHYSICIAN Family Medicine
DX: R07.9 Chest pain, unspecified (principal); R42 Dizziness and giddiness; R06.02 Shortness of breath; E83.42 Hypomagnesemia; E03.9 Hypothyroidism, unspecified; E11.9 Type 2 diabetes mellitus without complications; E78.00 Pure hypercholesterolemia, unspecified; I10 Essential (primary) hypertension; J45.909 Unspecified asthma, uncomplicated; Z86.73 Personal history of transient ischemic attack (TIA), and cerebral infarction without residual deficits; Z98.1 Arthrodesis status; Z87.891 Personal history of nicotine dependence; Z86.16 Personal history of COVID-19
CPT/HCPCS: 96365; 96366; 99285; 71046; 80053; 83735; 83880; 84484; 85025; 85379; 93005

== ENCOUNTER 2025-03-02 18:14 | Emergency (ER) | payer MEDICARE, OTHER, SELFPAY ==
[2025-03-02 18:17] VITALS: BP 153/101
[2025-03-02 18:37] LABS: Hematocrit 38.6 % (37.0-47.0); Hemoglobin 12.5 g/dL (12.0-16.0); Mean Corp Hgb Conc. 32.4 g/dL (33.0-37.0); Mean Corpuscular Volume 79.4 fL (81.0-99.0); Nucleated Red Blood Cells % 0 %; Platelet Count 252 10^3/uL (130-400); Red Cell Dist. Width 16.8 % (11.5-14.5)
[2025-03-02 18:52] LABS: ALT (SGPT) 78 U/L (0-35); AST (SGOT) 69 U/L (14-36); Albumin 4.5 g/dl (3.5-5.0); Alkaline Phosphatase 135 U/L (38-126); Blood Urea Nitrogen 17 mg/dl (7-17); Calcium 9.8 mg/dl (8.4-10.2); Carbon Dioxide 28 mmol/L (22-30); Chloride 103 mmol/L (98-107); Glucose 122 mg/dl (70-99); Lipase 246 U/L (23-300); Potassium 4.3 mmol/L (3.5-5.1); Sodium 135 mmol/L (135-145); Total Protein 7.5 g/dl (6.3-8.2); eGFR > 60.00
[2025-03-02 19:02] LABS: Troponin I < 0.012 ng/ml
[2025-03-02] MEDS: TYLENOL 1000 MG PO (21:32)
--- NOTE | 2025-03-02 21:47 | ED.GENMED ---
History of Present Illness
General
Chief Complaint: Abdominal Pain
Time Seen by Provider: 03/02/25 20:47
History of Present Illness
History of Present Illness:
59-year-old female with history of ulcerative colitis, GERD, hypertension, mast cell syndrome presenting for generalized abdominal discomfort and gas discomfort. Notes symptoms started yesterday. She is feeling bloated. Also notes some
discoloration from her ostomy, green in color. Denies vomiting. Reports history of total colectomy in October with subsequent ostomy placement. She denies chest pain or difficulty breathing. Reports other surgical history of appendectomy and
cholecystectomy. Denies additional acute medical complaints
Past History
Past History
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
inflammatory bowel disease,) and Other (Crohn's disease, 'Mass cell activation syndrome', Migraines, Chronic back pain, Hiatal hernia, Renal calculus, Vertigo, factor 8 elevation, ,anemia, Esophageal stretching)
ED Past Surgical History: Cardiac (Loop recorder), Cholecystectomy, Gynecological (Uterine Ablation), Orthopedic (C3-4 spinal fusion, left ear surgery) and Other (Partial right Thyroidectomy )
Social History
Tobacco: Former smoker
Alcohol: None
Drug: None
Personal: (Common Law)
Living: with family
Employment: Disabled
Family History
Family History: Other (Father with coronary artery disease mother with coronary artery disease)
Phy Exam
Physical Exam
Physical Exam:
General: Well-appearing, no clinical signs of dehydration, nontoxic and in no acute distress
HEENT: protecting airway
Neck: appears supple
CV: Normal heart rate, regular rhythm
Resp: No accessory muscle use, no increased work of breathing
Abd: Soft and non-distended, generalized tenderness epigastric, left upper quadrant, left lower quadrant. Normal-appearing ostomy output. No signs of any blood in the stool. No inflammation around the ostomy. No significant distention with
audible bowel sounds.
Extremities: No deformities, no swelling
Neuro: alert, no focal neurologic deficit
: deferred
Rectal: deferred
Psych: Normal affect
Skin: Intact
Course
Orders/Labs/Results
Orders:
Orders
03/02/25 18:16
Electrocardiogram (*1) Urgent
Reason for Study: Chest Pain
EKG- Treatment ONCE
03/02/25 18:31
Complete Blood Count/With Diff Urgent
Comprehensive Metabolic Panel Urgent
Lipase Urgent
Magnesium Urgent
Comment: ADD ON
TSH Reflex To Free T4 Urgent
Comment: ADD ON
Troponin I Urgent
03/02/25 21:20
Add On- LAB Urgent
Tests Added?: tsh w reflex T4 and magnesium level
CT Abd/pel Without Iv Or Oral Urgent
Comment:
Reason For Exam: generalized pain, hx total colectomy
Acetaminophen [Tylenol] 1,000 mg PO NOW STA
03/02/25 22:40
Magnesium Sulfate 1 G/D5w [Magnesium Sulfate] 1 gm in 100 ml IV NOW
Abnormal Lab Results
03/02/25
18:31
MCV 79.4 L fL
(81.0-99.0)
MCH 25.7 L pg
(27.0-31.0)
MCHC 32.4 L g/dL
(33.0-37.0)
RDW 16.8 H %
(11.5-14.5)
Absolute Neuts (auto) 6.6 H 10^3/uL
(1.4-6.5)
Lymphocytes % 18.8 L %
(20.5-51.1)
Glucose 122 H mg/dl
(70-99)
Magnesium 1.4 L mg/dl
(1.6-2.3)
AST 69 H U/L
(14-36)
ALT 78 H U/L
(0-35)
Alkaline Phosphatase 135 H U/L
(38-126)
03/02/25 18:31
03/02/25 18:31
Vital Signs
Initial and Last Documented VS:
Initial Vital Signs
Temp Pulse Resp BP Pulse Ox
98.4 F 78 18 153/101 99
03/02/25 18:17 03/02/25 18:17 03/02/25 18:17 03/02/25 18:17 03/02/25 18:17
Last Documented Vital Signs
Temp Pulse Resp BP Pulse Ox
98.4 F 78 18 153/101 99
03/02/25 18:17 03/02/25 18:17 03/02/25 18:17 03/02/25 18:17 03/02/25 21:54
MDM/Problems Addressed
MDM/Problems Addressed:
59-year-old female with history of ulcerative colitis, GERD, hypertension, mast cell syndrome presenting for abdominal pain and bloating. Vital signs on arrival are significant for hypertension.
On exam, patient nontoxic, no acute distress. Overall benign abdominal exam, no distention, generalized tenderness. Normal-appearing ostomy output. No report of any vomiting or fever. Suspect increased gas as etiology of patient's symptoms,
however given her complex history, will obtain CT imaging. Patient notes allergy to IV and oral contrast. For this reason, will obtain a CT without contrast. Patient also with multiple allergies to pain medications. Requesting Tylenol only which
she has tolerated in the past. Labs obtained prior to my assessment. No leukocytosis. Patient does have mild elevation of her liver enzymes, however notes that this has been ongoing. Suspect component of fatty liver disease
Patient CT shows epiploic appendagitis. Otherwise concerning features regarding patient's stoma, known hernia. No obstruction. On reassessment, patient's pain appears controlled. No surgical indication at this time. Ultimately feel stable for
continued outpatient supportive therapy and outpatient follow-up with her physician. Return precautions discussed and copy of reports provided. Patient verbalized understanding
*Pulse Oximetry
SaO2: 99
Oxygen Mode of Delivery: Room air
Patient hypoxic: no
*Critical Care Note
Total Time (30-74mins, 75-104mins- exclusive of procedures): Not Applicable
ED Attending Note
-
Portions of this chart may have been created with voice recognition software.� Occasional wrong word or��sound alike� substitutions may have occurred due to the inherent limitations of voice recognition software.
Discharge Plan
Departure
Prescriptions:
No Action
rabeprazole [AcipHex] 20 MG tablet,delayed release (DR/EC)
20 mg PO BID
atenolol 25 MG tablet
25 mg PO DAILY
diphenhydramine HCl [Banophen] 25 MG capsule
12.5 mg PO QID
acetaminophen 500 mg Tablet
1,000 mg PO Q6HPRN PRN (Reason: mild pain)
fondaparinux 5 mg/0.4 mL Syringe
5 mg SC Q48H
levothyroxine [Synthroid] 50 mcg Tablet
50 mcg PO HS
albuterol sulfate 90 mcg/actuation Hfa Aerosol Inhaler
2 puff INHALATION R Q6HPRN PRN (Reason: SOB)
insulin aspart U-100 [Novolog FlexPen U-100 Insulin] 100 unit/mL (3 mL) Insulin Pen
1 sliding scale dose SC AC
prednisone 10 mg tablet
10 mg PO DAILY 4 Days Qty: 10 0RF
Rx Instructions:
Take 40 mg on day 1
Take 30 mg on day 2
Take 20 mg on day 3
Take 10 mg on day 4
Referrals:
Whitney George MD [Family Provider, Family Practice]
Interventions
Interventions:
*Risk Screen - Suicide Last Done: 03/02/25 18:17
*General Assessment Last Done: 03/02/25 18:17
*Neglect/Abuse Screening Last Done: 03/02/25 18:17
Discharge Date and Time
Print Language: KAZAKH
[2025-03-02 22:02] LABS: Magnesium 1.4 mg/dl (1.6-2.3)
[2025-03-02] MEDS: MAGNESIUM SULFATE 100 IV (22:51)
[2025-03-03 00:17] VITALS: BP 145/78
== END 2025-03-03 00:19 | disposition home or self-care (01) ==
LOC: EMR 18:14
PROVIDERS: Emergency Medicine; EMERGENCY PHYSICIAN Student in an Organized Health Care Education/Training Program; FAMILY PHYSICIAN Family Medicine
DX: K63.89 Other specified diseases of intestine (principal); K46.9 Unspecified abdominal hernia without obstruction or gangrene; E03.9 Hypothyroidism, unspecified; E11.9 Type 2 diabetes mellitus without complications; E78.00 Pure hypercholesterolemia, unspecified; I10 Essential (primary) hypertension; J45.909 Unspecified asthma, uncomplicated; K58.9 Irritable bowel syndrome, unspecified; Z86.73 Personal history of transient ischemic attack (TIA), and cerebral infarction without residual deficits; Z87.891 Personal history of nicotine dependence; Z90.49 Acquired absence of other specified parts of digestive tract; Z98.1 Arthrodesis status
CPT/HCPCS: 96365; 99284; 74176; 80053; 83690; 83735; 84443; 84484; 85025; 93005

== ENCOUNTER 2025-03-13 17:38 | Emergency (ER) | payer MEDICARE, OTHER, SELFPAY ==
[2025-03-13 17:47] VITALS: BP 159/82
[2025-03-13 18:07] LABS: Hematocrit 38.4 % (37.0-47.0); Hemoglobin 12.4 g/dL (12.0-16.0); Mean Corp Hgb Conc. 32.3 g/dL (33.0-37.0); Mean Corpuscular Volume 80.5 fL (81.0-99.0); Nucleated Red Blood Cells % 0 %; Platelet Count 291 10^3/uL (130-400); Red Cell Dist. Width 16.6 % (11.5-14.5)
[2025-03-13 18:27] LABS: ALT (SGPT) 75 U/L (0-35); AST (SGOT) 63 U/L (14-36); Albumin 4.3 g/dl (3.5-5.0); Alkaline Phosphatase 116 U/L (38-126); Blood Urea Nitrogen 19 mg/dl (7-17); Calcium 9.6 mg/dl (8.4-10.2); Carbon Dioxide 29 mmol/L (22-30); Chloride 102 mmol/L (98-107); Glucose 144 mg/dl (70-99); Magnesium 1.5 mg/dl (1.6-2.3); Potassium 4.8 mmol/L (3.5-5.1); Sodium 135 mmol/L (135-145); Total Protein 7.2 g/dl (6.3-8.2); eGFR > 60.00
[2025-03-13 20:05] LABS: Urine Character Clear (Clear)
[2025-03-13 20:12] LABS: Urine White Cell 70-80 /HPF (0-5)
[2025-03-13 20:14] LABS: Urine Red Blood Cell 0-2 /HPF (0-2)
[2025-03-13] MEDS: NSS 500 IV (21:56)
[2025-03-13] MEDS: MAGNESIUM SULFATE 50 IV (21:58)
--- NOTE | 2025-03-13 22:23 | ED.GENMED ---
History of Present Illness
General
Chief Complaint: Abnormal Lab Value
Source: patient
Exam Limitations: none
Time Seen by Provider: 03/13/25 20:48
Nursing documentation reviewed up to this point in time: agreed with
History of Present Illness
History of Present Illness:
Patient with history of recent ileostomy bag and chronic hypomagnesemia, requiring outpatient infusion, presents to ED secondary to recurrent generalized weakness and muscle cramping sensation. Patient was scheduled to receive outpatient IV
magnesium infusion at [place], but unfortunately, her ordering physician was not available. Denies fever or chills. Denies vomiting or diarrhea. Denies loss of appetite. Patient does report increased output noted in her ileostomy bag recently.
Denies recent change in medications.
Past History
Past History
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
inflammatory bowel disease,) and Other (Crohn's disease, 'Mass cell activation syndrome', Migraines, Chronic back pain, Hiatal hernia, Renal calculus, Vertigo, factor 8 elevation, ,anemia, Esophageal stretching)
ED Past Surgical History: Cardiac (Loop recorder), Cholecystectomy, Gynecological (Uterine Ablation), Orthopedic (C3-4 spinal fusion, left ear surgery) and Other (Partial right Thyroidectomy )
Social History
Tobacco: Former smoker
Alcohol: None
Drug: None
Personal: ([employer])
Living: with family
Employment: Disabled
Family History
Family History: Other (Father with coronary artery disease mother with coronary artery disease)
Review of Systems
Review of Systems
Allergies reviewed?: Yes
All Other Systems: ROS reviewed and negative except as documented in HPI and ROS
Constitutional: Reports no symptoms
Cardiac: Reports no symptoms
ABD/GI: Reports no symptoms
: Reports no symptoms
Musculoskeletal: Reports muscle pain
Skin: Reports no symptoms
Neurological: Reports weakness; Denies dizzy or headache
Phy Exam
Physical Exam
Physical Exam:
Physical Exam
General: no apparent distress, not acutely ill. afebrile.
Head: nc/at. eomi
Neck: supple. no meningeal signs.
Heart: s1/s2 regular rate and rhythm
Lungs: no acute respiratory distress. clear bilaterally
Abdomen: normal bowel sounds. not tender.
Neuro: alert and oriented x 3. no focal neurological deficits
Skin: no rash
Psychiatric: well kept. interactive and cooperative
Extremities: no edema. no calf tenderness.
Course
Orders/Labs/Results
Orders:
Orders
03/13/25 17:59
CBC/With Diff [Complete Blood Count/With Diff] Urgent
Comprehensive Metabolic Panel Urgent
Magnesium Urgent
03/13/25 19:57
Urinalysis Reflex To Culture Urgent
Date Specimen was Collected: 03/13/25
Time Specimen was Collected: 19:55
Urine Microscopic Reflex Cult Urgent
Urine Culture Urgent
[facility] Source: U
Specimen Description:
Date Specimen was Collected: 03/13/25
Time Specimen was Collected: 19:55
03/13/25 21:15
0.9% Sodium Chloride 500 ml [Nss] 500 ml IV BOLUS
Magnesium Sulfate 2 Gram/50 ml [Magnesium Sulfate] 2 gram in 50 ml IV NOW
03/13/25 23:16
0.9% Sodium Chloride 250 ml [Nss] 250 ml IV BOLUS
Abnormal Lab Results
03/13/25 03/13/25
17:59 19:57
MCV 80.5 L fL
(81.0-99.0)
MCH 26.0 L pg
(27.0-31.0)
MCHC 32.3 L g/dL
(33.0-37.0)
RDW 16.6 H %
(11.5-14.5)
BUN 19 H mg/dl
(7-17)
Glucose 144 H mg/dl
(70-99)
Magnesium 1.5 L mg/dl
(1.6-2.3)
AST 63 H U/L
(14-36)
ALT 75 H U/L
(0-35)
Ur Occult Blood Reflex 1+ A
(Negative)
Leukocyte Esterase Rfl 3+ A
(Negative)
Urine WBC (Reflex) 70-80 A /HPF
(0-5)
Urine Bacteria (Reflex) Moderate A
(Negative)
Urine Albumin (Reflex) 1+ A
(Neg - Trace)
03/13/25 17:59
03/13/25 17:59
Vital Signs
Initial and Last Documented VS:
Initial Vital Signs
Temp Pulse Resp BP Pulse Ox
98.7 F 81 20 159/82 99
03/13/25 17:47 03/13/25 17:47 03/13/25 17:47 03/13/25 17:47 03/13/25 17:47
Last Documented Vital Signs
Temp Pulse Resp BP Pulse Ox
98.7 F 77 16 159/82 97
03/13/25 17:47 03/14/25 00:30 03/14/25 00:30 03/13/25 17:47 03/14/25 00:30
MDM/Problems Addressed
MDM/Problems Addressed:
Urinalysis noted and discussed with patient. Patient has had UTI symptoms, i.e. urinary frequency/urgency. In the patient's multiple antibiotic allergies with her underlying medical condition, decision made to start patient on Augmentin, which she
has taken in the past without any adverse reaction. Urine culture pending.
Patient provided with a magnesium infusion along with IV fluids, with improvement in symptoms. Patient requesting to be discharged home. Patient otherwise is afebrile, hemodynamically stable, and appears comfortable, at time of discharge, to the
care of her spouse.
*Pulse Oximetry
SaO2: 99
Oxygen Mode of Delivery: Room air
Patient hypoxic: no
*Critical Care Note
Total Time (30-74mins, 75-104mins- exclusive of procedures): Not Applicable
ED Attending Note
-
Portions of this chart may have been created with voice recognition software.� Occasional wrong word or��sound alike� substitutions may have occurred due to the inherent limitations of voice recognition software.
Discharge Plan
Departure
Patient Disposition: Home (Routine Discharge)
Date of Disposition: 03/14/25
Time of Disposition: 00:28
Patient with high blood pressure during this ER visit?: Yes
Condition: Fair
Discharge Problem:
Hypomagnesemia
Instructions: Hypomagnesemia
Prescriptions:
New
amoxicillin-pot clavulanate 875-125 mg tablet
1 tab PO BID Qty: 14 0RF
No Action
rabeprazole [AcipHex] 20 MG tablet,delayed release (DR/EC)
20 mg PO BID
atenolol 25 MG tablet
25 mg PO DAILY
diphenhydramine HCl [Banophen] 25 MG capsule
12.5 mg PO QID
acetaminophen 500 mg Tablet
1,000 mg PO Q6HPRN PRN (Reason: mild pain)
fondaparinux 5 mg/0.4 mL Syringe
5 mg SC Q48H
levothyroxine [Synthroid] 50 mcg Tablet
50 mcg PO HS
albuterol sulfate 90 mcg/actuation Hfa Aerosol Inhaler
2 puff INHALATION R Q6HPRN PRN (Reason: SOB)
insulin aspart U-100 [Novolog FlexPen U-100 Insulin] 100 unit/mL (3 mL) Insulin Pen
1 sliding scale dose SC AC
prednisone 10 mg tablet
10 mg PO DAILY 4 Days Qty: 10 0RF
Rx Instructions:
Take 40 mg on day 1
Take 30 mg on day 2
Take 20 mg on day 3
Take 10 mg on day 4
Referrals:
Whitney George MD [Family Provider, [facility]]
Activity Restrictions/Additional Instructions:
As discussed, please follow-up with your primary care physician for continual evaluation and treatment.
Interventions
Interventions:
*Risk Screen - Suicide Last Done: 03/13/25 17:47
*General Assessment Last Done: 03/13/25 17:47
*Neglect/Abuse Screening Last Done: 03/13/25 17:47
*ED COVID-19 Vaccine History Last Done: 03/14/25 00:55
*ED Influenza Vaccine History Last Done: 03/14/25 00:55
[facility] Fall Risk Assessment Tool Last Done: 03/14/25 00:55
*Nursing Disposition Last Done: 03/14/25 00:55
Discharge Date and Time
Discharge Date/Time: 03/14/25 00:55
Print Language: [id number]
[2025-03-13] MEDS: NSS 250 IV (23:33)
== END 2025-03-14 00:55 | disposition home or self-care (01) ==
LOC: EMR 17:38
PROVIDERS: Emergency Medicine; EMERGENCY PHYSICIAN Emergency Medicine; FAMILY PHYSICIAN Family Medicine
DX: E83.42 Hypomagnesemia (principal); R79.89 Other specified abnormal findings of blood chemistry; J45.909 Unspecified asthma, uncomplicated; K21.9 Gastro-esophageal reflux disease without esophagitis; E11.9 Type 2 diabetes mellitus without complications; I10 Essential (primary) hypertension; E03.9 Hypothyroidism, unspecified; E78.00 Pure hypercholesterolemia, unspecified; K50.90 Crohn's disease, unspecified, without complications; Z82.49 Family history of ischemic heart disease and other diseases of the circulatory system; Z86.16 Personal history of COVID-19; Z86.73 Personal history of transient ischemic attack (TIA), and cerebral infarction without residual deficits; Z87.440 Personal history of urinary (tract) infections; Z87.442 Personal history of urinary calculi; Z87.891 Personal history of nicotine dependence; Z88.1 Allergy status to other antibiotic agents; Z90.49 Acquired absence of other specified parts of digestive tract; Z98.1 Arthrodesis status
CPT/HCPCS: 99283; 96374; 96361; 80053; 81003; 81015; 83735; 85025; 87086